=== PATIENT | female | born 1945 | race Hispanic/Latino ===

== ENCOUNTER → 2017-10-26 13:59 | Outpatient (CLI) | payer MEDICAID, SELFPAY ==
--- NOTE | 2017-10-26 14:05 | ECHOD_ITS ---
Reason For Study: Breast Cancer Procedure This was a 2D Doppler, Color Flow transthoracic echocardiogram. Exam performed in department. Left Ventricle Normal LV size. Mild concentric left ventricular hypertrophy. Left ventricular systolic function is normal. The estimated ejection fraction is 60 %. No regional wall motion abnormalities noted. Right Ventricle Normal right ventricle. Normal systolic function. Atria Normal left atrium. Normal right atrium. Mitral Valve Normal mitral valve. Mild (1+) eccentric mitral valve insufficiency. Tricuspid Valve Normal tricuspid valve. Mild tricuspid valve insufficiency. Aortic Valve Trisinus/trileaflet aortic valve. Mild focal aortic valve calcification. Pulmonic Valve Normal pulmonic valve. Great Vessels Normal aortic root. The pulmonary artery is normal size. Normal inferior vena cava. Pericardium/Pleural No pericardial effusion. MMode/2D Measurements & Calculations LVIDd: 3.4 cm IVSd: 1.6 cm LVOT diam: 2.0 cm LVIDs: 2.1 cm LVPWd: 1.2 cm LVOT area: 3.1 cm2 RVDd: 2.9 cm FS: 37.7 % Ao root diam: 2.6 cm LAV(MOD-bp): 42.3 ml LVAd ap4: 19.5 cm2 LA dimension: 3.6 cm LAV(MOD-bp) Indexed: 25.5 ml/m2 EDV(MOD-sp4): 50.2 ml LAV(MOD-sp2): 39.4 ml EDV(sp4-el): 52.3 ml LAV(MOD-sp4): 39.9 ml LVAs ap4: 10.8 cm2 ESV(MOD-sp4): 18.4 ml ESV(sp4-el): 19.1 ml EF(MOD-sp4): 63.3 % EF(sp4-el): 63.6 % SV(MOD-sp4): 31.8 ml SV(sp4-el): 33.3 ml LA A4 area: 14.7 cm2 RA A4 area: 10.0 cm2 Time Measurements MV dec time: 0.20 sec Doppler Measurements & Calculations MV E max lefty: 86.8 cm/sec Lat Peak E' Lefty: 5.4 cm/sec Med Peak E' Lefty: 3.9 cm/sec MV A max lefty: 101.4 cm/sec E/E' lat: 16.2 E/E' med: 22.4 MV E/A: 0.86 MV V2 max: 127.1 cm/sec MV P1/2t max lefty: 89.2 cm/sec Ao V2 max: 138.9 cm/sec MV max P.5 mmHg MV P1/2t: 65.2 msec Ao max P.7 mmHg MV V2 mean: 64.2 cm/sec MV dec slope: 401.1 cm/sec2 Ao V2 mean: 91.2 cm/sec MV mean P.0 mmHg MVA(P1/2t): 3.4 cm2 Ao mean P.0 mmHg MV V2 VTI: 30.6 cm Ao V2 VTI: 28.5 cm MVA(VTI): 2.5 cm2 MALCOLM(I,D): 2.7 cm2 MALCOLM(V,D): 2.4 cm2 LV V1 max: 107.8 cm/sec SV(LVOT): 77.8 ml PA V2 max: 77.0 cm/sec LV V1 max P.7 mmHg LV V1 mean P.0 mmHg LV V1 mean: 82.9 cm/sec LV V1 VTI: 25.3 cm TR max lefty: 219.3 cm/sec TR max P.2 mmHg Interpretation Summary Normal LV size. Mild concentric left ventricular hypertrophy. The estimated ejection fraction is 60 %. Left ventricular systolic function is normal. Mild (1+) eccentric mitral valve insufficiency. Mild tricuspid valve insufficiency. Ordering Physician: Hernan Jesus Referring Physician: HERNAN JESUS Performed By: Cl Franks RCS
== END ==
PROVIDERS: Family Provider Student in an Organized Health Care Education/Training Program; PCP Student in an Organized Health Care Education/Training Program
DX: C50.411 Malignant neoplasm of upper-outer quadrant of right female breast (principal); Z17.0 Estrogen receptor positive status [ER+]
CPT/HCPCS: 93306

== ENCOUNTER → 2017-11-12 12:49 | Outpatient (CLI) | payer MEDICAID, SELFPAY ==
[2017-11-12 13:04] VITALS: BP 125/63; PULSE 84; RESP 18; TEMP 36.7; O2SAT 95; BMI 25.3
== END ==
PROVIDERS: Family Provider Student in an Organized Health Care Education/Training Program; PCP Student in an Organized Health Care Education/Training Program; Visit Provider Student in an Organized Health Care Education/Training Program
DX: L97.429 Non-pressure chronic ulcer of left heel and midfoot with unspecified severity (principal)
CPT/HCPCS: 96365; J7050; A4216

== ENCOUNTER → 2017-11-13 12:54 | Outpatient (CLI) | payer MEDICAID, SELFPAY ==
[2017-11-13 13:02] VITALS: BP 144/63; PULSE 80; RESP 16; TEMP 36.6; O2SAT 99; BMI 25.3
== END ==
PROVIDERS: Family Provider Student in an Organized Health Care Education/Training Program; PCP Student in an Organized Health Care Education/Training Program; Visit Provider Student in an Organized Health Care Education/Training Program
DX: L97.429 Non-pressure chronic ulcer of left heel and midfoot with unspecified severity (principal)
CPT/HCPCS: 96365; J7050; A4216

== ENCOUNTER 2017-11-14 13:01 | Outpatient (CLI) | payer MEDICAID, SELFPAY ==
[2017-11-14 13:03] VITALS: BP 164/88; PULSE 81; RESP 18; TEMP 36.8; O2SAT 100
== END 2017-11-14 15:29 | disposition home or self-care (01) ==
LOC: MEDOUTP 13:01 → PCU 13:04
PROVIDERS: Family Provider Student in an Organized Health Care Education/Training Program; PCP Student in an Organized Health Care Education/Training Program; Visit Provider Student in an Organized Health Care Education/Training Program
DX: L97.429 Non-pressure chronic ulcer of left heel and midfoot with unspecified severity (principal)
CPT/HCPCS: 96365; J7050

== ENCOUNTER 2017-11-15 13:08 | Outpatient (CLI) | payer MEDICAID, SELFPAY ==
[2017-11-15 13:21] VITALS: BP 171/79; PULSE 73; RESP 18; TEMP 36.6; O2SAT 100
[2017-11-15] MEDS: 0.9% NaCl Peripheral Flush Adult/Peds IV (13:33)
[2017-11-15] MEDS: 0.9% NaCl IVPB Med Flush (250 mL) 15 ML IV (13:33)
== END 2017-11-15 15:17 | disposition home or self-care (01) ==
LOC: MEDOUTP 13:09 → MS3 13:11
PROVIDERS: Family Provider Student in an Organized Health Care Education/Training Program; PCP Student in an Organized Health Care Education/Training Program; Visit Provider Student in an Organized Health Care Education/Training Program
DX: L97.429 Non-pressure chronic ulcer of left heel and midfoot with unspecified severity (principal)
CPT/HCPCS: 96365; J7040; J7050; A4216

== ENCOUNTER → 2017-11-17 09:50 | Outpatient (CLI) | payer MEDICAID, SELFPAY ==
[2017-11-17 09:52] VITALS: BP 156/68; PULSE 83; RESP 16; TEMP 36.6; O2SAT 96; BMI 25.3
== END ==
PROVIDERS: Family Provider Student in an Organized Health Care Education/Training Program; PCP Student in an Organized Health Care Education/Training Program; Visit Provider Student in an Organized Health Care Education/Training Program
DX: L97.429 Non-pressure chronic ulcer of left heel and midfoot with unspecified severity (principal)
CPT/HCPCS: 96365; J7040; J7050; A4216

== ENCOUNTER → 2017-11-18 10:07 | Outpatient (CLI) | payer MEDICAID, SELFPAY ==
[2017-11-18 10:00] VITALS: BP 134/57; PULSE 93; RESP 16; TEMP 36.6; O2SAT 99; BMI 25.3
== END ==
PROVIDERS: Family Provider Student in an Organized Health Care Education/Training Program; PCP Student in an Organized Health Care Education/Training Program
DX: L97.429 Non-pressure chronic ulcer of left heel and midfoot with unspecified severity (principal)
CPT/HCPCS: 96365; J7050

== ENCOUNTER → 2017-11-19 09:30 | Outpatient (CLI) | payer MEDICAID, SELFPAY ==
[2017-11-19 10:10] VITALS: BP 147/74; PULSE 83; RESP 18; TEMP 36.3; O2SAT 97; BMI 25.3
== END ==
PROVIDERS: Family Provider Student in an Organized Health Care Education/Training Program; PCP Student in an Organized Health Care Education/Training Program; Visit Provider Student in an Organized Health Care Education/Training Program
DX: L97.429 Non-pressure chronic ulcer of left heel and midfoot with unspecified severity (principal)
CPT/HCPCS: 96365; J7050; A4216

== ENCOUNTER 2017-11-22 09:49 | Outpatient (CLI) | payer MEDICAID, SELFPAY ==
[2017-11-22 10:10] VITALS: BP 129/59; PULSE 74; RESP 18; TEMP 36.4; O2SAT 100
[2017-11-22] MEDS: 0.9% NaCl IVPB Med Flush (250 mL) 15 ML IV (10:26)
== END 2017-11-22 11:45 | disposition home or self-care (01) ==
LOC: MEDOUTP 09:50 → MS3 09:50
PROVIDERS: Family Provider Student in an Organized Health Care Education/Training Program; PCP Student in an Organized Health Care Education/Training Program; Visit Provider Student in an Organized Health Care Education/Training Program
DX: L97.429 Non-pressure chronic ulcer of left heel and midfoot with unspecified severity (principal)
CPT/HCPCS: 96365; J7050

== ENCOUNTER → 2017-11-23 10:08 | Outpatient (CLI) | payer MEDICAID, SELFPAY ==
[2017-11-23 10:09] VITALS: BP 136/65; PULSE 79; RESP 16; TEMP 36.8; O2SAT 96; BMI 25.3
[2017-11-23 10:57] LABS: Absolute Lymphocyte Count 1.37 X10^3/ul (0.83-4.51); Absolute Neutrophil Count 3.6 X10^3/uL (2.0-7.7); Basophil# 0.08 X10^3/uL; Basophil% 1.4 % (0-1); Eosinophil# 0.15 X10^3/uL; Eosinophils% 2.7 % (0-5); Hematocrit 31.7 % (37-47); Hemoglobin 10.5 g/dl (12.0-15.0); Lymphocyte # 1.37 X10^3/ul (4.0); Lymphocyte % 24.7 % (19-41); Mean Corp Hgb Conc 33.1 g/gl (32-36); Mean Corpuscular Volume 84.5 fL (81-99); Mean Platelet Vol. 12.2 fl (6.2-12.0); Monocyte# 0.38 X10^3/uL; Monocyte% 6.9 % (0-10); Neutrophil # 3.55 X10^3/uL (2.7-7.7); Neutrophil % 64.1 % (47-70); Platelet Count 211 K/mm3 (150-450); RBC Distribution Width CV 13.3 % (11.6-14.6); RBC Distribution Width SD 39.8 fl (35.1-43.9); Red Blood Count 3.75 M/mm3 (4.2-5.4); White Blood Count 5.5 K/mm3 (4.4-11.0)
[2017-11-23 11:07] LABS: POSITIVE COUNT NO; POSITIVE DIFFERENTIAL NO; POSITIVE MORPHOLOGY NO
[2017-11-23 11:29] LABS: Vancomycin, Trough Level 5.8 ug/mL (5.0-15.0)
[2017-11-23 11:35] LABS: ALB/GLOB Ratio 0.8 RATIO (0.9-2.4); AST(SGOT) 11 U/L (15-37); Alanine Aminotransfer ALT/SGPT 17 U/L (13-56); Albumin, Serum 3.4 g/dL (3.2-5.0); Alkaline Phosphatase 108 U/L (45-117); Anion Gap 9 (5-15); BUN 27 mg/dL (7-18); BUN/Creat Ratio 26.7 RATIO (10-20); CRP 5.02 mg/L (0.0-3.0); Calcium,Total 9.2 mg/dL (8.5-10.1); Chloride 106 mmol/L (98-107); Creatinine, Serum 1.01 mg/dL (0.55-1.02); EST Glomerular Filtration Rate 57 mL/min (>60); Est Glom Filt Rate - Afr Amer 70 mL/min (>60); Estimated Creatinine Clearance 42.26 ml/min; Globulin 4.2 g/dL (2.2-4.2); Glucose 280 mg/dL (74-106); Potassium 4.6 mmol/L (3.5-5.1); Protein, Total 7.6 g/dL (6.4-8.2); Sodium Level 138 mmol/L (136-145)
== END ==
PROVIDERS: Family Provider Student in an Organized Health Care Education/Training Program; PCP Student in an Organized Health Care Education/Training Program; Visit Provider Student in an Organized Health Care Education/Training Program
DX: L97.429 Non-pressure chronic ulcer of left heel and midfoot with unspecified severity (principal)
CPT/HCPCS: 96365; 80053; 80202; 85025; 86140; J7050; A4216

== ENCOUNTER → 2017-11-24 09:48 | Outpatient (CLI) | payer MEDICAID, SELFPAY ==
[2017-11-24 10:17] VITALS: BP 126/64; PULSE 82; RESP 16; TEMP 37.2; O2SAT 99
== END ==
PROVIDERS: Family Provider Student in an Organized Health Care Education/Training Program; PCP Student in an Organized Health Care Education/Training Program; Visit Provider Student in an Organized Health Care Education/Training Program
DX: L97.429 Non-pressure chronic ulcer of left heel and midfoot with unspecified severity (principal)
CPT/HCPCS: 96365; J7050; A4216

== ENCOUNTER → 2017-11-26 09:35 | Outpatient (CLI) | payer MEDICAID, SELFPAY ==
[2017-11-26 09:40] VITALS: BP 156/73; PULSE 81; RESP 16; TEMP 36.3; O2SAT 100; BMI 25.3
== END ==
PROVIDERS: Family Provider Student in an Organized Health Care Education/Training Program; PCP Student in an Organized Health Care Education/Training Program; Visit Provider Student in an Organized Health Care Education/Training Program
DX: L97.429 Non-pressure chronic ulcer of left heel and midfoot with unspecified severity (principal)
CPT/HCPCS: 96365; J7040; J7050; A4216

== ENCOUNTER → 2017-11-27 09:49 | Outpatient (CLI) | payer MEDICAID, SELFPAY ==
[2017-11-27 09:54] VITALS: BP 134/66; PULSE 77; RESP 16; TEMP 36.3; O2SAT 97
== END ==
PROVIDERS: Family Provider Student in an Organized Health Care Education/Training Program; PCP Student in an Organized Health Care Education/Training Program; Visit Provider Internal Medicine Rheumatology
DX: L97.429 Non-pressure chronic ulcer of left heel and midfoot with unspecified severity (principal)
CPT/HCPCS: 96365; J7050; A4216

== ENCOUNTER 2017-11-28 09:36 | Outpatient (CLI) | payer MEDICAID, SELFPAY ==
[2017-11-28 09:55] VITALS: BP 156/77; PULSE 75; RESP 16; TEMP 36.9; O2SAT 99
[2017-11-28] MEDS: 0.9% NaCl IVPB Med Flush (250 mL) 15 ML IV (09:57)
== END 2017-11-28 11:22 | disposition home or self-care (01) ==
LOC: MEDOUTP 09:37 → PCU 09:37
PROVIDERS: Family Provider Student in an Organized Health Care Education/Training Program; PCP Student in an Organized Health Care Education/Training Program; Visit Provider Internal Medicine Rheumatology
DX: L97.429 Non-pressure chronic ulcer of left heel and midfoot with unspecified severity (principal)
CPT/HCPCS: 96365; J7050

== ENCOUNTER 2017-11-29 10:41 | Outpatient (CLI) | payer MEDICAID, SELFPAY ==
[2017-11-29 11:24] VITALS: BP 143/78; PULSE 84; RESP 16; TEMP 36.9; O2SAT 95
== END 2017-11-29 12:25 | disposition home or self-care (01) ==
LOC: MEDOUTP 10:41 → MS3 10:42
PROVIDERS: Family Provider Student in an Organized Health Care Education/Training Program; PCP Student in an Organized Health Care Education/Training Program; Visit Provider Internal Medicine Rheumatology
DX: L97.429 Non-pressure chronic ulcer of left heel and midfoot with unspecified severity (principal)
CPT/HCPCS: 96365; J7050

== ENCOUNTER → 2017-12-01 09:38 | Outpatient (CLI) | payer MEDICAID, SELFPAY ==
[2017-12-01 09:52] VITALS: BP 147/73; PULSE 72; RESP 18; TEMP 35.8; O2SAT 97
[2017-12-01 11:03] LABS: Absolute Lymphocyte Count 1.58 X10^3/ul (0.83-4.51); Absolute Neutrophil Count 6.3 X10^3/uL (2.0-7.7); Basophil# 0.05 X10^3/uL; Basophil% 0.6 % (0-1); Eosinophil# 0.18 X10^3/uL; Eosinophils% 2.1 % (0-5); Hematocrit 32.1 % (37-47); Hemoglobin 10.6 g/dl (12.0-15.0); Lymphocyte # 1.58 X10^3/ul (4.0); Lymphocyte % 18.3 % (19-41); Mean Corpuscular Hgb 27.4 pg (27.0-32.0); Mean Corpuscular Volume 82.9 fL (81-99); Mean Platelet Vol. 11.7 fl (6.2-12.0); Monocyte% 5.8 % (0-10); Neutrophil # 6.29 X10^3/uL (2.7-7.7); Platelet Count 196 K/mm3 (150-450); RBC Distribution Width CV 13.5 % (11.6-14.6); RBC Distribution Width SD 40.7 fl (35.1-43.9); Red Blood Count 3.87 M/mm3 (4.2-5.4); White Blood Count 8.6 K/mm3 (4.4-11.0)
[2017-12-01 11:04] LABS: Differential Indicated SCAN CRITERIA MET; POSITIVE COUNT NO; POSITIVE DIFFERENTIAL NO; POSITIVE MORPHOLOGY YES
[2017-12-01 11:10] LABS: Vancomycin, Trough Level 2.8 ug/mL (5.0-15.0)
[2017-12-01 11:19] LABS: ALB/GLOB Ratio 0.8 RATIO (0.9-2.4); AST(SGOT) 13 U/L (15-37); Alanine Aminotransfer ALT/SGPT 18 U/L (13-56); Albumin, Serum 3.3 g/dL (3.2-5.0); Alkaline Phosphatase 108 U/L (45-117); Anion Gap 8 (5-15); BUN 19 mg/dL (7-18); BUN/Creat Ratio 21.9 RATIO (10-20); CRP < 2.90 mg/L (0.0-3.0); Calcium,Total 8.5 mg/dL (8.5-10.1); Chloride 105 mmol/L (98-107); Creatinine, Serum 0.87 mg/dL (0.55-1.02); EST Glomerular Filtration Rate 69 mL/min (>60); Est Glom Filt Rate - Afr Amer 83 mL/min (>60); Globulin 3.9 g/dL (2.2-4.2); Glucose 204 mg/dL (74-106); Potassium 4.2 mmol/L (3.5-5.1); Protein, Total 7.2 g/dL (6.4-8.2); Sodium Level 138 mmol/L (136-145)
== END ==
PROVIDERS: Family Provider Student in an Organized Health Care Education/Training Program; PCP Student in an Organized Health Care Education/Training Program; Visit Provider Internal Medicine Rheumatology
DX: L97.429 Non-pressure chronic ulcer of left heel and midfoot with unspecified severity (principal)
CPT/HCPCS: 96365; 36591; 80053; 80202; 85025; 86140; J7050; A4216

== ENCOUNTER → 2017-12-03 09:51 | Outpatient (CLI) | payer MEDICAID, SELFPAY ==
[2017-12-03 09:55] VITALS: BP 155/72; PULSE 74; RESP 16; TEMP 36.6; O2SAT 98
== END ==
PROVIDERS: Family Provider Student in an Organized Health Care Education/Training Program; PCP Student in an Organized Health Care Education/Training Program; Visit Provider Internal Medicine Rheumatology
DX: L97.429 Non-pressure chronic ulcer of left heel and midfoot with unspecified severity (principal)
CPT/HCPCS: 96365; J7050; A4216

== ENCOUNTER → 2017-12-04 09:45 | Outpatient (CLI) | payer MEDICAID, SELFPAY ==
[2017-12-04 10:13] VITALS: BP 171/73; PULSE 71; RESP 18; TEMP 36.6; O2SAT 96
== END ==
PROVIDERS: Family Provider Student in an Organized Health Care Education/Training Program; PCP Student in an Organized Health Care Education/Training Program; Visit Provider Internal Medicine Rheumatology
DX: L97.429 Non-pressure chronic ulcer of left heel and midfoot with unspecified severity (principal)
CPT/HCPCS: 96365; J7050; A4216

== ENCOUNTER 2017-12-05 09:47 | Outpatient (CLI) | payer MEDICAID, SELFPAY ==
[2017-12-05] MEDS: 0.9% NaCl Peripheral Flush Adult/Peds IV (10:03)
[2017-12-05] MEDS: 0.9% NaCl IVPB Med Flush (250 mL) 15 ML IV (10:03)
[2017-12-05 10:15] VITALS: BP 152/72; PULSE 73; RESP 20; TEMP 36.3; O2SAT 98
== END 2017-12-05 11:29 | disposition home or self-care (01) ==
LOC: MEDOUTP 09:47 → MS3 09:48
PROVIDERS: Family Provider Student in an Organized Health Care Education/Training Program; PCP Student in an Organized Health Care Education/Training Program; Visit Provider Internal Medicine Rheumatology
DX: L97.429 Non-pressure chronic ulcer of left heel and midfoot with unspecified severity (principal)
CPT/HCPCS: 96365; J7050; A4216

== ENCOUNTER → 2018-01-04 08:20 | Outpatient (CLI) | payer MEDICAID, SELFPAY ==
--- NOTE | 2018-01-04 09:00 | PET_ITS ---
EXAMINATION: FDG PET CT INDICATIONS: A 72-year-old female with reported history of carcinoma of the breast presenting for restaging examination. COMPARISON EXAMINATION: None available. TECHNIQUE: Following the intravenous administration of 15.1 mCi of F-18 deoxyglucose via the left forearm, multiplanar image acquisitions of the neck, chest, abdomen and pelvis to level of mid thigh, obtained at one hour post radiopharmaceutical administration contemporaneously interpreted with the current CT of the neck, chest, abdomen and pelvis to level of mid thigh, dated 01/04/18 via coregistration reveal: SERUM GLUCOSE LEVEL: 135 mg/dl. HEIGHT: 63 inches. WEIGHT: 143 lbs. FINDINGS: 1. There is no quantitative scintigraphic evidence of abnormal increased glucose metabolism on meticulous inspection of whole body acquisitions to include all three axis reconstructions. 2. Normal physiologic distribution of the radiopharmaceutical is apparent in the hepatic and splenic parenchyma, both renal units, bladder and visualized intestinal tract. There is uniform distribution of the radiopharmaceutical concentration compared on the cerebellar hemispheres and cerebral cortex. Diffuse intestinal tract activity is noted throughout all four quadrants of the abdominal-pelvic retroperitoneum, mesentery consistent with normal physiologic distribution of the radiopharmaceutical. Prominent glucose metabolism is identified in the right-left midline mandible in proximity to dental hardware placement. Pertinent CT findings are as follows. CHEST: Lyyo-F-Xdde-MediPort placement is noted. Atherosclerotic calcification is defined in the thoracic aorta without evidence of dilatation, aneurysm formation. Coronary arterial calcification is observed. Bilateral axillary soft tissue densities are non-glucose avid. There are no parenchymal densities-nodules demonstrated in the right-left hemithorax manifesting quantitatively significant increased glucose metabolism. ABDOMEN AND PELVIS: Cholelithiasis is defined. Atherosclerotic calcification is defined in the abdominal aorta without evidence of dilatation, aneurysm formation. Pelvic arterial calcification is observed. Right-left inguinal soft tissue densities with fatty hilus formation are ametabolic. Calcified granuloma formation is noted within the hepatic parenchyma. The uterus appears surgically absent. SKELETAL: Degenerative changes defined in the cervical, thoracic and lumbar spine demonstrate no evidence for glucose hypermetabolism. Diffuse demineralization is demonstrated in the axial skeletal structures. PET/PET/CT Tumor Base -Thigh Subs IMPRESSION: 1. NEGATIVE EXAMINATION. There is no definitive quantitative scintigraphic evidence of recurrent-metastatic viable neoplasm. Electronic Signature Kameron Black, D.O. Electronically Signed: Kameron David DO at 19:27 EDT Tel , Service support ,
== END ==
PROVIDERS: Family Provider Student in an Organized Health Care Education/Training Program; PCP Student in an Organized Health Care Education/Training Program
DX: C50.411 Malignant neoplasm of upper-outer quadrant of right female breast (principal); Z17.0 Estrogen receptor positive status [ER+]
CPT/HCPCS: 78815; A9552; A4216

== ENCOUNTER → 2018-01-18 09:18 | Outpatient (CLI) | payer MEDICAID, SELFPAY ==
--- NOTE | 2018-01-18 09:22 | ECHOD_ITS ---
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 Exam performed in department. Left Ventricle Normal LV size. Left ventricular systolic function is normal. The estimated ejection fraction is 60 %. Transmitral diastolic flow velocities suggest mild (stage 1) diastolic dysfunction (reversed pattern). No regional wall motion abnormalities noted. Right Ventricle Normal RV size. Normal systolic function. Atria Normal left atrium. Normal right atrium. Mitral Valve Normal mitral valve. Mild (1+) eccentric mitral valve insufficiency. Tricuspid Valve Normal tricuspid valve. Mild (1+) tricuspid valve insufficiency. Pulmonary artery systolic pressure is 27 mmHg. Aortic Valve Trisinus/trileaflet aortic valve. Mild focal aortic valve calcification. Pulmonic Valve Normal pulmonic valve. Great Vessels Normal aortic root. The pulmonary artery is normal size. Normal inferior vena cava. Pericardium/Pleural No pericardial effusion. MMode/2D Measurements & Calculations LVIDd: 4.1 cm IVSd: 0.90 cm Ao root diam: 2.8 cm LVIDs: 2.8 cm LVPWd: 0.92 cm RVDd: 2.6 cm FS: 32.1 % LAV(MOD-bp): 35.4 ml LA A4 area: 12.3 cm2 RA A4 area: 11.8 cm2 LAV(MOD-bp) Indexed: 21.4 ml/m2 LAV(MOD-sp2): 34.2 ml LAV(MOD-sp4): 30.0 ml Doppler Measurements & Calculations MV E max lefty: 97.0 cm/sec Lat Peak E' Lefty: 3.5 cm/sec Med Peak E' Lefty: 3.9 cm/sec MV A max lefty: 109.1 cm/sec E/E' lat: 27.3 E/E' med: 25.1 MV E/A: 0.89 Ao V2 max: 138.0 cm/sec LV V1 max: 96.6 cm/sec PA V2 max: 77.0 cm/sec Ao max P.6 mmHg LV V1 max P.7 mmHg Ao V2 mean: 100.1 cm/sec Ao mean P.4 mmHg Ao V2 VTI: 35.8 cm TR max lefty: 235.4 cm/sec TR max P.2 mmHg Interpretation Summary Normal LV size. Left ventricular systolic function is normal. The estimated ejection fraction is 60 %. Mild (1+) eccentric mitral valve insufficiency. Mild (1+) tricuspid valve insufficiency. Ordering Physician: Yancy Vargas Referring Physician: Noble Lemus Performed By: Pema Hodges RDCS, RVT
== END ==
PROVIDERS: Family Provider Student in an Organized Health Care Education/Training Program; PCP Student in an Organized Health Care Education/Training Program
DX: C50.411 Malignant neoplasm of upper-outer quadrant of right female breast (principal); Z17.0 Estrogen receptor positive status [ER+]
CPT/HCPCS: 93306

== ENCOUNTER → 2018-04-16 12:55 | Outpatient (CLI) | payer MEDICAID, SELFPAY ==
--- NOTE | 2018-04-16 12:58 | ECHOD_ITS ---
Reason For Study: Breast CA Procedure This was a 2D Doppler, Color Flow transthoracic echocardiogram. The exam was of adequate technical quality. Exam performed in department. Left Ventricle Normal LV size. Left ventricular systolic function is normal. The estimated ejection fraction is 65 %. There is evidence of diastolic dysfunction. No regional wall motion abnormalities noted. Right Ventricle Normal RV size. Normal systolic function. Atria Normal left atrium. Normal right atrium. No doppler evidence for ASD. Mitral Valve There is no mitral annular calcification. Normal mitral valve. Mild-Moderate (1-2+) mitral valve insufficiency. Tricuspid Valve Normal tricuspid valve. Mild tricuspid valve insufficiency. Right ventricular systolic pressure estimated to be 25 mmHg. Aortic Valve Trisinus/trileaflet aortic valve. Mild focal aortic valve calcification. Pulmonic Valve The pulmonic valve is not well visualized. Trivial pulmonic valve insufficiency. Great Vessels Normal sized aortic root. Calcified aortic root. Pericardium/Pleural Trivial pericardial effusion. There are no echocardiographic indications of cardiac tamponade. MMode/2D Measurements & Calculations LVIDd: 4.1 cm IVSd: 1.0 cm Ao root diam: 2.7 cm LVIDs: 2.5 cm LVPWd: 0.97 cm RVDd: 2.9 cm FS: 39.2 % LAV(MOD-bp): 31.5 ml EDV(MOD-sp4): 50.6 ml SV(MOD-sp4): 36.7 ml LAV(MOD-bp) Indexed: 18.7 ml/m2 ESV(MOD-sp4): 13.8 ml LAV(MOD-sp2): 36.8 ml EF(MOD-sp4): 72.6 % LAV(MOD-sp4): 24.9 ml LA A4 area: 12.1 cm2 RA A4 area: 12.9 cm2 Doppler Measurements & Calculations MV E max lefty: 90.2 cm/sec Lat Peak E' Lefty: 5.0 cm/sec Med Peak E' Lefty: 4.0 cm/sec MV A max lefty: 110.6 cm/sec E/E' lat: 17.9 E/E' med: 22.5 MV E/A: 0.81 Ao V2 max: 186.4 cm/sec LV V1 max: 132.5 cm/sec PA V2 max: 100.9 cm/sec Ao max P.9 mmHg LV V1 max P.0 mmHg Ao V2 mean: 135.3 cm/sec Ao mean P.9 mmHg Ao V2 VTI: 43.5 cm TR max lefty: 235.9 cm/sec TR max P.3 mmHg Interpretation Summary Left ventricular systolic function is normal. The estimated ejection fraction is 65 %. Mild-Moderate (1-2+) mitral valve insufficiency. Mild tricuspid valve insufficiency. Mild focal aortic valve calcification. Trivial pulmonic valve insufficiency. Calcified aortic root. Trivial pericardial effusion. There are no echocardiographic indications of cardiac tamponade. Right ventricular systolic pressure estimated to be 25 mmHg. There is evidence of diastolic dysfunction. Ordering Physician: Cammie Vargas Referring Physician: Noble Dyson Performed By: Pema Hodges RDCS, RVT
== END ==
PROVIDERS: Family Provider Student in an Organized Health Care Education/Training Program; PCP Student in an Organized Health Care Education/Training Program
DX: C50.411 Malignant neoplasm of upper-outer quadrant of right female breast (principal); Z17.0 Estrogen receptor positive status [ER+]; Z79.899 Other long term (current) drug therapy
CPT/HCPCS: 93306

== ENCOUNTER → 2019-02-03 14:00 | Outpatient (CLI) | payer MEDICAID, SELFPAY ==
--- NOTE | 2019-02-03 14:07 | BD_ITS ---
STUDY: DUAL ENERGY X-RAY ABSORPTIOMETRY / DXA REASON FOR EXAM: Female, 73 years old. The patient is postmenopausal. Loss of height. Breast cancer. TECHNIQUE: Bone Mineral Density (BMD) measurements of lumbar spine and bilateral hips were obtained. COMPARISON: None. FINDINGS: Lumbar Spine (L1-L4): g/cm2 (1.023) / T-score (-1.2) / Z-score (0.5) Findings are suggestive of osteopenia with a low fracture risk. Left Femur Total: g/cm2 (0.791) / T-score (-1.7) / Z-score (-0.1) Left Femoral Neck: g/cm2 (0.767) / T-score (-1.9) / Z-score (-0.2) Right Femur Total: g/cm2 (0.829) / T-score (-1.4) / Z-score (0.2) Right Femoral Neck: g/cm2 (0.817) / T-score (-1.6) / Z-score (0.2) BD/Dexa Bone Density Study IMPRESSION: The patient is considered osteopenic as outlined below according to World [employer] Organization (WHO) criteria with a moderate fracture risk. Reference Information: The T-score is the number of standard deviations above or below the standard which is normal for young adults at their peak bone mineral density. The World Health Organization (WHO) interprets the T-scores as follows: Above -1 Normal bone density Between -1 and -2.5 Osteopenia Equal to / or below -2.5 Osteoporosis As a practical clinical guideline, osteopenia may be graded as follows: Mild -1 through -1.5 Moderate -1.6 through -2.0 Severe -2.1 through -2.4 The Z-score is the number of standard deviations above or below age-matched controls. A Z-score of less than -1.5 would be considered abnormal. References: 1. NIH Osteoporosis and Related Bone Diseases http://www.osteo.org 2. International Society for Clinical Densitometry http://www.iscd.org 3. National Osteoporosis Foundation http://www.nof.org Electronically Signed: Manny Fowler, at 15:32 EDT , Service support ,
== END ==
PROVIDERS: Family Provider Student in an Organized Health Care Education/Training Program; PCP Student in an Organized Health Care Education/Training Program
DX: S22.000A Wedge compression fracture of unspecified thoracic vertebra, initial encounter for closed fracture (principal); Z78.0 Asymptomatic menopausal state; M85.80 Other specified disorders of bone density and structure, unspecified site; C50.411 Malignant neoplasm of upper-outer quadrant of right female breast; Z17.0 Estrogen receptor positive status [ER+]; I10 Essential (primary) hypertension
CPT/HCPCS: 77080

== ENCOUNTER → 2019-02-08 14:47 | Outpatient (CLI) | payer MEDICAID, SELFPAY ==
--- NOTE | 2019-02-08 14:51 | ECHODONC_ITS ---
Reason For Study: HTN Procedure This was a 2D Doppler, Color Flow transthoracic echocardiogram. Myocardial strain analysis was performed in this exam to aid in the assessment of cardiac function. The exam was of adequate technical quality. Exam performed in department. Left Ventricle Normal LV size. Sigmoid septum. Left ventricular systolic function is normal. The estimated ejection fraction is 65 %. The global longitudinal strain = -21 % (normal). Diastolic function is indeterminate. No regional wall motion abnormalities noted. Right Ventricle Normal RV size. Normal systolic function. Atria Normal left atrium. Normal right atrium. No doppler evidence for ASD. Mitral Valve There is no mitral annular calcification. Normal mitral valve. Mild (1+) mitral valve insufficiency. Tricuspid Valve Normal tricuspid valve. Trivial tricuspid valve insufficiency. Aortic Valve Trisinus/trileaflet aortic valve. Mild diffuse aortic valve thickening. Mild focal aortic valve calcification. Pulmonic Valve The pulmonic valve is not well visualized. Trivial pulmonic valve insufficiency. Great Vessels Normal sized aortic root. Pericardium/Pleural Trivial pericardial effusion. There are no echocardiographic indications of cardiac tamponade. MMode/2D Measurements & Calculations LVIDd: 4.2 cm IVSd: 0.90 cm Ao root diam: 2.7 cm LVIDs: 2.6 cm LVPWd: 1.0 cm RVDd: 2.7 cm FS: 37.5 % LAV(MOD-bp): 33.0 ml LA A4 area: 12.1 cm2 LA dimension(2D): 3.8 cm LAV(MOD-bp) Indexed: 19.6 ml/m2 LAV(MOD-sp2): 31.9 ml LAV(MOD-sp4): 28.4 ml RA A4 area: 9.9 cm2 Time Measurements MV dec time: 0.23 sec Doppler Measurements & Calculations MV E max lefty: 65.7 cm/sec Lat Peak E' Lefty: 2.4 cm/sec Med Peak E' Lefty: 3.1 cm/sec MV A max lefty: 107.5 cm/sec E/E' lat: 27.5 E/E' med: 21.2 MV E/A: 0.61 Ao V2 max: 158.5 cm/sec LV V1 max: 111.5 cm/sec PA V2 max: 95.2 cm/sec Ao max P.1 mmHg LV V1 max P.0 mmHg Interpretation Summary Left ventricular systolic function is normal. The estimated ejection fraction is 65 %. The global longitudinal strain = -21 % (normal). Sigmoid septum. Mild (1+) mitral valve insufficiency. Trivial tricuspid valve insufficiency. Mild diffuse aortic valve thickening. Mild focal aortic valve calcification. Trivial pulmonic valve insufficiency. Trivial pericardial effusion. There are no echocardiographic indications of cardiac tamponade. Diastolic function is indeterminate. Ordering Physician: FATUMA JESUS Referring Physician: ELTON SMALLWOOD Performed By: Bess Diaz RDCS, RVT
== END ==
PROVIDERS: Family Provider Student in an Organized Health Care Education/Training Program; PCP Student in an Organized Health Care Education/Training Program
DX: C50.411 Malignant neoplasm of upper-outer quadrant of right female breast (principal); Z17.0 Estrogen receptor positive status [ER+]; I10 Essential (primary) hypertension; M48.54XA Collapsed vertebra, not elsewhere classified, thoracic region, initial encounter for fracture
CPT/HCPCS: 0399T; 93306

== ENCOUNTER → 2019-11-29 16:44 | Outpatient (CLI) | payer MEDICAID, SELFPAY ==
[2019-09-27 11:04] VITALS: BMI 24.3
--- NOTE | 2019-11-29 16:55 | US_ITS ---
STUDY: THYROID ULTRASOUND REASON FOR EXAM: Female, 74 years old. History of liver metastases TECHNIQUE: Ultrasound evaluation of the thyroid was performed with real-time and static hill-scale imaging. COMPARISON: None. FINDINGS: RIGHT LOBE: The right lobe of the thyroid gland measures 5.0 x 1.7 x 2.6 cm. There is a homogeneous echotexture. There is a 7 mm cystic lesion in the midpole which demonstrates regular margination. LEFT LOBE: The left lobe of the thyroid gland measures 7.5 x 2.6 x 2.5 cm. There is a homogeneous echotexture. There is a 4.1 x 4.4 x 3.0 cm solid nodule within the inferior irregular margination. ISTHMUS: The isthmus measures 5 mm . The regional lymph nodes are normal. US/Thyroid IMPRESSION: 1. 4.1 cm solid nodule within the left lower thyroid pole. Percutaneous sampling is recommended for definitive characterization. 2. 7 mm follicular cyst within the mid right thyroid. Electronically Signed: Smooth Caldera MD at 4:24 EDT Tel , Service support ,
== END ==
PROVIDERS: PCP Student in an Organized Health Care Education/Training Program
DX: C50.411 Malignant neoplasm of upper-outer quadrant of right female breast (principal); C78.7 Secondary malignant neoplasm of liver and intrahepatic bile duct; Z17.0 Estrogen receptor positive status [ER+]
CPT/HCPCS: 76536

== ENCOUNTER → 2020-03-29 09:01 | Outpatient (CLI) | payer MEDICAID, SELFPAY ==
[2019-09-27 11:04] VITALS: BMI 24.3
--- NOTE | 2020-03-29 09:06 | NM_ITS ---
CLINICAL: 74-year-old female with reported history of carcinoma of the breast with current complaint of right lower extremity pain. WHOLE BODY 99m Tc MDP RADIONUCLIDE BONE SCINTIGRAPHY COMPARISON: None available FINDINGS: Following the intravenous administration of approximately 25.0 mCi of 99m Tc MDP, whole body bone images reveal: 1. Increased radiopharmaceutical concentration is diffusely defined in the 11th thoracic vertebra. 2. Facilitated tracer uptake is observed in the 10th thoracic vertebra posteriorly on the left and right, third lumbar vertebra posteriorly on the right, sternoclavicular compartment of the left shoulder, glenohumeral compartment of the right shoulder, acromioclavicular compartments of both shoulders, bilateral knees, the right ankle, the right mid and forefoot. 3. The remaining skeletal structures are scintigraphically unremarkable with normal-appearing renal images and urinary bladder activity identified. Enhanced radiotracer distribution is demonstrated in the bilateral maxilla most consistent with periodontal disease and/or periostitis. NM/Bone Scan Whole Body IMPRESSION: 1. The increase in radiopharmaceutical concentration identified in the 11th thoracic vertebra is most consistent with trauma-fracture or degenerative arthritis. Plain film x-ray correlation is recommended in the setting of known breast carcinoma. 2. Degenerative arthritis appears expressed in the thoracic and lumbar spine, bilateral shoulders, right and left knees, right ankle, the right mid and forefoot. 3. There is no definitive typical scintigraphic evidence of diffuse axial skeletal metastatic disease on the current examination. Electronically Signed: Kameron David DO at 20:15 EDT Tel , Service support ,
== END ==
PROVIDERS: PCP Student in an Organized Health Care Education/Training Program
DX: C50.411 Malignant neoplasm of upper-outer quadrant of right female breast (principal); Z17.0 Estrogen receptor positive status [ER+]
CPT/HCPCS: 78306

== ENCOUNTER 2021-04-24 16:49 | Observation (INO) | payer MEDICAID, SELFPAY ==
[2020-04-12 09:09] VITALS: BMI 24.3
[2021-04-24 16:49] VITALS: BP 163/63; PULSE 79; RESP 14; TEMP 36.6; O2SAT 98; BMI 27.5
--- NOTE | 2021-04-24 18:29 | ED.VIS.LOWEX ---
HPI History of Present Illness Chief Complaint: Wound Narrative Narrative: 75-year-old female presenting with right great toe pain. Her son is interpreting. He states that she has history of problems with her feet and saw a [facility] elsewhere about 2 years ago. He believes this was in [place]. She has no current [facility] [employer]. She has been having symptoms of pain in the right great toe for the last 3 days. She denies any injury. She complains of decreased sensation as well as discoloration of the right great toe. She does have a new wound on the medial aspect of the right great toe. Her has been doing wound care on it. She has not seen a formal podiatric foot and ankle specialist or [facility] [employer] in years. [facility] Medical History (Updated 04/24/21 @ 21:[address] Corrine De Jesus MD) Abnormal EKG Amblyopia, right eye Coronary artery calcification seen on CAT scan Coronary atherosclerosis due to calcified coronary lesion of [place] artery Diabetes mellitus type II, controlled Essential hypertension Malignant neoplasm of upper-outer quadrant of right female breast Osteoarthritis of both feet Home Medications insulin glargine 20 unit SUBCUT QHS 09/07/17 [History Last Taken Unknown] anastrozole 1 mg PO DAILY 09/08/17 [History Last Taken Unknown] aspirin 81 mg PO DAILY@0800 09/08/17 [History Last Taken Unknown] calcium carbonate-vitamin D3 1 ea PO DAILY 09/08/17 [History Last Taken Unknown] glimepiride 4 mg PO DAILY 09/08/17 [History Last Taken Unknown] losartan 100 mg PO DAILY 09/08/17 [History Last Taken Unknown] meloxicam 15 mg PO DAILY 09/08/17 [History Last Taken Unknown] sodium chloride 1 drp OP Q6H 09/08/17 [History Last Taken Unknown] atenolol 100 mg tablet 150 mg PO DAILY 09/19/19 [History Last Taken Unknown] hydrochlorothiazide 25 mg tablet 25 mg PO DAILY 09/19/19 [History Last Taken Unknown] loperamide 2 mg capsule 2 mg PO Q1-4H PRN 09/19/19 [History Last Taken Unknown] magnesium oxide 400 mg PO BID 09/19/19 [History Last Taken Unknown] mecobalamin (vitamin B12) 1,000 mcg disintegrating tablet,sublingual 1,000 mcg SUBLINGUAL DAILY 09/19/19 [History Last Taken Unknown] polysaccharide iron complex 150 mg iron capsule 150 mg PO BID cap 09/19/19 [History Last Taken Unknown] metformin 500 mg tablet 500 mg PO .COMPLEX 09/27/19 [History Last Taken Unknown] Allergy/AdvReac Type Severity Reaction Status Date / Time No Known Allergies Allergy Verified 04/24/21 16:52 Family History Father Diabetes Lung cancer Throat cancer Brother Diabetes Hypertension CAD (coronary artery disease) Surgical History History of History of colonoscopy History of hysterectomy Status post cataract extraction of both eyes with insertion of intraocular lens Social History Smoking Status: Never smoker ROS ROS ED Constitutional Constitutional ED: Denies chills or fever(s) Eyes Eyes: Denies blurry vision or diplopia ENT ENT ED: Denies rhinorrhea or sore throat Cardiovascular Cardiovascular: Denies chest pain or palpitations Respiratory/Chest Respiratory/Chest: Denies cough, dyspnea or sputum Gastrointestinal Gastrointestinal: Denies abdominal pain, nausea or vomiting Genitourinary Genitourinary ED: Denies dysuria, hematuria or urinary frequency Musculoskeletal Musculoskeletal: Reports other Details: Right great toe pain ; Denies arthralgias or myalgias Integumentary Reports other Details: Decreased sensation and discoloration with purple hue of right great toe. Neurologic Neurologic: Denies headache(s) Endocrine Endocrinology: Denies polydipsia or polyuria EXAM Physical Exam Const Vital Signs: 04/24/21 16:49 04/24/21 19:07 Temperature 97.8 F Temperature Source Temporal Pulse Rate 79 Respiratory Rate 14 Blood Pressure 163/63 H 148/66 H Blood Pressure Mean 96 93 Pulse Ox 98 Oxygen Delivery Method Room Air HEENT Reports moist mucous membranes normocephalic and atraumatic Resp normal respiratory effort and clear to auscultation bilaterally Cardio regular rate and regular rhythm Extremity Extremity Narrative: Grayish-purple hue to right great toe. There is a 2 cm wound over the medial aspect of the right great toe. There is no drainage. Decreased sensation over the right great toe. Pedal pulses 2+. Neuro oriented x3, CN's II-XII intact bilaterally and moves all extremities Sensorium / Orientation: alert Psych mental status grossly normal Skin Skin Narrative: As described above MDM MDM MDM Narrative Medical decision making narrative: Patient presenting with right great toe pain and what looks like necrosis. Patient has leukocytosis of 13.6 with slight left shift. Hemoglobin hematocrit are stable. Glucose is 328 without anion gap. Renal function is normal. CRP is elevated at 143. ESR is 37. X-ray of the right foot shows mild subcutaneous gas and swelling of the proximal distal great toe on my interpretation and the radiologist does agree. This is likely due to the open wound on the medial aspect of the right great toe. There does not appear to be any bony abnormalities on my interpretation. Discussed with Dr. Mullins for admission due to concern for osteomyelitis. Patient was given vancomycin and Zosyn. Patient was discussed with hospitalist however they felt it was more appropriate to have podiatry admit and they will take a consult for the diabetes. Patient given 2 doses of morphine in the ED with decent control of her pain however she would likely need more pain control. Patient admitted to the floor in stable condition. Impression: 1. Right great toe infection 2. Leukocytosis 3. Elevated CRP Lab Data Attestation: I reviewed the patient's lab results. Labs: Laboratory Results - last 24 hr 04/24/21 04/24/21 04/24/21 18:40 18:40 18:40 WBC 13.6 H RBC 4.24 Hgb 12.0 Hct 36.6 L MCV 86.3 MCH 28.3 MCHC 32.8 RDW Std Deviation 36.7 RDW Coeff of Hermilo 11.6 Plt Count 203 MPV 12.2 H Immature Gran % (Auto) 0.400 Neut % (Auto) 76.6 H Lymph % (Auto) 12.6 L [place] % (Auto) 9.3 Eos % (Auto) 0.4 Baso % (Auto) 0.7 Absolute Neuts (auto) 10.4 H Absolute Lymphs (auto) 1.71 Nucleated RBC % 0 ESR 37 H Sodium 132 L Potassium 4.5 Chloride 98 Carbon Dioxide 27.0 Anion Gap 7 BUN 21 H Creatinine 0.92 Estim Creat Clear Calc 38.53 Est GFR (MDRD) Af Amer 77 Est GFR (MDRD) Non-Af 63 BUN/Creatinine Ratio 22.9 H Glucose 328 H Hemoglobin A1c 9.9 H Calcium 9.6 C-React Prot Ext Range 143.00 H Radiography Diagnostic Testing: Radiology Impression Foot X-Ray 04/24/21 19:00 IMPRESSION: 1. Mild to moderate subcutaneous gas and swelling is present around the proximal distal phalanges of the great toe. No visualized cortical erosion or bony destruction or periosteal reaction. Suspect an open wound, however if no open wound is present gas gangrene is present which is of significant concern. Clinical correlation recommended. Electronically Signed: Leo Alatorre MD at 20:06 EDT , Service support , Discharge Plan Disposition Disposition: Acute Care Hospital [facility] Discharge Date/Time: 04/24/21 21:59
[2021-04-24 18:53] LABS: Absolute Lymphocyte Count 1.71 X10^3/uL (0.83-4.51); Absolute Neutrophil Count 10.4 X10^3/uL (2.0-7.7); Basophil% 0.7 % (0-1); Eosinophil# 0.05 X10^3/uL; Eosinophils% 0.4 % (0-5); Hematocrit 36.6 % (37-47); Lymphocyte # 1.71 X10^3/ul (0.83-4.51); Lymphocyte % 12.6 % (19-41); Mean Corp Hgb Conc 32.8 g/dL (32-36); Mean Corpuscular Hgb 28.3 pg (27.0-32.0); Mean Corpuscular Volume 86.3 fL (81-99); Mean Platelet Vol. 12.2 fl (6.2-12.0); Monocyte# 1.26 X10^3/uL; Monocyte% 9.3 % (0-10); NRBC Flagged by Analyzer 0 % (0-5); Neutrophil # 10.38 X10^3/uL (2.7-7.7); Neutrophil % 76.6 % (47-70); Platelet Count 203 K/mm3 (150-450); RBC Distribution Width CV 11.6 % (11.6-14.6); RBC Distribution Width SD 36.7 fl (35.1-43.9); Red Blood Count 4.24 M/mm3 (4.2-5.4); White Blood Count 13.6 K/mm3 (4.4-11.0)
--- NOTE | 2021-04-24 19:00 | RAD_ITS ---
STUDY: X-RAY - RIGHT FOOT CLINICAL: Female, 75 years old. pt with pain to 1st toe on right foot. toe is black. pt states multiple same episodes with same toe. hx of diabetes. pt c/o extreme pain TECHNIQUE: 3 view(s) of the foot. COMPARISON: None. FINDINGS: Mild to moderate subcutaneous gas and swelling is present around the proximal distal phalanges of the great toe. No visualized cortical erosion or bony destruction or periosteal reaction. No fractures seen. No radiopaque foreign body is seen. Some mild degenerative changes are present throughout the foot. Normal talus, calcaneus, and tarsal bones. Normal visualized subtalar, talonavicular, calcaneocuboid, tarsal and tarsometatarsal articulations. Normal metatarsi. Normal metatarsophalangeal joint of the great toe. Normal tibial and fibular sesamoid bones. Normal interphalangeal joint of the great toe. Normal phalanges of the great toe. Normal second through fifth metatarsophalangeal joints. Normal interphalangeal joints and phalanges of the lesser toes. RAD/Foot min 3 Views IMPRESSION: 1. Mild to moderate subcutaneous gas and swelling is present around the proximal distal phalanges of the great toe. No visualized cortical erosion or bony destruction or periosteal reaction. Suspect an open wound, however if no open wound is present gas gangrene is present which is of significant concern. Clinical correlation recommended. Electronically Signed: Leo Alatorre MD at 20:06 EDT , Service support ,
[2021-04-24] MEDS: Ondansetron 4 MG/2 ML Vial IV (19:03)
[2021-04-24] MEDS: Morphine 4 MG/ML Syringe IV ×2 (19:03→21:12)
[2021-04-24 19:05] LABS: Anion Gap 7 (5-15); BUN 21 mg/dL (7-18); BUN/Creat Ratio 22.9 RATIO (10-20); Calcium,Total 9.6 mg/dL (8.5-10.1); Chloride 98 mmol/L (98-107); Creatinine, Serum 0.92 mg/dL (0.55-1.02); EST Glomerular Filtration Rate 63 mL/min (>60); Est Glom Filt Rate - Afr Amer 77 mL/min (>60); Estimated Creatinine Clearance 38.53 ml/min; Glucose 328 mg/dL (74-106); Potassium 4.5 mmol/L (3.5-5.1); Sodium Level 132 mmol/L (136-145)
[2021-04-24 19:07] VITALS: BP 148/66
[2021-04-24 19:07] LABS: Erythrocyte Sedimentation Rate 37 mm/hr (0-30)
--- NOTE | 2021-04-24 21:08 | PN.HOSP_ITS ---
Subjective Subjective Consult for medical management: 75-year-old female with past medical history of type II DM, hypertension, coronary calcification, history of right metastatic breast CA, mets to the liver, (in remission per patient). Patient gives a history of having chronic right toe ulcer for 3 to 5 years. She stated that the ulcer healed eventually. She noticed her right toe was swollen, dark in color, painful over the last 3 days. She denies any trauma to it. She stated that she has intact sensation to her lower extremities. She denied any fever or chills or cramps in her legs. Her blood sugars have been uncontrolled. Her fasting blood sugars are usually in the 110s. Her random sugars are usually in the 180s. Vitals in the ED were stable. Her WBC count was 13.6, neutrophilic predominance. Sodium was 132, potassium 4.5, chloride 98, bicarbonate 27, BUN 21, creatinine 0.92. Her blood sugar was 328. CRP was 143. X-ray of the right foot showed mild to moderate subcutaneous gas and swelling around the proximal and distal phalanges of the great toe. No cortical erosion or bony destruction or periosteal reaction also seen. No fractures. Objective Data Objective Data Vital Signs: Vital Signs Temp Pulse Resp BP Pulse Ox 97.8 F 79 14 148/66 H 98 04/24/21 16:49 04/24/21 16:49 04/24/21 16:49 04/24/21 19:07 04/24/21 16:49 Oxygen Delivery Method Room Air Weight: 64 kg Body Mass Index (BMI) 27.5 Lab / Micro Data Result Diagrams: 04/24/21 18:40 04/24/21 18:40 Labs: Laboratory Results - last 24 hr 04/24/21 18:40: WBC 13.6 H, RBC 4.24, Hgb 12.0, Hct 36.6 L, MCV 86.3, MCH 28.3, MCHC 32.8, RDW Std Deviation 36.7, RDW Coeff of Hermilo 11.6, Plt Count 203, MPV 12.2 H, Immature Gran % (Auto) 0.400, Neut % (Auto) 76.6 H, Lymph % (Auto) 12.6 L, [place] % (Auto) 9.3, Eos % (Auto) 0.4, Baso % (Auto) 0.7, Absolute Neuts (auto) 10.4 H, Absolute Lymphs (auto) 1.71, Nucleated RBC % 0, ESR 37 H 04/24/21 18:40: Sodium 132 L, Potassium 4.5, Chloride 98, Carbon Dioxide 27.0, Anion Gap 7, BUN 21 H, Creatinine 0.92, Estim Creat Clear Calc 38.53, Est GFR (MDRD) Af Amer 77, Est GFR (MDRD) Non-Af 63, BUN/Creatinine Ratio 22.9 H, Gluco se 328 H, Calcium 9.6, C-React Prot Ext Range 143.00 H Radiography Diagnostic Testing: Radiology Impression Foot X-Ray 04/24/21 19:00 IMPRESSION: 1. Mild to moderate subcutaneous gas and swelling is present around the proximal distal phalanges of the great toe. No visualized cortical erosion or bony destruction or periosteal reaction. Suspect an open wound, however if no open wound is present gas gangrene is present which is of significant concern. Clinical correlation recommended. Electronically Signed: Leo Alatorre MD at 20:06 EDT , Service support , Physical Exam Narrative General: Alert, Oriented x3, Cooperative, No apparent distress, Well developed HEENT: Atraumatic Oral: Moist Mucosa Neck: Supple Lungs: Clear to auscultation Cardiovascular: HS I+II, regular, no murmurs Abdomen: Bowel Sounds Present, Soft, Non Tender Extremities: Right great toe is dark in color, grayish, cool to touch, an ulcer on the medial aspect of the proximal phalange Cannot palpate right dorsalis pedis pulses Assessment & Plan Assessment/Plan (1) Diabetic infection of right foot: (2) Gas gangrene of foot: (3) Ischemic toe ulcer: QUALIFIERS: Laterality: right Non-pressure ulcer stage: unspecified non-pressure ulcer stage Qualified Code(s): L97.519 - Non-pressure chronic ulcer of other part of right foot with unspecified severity PLAN: 1. Acute right first toe ischemia/infected diabetic ulcer/possible osteomyelitis of the right great toe in a known type II DM patient Concerning for possible gas gangrene of the right first toe. X-ray of the foot shows mild to moderate subcutaneous gas and swelling ESR is 37, CRP is 143 No signs of sepsis. Vitals are stable Started on IV vancomycin and Zosyn in the ED; will continue same, add clindamycin MRI of the foot, arterial studies Podiatry plans of surgery in the morning; n.p.o. after midnight 2. Type II DM, uncontrolled, patient is on Lantus insulin, Amaryl, Metformin HbA1c 9.9% Will hold Amaryl and Metformin Continue on Lantus and insulin sliding scale We will modify Lantus dose when home dose is clarified as patient will be kept n.p.o. 3. Hypertension, controlled We will continue on atenolol, will hold lisinopril in anticipation of surgery Continue to monitor, hydralazine as needed 4. 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 CAD/coronary calcifications, noted on imaging Patient had 2D echo and stress test done in 2019 Continue on aspirin, atenolol Discussed with Dr. Mullins who saw patient on the floor and believes patient has acute critical ischemia of right 1st toe and needs to be transferred out to a tertiary center emergently. Patient already on aspirin 81mg daily Will add Plavix 75mg PO x 1 Charges/Coding Visit Charges Inpatient E&M: 71583 Init Hosp L3
[2021-04-24 21:11] VITALS: BP 144/68; PULSE 84; RESP 16; TEMP 36.2; O2SAT 98
[2021-04-24 21:12] VITALS: BP 144/68
--- NOTE | 2021-04-24 22:00 | NURSING ---
DR SANDOVAL AT BEDSIDE SPEAKING WITH PATIENT ABOUT NEEDING TRANSFERRED DUE TO CIRCULATION IN FOOT. MD SPOKE TO SON ABOUT TRANSFER.
[2021-04-24 22:05] VITALS: BMI 24.6
[2021-04-24 22:08] VITALS: BP 118/44; PULSE 85; RESP 18; TEMP 36.5; O2SAT 97
[2021-04-24 22:13] LABS: Hemoglobin A1c 9.9 % (3.8-5.6)
--- NOTE | 2021-04-24 22:36 | PCM.HP.STD ---
HPI - General General Date of Admission: 04/24/21 HPI Narrative JOHANNA PONCE, is a 75 F who presents with changes to the right 1st toe. Patient relates to previous hx of wound to the right 1st toe many years ago which did heal, however she relates ~10 days ago she noticed the right 1st toe has been changing. The right 1st toe is dusky with areas of necrosis - it is dry. She has hx of diabetes, blood sugars in the 300s on presentation to the ER today. I was called by the ER physician who was concerned about diabetic infection to the right 1st toe- xrays were obtained and there was noted to be subcutaneous air to the right 1st toe, along with clinical dusky and necrotic changes, with elevated WBC, elevated ESR and CRP. I was also informed patient had palpable pedal pulses to the foot. Thus patient was sent from the ER to the floor with plans for me to admit patient. Patient afebrile. [facility] Medical History (Updated 04/24/21 @ 22:[address] Cuauhtemoc Mullins, DP) Abnormal EKG Amblyopia, right eye Coronary artery calcification seen on CAT scan Coronary atherosclerosis due to calcified coronary lesion of [place] artery Diabetes mellitus type II, controlled Essential hypertension Malignant neoplasm of upper-outer quadrant of right female breast Osteoarthritis of both feet Home Medications insulin glargine 20 unit SUBCUT QHS 09/07/17 [History Last Taken Unknown] anastrozole 1 mg PO DAILY 09/08/17 [History Last Taken Unknown] aspirin 81 mg PO DAILY@0800 09/08/17 [History Last Taken Unknown] calcium carbonate-vitamin D3 1 ea PO DAILY 09/08/17 [History Last Taken Unknown] glimepiride 4 mg PO DAILY 09/08/17 [History Last Taken Unknown] losartan 100 mg PO DAILY 09/08/17 [History Last Taken Unknown] meloxicam 15 mg PO DAILY 09/08/17 [History Last Taken Unknown] sodium chloride 1 drp OP Q6H 09/08/17 [History Last Taken Unknown] atenolol 100 mg tablet 150 mg PO DAILY 09/19/19 [History Last Taken Unknown] hydrochlorothiazide 25 mg tablet 25 mg PO DAILY 09/19/19 [History Last Taken Unknown] loperamide 2 mg capsule 2 mg PO Q1-4H PRN 09/19/19 [History Last Taken Unknown] magnesium oxide 400 mg PO BID 09/19/19 [History Last Taken Unknown] mecobalamin (vitamin B12) 1,000 mcg disintegrating tablet,sublingual 1,000 mcg SUBLINGUAL DAILY 09/19/19 [History Last Taken Unknown] polysaccharide iron complex 150 mg iron capsule 150 mg PO BID cap 09/19/19 [History Last Taken Unknown] metformin 500 mg tablet 500 mg PO .COMPLEX 09/27/19 [History Last Taken Unknown] Allergy/AdvReac Type Severity Reaction Status Date / Time No Known Allergies Allergy Verified 04/24/21 16:52 Family History Father Diabetes Lung cancer Throat cancer Brother Diabetes Hypertension CAD (coronary artery disease) Surgical History History of History of colonoscopy History of hysterectomy Status post cataract extraction of both eyes with insertion of intraocular lens Social History Smoking Status: Never smoker Vital Signs Vital Signs Vital Signs: 04/24/21 16:49 04/24/21 19:07 04/24/21 21:11 Temperature 97.8 F 97.1 F L Temperature Source Temporal Temporal Pulse Rate 79 84 Respiratory Rate 14 16 Blood Pressure 163/63 H 148/66 H 144/68 H Blood Pressure Mean 96 93 93 Blood Pressure Source Blood Pressure Position Blood Pressure Location Pulse Ox 98 98 Oxygen Delivery Method Room Air Room Air 04/24/21 21:12 04/24/21 22:08 Temperature 97.7 F L Temperature Source Temporal Pulse Rate 85 Respiratory Rate 18 Blood Pressure 144/68 H 118/44 L Blood Pressure Mean 93 68 Blood Pressure Source Monitor Blood Pressure Position Semi-Fowlers Blood Pressure Location Right Arm Pulse Ox 97 Oxygen Delivery Method Room Air Weight Weight: 63.1 kg Body Mass Index (BMI) 24.6 Physical Exam Const alert and no apparent distress Extremity no calf tenderness Extremity Narrative: The right 1st toe is very dusky with dry necrotic eschar to the medial aspect of the base of the toe, there is no drainage, no maloder - it is dry, there is some slight edema to the foot, no significant cellulitis is present, no streaking, no fluctuance, no crepitus, no pain. Patient has significantly decreased sensation to the foot bilateral. The right forefoot is cool, CFT is delayed to the rest of the toes on the right foot, there is no CFT to the right 1st toe due to ischemia. The calf is soft and supple with no calf pain bilateral. There is very slight dry eschar (dry) to the dorsal left 1st toe with no evidence of infection. Pedal pulses are nonpalpable bilateral and I was not able to find them on doppler bilateral foot. Left foot with CFT < 3 seconds to all toes and normal temperature present. No m/s POP or pain on ROM to the foot or ankle bilateral. There is no visible abscess or crepitus to the foot or ankle bilateral. Results Lab / Micro Data Result Diagrams: 04/24/21 18:40 04/24/21 18:40 Labs: Laboratory Results - last 24 hr 04/24/21 18:40: WBC 13.6 H, RBC 4.24, Hgb 12.0, Hct 36.6 L, MCV 86.3, MCH 28.3, MCHC 32.8, RDW Std Deviation 36.7, RDW Coeff of Hermilo 11.6, Plt Count 203, MPV 12.2 H, Immature Gran % (Auto) 0.400, Neut % (Auto) 76.6 H, Lymph % (Auto) 12.6 L, [place] % (Auto) 9.3, Eos % (Auto) 0.4, Baso % (Auto) 0.7, Absolute Neuts (auto) 10.4 H, Absolute Lymphs (auto) 1.71, Nucleated RBC % 0, ESR 37 H 04/24/21 18:40: Sodium 132 L, Potassium 4.5, Chloride 98, Carbon Dioxide 27.0, Anion Gap 7, BUN 21 H, Creatinine 0.92, Estim Creat Clear Calc 38.53, Est GFR (MDRD) Af Amer 77, Est GFR (MDRD) Non-Af 63, BUN/Creatinine Ratio 22.9 H, Glucose 328 H, Calcium 9.6, C-React Prot Ext Range 143.00 H 04/24/21 18:40: Hemoglobin A1c 9.9 H Radiology Impression Foot X-Ray 04/24/21 19:00 IMPRESSION: 1. Mild to moderate subcutaneous gas and swelling is present around the proximal distal phalanges of the great toe. No visualized cortical erosion or bony destruction or periosteal reaction. Suspect an open wound, however if no open wound is present gas gangrene is present which is of significant concern. Clinical correlation recommended. Electronically Signed: Leo Alatorre MD at 20:06 EDT , Service support , Assessment & Plan Assessment/Plan (1) Ischemic toe ulcer: QUALIFIERS: Laterality: right Non-pressure ulcer stage: unspecified non-pressure ulcer stage Qualified Code(s): L97.519 - Non-pressure chronic ulcer of other part of right foot with unspecified severity PLAN: I discussed with ER physician Dr. Saleem, I also discussed with hospitalist Dr. De Jesus. I reviewed patient's chart and diagnostic data. Patient was already on the floor by the time I was able to examine patient. The patient has a very dusky right 1st toe with dry necrosis, it is turning gangrenous, it is dry at this time. There is no drainage or visible abscess at this time. There is delayed CFT to the rest of the toes on the right foot and they are cool to touch. I am not able to palpate pulses on patient's and I had great difficulty finding them with our handheld ultrasound doppler as well. I am very concerned about her circulation / arterial flow to her foot, and believe the findings are due to critical limb ischemia. She likely also has PAD to the left lower extremity as well, however clinically the right is significantly worse as noted above. I attempted to call our vascular specialist, I tried to page Dr. Rivera who was not available, also Dr. Olsen our other vascular specialist/surgeon is not here until possibly Thursday this week, and may not be here until next week at the earliest. I recommend patient see vascular specialist/surgeon as soon as possible due to the critical limb ischemia findings, this would be the best care for her. I discussed with this Dr. De Jesus, as well as with patient and her son Luis who agreed. Therefore patient will be transferred to outside hospital who has urgent vascular surgery service available for further evaluation and management. (2) Other specified peripheral vascular diseases: (3) Critical ischemia of lower extremity: (4) Diabetes mellitus with diabetic polyneuropathy:
[2021-04-24] MEDS: Clopidogrel Bisulfate 75 MG Tablet PO (22:55)
[2021-04-24] MEDS: Vancomycin IV 1,000 MG/200 ML BAG 200 MG IV (22:55)
[2021-04-24] MEDS: 0.9% Normal Saline 1,000 ML 100 ML IV (22:56)
[2021-04-24] MEDS: Insulin Lispro 100 UNIT/ML INSULN.PEN SC (23:44)
[2021-04-24] MEDS: Atorvastatin Calcium 40 MG Tablet PO (23:44)
--- NOTE | 2021-04-24 23:48 | PCM.RX.CS ---
Consult Type of Consult: New start Suspected Infection: Skin/Soft tissue, Osteomyelitis Prior Doses of Antibiotics Received/Current Regimen: Medications Vancomycin HCl 750 mg/ Sodium (Chloride) 265 mls @ 250 mls/hr IV Q24H STIVEN Discontinued Medications Vancomycin HCl (Vancomycin) 1,000 mg in 200 mls @ 200 mls/hr 15 mg/kg (1000 mg) IV X1 ONE Stop: 04/24/21 22:05 Last Admin: 04/24/21 22:55 Dose: 200 mls/hr Labs: Sodium 132 mmol/L (136-145) L 04/24/21 18:40 Potassium 4.5 mmol/L (3.5-5.1) 04/24/21 18:40 Chloride 98 mmol/L (98-107) 04/24/21 18:40 Carbon Dioxide 27.0 mmol/L (21.0-32.0) 04/24/21 18:40 Anion Gap 7 (5-15) 04/24/21 18:40 BUN 21 mg/dL (7-18) H 04/24/21 18:40 Creatinine 0.92 mg/dL (0.55-1.02) 04/24/21 18:40 Est GFR (MDRD) Af Amer 77 mL/min (>60) 04/24/21 18:40 Est GFR (MDRD) Non-Af 63 mL/min (>60) 04/24/21 18:40 BUN/Creatinine Ratio 22.9 RATIO (10-20) H 04/24/21 18:40 Glucose 328 mg/dL (74-106) H 04/24/21 18:40 Microbiology: Microbiology 04/24/21 22:50 Mucosa - Nose SARS-CoV-2 Antigen (Rapid) - Final Weight used for dosin.1 kg Estimated Creatinine Clearance: 38.5 Goal Trough: 15-20 mcg/mL Pharmacy Plan for Drug Dosing: Pharmacy Service will continue to monitor and adjust dosing as required. Follow-Up Labs: Trough Vancomycin Labs to be done on [date and time ordered]: 04/26/21 @[id number]
[2021-04-24 23:56] LABS: Bedside Glucose 302 mg/dL (70-110)
[2021-04-25] MEDS: oxyCODONE 5 MG Tablet PO (00:13)
[2021-04-25] MEDS: Acetaminophen 325 MG Tablet 650 MG PO (00:13)
--- NOTE | 2021-04-25 00:44 | NURSING ---
Called son Luis updated about patient going to [facility]
[2021-04-25 01:01] VITALS: BP 133/67; PULSE 82; RESP 16; TEMP 36.1; O2SAT 97
--- NOTE | 2021-04-25 01:48 | NURSING ---
Transport here to take patient to [facility]
== END 2021-04-25 01:55 | disposition short-term general hospital (02) ==
LOC: ED 18:24 → PCU 21:55
PROVIDERS: Admitting Provider Internal Medicine; Emergency Provider Student in an Organized Health Care Education/Training Program; PCP Student in an Organized Health Care Education/Training Program; Visit Provider Internal Medicine
DX: E11.621 Type 2 diabetes mellitus with foot ulcer (principal); L97.519 Non-pressure chronic ulcer of other part of right foot with unspecified severity; I10 Essential (primary) hypertension; A48.0 Gas gangrene; E11.51 Type 2 diabetes mellitus with diabetic peripheral angiopathy without gangrene; E11.42 Type 2 diabetes mellitus with diabetic polyneuropathy; I70.261 Atherosclerosis of native arteries of extremities with gangrene, right leg; E11.52 Type 2 diabetes mellitus with diabetic peripheral angiopathy with gangrene; I25.10 Atherosclerotic heart disease of native coronary artery without angina pectoris; M19.072 Primary osteoarthritis, left ankle and foot; M19.071 Primary osteoarthritis, right ankle and foot; Z79.4 Long term (current) use of insulin; Z85.3 Personal history of malignant neoplasm of breast; Z79.82 Long term (current) use of aspirin; Z79.899 Other long term (current) drug therapy
CPT/HCPCS: 73630; 80048; 82962; 83036; 85025; 85652; 86140; 87426; 96361; 96365; 96367; 96375; 96376; 99218; 99284; J7030; J7040; G0378; J2405

== ENCOUNTER 2022-10-05 03:42 | Emergency (ER) | payer MEDICAID, SELFPAY ==
[2022-10-05 03:44] VITALS: BP 168/69; PULSE 75; RESP 16; TEMP 35.8; O2SAT 98; BMI 25.1
--- NOTE | 2022-10-05 03:58 | CT_ITS ---
STUDY: CT ABDOMEN AND PELVIS WITH CONTRAST REASON FOR EXAM: Female, 77 years old. Abdominal pain. RADIATION DOSAGE (If Supplied By Facility): CTDIvol = ( 15.49 ) mGy, DLP = ( 687.11 ) mGycm TECHNIQUE: Transaxial images were obtained from the dome of the diaphragm to the symphysis pubis without oral contrast. 100 mL Isovue 370 intravenous contrast was administered. Sagittal and coronal images were reconstructed. Individualized dose optimization techniques were used for this CT. COMPARISON: PET/CT scan January 04, 2018. Nuclear medicine bone scan March 29, 2020. FINDINGS: The visualized lung bases are unremarkable. Mild cardiomegaly. Coronary artery calcifications. Normal liver. There are multiple gallstones unchanged. Normal spleen. Normal pancreas. Normal bilateral adrenal glands. Normal right kidney. Incidental subcentimeter cortical cyst left kidney which requires no further evaluation. Normal visualized stomach. Normal small intestine. No dilated loops of colon. Appendix visualized and appears normal. There are atherosclerotic changes of the abdominal aorta. Normal inferior vena cava. Normal retroperitoneum. No intra-abdominal free air. Normal urinary bladder. There is absence of the uterus consistent with a prior hysterectomy. No adnexal mass is seen. Normal abdominal wall. Severe compression fracture T11 which is old and was suggested on the prior bone scan. Mild compression fracture L1 which is probably old. Disc space narrowing with vacuum disc L5-S1. CT/Abdomen/Pelvis W IV Cont ONLY IMPRESSION: No acute findings in the abdomen or pelvis. Cholelithiasis. Mild cardiomegaly. Coronary artery calcifications. Old compression fractures in the lower thoracic and lumbar spine. Electronically Signed: Kam Frazier MD at 5:18 EST Reading Location ID and State: [id number] / , Service support ,
[2022-10-05 04:06] LABS: Absolute Lymphocyte Count 1.46 X10^3/uL (0.83-4.51); Absolute Neutrophil Count 7.3 X10^3/uL (2.0-7.7); Basophil# 0.06 X10^3/uL; Basophil% 0.6 % (0-1); Eosinophil# 0.11 X10^3/uL; Eosinophils% 1.2 % (0-5); Hematocrit 33.8 % (37-47); Hemoglobin 10.8 g/dL (12.0-15.0); Lymphocyte # 1.46 X10^3/ul (0.83-4.51); Lymphocyte % 15.3 % (19-41); Mean Corpuscular Hgb 26.9 pg (27.0-32.0); Mean Corpuscular Volume 84.1 fL (81-99); Mean Platelet Vol. 12.7 fl (6.2-12.0); Monocyte# 0.56 X10^3/uL; Monocyte% 5.9 % (0-10); NRBC Flagged by Analyzer 0 % (0-5); Neutrophil # 7.31 X10^3/uL (2.7-7.7); Neutrophil % 76.8 % (47-70); Platelet Count 161 K/mm3 (150-450); RBC Distribution Width CV 13.5 % (11.6-14.6); RBC Distribution Width SD 41.7 fl (35.1-43.9); Red Blood Count 4.02 M/mm3 (4.2-5.4); White Blood Count 9.5 K/mm3 (4.4-11.0)
[2022-10-05] MEDS: Ondansetron 4 MG/2 ML Vial IV (04:09)
[2022-10-05] MEDS: Morphine 2 MG/ML Syringe IV ×2 (04:09→06:19)
[2022-10-05 04:26] LABS: AST(SGOT) 14 U/L (15-37); Alanine Aminotransfer ALT/SGPT 23 U/L (13-56); Albumin, Serum 3.8 g/dL (3.2-5.0); Alkaline Phosphatase 68 U/L (45-117); Anion Gap 9 (5-15); BUN 33 mg/dL (7-18); BUN/Creat Ratio 36.5 RATIO (10-20); Bilirubin, Direct 0.11 mg/dL (0.00-0.30); Calcium,Total 9.2 mg/dL (8.5-10.1); Chloride 105 mmol/L (98-107); EST Glomerular Filtration Rate 64 mL/min (>60); Est Glom Filt Rate - Afr Amer 78 mL/min (>60); Estimated Creatinine Clearance 43.99 ml/min; Globulin 3.6 g/dL (2.2-4.2); Glucose 129 mg/dL (74-106); Lipase 130 U/L (73-393); Potassium 3.5 mmol/L (3.5-5.1); Protein, Total 7.4 g/dL (6.4-8.2); Sodium Level 140 mmol/L (136-145)
--- NOTE | 2022-10-05 06:04 | EX.ED.DYSGE1 ---
HPI History of Present Illness Chief Complaint: Abd Pain Narrative Narrative: Patient is a 77-year-old female with past medical history of hypertension type 2 diabetes and osteomyelitis of her right foot. Her son is present with her who translates as he does not speak Sinhala. Reportedly patient and her ate the same meal this evening and then 1 to 2 hours later patient began with generalized upper abdominal pain bouts of nausea and vomiting and some loose stool. does not have any similar symptoms. Patient denies any history of intestinal disorder such as ulcer colitis or Crohn's disease and states that she is never had pancreatitis or gallbladder dysfunction. Patient states that she has tried [id number] medications but the pain is persisted and secondary to this comes in for evaluation [facility] Medical History (Updated 10/05/22 @ 06:[address] 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 Diabetes mellitus type II, controlled Essential hypertension Malignant neoplasm of upper-outer quadrant of right female breast Osteoarthritis of both feet Home Medications insulin glargine 100 unit/mL subcutaneous solution 20 unit subcut QHS 09/07/17 [History Last Taken Unknown] anastrozole 1 mg tablet 1 mg PO DAILY Check with primary doctor 09/08/17 [History Last Taken Unknown] aspirin 81 mg tablet,delayed release 81 mg PO DAILY@0800 heart 09/08/17 [History Last Taken Unknown] calcium carbonate 500 mg-vitamin D3 15 mcg (600 unit) tablet 1 ea PO DAILY 09/08/17 [History Last Taken Unknown] glimepiride 4 mg tablet 4 mg PO DAILY Check with primary doctor 09/08/17 [History Last Taken Unknown] losartan 100 mg tablet 100 mg PO DAILY Check with primary doctor 09/08/17 [History Last Taken Unknown] meloxicam 7.5 mg tablet 15 mg PO DAILY Check with primary doctor 09/08/17 [History Last Taken Unknown] sodium chloride 5 % eye drops 1 drp OP Q6H 09/08/17 [History Last Taken Unknown] atenolol 100 mg tablet 150 mg PO DAILY beta emiliana 09/19/19 [History Last Taken Unknown] hydrochlorothiazide 25 mg tablet 25 mg PO DAILY 09/19/19 [History Last Taken Unknown] loperamide 2 mg capsule 2 mg PO Q1-4H PRN 09/19/19 [History Last Taken Unknown] magnesium oxide 400 mg PO BID 09/19/19 [History Last Taken Unknown] mecobalamin (vitamin B12) 1,000 mcg disintegrating tablet,sublingual 1,000 mcg sublingual DAILY 09/19/19 [History Last Taken Unknown] polysaccharide iron complex 150 mg iron capsule (Ferrex) 150 mg PO BID 09/19/19 [History Last Taken Unknown] metformin 500 mg tablet 500 mg PO .COMPLEX diabetic 09/27/19 [History Last Taken Unknown] hydrocodone-acetaminophen 5-325mg 5mg-325mg 1 tab PO Q6H PRN pain 3 days #12 tabs 10/05/22 [Rx Last Taken Unknown] ondansetron 4 mg disintegrating tablet 4 mg PO TID PRN nausea and vomiting #21 tabs 10/05/22 [Rx Last Taken Unknown] Allergy/AdvReac Type Severity Reaction Status Date / Time No Known Allergies Allergy Verified 10/05/22 03:43 Family History (System 07/12/21 @ 15:38 by Cherelle Arreguin) Father Diabetes Lung cancer Throat cancer Brother Diabetes Hypertension CAD (coronary artery disease) Surgical History (System 07/12/21 @ 15:38 by Cherelle Arreguin) History of History of colonoscopy History of hysterectomy Status post cataract extraction of both eyes with insertion of intraocular lens Social History (System 07/12/21 @ 15:38 by Cherelle Arreguin) Smoking Status: Never smoker ROS ROS ED Constitutional Constitutional ED: Denies chills or fever(s) ENT ENT ED: Denies sore throat Cardiovascular Cardiovascular: Denies chest pain Respiratory/Chest Respiratory/Chest: Denies cough or dyspnea Gastrointestinal Gastrointestinal: Reports abdominal pain, diarrhea, nausea and vomiting Genitourinary Genitourinary ED: Denies dysuria Musculoskeletal Musculoskeletal: Denies back pain or myalgias Integumentary Denies rash Neurologic Neurologic: Denies headache(s) Hematologic/Lymphatic Hematologic/Lymphatic: Denies easy bleeding or easy bruising EXAM Physical Exam Const Vital Signs: 10/05/22 03:44 10/05/22 06:16 Temperature 96.4 F L Temperature Source Temporal Pulse Rate 75 95 Respiratory Rate 16 18 Blood Pressure 168/69 H 150/89 H Blood Pressure Mean 102 109 Pulse Ox 98 100 Oxygen Delivery Method Room Air Room Air Positive well nourished and well developed General Appearance ED: well developed HEENT Reports dry mucous membranes HEENT Narrative: Mucous membranes are slightly dry and tacky without any secondary changes to suggest infection Mouth ED: Yes dry mucous membranes Mouth: dry mucous membranes Eyes PERRL and EOMs intact bilaterally General Eye ED: Negative for scleral icterus Neck supple Resp normal respiratory effort and clear to auscultation bilaterally Cardio regular rate and regular rhythm Rate: other Other Details: Radial pulses are plus 2 out of 4 bilaterally are equal and symmetric GI non-distended GI Narrative: Abdomen is soft and nondistended with hyperactive bowel sound. There is mild diffuse pain on palpation but greatest in the midepigastric and right upper quadrant region. No voluntary guarding or rigidity. No pulsatile mass or fluid wave. Negative Saxena sign Auscultation: hyperactive bowel sounds Palpation: soft Back/Spine no CVA tenderness Extremity normal to inspection Neuro oriented x3 and CN's II-XII intact bilaterally Sensorium / Orientation: alert Psych mental status grossly normal Skin no rashes or lesions noted General Skin Exam: Negative for jaundice MDM MDM MDM Narrative Medical decision making narrative: Patient presented to the ER hypertensive but does have a history of this and is in pain so this is to be expected. Otherwise vitals are stable. Her abdomen this time is soft and nonsurgical but with her age and medical comorbidities I did elect to perform basic labs and a CT scan. Labs revealed no clinically significant finding. Her blood sugar is controlled and she has no signs of DKA. Lipase is normal going against acute pancreatitis and liver enzymes are also within normal range. CT scan showed gallstones which are chronic in nature without changes to suggest acute cholecystitis and patient does not have any elevation to her liver enzymes to correlate with this. There is also no signs of intestinal infection/inflammation or blockage. The patient was given 2 mg of morphine and had resolution of the pain to where she was able to sleep. On reevaluation abdomen remains soft and nonsurgical. Therefore at this time with negative labs and imaging studies and improvement of symptoms I do not feel there is need for further work-up and patient is otherwise safe for discharge Lab Data Attestation: I reviewed the patient's lab results. Labs: Laboratory Results - last 24 hr 10/05/22 10/05/22 03:51 03:51 WBC 9.5 RBC 4.02 L Hgb 10.8 L Hct 33.8 L MCV 84.1 MCH 26.9 L MCHC 32.0 RDW Std Deviation 41.7 RDW Coeff of Hermilo 13.5 Plt Count 161 MPV 12.7 H Immature Gran % (Auto) 0.200 Neut % (Auto) 76.8 H Lymph % (Auto) 15.3 L [place] % (Auto) 5.9 Eos % (Auto) 1.2 Baso % (Auto) 0.6 Absolute Neuts (auto) 7.3 Absolute Lymphs (auto) 1.46 Nucleated RBC % 0 Sodium 140 Potassium 3.5 Chloride 105 Carbon Dioxide 26.0 Anion Gap 9 BUN 33 H Creatinine 0.90 Estim Creat Clear Calc 43.99 Est GFR (MDRD) Af Amer 78 Est GFR (MDRD) Non-Af 64 BUN/Creatinine Ratio 36.5 H Glucose 129 H Calcium 9.2 Total Bilirubin 0.30 Direct Bilirubin 0.11 AST 14 L ALT 23 Alkaline Phosphatase 68 Total Protein 7.4 Albumin 3.8 Globulin 3.6 Lipase 130 Radiography Diagnostic Testing: Clinical Impression(s) from Imaging Studies Abdomen/Pelvis CT 10/05/22 03:58 IMPRESSION: No acute findings in the abdomen or pelvis. Cholelithiasis. Mild cardiomegaly. Coronary artery calcifications. Old compression fractures in the lower thoracic and lumbar spine. Electronically Signed: Kam Frazier MD at 5:18 EST Reading Location ID and State: [id number] / , Service support , ADDENDUM: 10/05/22 0529 IMPRESSION: undefined Discharge Plan Triage Chief Complaint: Abd Pain ED Provider: Rayo Waldron Dx/Rx/DC Orders Clinical Impression: Nonspecific abdominal pain, Diabetes mellitus type II, controlled, Nausea & vomiting, Essential hypertension Instructions: Abdominal Pain, ED Gastroenteritis, Viral (Adult) Prescriptions: New ondansetron 4 mg tablet,disintegrating 4 mg PO TID PRN (Reason: nausea and vomiting) Qty: 21 0RF hydrocodone-acetaminophen 5-325 mg tablet 1 tab PO Q6H PRN (Reason: pain) 3 Days Qty: 12 0RF No Action atenolol 100 mg tablet 150 mg PO DAILY mecobalamin (vitamin B12) 1,000 mcg tablet,disintegrating 1,000 mcg SUBLINGUAL DAILY Rx Instructions: place tablet under tongue and allow to dissolve for at least30 secs before swallowing polysaccharide iron complex [Ferrex 150] 150 mg iron capsule 150 mg PO BID Rx Instructions: avoid dairy/calcium-containing products and/or antacids for at least 2 hrs before and after dose hydrochlorothiazide 25 mg tablet 25 mg PO DAILY loperamide 2 mg capsule 2 mg PO Q1-4H PRN Rx Instructions: after each loose stool until symptoms controlled;do not exceed 16 mg total dose in 24 hrs magnesium oxide 400 mg magnesium tablet 400 mg PO BID metformin 500 mg tablet 500 mg PO .COMPLEX Rx Instructions: 500 mg PO 3 tablets (1500 mg) in am and 2 tablets (1000 g) at bedtime; insulin glargine 100 UNIT/ML solution 20 unit subcut QHS sodium chloride 1 DROP drops 1 drp OP Q6H Label Comments: RIGHT EYE FOUR TIMES DAILY anastrozole 1 MG tablet 1 mg PO DAILY aspirin 81 MG tablet 81 mg PO DAILY@0800 meloxicam 7.5 MG tablet 15 mg PO DAILY glimepiride 4 MG tablet 4 mg PO DAILY losartan 100 MG tablet 100 mg PO DAILY calcium carbonate-vitamin D3 1 EACH tablet 1 ea PO DAILY Primary Care Provider: Noble Lemus Referrals: Noble Lemus, [Primary Care Provider] - Activity Restrictions/Additional Instructions: Your labs reveal no acute changes today and indicate your diabetes is being controlled. The CT scan shows no signs of intestinal/abdominal infection or bowel blockage. Your history and symptoms indicate you have a viral stomach infection which should last anywhere from 1 to 7 days with the average being 3 days. Please take your medication as directed to help control your symptoms and return to the ER should you have any further concerns Disposition Disposition: Home, Self Care
[2022-10-05 06:16] VITALS: BP 150/89; PULSE 95; RESP 18; O2SAT 100
== END 2022-10-05 06:26 | disposition home or self-care (01) ==
PROVIDERS: Emergency Provider Emergency Medicine; PCP Student in an Organized Health Care Education/Training Program; Visit Provider Emergency Medicine
DX: R10.9 Unspecified abdominal pain (principal); E11.9 Type 2 diabetes mellitus without complications; I25.10 Atherosclerotic heart disease of native coronary artery without angina pectoris; I10 Essential (primary) hypertension; R19.7 Diarrhea, unspecified; R11.2 Nausea with vomiting, unspecified
CPT/HCPCS: 74177; 80048; 80076; 83690; 85025; 87428; 96361; 96374; 96375; 96376; 99283; J7040; Q9967; A4216; J2405

== ENCOUNTER 2024-04-22 03:16 | Inpatient (IN) | payer MEDICAID, SELFPAY ==
[2024-04-22] VITALS (38 sets, daily range): BP systolic 101–148; BP diastolic 51–85; PULSE 65–114; RESP 12–36; TEMP 36.1–37.1; O2SAT 68–98; BMI 26.8; BMI 27.0
--- NOTE | 2024-04-22 03:27 | RAD_ITS ---
INDICATION: dyspnea EXAMINATION/TECHNIQUE: X-RAY - XR Chest 1 View COMPARISON: Prior study dated: 12/28/2015 FINDINGS: LINES/DEVICES: CT compatible left chest wall port terminates over the lower SVC. LUNGS: The lungs are well expanded. Bibasilar airspace opacities, left greater than right. No pleural effusion or pneumothorax. MEDIASTINUM AND CARDIOVASCULAR STRUCTURES: Cardiac silhouette not enlarged. Central airways and mediastinal contour are unremarkable. BONES AND SOFT TISSUES: No acute abnormality. RAD/Chest 1 View (Portable) IMPRESSION: Bilateral lung basilar airspace opacities, greatest on the left. This could be atelectatic or pneumonia. Electronically Signed: Ed Barber MD at 4:55 EDT ,
--- NOTE | 2024-04-22 03:28 | EKG12_ITS ---
Test Reason : DYSRHYTHMIA Blood Pressure : / mmHG Vent. Rate : 102 BPM Atrial Rate : 102 BPM P-R Int : 160 ms QRS Dur : 134 ms QT Int : 404 ms P-R-T Axes : 029 111 -22 degrees QTc Int : 526 ms Sinus tachycardia Right bundle branch block Left posterior fascicular block Bifascicular block T wave abnormality, consider inferior ischemia Abnormal ECG Confirmed by EFREM ADAMS, [place] ([id number]), map editor NANDO BROWN ([id number]) on 04/22/2024 9:34:42 AM Referred By: Confirmed By:CHEYENNE TOPETE MD
[2024-04-22 03:46] LABS: Absolute Lymphocyte Count 7.02 X10^3/uL (0.83-4.51); Absolute Neutrophil Count 6.5 X10^3/uL (2.0-7.7); Basophil% 1.3 % (0-1); Eosinophil# 0.42 X10^3/uL; Eosinophils% 2.8 % (0-5); Hematocrit 38.8 % (37-47); Hemoglobin 11.8 g/dL (12.0-15.0); Lymphocyte # 7.02 X10^3/ul (0.83-4.51); Lymphocyte % 46.1 % (19-41); Mean Corp Hgb Conc 30.4 g/dL (32-36); Mean Corpuscular Hgb 27.7 pg (27.0-32.0); Mean Corpuscular Volume 91.1 fL (81-99); Mean Platelet Vol. 12.8 fl (6.2-12.0); Monocyte# 1.05 X10^3/uL; Monocyte% 6.9 % (0-10); NRBC Flagged by Analyzer 0 % (0-5); Neutrophil # 6.48 X10^3/uL (2.7-7.7); Neutrophil % 42.4 % (47-70); POSITIVE DIFFERENTIAL YES; Platelet Count 216 K/mm3 (150-450); RBC Distribution Width CV 13.5 % (11.6-14.6); RBC Distribution Width SD 45.1 fl (35.1-43.9); Red Blood Count 4.26 M/mm3 (4.2-5.4); White Blood Count 15.2 K/mm3 (4.4-11.0)
[2024-04-22 03:49] LABS: Bedside Glucose 456 mg/dL (74-106)
[2024-04-22 03:52] LABS: Allen Test Positive; Base Excess -8 mmol/L (-2 to +2); Bicarbonate 19.2 mmol/L (22-26); Blood Gas Specimen Type ART; Mode Not entered; O2 Delivery Device BiPAP; PEEP 8; PIP 14; PO2 77 mmHG (75-100); SITE L Radial; SO2 93 % (95-99); Total Carbon Dioxide 21 mmol/L; pCO2 43.1 mmHg (35-45); pH 7.26 (7.35-7.45)
--- NOTE | 2024-04-22 03:52 | EX.ED.DYSGE1 ---
HPI History of Present Illness Chief Complaint: Nausea/Vomiting/Diarrhea Informant: patient and family Narrative Narrative: Presents by EMS from home acute nausea and vomiting with worsening dyspnea afterwards. Patient reports she was coughing after vomiting. She vomited x 2. No hematemesis. Brought in 68% on room air. Placed on a nonrebreather. Patient is reported she may be on 8 L oxygen at home however family came states she does not wear oxygen. She was feeling fine after dinner she went up to bed at 10 PM. Reported vomiting afterwards. No COPD history. She does have history of diabetes. Discussed CODE STATUS with patient and son at bedside. She is full code. She has no allergies. Patient denies any abdominal pain. Son reported blood glucose was 360 at home. [facility] Medical History (Updated 04/22/24 @ 05:[address] Patricio Chapin, ) Abnormal EKG Coronary atherosclerosis due to calcified coronary lesion of [place] artery Coronary artery calcification seen on CAT scan Essential hypertension Osteoarthritis of both feet Amblyopia, right eye Diabetes mellitus type II, controlled Malignant neoplasm of upper-outer quadrant of right female breast Home Medications ?Medication ?Instructions ?Recorded ?Last Taken ?Type anastrozole 1 mg tablet 1 mg PO DAILY Check with primary 09/08/17 Unknown History doctor aspirin 81 mg tablet,delayed 81 mg PO DAILY@0800 heart 09/08/17 Unknown History release calcium carbonate 500 mg-vitamin 1 ea PO DAILY 09/08/17 Unknown History D3 15 mcg (600 unit) tablet losartan 100 mg tablet 100 mg PO DAILY Check with primary 09/08/17 Unknown History doctor atenolol 100 mg tablet 150 mg PO DAILY beta emiliana 09/19/19 Unknown History loperamide 2 mg capsule 2 mg PO Q1-4H PRN loose stool 09/19/19 Unknown History magnesium oxide 400 mg PO BID 09/19/19 Unknown History mecobalamin (vitamin B12) 1,000 1,000 mcg sublingual DAILY 09/19/19 Unknown History mcg disintegrating tablet,sublingual polysaccharide iron complex 150 mg 150 mg PO BID 09/19/19 Unknown History iron capsule (Ferrex) ondansetron 4 mg disintegrating 4 mg PO TID PRN nausea and 10/05/22 Unknown Rx tablet vomiting #21 tabs amlodipine 10 mg tablet 10 mg PO DAILY 04/22/24 Unknown History calcium carbonate 500 mg-vitamin 1 tab PO DAILY 04/22/24 Unknown History D3 5 mcg (200 unit) tablet (Oyster Shell Calcium-Vitamin D3) cholecalciferol (vitamin D3) 50 50 mcg PO DAILY 04/22/24 Unknown History mcg (2,000 unit) capsule clopidogrel 75 mg tablet 75 mg PO DAILY 04/22/24 Unknown History collagenase clostridium histo. 250 1 applic topical DAILY 04/22/24 Unknown History unit/gram topical ointment (Santyl) cyanocobalamin (vitamin B-12) 1,000 mcg PO DAILY 04/22/24 Unknown History 1,000 mcg tablet gabapentin 100 mg capsule 200 mg PO Q12.TCU 04/22/24 Unknown History glipizide 5 mg tablet, extended 5 mg PO BID 04/22/24 Unknown History release 24 hr insulin glargine 100 unit/mL (3 13 unit subcut QHS 04/22/24 Unknown History mL) subcutaneous pen (Lantus Solostar U-100 Insulin) insulin lispro 100 unit/mL 1 sliding scale dose subcut TID 04/22/24 Unknown History subcutaneous pen meloxicam 15 mg tablet 15 mg PO DAILY 04/22/24 Unknown History metformin 500 mg tablet,extended 1,000 mg PO BID 04/22/24 Unknown History release 24 hr mupirocin 2 % topical ointment 1 applic topical DAILY 04/22/24 Unknown History rosuvastatin 10 mg tablet 10 mg PO QHS 04/22/24 Unknown History sodium chloride 5 % eye ointment 1 applic ophthalmic (eye) QHS 04/22/24 Unknown History (Baltazar 128) Allergy/AdvReac Type Severity Reaction Status Date / Time No Known Allergies Allergy Verified 04/22/24 03:23 Family History Father Diabetes Lung cancer Throat cancer Brother Diabetes Hypertension CAD (coronary artery disease) Surgical History Status post cataract extraction of both eyes with insertion of intraocular lens History of hysterectomy History of colonoscopy History of Social History Smoking Status: Never smoker ROS ROS ED Constitutional Constitutional ED: Denies chills, fever(s) or sweats Eyes Eyes: Denies change in vision ENT ENT ED: Denies dysphagia or sore throat Cardiovascular Cardiovascular: Denies chest pain, leg edema, palpitations or racing heartbeat Respiratory/Chest Respiratory/Chest: Reports cough and dyspnea; Denies dyspnea on exertion Gastrointestinal Gastrointestinal: Reports nausea and vomiting; Denies abdominal pain or diarrhea Genitourinary Genitourinary ED: Denies dysuria, hematuria or urinary frequency Musculoskeletal Musculoskeletal: Denies back pain, extremity pain or neck pain Integumentary Denies rash or wounds Neurologic Neurologic: Denies headache(s), paresthesias or weakness EXAM Physical Exam Const Vital Signs: 04/22/24 03:17 04/22/24 03:17 04/22/24 03:24 Temperature 97.8 F Temperature Source Temporal Pulse Rate 114 H 114 H 111 H Respiratory Rate 33 H 30 H 36 H Respiratory Effort Respiratory Pattern Blood Pressure 120/72 Blood Pressure Mean 88 Pulse Ox 76 68 89 Oxygen Delivery Method Non-Rebreather Room Air Non-Rebreather Oxygen Flow Rate (L/min) 15 15 Fraction of Inspired Oxygen (FIO2) 04/22/24 03:30 04/22/24 03:34 04/22/24 03:36 Temperature 97.8 F Temperature Source Temporal Pulse Rate 110 H 99 Respiratory Rate 32 H 28 H Respiratory Effort Respiratory Pattern Tachypnea Blood Pressure 134/75 H Blood Pressure Mean 94 Pulse Ox 88 94 95 Oxygen Delivery Method Bi-pap Bi-pap Oxygen Flow Rate (L/min) Fraction of Inspired Oxygen (FIO2) 80 80 80 04/22/24 03:39 04/22/24 03:41 04/22/24 03:43 Temperature Temperature Source Pulse Rate 97 Respiratory Rate 31 H Respiratory Effort Short of Breath Labored Short of Breath Labored Respiratory Pattern Gasping Gasping Blood Pressure Blood Pressure Mean Pulse Ox 98 Oxygen Delivery Method Bi-pap Bi-pap Oxygen Flow Rate (L/min) Fraction of Inspired Oxygen (FIO2) 70 60 Positive well nourished and well developed Constitutional Narrative: Patient was on nonrebreather increasing tachypnea speaking in short sentences. General Appearance ED: well developed HEENT Reports moist mucous membranes normocephalic and atraumatic Eyes EOMs intact bilaterally and conjunctivae normal General Eye ED: Yes normal appearance of both eyes Neck no lymphadenopathy and supple General: Negative for tenderness Chest Wall Chest: Negative for tenderness Resp Resp Narrative: Increase accessory muscle use. Rales at the bases. Effort and Inspection: Negative for respiratory distress Cardio regular rhythm and no murmurs Rate: tachycardic Peripheral Pulses: pulses 2+ throughout GI normal to inspection, nondistended, normoactive bowel sounds and non-tender Palpation: Negative for guarding or rebound tenderness present Back/Spine no CVA tenderness and no thoracic nor lumbar tenderness Extremity normal to inspection General Extremety ED: Negative for edema or tenderness General Extremity: Negative for edema Neuro oriented x3 and no sensory deficits noted Sensorium / Orientation: awake and alert Skin no rashes or lesions noted and no wounds Sepsis Attestation Sepsis Alert: Yes Sepsis Attestation: Agree w/Sepsis Date exam was performed: 04/22/24 Time exam was performed: 03:30 Possible Source of Sepsis: Pulmonary Sepsis Organ Dysfunction Criteria Present: Acute Respiratory Failure (New need for BiPAP/CPAP or MV) and Lactic Acid > 2 mmol/L Fluid Resuscitation Fluid resuscitation indicated?: Yes Fluid Resuscitation ordered: 30 ml/kg fluid bolus ordered Sepsis Note Date exam was performed: 04/22/24 Time exam was performed: 04:43 Sepsis Attestation: Sepsis re-evaluation was performed MDM MDM MDM Narrative Medical decision making narrative: Interventions / MDM: Differential diagnosis: Aspiration pneumonia, hypoxia, nausea and vomiting Diagnosis considered but do not suspect: Diabetic ketoacidosis number normal anion gap My EKG interpretation: Sinus 102, ST depression lateral leads no elevation noted. T wave version inferior leads. 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 Evaluation compared to EKG 2019, no blocks were noted. There is chronic T wave inversions at that time in the inferior leads. Imaging independently reviewed and interpreted by myself: 1 view chest x-ray: Bilateral infiltrates noted. External documents reviewed: N/A Test considered but not ordered:N/A ED course: Patient presents nausea vomiting with coughing episodes afterwards. Increasing tachypnea. Concerns for aspiration with rales. She is placed on a BiPAP, sepsis labs ordered 1 blood culture due [place] culture [place]. 0400: ABG with pH of 7.25. pCO2 43, pO2 77 bicarb of 19.2. Blood glucose 456. Acetone added. On BiPAP, clinically improving. Heart rate improving. Results are pending. 0410: 1 view chest x-ray bilateral infiltrates. Glucose 490 in the lab normal anion gap. Lactic acid 9.0. Troponin 31. Slight elevation of AST and ALT. She is ordered for Unasyn for coverage for aspiration. 10 units of insulin with her hyperglycemia. Re-evaluation: stable Disposition discussed with patient/family/significant other: Patient and family Case discussed with consulting clinician: Hospitalist This note was generated with [email or web address] dictation software. It may contain incorrect words, spelling, and punctuation that were not noted in checking the note before signing. Lab Data Attestation: I reviewed the patient's lab results. Labs: Laboratory Results - last 24 hr 04/22/24 04/22/24 03:30 04:05 WBC 15.2 H RBC 4.26 Hgb 11.8 L Hct 38.8 MCV 91.1 MCH 27.7 MCHC 30.4 L RDW Std Deviation 45.1 H RDW Coeff of Hermilo 13.5 Plt Count 216 MPV 12.8 H Immature Gran % (Auto) 0.500 Neut % (Auto) 42.4 L Lymph % (Auto) 46.1 H [place] % (Auto) 6.9 Eos % (Auto) 2.8 Baso % (Auto) 1.3 H Absolute Neuts (auto) 6.5 Absolute Lymphs (auto) 7.02 H Nucleated RBC % 0 PT 13.2 INR 1.0 APTT 25.2 Sodium 139 Potassium 3.8 Chloride 104 Carbon Dioxide 21.0 Anion Gap 14 BUN 34 H Creatinine 1.30 H Estim Creat Clear Calc 33.71 Est GFR (MDRD) Af Amer 51 L Est GFR (MDRD) Non-Af 42 L BUN/Creatinine Ratio 26.2 H Glucose 490 H* Lactic Acid 9.0 H* Calcium 8.8 Total Bilirubin 0.30 AST 69 H ALT 60 H Alkaline Phosphatase 109 Troponin I High Sens 31 Total Protein 7.1 Albumin 3.3 Globulin 3.8 Albumin/Globulin Ratio 0.9 Acetone Level NEGATIVE POC Glucose 456 H* ABG Data ABG results: ABG 04/22/24 03:49 Specimen Type ART Sample Site L Radial pH 7.26 L Bicarbonate Actual 19.2 L Total CO2 21 Base Excess -8 L O2 Saturation 93 L O2 % 60.0 ABG pCO2 43.1 ABG pO2 77 Yordy Test Positive O2 Delivery Device BiPAP Vent Mode Not entered POC PEEP 8 Peak Inspir Pressure 14 Radiography Diagnostic Testing: Clinical Impression(s) from Imaging Studies Chest X-Ray 04/22/24 03:27 IMPRESSION: Bilateral lung basilar airspace opacities, greatest on the left. This could be atelectatic or pneumonia. Electronically Signed: Ed Barber MD at 4:55 EDT , Critical Care Time Critical Care Time: Yes Critical care time (excluding procedures): 30-74 minutes, Discussing w/Patient &/or Family/Abalone Sheller, Discussing w/Consultants, Arranging Admission or Transfer, Performing Direct Patient Care at Bedside and - (31 minutes) Discharge Plan Dx/Rx/DC Orders Clinical Impression: Aspiration pneumonia, Hypoxia, Septic shock, Hyperglycemia due to diabetes mellitus Disposition Disposition: Acute Care [facility]
[2024-04-22 03:55] LABS: Differential Indicated SCAN CRITERIA MET
[2024-04-22 03:56] LABS: Prothrombin Time (Protime)PT. 13.2 SECONDS (11.7-14.9)
[2024-04-22 03:57] LABS: Partial Thromboplast Time 25.2 Seconds (24.1-36.2)
[2024-04-22 04:06] LABS: ALB/GLOB Ratio 0.9 RATIO (0.9-2.4); AST(SGOT) 69 U/L (15-37); Alanine Aminotransfer ALT/SGPT 60 U/L (13-56); Albumin, Serum 3.3 g/dL (3.2-5.0); Alkaline Phosphatase 109 U/L (45-117); Anion Gap 14 (5-15); BUN 34 mg/dL (7-18); BUN/Creat Ratio 26.2 RATIO (10-20); Calcium,Total 8.8 mg/dL (8.5-10.1); Chloride 104 mmol/L (98-107); EST Glomerular Filtration Rate 42 mL/min (>60); Est Glom Filt Rate - Afr Amer 51 mL/min (>60); Estimated Creatinine Clearance 33.71 ml/min; Globulin 3.8 g/dL (2.2-4.2); Glucose 490 mg/dL (74-106); Potassium 3.8 mmol/L (3.5-5.1); Protein, Total 7.1 g/dL (6.4-8.2); Sodium Level 139 mmol/L (136-145); Troponin-I HS 31 pg/mL (3.0-54.0)
[2024-04-22] MEDS: Ondansetron 4 MG/2 ML Vial IV ×2 (04:14→11:35)
[2024-04-22] MEDS: Insulin Lispro 100 UNIT/ML INSULN.PEN 10 UNIT SC (04:15)
[2024-04-22] MEDS: Ampicillin/Sulbactam 3 GM in 0.9% Normal Saline (100mL MB+) 100 ML IV ×3 (04:20→17:47)
[2024-04-22] MEDS: 0.9% Normal Saline (1000mL) 1,000 ML 999 ML IV (04:54)
--- NOTE | 2024-04-22 05:17 | HP.PCM.HOS_ITS ---
HPI - General General Date of Admission: 04/22/24 Date of Service: 04/22/24 Chief Complaint: shortness of breath HPI Narrative JOHANNA PONCE, is a 78 F who presents with hypoxia. This is a 78 year old female with DM2, foot wounds who was at home when she began having nausea, vomiting and diarrhea. After one of the emesis episodes, she choked and coughed. EMS was called and her pulse ox was 68% on RA. She was brought to the ED, placed on BiPAP. Chest x-ray showed bilateral infiltrates and with this aspiration she received ampicillin/sulbactam. Her lactic acid was 9 and she received 30 cc/kg of IV fluid. Patient despite her severe illness is awake and alert and states that she feels fine. States that the vomiting just can up on her quickly. Has not had episodes similar to this before. [facility] Medical History (Updated 04/22/24 @ 05:[address] Patricio Chapin, DO) Abnormal EKG Coronary atherosclerosis due to calcified coronary lesion of [place] artery Coronary artery calcification seen on CAT scan Essential hypertension Osteoarthritis of both feet Amblyopia, right eye Diabetes mellitus type II, controlled Malignant neoplasm of upper-outer quadrant of right female breast Home Medications ?Medication ?Instructions ?Recorded ?Last Taken ?Type anastrozole 1 mg tablet 1 mg PO DAILY Check with primary 09/08/17 Unknown History doctor aspirin 81 mg tablet,delayed 81 mg PO DAILY@0800 heart 09/08/17 Unknown History release calcium carbonate 500 mg-vitamin 1 ea PO DAILY 09/08/17 Unknown History D3 15 mcg (600 unit) tablet losartan 100 mg tablet 100 mg PO DAILY Check with primary 09/08/17 Unknown History doctor atenolol 100 mg tablet 150 mg PO DAILY beta emiliana 09/19/19 Unknown History loperamide 2 mg capsule 2 mg PO Q1-4H PRN loose stool 09/19/19 Unknown History magnesium oxide 400 mg PO BID 09/19/19 Unknown History mecobalamin (vitamin B12) 1,000 1,000 mcg sublingual DAILY 09/19/19 Unknown History mcg disintegrating tablet,sublingual polysaccharide iron complex 150 mg 150 mg PO BID 09/19/19 Unknown History iron capsule (Ferrex) ondansetron 4 mg disintegrating 4 mg PO TID PRN nausea and 10/05/22 Unknown Rx tablet vomiting #21 tabs amlodipine 10 mg tablet 10 mg PO DAILY 04/22/24 Unknown History calcium carbonate 500 mg-vitamin 1 tab PO DAILY 04/22/24 Unknown History D3 5 mcg (200 unit) tablet (Oyster Shell Calcium-Vitamin D3) cholecalciferol (vitamin D3) 50 50 mcg PO DAILY 04/22/24 Unknown History mcg (2,000 unit) capsule clopidogrel 75 mg tablet 75 mg PO DAILY 04/22/24 Unknown History collagenase clostridium histo. 250 1 applic topical DAILY 04/22/24 Unknown History unit/gram topical ointment (Santyl) cyanocobalamin (vitamin B-12) 1,000 mcg PO DAILY 04/22/24 Unknown History 1,000 mcg tablet gabapentin 100 mg capsule 200 mg PO Q12.TCU 04/22/24 Unknown History glipizide 5 mg tablet, extended 5 mg PO BID 04/22/24 Unknown History release 24 hr insulin glargine 100 unit/mL (3 13 unit subcut QHS 04/22/24 Unknown History mL) subcutaneous pen (Lantus Solostar U-100 Insulin) insulin lispro 100 unit/mL 1 sliding scale dose subcut TID 04/22/24 Unknown History subcutaneous pen meloxicam 15 mg tablet 15 mg PO DAILY 04/22/24 Unknown History metformin 500 mg tablet,extended 1,000 mg PO BID 04/22/24 Unknown History release 24 hr mupirocin 2 % topical ointment 1 applic topical DAILY 04/22/24 Unknown History rosuvastatin 10 mg tablet 10 mg PO QHS 04/22/24 Unknown History sodium chloride 5 % eye ointment 1 applic ophthalmic (eye) QHS 04/22/24 Unknown History (Baltazar 128) Allergy/AdvReac Type Severity Reaction Status Date / Time No Known Allergies Allergy Verified 04/22/24 03:23 Family History Father Diabetes Lung cancer Throat cancer Brother Diabetes Hypertension CAD (coronary artery disease) Surgical History Status post cataract extraction of both eyes with insertion of intraocular lens History of hysterectomy History of colonoscopy History of Social History Smoking Status: Never smoker ROS ROS Narrative All review of systems were negative except as mentioned above in the history of present illness and the other review of systems. Vital Signs Vital Signs Vital Signs: 04/22/24 03:17 04/22/24 03:17 04/22/24 03:24 Temperature 36.6 C Temperature Source Temporal Pulse Rate 114 H 114 H 111 H Respiratory Rate 33 H 30 H 36 H Respiratory Effort Respiratory Pattern Blood Pressure 120/72 Blood Pressure Mean 88 Pulse Ox 76 68 89 Oxygen Delivery Method Non-Rebreather Room Air Non-Rebreather Oxygen Flow Rate (L/min) 15 15 Fraction of Inspired Oxygen (FIO2) 04/22/24 03:30 04/22/24 03:34 04/22/24 03:36 Temperature 36.6 C Temperature Source Temporal Pulse Rate 110 H 99 Respiratory Rate 32 H 28 H Respiratory Effort Respiratory Pattern Tachypnea Blood Pressure 134/75 H Blood Pressure Mean 94 Pulse Ox 88 94 95 Oxygen Delivery Method Bi-pap Bi-pap Oxygen Flow Rate (L/min) Fraction of Inspired Oxygen (FIO2) 80 80 80 04/22/24 03:39 04/22/24 03:41 04/22/24 03:43 Temperature Temperature Source Pulse Rate 97 Respiratory Rate 31 H Respiratory Effort Short of Breath Labored Short of Breath Labored Respiratory Pattern Gasping Gasping Blood Pressure Blood Pressure Mean Pulse Ox 98 Oxygen Delivery Method Bi-pap Bi-pap Oxygen Flow Rate (L/min) Fraction of Inspired Oxygen (FIO2) 70 60 04/22/24 05:12 04/22/24 05:13 Temperature 36.5 C L 36.5 C L Temperature Source Core Pulse Rate 99 97 Respiratory Rate 24 H 26 H Respiratory Effort Respiratory Pattern Blood Pressure 115/64 116/60 Blood Pressure Mean 81 78 Pulse Ox 93 93 Oxygen Delivery Method Bi-pap Oxygen Flow Rate (L/min) Fraction of Inspired Oxygen (FIO2) 30 Weight Weight: 68.7 kg Body Mass Index (BMI) 26.8 Physical Exam Const alert Constitutional Narrative: On BiPAP. No respiratory distress. General Appearance: cooperative HEENT normocephalic and head/scalp atraumatic Neck no lymphadenopathy Neck Narrative: No thyromegaly Resp Resp Narrative: Bilateral crackles throughout. Cardio regular rate, regular rhythm, S1 normal heart sound and S2 normal heart sound GI normal to inspection, nondistended, normoactive bowel sounds, soft to palpation, non-tender and non-distended Extremity Extremity Narrative: Patient has amputated toes. She does have some ulcerations on her feet and toes. Neuro Sensorium / Orientation: awake and alert Speech: speech normal Psych affect normal Results Lab / Micro Data Attestation: I reviewed the patient's lab results. 04/22/24 03:30 04/22/24 03:30 Labs: Laboratory Results - last 24 hr 04/22/24 03:30: WBC 15.2 H, RBC 4.26, Hgb 11.8 L, Hct 38.8, MCV 91.1, MCH 27.7, MCHC 30.4 L, RDW Std Deviation 45.1 H, RDW Coeff of Hermilo 13.5, Plt Count 216, MPV 12.8 H, Immature Gran % (Auto) 0.500, Neut % (Auto) 42.4 L, Lymph % (Auto) 46.1 H, [place] % (Auto) 6.9, Eos % (Auto) 2.8, Baso % (Auto) 1.3 H, Absolute Neuts (auto) 6.5, Absolute Lymphs (auto) 7.02 H, Nucleated RBC % 0, PT 13.2, INR 1.0, APTT 25.2, Sodium 139, Potassium 3.8, Chloride 104, Carbon Dioxide 21.0, Anion Gap 14, BUN 34 H, Creatinine 1.30 H, Estim Creat Clear Calc 33.71, Est GFR (MDRD) Af Amer 51 L, Est GFR (MDRD) Non-Af 42 L, BUN/Creatinine Ratio 26.2 H, G lucose 490 H*, Lactic Acid 9.0 H*, Calcium 8.8, Total Bilirubin 0.30, AST 69 H, ALT 60 H, Alkaline Phosphatase 109, Troponin I High Sens 31, Total Protein 7.1, Albumin 3.3, Globulin 3.8, Albumin/Globulin Ratio 0.9, POC Glucose 456 H* 04/22/24 04:05: Acetone Level NEGATIVE ABG Data ABG results: ABG 04/22/24 03:49 Specimen Type ART Sample Site L Radial pH 7.26 L Bicarbonate Actual 19.2 L Total CO2 21 Base Excess -8 L O2 Saturation 93 L O2 % 60.0 ABG pCO2 43.1 ABG pO2 77 Yordy Test Positive O2 Delivery Device BiPAP Vent Mode Not entered POC PEEP 8 Peak Inspir Pressure 14 Imaging Radiology Impression Chest X-Ray 04/22/24 03:27 IMPRESSION: Bilateral lung basilar airspace opacities, greatest on the left. This could be atelectatic or pneumonia. Electronically Signed: Ed Barber MD at 4:55 EDT Reading Location ID and State: [facility] / [place] Tel , Service support , Assessment & Plan Assessment/Plan (1) Acute hypoxic respiratory failure: PLAN: Secondary to severe aspiration pneumonia Placed on BiPAP in the ED. Wean oxygen as tolerated Consult pulmonary for further recommendations (2) Aspiration pneumonia: PLAN: Patient was vomiting for unclear reasons and she aspirated apparently diffuse amount of emesis. Pulmonary toilet. Bronchodilators. Antibiotics with ampicillin/sulbactam and levofloxacin. Checking urinary antigens for strep and Legionella, sputum culture. (3) Sepsis: PLAN: Present on admission. Patient was never hypotensive. I do not feel the patient had septic shock but patient did receive 30 cc/kg of IV fluids. No need for pressors at this time. Secondary to pneumonia. Follow-up cultures (4) Lactic acidosis: PLAN: I suspect more related with her severe hypoxia Monitor (5) Respiratory acidosis: PLAN: To some improvement with the BiPAP. No additional ABGs at this time unless her condition changes for the worse. PLAN: Plan Chronic conditions * Diabetes mellitus type 2: Insulin-dependent. Will continue with her glargine for now. Hold off on her scheduled insulin but also add sliding scale insulin. Hold off on metformin given lactic acidosis * Hypertension: Continue with losartan with hold parameters. * Iron deficiency anemia: Continue with her iron supplementation * Bilateral feet ulcers:. Be superficial. Patient established with wound care. Will have the wound nurse addressed while she is here. * History of right breast cancer: Currently in remission. Follow-up with oncology as outpatient * CAD: No active issues at this time. Continue with clopidogrel and statin. VTE prophylaxis with enoxaparin CODE STATUS: Addressed with the patient. Patient wishes to be full code. Charges/Coding Visit Charges Inpatient E&M: 49014 Init Hosp L3
[2024-04-22 07:48] LABS: Reflex Lactate? Y
--- NOTE | 2024-04-22 07:50 | CON.PCM.CC_ITS ---
Assessment & Plan Assessment/Plan (1) Acute hypoxic respiratory failure: (2) Hyperglycemia due to diabetes mellitus: (3) Lactic acidosis: PLAN: Plan RECOMMENDATIONS: 1. Okay to transition from BiPAP to heated high flow, for patient comfort. Wean FiO2 to maintain saturations at or above 90%. 2. Continue empiric antimicrobials. 3. Check MRSA screen. 4. Continue insulin as ordered. 5. Dietary advancement following speech therapy evaluation. 6. Continue appropriate DVT prophylaxis with Lovenox. IMPRESSIONS: 1. Acute hypoxemic respiratory failure The patient presented with respiratory failure following an episode of choking with associated nausea and emesis, with concern for aspiration pneumonia. The patient has responded to noninvasive positive pressure ventilatory support. Will plan to attempt to wean the patient to heated high flow oxygen for comfort this morning. In the interim, she will be continued on antimicrobials to address underlying aspiration. FiO2 will be weaned to maintain saturations at or above 90%. 2. Sepsis The patient presented to the hospital with sepsis due to probable aspiration pneumonia with acute sepsis related organ dysfunction as evidenced by lactic acidemia and acute respiratory failure requiring noninvasive positive pressure ventilatory support. 3. Hyperglycemia in the setting of diabetes mellitus No evidence of DKA presentation. Continue basal and sliding scale insulin coverage, pending dietary advancement. 4. History of hypertension/history of breast CA/coronary artery disease Complicates care, management, recovery and prognosis. Continue supportive measures noted above. This note was generated with [employer] dictation software. It may contain incorrect words, spelling, and punctuation that were not noted in checking the note before signing. HPI Consult Data Date of Consult: 04/22/24 HPI Narrative Reason for Consultation: Respiratory failure with hypoxemia HPI Narrative: The patient is a 78-year-old female, with a history as outlined below, who presented to the emergency department via EMS on April 22 after she developed a cough with associated hypoxemia in the setting of nausea and an episode of choking with associated emesis. The patient has a history of breast CA, osteoarthritis, diabetes mellitus and coronary artery disease. According to EMS documentation, the patient was hypoxemic upon their initial evaluation. On presentation to the emergency department, the patient was documented to be afebrile but was tachycardic, tachypneic and hypoxemic, initially documented to be saturating 76% on a nonrebreather mask. Laboratory evaluation revealed a white blood cell count of 15,000. Coagulation profile was unremarkable. Chemistry profile was notable for a creatinine of 1.3 with a glucose of 490 and lactate of 9.0. Serum acetone level was negative. The patient was ultimately placed on BiPAP in the emergency department. Subsequent arterial blood gas was obtained and demonstrated a pH of 7.26 with a pCO2 of 43 and pO2 of 77. Chest imaging demonstrated bilateral lower lobe airspace opacities, left greater than right. The patient was placed on antimicrobials and admitted to the medical intensive care unit for further management. As of this morning, the patient appears comfortable on BiPAP with an FiO2 requirement of 50%. She does report improvement in her shortness of breath, but does report the presence of low back pain, which is a chronic issue for her. [facility], LAT[facility] Medical History (Updated 04/22/24 @ 05:[address] Patricio Chapin, DO) Abnormal EKG Coronary atherosclerosis due to calcified coronary lesion of [place] artery Coronary artery calcification seen on CAT scan Essential hypertension Osteoarthritis of both feet Amblyopia, right eye Diabetes mellitus type II, controlled Malignant neoplasm of upper-outer quadrant of right female breast Home Medications ?Medication ?Instructions ?Recorded ?Last Taken ?Type anastrozole 1 mg tablet 1 mg PO DAILY Check with primary 09/08/17 Unknown History doctor aspirin 81 mg tablet,delayed 81 mg PO DAILY@0800 heart 09/08/17 Unknown History release calcium carbonate 500 mg-vitamin 1 ea PO DAILY 09/08/17 Unknown History D3 15 mcg (600 unit) tablet losartan 100 mg tablet 100 mg PO DAILY Check with primary 09/08/17 Unknown History doctor atenolol 100 mg tablet 150 mg PO DAILY beta emiliana 09/19/19 Unknown History loperamide 2 mg capsule 2 mg PO Q1-4H PRN loose stool 09/19/19 Unknown History magnesium oxide 400 mg PO BID 09/19/19 Unknown History mecobalamin (vitamin B12) 1,000 1,000 mcg sublingual DAILY 09/19/19 Unknown History mcg disintegrating tablet,sublingual polysaccharide iron complex 150 mg 150 mg PO BID 09/19/19 Unknown History iron capsule (Ferrex) ondansetron 4 mg disintegrating 4 mg PO TID PRN nausea and 10/05/22 Unknown Rx tablet vomiting #21 tabs amlodipine 10 mg tablet 10 mg PO DAILY 04/22/24 Unknown History calcium carbonate 500 mg-vitamin 1 tab PO DAILY 04/22/24 Unknown History D3 5 mcg (200 unit) tablet (Oyster Shell Calcium-Vitamin D3) cholecalciferol (vitamin D3) 50 50 mcg PO DAILY 04/22/24 Unknown History mcg (2,000 unit) capsule clopidogrel 75 mg tablet 75 mg PO DAILY 04/22/24 Unknown History collagenase clostridium histo. 250 1 applic topical DAILY 04/22/24 Unknown History unit/gram topical ointment (Santyl) cyanocobalamin (vitamin B-12) 1,000 mcg PO DAILY 04/22/24 Unknown History 1,000 mcg tablet gabapentin 100 mg capsule 200 mg PO Q12.TCU 04/22/24 Unknown History glipizide 5 mg tablet, extended 5 mg PO BID 04/22/24 Unknown History release 24 hr insulin glargine 100 unit/mL (3 13 unit subcut QHS 04/22/24 Unknown History mL) subcutaneous pen (Lantus Solostar U-100 Insulin) insulin lispro 100 unit/mL 1 sliding scale dose subcut TID 04/22/24 Unknown History subcutaneous pen meloxicam 15 mg tablet 15 mg PO DAILY 04/22/24 Unknown History metformin 500 mg tablet,extended 1,000 mg PO BID 04/22/24 Unknown History release 24 hr mupirocin 2 % topical ointment 1 applic topical DAILY 04/22/24 Unknown History rosuvastatin 10 mg tablet 10 mg PO QHS 04/22/24 Unknown History sodium chloride 5 % eye ointment 1 applic ophthalmic (eye) QHS 04/22/24 Unknown History (Baltazar 128) Allergy/AdvReac Type Severity Reaction Status Date / Time No Known Allergies Allergy Verified 04/22/24 03:23 Family History Father Diabetes Lung cancer Throat cancer Brother Diabetes Hypertension CAD (coronary artery disease) Surgical History Status post cataract extraction of both eyes with insertion of intraocular lens History of hysterectomy History of colonoscopy History of Social History Smoking Status: Never smoker ROS ROS Narrative 10 systems were reviewed with pertinent positives as noted in the HPI above. Physical Exam Const alert and no apparent distress Constitutional Narrative: Resting comfortably with BiPAP in place. General Appearance: cooperative HEENT normocephalic and head/scalp atraumatic Eyes PERRL, EOMs intact bilaterally and conjunctivae normal Neck supple General: trachea midline Chest inspection of chest normal Resp normal respiratory effort Auscultation: rales and diminished lung sounds Cardio regular rate and regular rhythm GI normal to inspection, nondistended, normoactive bowel sounds Extremity no clubbing, cyanosis or edema Skin no rashes or lesions noted Neuro CN's II-XII intact bilaterally and no focal motor deficits Psych cooperative and affect normal Lab / Micro Data 04/22/24 03:30 04/22/24 03:30 Labs: Laboratory Results - last 24 hr 04/22/24 03:30: WBC 15.2 H, RBC 4.26, Hgb 11.8 L, Hct 38.8, MCV 91.1, MCH 27.7, MCHC 30.4 L, RDW Std Deviation 45.1 H, RDW Coeff of Hermilo 13.5, Plt Count 216, MPV 12.8 H, Immature Gran % (Auto) 0.500, Neut % (Auto) 42.4 L, Lymph % (Auto) 46.1 H, Weber % (Auto) 6.9, Eos % (Auto) 2.8, Baso % (Auto) 1.3 H, Absolute Neuts (auto) 6.5, Absolute Lymphs (auto) 7.02 H, Nucleated RBC % 0, PT 13.2, INR 1.0, APTT 25.2, Sodium 139, Potassium 3.8, Chloride 104, Carbon Dioxide 21.0, Anion Gap 14, BUN 34 H, Creatinine 1.30 H, Estim Creat Clear Calc 33.71, Est GFR (MDRD) Af Amer 51 L, Est GFR (MDRD) Non-Af 42 L, BUN/Creatinine Ratio 26.2 H, G lucose 490 H*, Lactic Acid 9.0 H*, Calcium 8.8, Total Bilirubin 0.30, AST 69 H, ALT 60 H, Alkaline Phosphatase 109, Troponin I High Sens 31, Total Protein 7.1, Albumin 3.3, Globulin 3.8, Albumin/Globulin Ratio 0.9, POC Glucose 456 H* 04/22/24 04:05: Acetone Level NEGATIVE ABG Data ABG results: ABG 04/22/24 03:49 Specimen Type ART Sample Site L Radial pH 7.26 L Bicarbonate Actual 19.2 L Total CO2 21 Base Excess -8 L O2 Saturation 93 L O2 % 60.0 ABG pCO2 43.1 ABG pO2 77 Yordy Test Positive O2 Delivery Device BiPAP Vent Mode Not entered POC PEEP 8 Peak Inspir Pressure 14 Imaging Radiology Impression Chest X-Ray 04/22/24 03:27 IMPRESSION: Bilateral lung basilar airspace opacities, greatest on the left. This could be atelectatic or pneumonia. Electronically Signed: Ed Barber MD at 4:55 EDT , Charges/Coding Visit Charges Inpatient E&M: 41663 Init Hosp L3
[2024-04-22] MEDS: Acetaminophen 325 MG Tablet 650 MG PO ×2 (08:26→15:32)
[2024-04-22] MEDS: Collagenase 30gm Tube 1 APPLIC TOPICAL (08:27)
[2024-04-22] MEDS: Cyanocobalamin 500 MCG Tablet 1000 MCG PO (08:28)
[2024-04-22] MEDS: amLODIPine 10 MG Tablet PO (08:28)
[2024-04-22] MEDS: guaiFENesin 1,200 MG Tablet 1200 MG PO ×2 (08:29→21:40)
[2024-04-22] MEDS: Atenolol 50 MG Tablet 150 MG PO (08:29)
[2024-04-22] MEDS: Aspirin E.C. 81 MG Tablet PO (08:29)
[2024-04-22] MEDS: Clopidogrel Bisulfate 75 MG Tablet PO (08:29)
[2024-04-22] MEDS: Iron Polysaccharide Complex 150 MG CAPSULE PO ×2 (08:29→21:40)
[2024-04-22] MEDS: Cholecalciferol (VIT D3) 25 MCG TABLET (1,000 UNITS) 50 MCG PO (08:29)
[2024-04-22] MEDS: Losartan Potassium 100 MG Tablet PO (08:30)
[2024-04-22] MEDS: Magnesium Chloride 64 MG Delay Rel.Tablet 128 MG PO ×2 (08:30→21:40)
[2024-04-22] MEDS: Anastrozole 1 MG TABLET PO (08:30)
[2024-04-22] MEDS: Calcium Carb/Vitamin D 1 TABLET Tablet PO (08:30)
[2024-04-22] MEDS: Enoxaparin 40 MG/0.4 ML Syringe SC (08:30)
[2024-04-22] MEDS: Mupirocin Ointment 22gm Tube 1 APPLIC TOPICAL (08:31)
--- NOTE | 2024-04-22 08:37 | WOUNDNOTE ---
wound photo: left foot
[2024-04-22] MEDS: Insulin Lispro 100 UNIT/ML INSULN.PEN SC ×3 (08:38→17:20)
[2024-04-22] MEDS: levoFLOXacin IV 750 MG/150 ML BAG 100 MG IV (08:38)
[2024-04-22 08:58] LABS: Lactic Acid 2.4 mmol/L (0.4-1.9)
[2024-04-22 09:07] LABS: Bedside Glucose 204 mg/dL (74-106)
[2024-04-22] MEDS: Gabapentin 100 MG Capsule 200 MG PO ×2 (09:14→21:40)
--- NOTE | 2024-04-22 10:02 | CASEMGMT ---
RN CM to pt room at this time for initial assessment. Pt states that she has abdominal pain and does not want to answer this RN CM questions at this time. This RN CM collaborated with the pt RN who states that they are unable to give the pt any pain medication for another couple of hours. This RN CM back to pt room and explained this to pt. Pt continues to refuse to answer this RN CM questions at this time. NEIL.
--- NOTE | 2024-04-22 10:08 | SEPSISATNOTE ---
Sepsis Attestation Sepsis Alert: Yes Sepsis Attestation: Agree w/Sepsis Date exam was performed: 04/22/24 Time exam was performed: 10:09 Possible Source of Sepsis: Pulmonary Sepsis Organ Dysfunction Criteria Present: Acute Respiratory Failure (New need for BiPAP/CPAP or MV) and Lactic Acid > 2 mmol/L Sepsis Note Date exam was performed: 04/22/24 Time exam was performed: 10:09 Sepsis Attestation: Sepsis re-evaluation was performed Response to fluids: Fluid responsive hypotension
[2024-04-22 10:41] LABS: M R Staph aureus DNA By PCR Negative (Negative); Probe Check PASS; Specimen Processing Control PASS
[2024-04-22] MEDS: Ipratropium/Albuterol Sulfate 3 ML AMPUL.NEB INHALATION ×4 (11:17→22:55)
[2024-04-22 11:37] LABS: Bedside Glucose 239 mg/dL (74-106)
[2024-04-22 12:15] LABS: Reflex Lactate? Y
--- NOTE | 2024-04-22 12:56 | RAD_ITS ---
STUDY: X-RAY - ABDOMEN/PELVIS REASON FOR EXAM: Female, 78 years old. Abdominal pain TECHNIQUE: Single AP view of the abdomen / pelvis. COMPARISON: None. FINDINGS: Patchy bibasilar infiltrates worse at the left lung base. There is an unremarkable bowel gas pattern. The visualized liver, spleen and kidneys are grossly normal in size and morphology. Normal soft tissue structures. There are mild degenerative changes of the visualized lumbar spine. RAD/Abdomen Single View (Portable) IMPRESSION: A catheter is seen within the pelvis. Electronically Signed: Manny Fowler MD at 13:59 EDT ,
--- NOTE | 2024-04-22 14:02 | CASEMGMT ---
LESLIE MCCARTHY Assessment Face to Face with patient for initial transition planning/care coordination assessment. RN FABIO introduced self and role at [facility], pt voices understanding. Pt is A&Ox4 and is resting comfortably in bed and is calm. Pt is currently on BiPAP. Pt son (Luis) at bedside. Pt states to ask the pt son questions for assessment. Pt son states that he is willing to answer this LESLIE MCCARTHY questions for assessment. Care providers, pharmacy, and demographics verified. 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 Pt son states that he provides transportation and denies concerns at this time DME: Working [employer] and supplies. BP Monitor. Denies further DME uses. Pt is currently requiring additional oxygen. A verbal list of local in-network DME companies provided to the pt at this time. Prefers [facility]. HHC/SNF: Denies history Pt?s goal: Return to PLOF Plan: TBD. Anticipate SNF vs Home with HHC. Per PT/OT, additional therapy is recommended. 6-Click is 14. Pt ambulated 3 ft with PT during the initial Eval. Pt and pt son are unsure of DC plans at this time as it is too early in the pt stay. Pt is projected to be here through the weekend. CM and SW to follow pt progression in the hospital to decipher the safest DC plan moving forward. Angela Greco RN, CM
--- NOTE | 2024-04-22 14:31 | PCM.PROGNOTE ---
Subjective Subjective Patient seen and examined. She remained on BiPAP. She was admitted with a complaint of shortness of breath. She admits to coughing which is productive of scanty yellowish sputum. She denies any fever or chills. Review of systems otherwise negative. She was on BiPAP 15 L/min at 50% FiO2. Objective Data Objective Data Vital Signs: Vital Signs Temp Pulse Resp BP Pulse Ox O2 Del Method O2 Flow Rate 98.2 F 71 19 H 105/62 92 Airvo 50 04/22/24 11:00 04/22/24 13:32 04/22/24 13:32 04/22/24 12:00 04/22/24 13:32 04/22/24 14:00 04/22/24 14:00 FiO2 70 04/22/24 14:00 Oxygen Flow Rate (L/min) 50 Oxygen Delivery Method Airvo Weight: 152 lb 8.958 oz Body Mass Index (BMI) 27.0 Intake & Output: Intake and Output for Last 24 Hours 04/20/24 04/21/24 04/22/24 23:59 23:59 23:59 Intake Total 2664 / 2664 Output Total 500 / 500 Balance 2164 / 2164 Lab / Micro Data 04/22/24 03:30 04/22/24 03:30 Labs: Laboratory Results - last 24 hr 04/22/24 03:30: WBC 15.2 H, RBC 4.26, Hgb 11.8 L, Hct 38.8, MCV 91.1, MCH 27.7, MCHC 30.4 L, RDW Std Deviation 45.1 H, RDW Coeff of Hermilo 13.5, Plt Count 216, MPV 12.8 H, Immature Gran % (Auto) 0.500, Neut % (Auto) 42.4 L, Lymph % (Auto) 46.1 H, [place] % (Auto) 6.9, Eos % (Auto) 2.8, Baso % (Auto) 1.3 H, Absolute Neuts (auto) 6.5, Absolute Lymphs (auto) 7.02 H, Nucleated RBC % 0, PT 13.2, INR 1.0, APTT 25.2, Sodium 139, Potassium 3.8, Chloride 104, Carbon Dioxide 21.0, Anion Gap 14, BUN 34 H, Creatinine 1.30 H, Estim Creat Clear Calc 33.71, Est GFR (MDRD) Af Amer 51 L, Est GFR (MDRD) Non-Af 42 L, BUN/Creatinine Ratio 26.2 H, Glucose 490 H*, Lactic Acid 9.0 H*, Calcium 8.8, Total Bilirubin 0.30, AST 69 H, ALT 60 H, Alkaline Phosphatase 109, Troponin I High Sens 31, Total Protein 7.1, Albumin 3.3, Globulin 3.8, Albumin/Globulin Ratio 0.9, POC Glucose 456 H* 04/22/24 04:05: Acetone Level NEGATIVE 04/22/24 08:05: Lactic Acid 2.4 H* 04/22/24 08:37: POC Glucose 204 H 04/22/24 08:45: MRSA (PCR) Negative 04/22/24 11:18: POC Glucose 239 H ABG Data ABG results: ABG 04/22/24 03:49 Specimen Type ART Sample Site L Radial pH 7.26 L Bicarbonate Actual 19.2 L Total CO2 21 Base Excess -8 L O2 Saturation 93 L O2 % 60.0 ABG pCO2 43.1 ABG pO2 77 Yordy Test Positive O2 Delivery Device BiPAP Vent Mode Not entered POC PEEP 8 Peak Inspir Pressure 14 Radiography Diagnostic Testing: Radiology Impression Chest X-Ray 04/22/24 03:27 IMPRESSION: Bilateral lung basilar airspace opacities, greatest on the left. This could be atelectatic or pneumonia. Electronically Signed: Ed Barber MD at 4:55 EDT , KUB X-Ray 04/22/24 12:56 IMPRESSION: A catheter is seen within the pelvis. Electronically Signed: Manny Fowler MD at 13:59 EDT , Physical Exam Const alert Constitutional Narrative: looks very frail and weak Orientation / Consciousness: lethargic HEENT normocephalic, moist oral mucous membranes and oropharynx normal Mouth: dry mucous membranes Eyes PERRL and EOMs intact bilaterally Neck no lymphadenopathy and supple Lymph Lymphatic: no lymphadenopathy noted and no lymphedema noted Resp Resp Narrative: moderately diminished breath sounds bilaterally, few crackles, no wheezing. On Airvo Cardio regular rate, regular rhythm, S1 normal heart sound, S2 normal heart sound and no murmurs GI normal to inspection, nondistended, normoactive bowel sounds, soft to palpation, non-tender and non-distended Extremity no calf tenderness General Extremity: no tenderness to palpation of joints or extremities Skin General Skin Exam: no breakdown Neuro CN's II-XII intact bilaterally, no focal motor deficits and no sensory deficits noted Motor Exam: strength 5/5 throughout and general weakness Psych thought process normal and cooperative Appearance: appropriate Assessment & Plan Assessment/Plan (1) Acute hypoxic respiratory failure: (2) Sepsis: (3) Respiratory acidosis: (4) Aspiration pneumonia: PLAN: Plan #Acute hypoxic respiratory failure due to probable aspiration pneumonia She had nausea and vomiting and diarrhea at home and after vomiting she coughed and choked and EMS was called. She was saturating at 68% on room air. Chest x-ray showed by lateral infiltrates. Lactic acid was also elevated at 9. She remains on Airvo at 50 L/min with 50% FiO2. Continue broad-spectrum antibiotics. Sputum culture and blood culture pending. Titrate oxygen to maintain saturation above 90% as needed. Critical care on board. Breathing treatments with bronchodilators. #Sepsis due to aspiration pneumonia: As above. Patient was not in shock. Was resuscitated with 30 cc/KG of IV fluids. Managemen as above #Lactic acidosis: lactic acid was 9 on admission. This is however likely due to her hypoxia. Should improve with hydration. #Type 2 diabetes mellitus with hyperglycemia: On Lantus. Insulin sliding scale. Accu-Cheks ACH. Metformin held due to lactic acidosis #Hypertension: On losartan. IV hydralazine as needed. #History of bilateral feet ulcers: Wound care on board. This is chronic. #History of breast cancer: Follow-up with oncology on outpatient basis #History of CAD: On Plavix and statin. DVT prophylaxis: Lovenox Charges/Coding Visit Charges Inpatient E&M: 00097 [facility] Hosp L3
[2024-04-22] MEDS: proCHLORPERazine 10 MG/2 ML Vial 5 MG IV (15:33)
[2024-04-22 17:15] LABS: Bedside Glucose 307 mg/dL (74-106)
[2024-04-22] MEDS: Petrolatum,White 3.75GM OPTH.TUBE 1 APPLIC OPHTHALMIC (21:40)
[2024-04-22] MEDS: Atorvastatin Calcium 20 MG Tablet PO (21:40)
[2024-04-22] MEDS: Insulin Glargine-YFGN 100 UNIT/ML Pen 13 UNIT SC (21:41)
[2024-04-23] VITALS (38 sets, daily range): BP systolic 97–171; BP diastolic 53–90; PULSE 62–106; RESP 12–34; TEMP 36.4–37.7; O2SAT 85–100; BMI 27.0
[2024-04-23] MEDS: Ampicillin/Sulbactam 3 GM in 0.9% Normal Saline (100mL MB+) 100 ML IV ×5 (01:19→22:35)
[2024-04-23] MEDS: Ipratropium/Albuterol Sulfate 3 ML AMPUL.NEB INHALATION ×6 (02:46→22:42)
[2024-04-23 06:56] LABS: Absolute Lymphocyte Count 1.37 X10^3/uL (0.83-4.51); Basophil# 0.08 X10^3/uL; Basophil% 0.8 % (0-1); Eosinophil# 0.05 X10^3/uL; Eosinophils% 0.5 % (0-5); Hematocrit 34.5 % (37-47); Hemoglobin 10.9 g/dL (12.0-15.0); Lymphocyte # 1.37 X10^3/ul (0.83-4.51); Lymphocyte % 12.9 % (19-41); Mean Corp Hgb Conc 31.6 g/dL (32-36); Mean Corpuscular Hgb 28.2 pg (27.0-32.0); Mean Corpuscular Volume 89.1 fL (81-99); Mean Platelet Vol. 13.7 fl (6.2-12.0); Monocyte# 0.99 X10^3/uL; Monocyte% 9.4 % (0-10); NRBC Flagged by Analyzer 0 % (0-5); Neutrophil # 8.04 X10^3/uL (2.7-7.7); Neutrophil % 75.9 % (47-70); Platelet Count 140 K/mm3 (150-450); RBC Distribution Width CV 13.8 % (11.6-14.6); RBC Distribution Width SD 45.1 fl (35.1-43.9); Red Blood Count 3.87 M/mm3 (4.2-5.4); White Blood Count 10.6 K/mm3 (4.4-11.0)
[2024-04-23 07:09] LABS: ALB/GLOB Ratio 0.8 RATIO (0.9-2.4); AST(SGOT) 120 U/L (15-37); Alanine Aminotransfer ALT/SGPT 89 U/L (13-56); Albumin, Serum 2.7 g/dL (3.2-5.0); Alkaline Phosphatase 58 U/L (45-117); Anion Gap 4 (5-15); BUN 25 mg/dL (7-18); BUN/Creat Ratio 29.2 RATIO (10-20); Calcium,Total 8.2 mg/dL (8.5-10.1); Chloride 115 mmol/L (98-107); Creatinine, Serum 0.86 mg/dL (0.55-1.02); EST Glomerular Filtration Rate 68 mL/min (>60); Est Glom Filt Rate - Afr Amer 83 mL/min (>60); Estimated Creatinine Clearance 51.13 ml/min; Globulin 3.3 g/dL (2.2-4.2); Glucose 168 mg/dL (74-106); Potassium 4.4 mmol/L (3.5-5.1); Sodium Level 143 mmol/L (136-145)
[2024-04-23] MEDS: Juven (unflavored) Packet 1 PACKET PO ×2 (07:47→17:00)
[2024-04-23] MEDS: Acetaminophen 325 MG Tablet 650 MG PO ×2 (07:47→22:40)
[2024-04-23] MEDS: Aspirin E.C. 81 MG Tablet PO (07:47)
[2024-04-23] MEDS: 0.9% Saline Lock 10 ML Syringe IV ×2 (07:52→16:15)
[2024-04-23 08:14] LABS: Bedside Glucose 135 mg/dL (74-106)
[2024-04-23] MEDS: Calcium Carb/Vitamin D 1 TABLET Tablet PO (09:59)
[2024-04-23] MEDS: Anastrozole 1 MG TABLET PO (10:01)
[2024-04-23] MEDS: Mupirocin Ointment 22gm Tube 1 APPLIC TOPICAL (10:01)
[2024-04-23] MEDS: Losartan Potassium 100 MG Tablet PO (10:02)
[2024-04-23] MEDS: Magnesium Chloride 64 MG Delay Rel.Tablet 128 MG PO ×2 (10:03→22:30)
[2024-04-23] MEDS: Iron Polysaccharide Complex 150 MG CAPSULE PO ×2 (10:03→22:30)
[2024-04-23] MEDS: Enoxaparin 40 MG/0.4 ML Syringe SC (10:03)
[2024-04-23] MEDS: amLODIPine 10 MG Tablet PO (10:04)
[2024-04-23] MEDS: guaiFENesin 1,200 MG Tablet 1200 MG PO ×2 (10:04→22:30)
[2024-04-23] MEDS: Clopidogrel Bisulfate 75 MG Tablet PO (10:04)
[2024-04-23] MEDS: Atenolol 50 MG Tablet 150 MG PO (10:05)
[2024-04-23] MEDS: Collagenase 30gm Tube 1 APPLIC TOPICAL (10:05)
[2024-04-23] MEDS: Cyanocobalamin 500 MCG Tablet 1000 MCG PO (10:06)
[2024-04-23] MEDS: Cholecalciferol (VIT D3) 25 MCG TABLET (1,000 UNITS) 50 MCG PO (10:07)
[2024-04-23] MEDS: Gabapentin 100 MG Capsule 200 MG PO ×2 (10:11→22:30)
[2024-04-23 12:09] LABS: Hemoglobin A1c 8.2 % (3.8-5.6)
[2024-04-23] MEDS: oxyCODONE 5 MG Tablet PO (12:18)
[2024-04-23] MEDS: Insulin Lispro 100 UNIT/ML INSULN.PEN SC ×2 (12:41→17:00)
--- NOTE | 2024-04-23 12:54 | PN.CC_ITS ---
Objective Data Objective Data Vital Signs: Vital Signs Last response 3 Temperature 36.9 C 04/23/24 06:00 Temperature Source Axillary 04/23/24 06:00 Pulse Rate 87 04/23/24 11:09 Respiratory Rate 30 H 04/23/24 11:09 Respiratory Effort Labored 04/23/24 08:00 Respiratory Depth Normal 04/23/24 04:00 Respiratory Pattern Tachypnea 04/23/24 11:09 Blood Pressure 125/59 H 04/23/24 07:00 Blood Pressure Mean 81 04/23/24 07:00 Blood Pressure Source Monitor 04/23/24 07:00 Blood Pressure Position Semi-Fowlers 04/23/24 07:00 Blood Pressure Location Left Arm 04/23/24 07:00 Pulse Ox 92 04/23/24 11:09 Oxygen Delivery Method Airvo 04/23/24 08:00 Oxygen Flow Rate (L/min) 60 04/23/24 08:35 Fraction of Inspired Oxygen (FIO2) 70 04/23/24 11:09 I&O: I&O Last 24 Hours 3 04/22/24 04/23/24 04/23/24 23:59 11:59 23:59 Intake Total 224 / 2776 574 / 574 Output Total 325 / 825 250 / 250 Balance -101 / 1951 324 / 324 I&O: Total Stay 3 04/22/24 03:16 thru 04/23/24 10:00 Intake Total 3350 Output Total 1075 Balance 2275 Current Meds Ordered / Administered: Current meds ordered / Administered 3 Generic Name Dose Route Start Last Admin Trade Name Freq PRN Reason Stop Dose Admin Acetaminophen 650 mg 04/22/24 06:07 04/23/24 07:47 Acetaminophen 325 Mg Tablet PO 650 mg Q6H PRN PRN Administration Pain 1-10 Or Fever >100.7 Albuterol Sulfate 2.5 mg 04/22/24 06:07 Albuterol 2.5 Mg/3 Ml Vial.Neb. INHALATION Q2H PRN PRN SHORTNESS OF BREATH Albuterol/Ipratropium 3 ml 04/22/24 08:00 04/23/24 11:08 Ipratropium/Albuterol Sulfate 3 Ml Ampul.Neb INHALATION 3 ml Q4H.RT STIVEN Administration Amlodipine Besylate 10 mg 04/22/24 10:00 04/23/24 10:04 Amlodipine 10 Mg Tablet PO 10 mg DAILY STIVEN Administration Protocol Anastrozole 1 mg 04/22/24 10:00 04/23/24 10:01 Anastrozole 1 Mg Tablet PO 1 mg DAILY STIVEN Administration Aspirin 81 mg 04/22/24 08:00 04/23/24 07:47 Aspirin E.C. 81 Mg Tablet PO 81 mg DAILY@0800 STIVEN Administration Atenolol 150 mg 04/22/24 10:00 04/23/24 10:05 Atenolol 50 Mg Tablet PO 150 mg DAILY STIVEN Administration Protocol Atorvastatin Calcium 20 mg 04/22/24 22:00 04/22/24 21:40 Atorvastatin Calcium 20 Mg Tablet PO 20 mg QHS STIVEN Administration Calcium/Vitamin D 1 tablet 04/22/24 08:00 04/23/24 09:59 Calcium Carb/Vitamin D 1 Tablet Tablet PO 1 tablet DAILYCM STIVEN Administration Cholecalciferol 50 mcg 04/22/24 10:00 04/23/24 10:07 Cholecalciferol (Vit D3) 25 Mcg Tablet (1,000 Units) PO 50 mcg DAILY STIVEN Administration Clopidogrel Bisulfate 75 mg 04/22/24 10:00 04/23/24 10:04 Clopidogrel Bisulfate 75 Mg Tablet PO 75 mg DAILY STIVEN Administration Collagenase 1 applic 04/22/24 10:00 04/23/24 10:05 Collagenase 30gm Tube TOPICAL 1 applic DAILY STIVEN Administration Protocol Cyanocobalamin 1,000 mcg 04/22/24 10:00 04/23/24 10:06 Cyanocobalamin 500 Mcg Tablet PO 1,000 mcg DAILY STIVEN Administration Enoxaparin Sodium 40 mg 04/22/24 10:00 04/23/24 10:03 Enoxaparin 40 Mg/0.4 Ml Syringe SC 40 mg DAILY STIVEN Administration Gabapentin 200 mg 04/22/24 10:00 04/23/24 10:11 Gabapentin 100 Mg Capsule PO 200 mg BID STIVEN Administration Glucagon 1 mg 04/22/24 06:07 Glucagon 1 Mg/Ml Syringe IM X1 PRN HYPOGLYCEMIA Protocol Guaifenesin 1,200 mg 04/22/24 10:00 04/23/24 10:04 Guaifenesin 1,200 Mg Tablet PO 1,200 mg BID STIVEN Administration Dextrose 250 mls @ 0 mls/hr 04/22/24 06:07 Dextrose 10%-Water IV .Q0M PRN HYPOGLYCEMIA Protocol As Directed Ampicillin Sodium/Sulbactam 112 mls @ 150 mls/hr 04/22/24 12:00 04/23/24 12:41 Sodium 3 gm/ Sodium Chloride IV 04/29/24 12:01 150 mls/hr Q6 STIVEN Administration Insulin Glargine 13 unit 04/22/24 22:00 04/22/24 21:41 Insulin Glargine-Yfgn 100 Unit/Ml Pen SC 13 unit QHS STIVEN Administration Insulin Human Lispro 0 unit 04/22/24 07:00 04/23/24 12:41 Insulin Lispro 100 Unit/Ml Insuln.Pen SC 2 u TIDAC STIVEN Administration Protocol L-Arginine/L-Glutamine/Calcium HMB 1 packet 04/22/24 17:00 04/23/24 07:47 Leonides (Unflavored) Packet PO 1 packet BIDCM STIVEN Administration Loperamide HCl 2 mg 04/22/24 06:07 Loperamide 2 Mg Capsule PO Q1H PRN PRN loose stool Losartan Potassium 100 mg 04/22/24 10:00 04/23/24 10:02 Losartan Potassium 100 Mg Tablet PO 100 mg DAILY STIVEN Administration Protocol Magnesium Chloride 128 mg 04/22/24 10:00 04/23/24 10:03 Magnesium Chloride 64 Mg Delay Rel.Tablet PO 128 mg BID STIVEN Administration Multi-Ingredient Cream 1 applic 04/22/24 22:00 04/22/24 21:40 Petrolatum,White 3.75gm Opth.Tube OPHTHALMIC 1 applic QHS STIVEN Administration Mupirocin 1 applic 04/22/24 10:00 04/23/24 10:01 Mupirocin Ointment 22gm Tube TOPICAL 1 applic DAILY STIVEN Administration Protocol Ondansetron HCl 4 mg 04/22/24 06:07 04/22/24 11:35 Ondansetron 4 Mg/2 Ml Vial IV 4 mg Q8H PRN PRN Administration NAUSEA/VOMITING Oxycodone HCl 5 mg 04/23/24 11:27 04/23/24 12:18 Oxycodone 5 Mg Tablet PO 5 mg Q6H PRN PRN Administration Pain Score 6-10 Polysaccharide Iron Complex 150 mg 04/22/24 10:00 04/23/24 10:03 Iron Polysaccharide Complex 150 Mg Capsule PO 150 mg BID STIVEN Administration Prochlorperazine Edisylate 5 mg 04/22/24 06:07 04/22/24 15:33 Prochlorperazine 10 Mg/2 Ml Vial IV 5 mg Q4H PRN PRN Administration Breakthrough Nausea/Vomiting Sodium Chloride 10 - 40 ml 04/22/24 06:24 04/23/24 07:52 0.9% Saline Lock 10 Ml Syringe IV 10 ml UD PRN Administration SALINE FLUSH Lab / Micro Data 04/23/24 05:45 04/23/24 06:23 Labs: Laboratory Results - last 24 hr 04/22/24 16:58: POC Glucose 307 H 04/23/24 05:45: WBC 10.6, RBC 3.87 L, Hgb 10.9 L, Hct 34.5 L, MCV 89.1, MCH 28.2, MCHC 31.6 L, RDW Std Deviation 45.1 H, RDW Coeff of Hermilo 13.8, Plt Count 140 L, MPV 13.7 H, Immature Gran % (Auto) 0.500, Neut % (Auto) 75.9 H, Lymph % (Auto) 12.9 L, [place] % (Auto) 9.4, Eos % (Auto) 0.5, Baso % (Auto) 0.8, Absolute Neuts (auto) 8.0 H, Absolute Lymphs (auto) 1.37, Nucleated RBC % 0, Sodium Cancelled, Potassium Cancelled, Chloride Cancelled, Carbon Dioxide Cancelled, Anion Gap Cancelled, BUN Cancelled, Creatinine Cancelled, Estim Creat Clear Calc Cancelled, Est GFR (MDRD) Af Amer Cancelled, Est GFR (MDRD) Non-Af Cancelled, BUN/Creatinine Ratio Cancelled, Glucose Cancelled, Hemoglobin A1c 8.2 H, Calcium Cancelled, Total Bilirubin Cancelled, AST Cancelled, ALT Cancelled, Alkaline Phosphatase Cancelled, Total Protein Cancelled, Albumin Cancelled, Globulin Cancelled, Albumin/Globulin Ratio Cancelled 04/23/24 06:23: Sodium 143, Potassium 4.4, Chloride 115 H, Carbon Dioxide 24.0, Anion Gap 4 L, BUN 25 H, Creatinine 0.86, Estim Creat Clear Calc 51.13, Est GFR (MDRD) Af Amer 83, Est GFR (MDRD) Non-Af 68, BUN/Creatinine Ratio 29.2 H, G lucose 168 H, Calcium 8.2 L, Total Bilirubin 0.30, AST 120 H, ALT 89 H, Alkaline Phosphatase 58, Total Protein 6.0 L, Albumin 2.7 L, Globulin 3.3, A lbumin/Globulin Ratio 0.8 L 04/23/24 07:45: POC Glucose 135 H Micro: Microbiology 04/22/24 18:30 Urine Catheter - Bower Legionella Antigen - Final 04/22/24 18:30 Urine Catheter - Bower Streptococcus pneumoniae Antigen (M - Final Imaging Radiology Impression KUB X-Ray 04/22/24 12:56 IMPRESSION: A catheter is seen within the pelvis. Electronically Signed: Manny Fowler MD at 13:59 EDT , Assessment and Plan . Assessment and plan: Patient seen and examined Chart and data reviewed Elderly woman admitted w/ acute hypoxemic respiratory failure, lactic acidosis, pulmonary infiltrates. 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 She is currently requiring NIV support w/ high FiO2. She appears reasonably comfortable w/o distress. HD stable. LA now WNL. Radiograph reviewed. EXAM GEN NAD VS as above HEENT NIV NECK supple COR RRR CHEST bronchial BS dependently ABD soft, NT EXT no edema SKIN w/d DAWIT NF A/P 1. Acute hypoxemic respiratory failure requiring high-flow O2 and NIV support 2. Bilateral pulmonary opacities 3. Suspected aspiration into airway 4. Lactic acidosis, resolved 5. DM / ASCVD -supplemental O2 -NIV support as needed -empiric ABX -BNP in am -CT if/when more stable Critical Care Time: 50 min The entirety of this encounter was done via Telemedicine Critical Care Time: 50 min The entirety of this encounter was done via Telemedicine
[2024-04-23 13:00] LABS: Bedside Glucose 217 mg/dL (74-106)
--- NOTE | 2024-04-23 13:19 | PN_ITS ---
Subjective Subjective Patient seen and examined. She remains on AirVo. She still complains of shortness of breath but she feels it is improved a bit. She denies any fever or chills, chest pain, palpitations or dizziness. Review of systems otherwise negative. She remains on Airvo and is at 60 L/min at 70% FiO2. Critical care is on board. Objective Data Objective Data Vital Signs: Vital Signs Temp Pulse Resp BP Pulse Ox O2 Del Method O2 Flow Rate 98.4 F 87 30 H 125/59 H 92 Airvo 60 04/23/24 06:00 04/23/24 11:09 04/23/24 11:09 04/23/24 07:00 04/23/24 11:09 04/23/24 08:00 04/23/24 08:35 FiO2 70 04/23/24 11:09 Oxygen Flow Rate (L/min) 60 Oxygen Delivery Method Airvo Weight: 152 lb 8.958 oz Body Mass Index (BMI) 27.0 Intake & Output: Intake and Output for Last 24 Hours 04/21/24 04/22/24 04/23/24 23:59 23:59 23:59 Intake Total 2776 / 2776 574 / 574 Output Total 825 / 825 250 / 250 Balance 1950 / 1950 324 / 324 Lab / Micro Data 04/23/24 05:45 04/23/24 06:23 Labs: Laboratory Results - last 24 hr 04/22/24 16:58: POC Glucose 307 H 04/23/24 05:45: WBC 10.6, RBC 3.87 L, Hgb 10.9 L, Hct 34.5 L, MCV 89.1, MCH 28.2, MCHC 31.6 L, RDW Std Deviation 45.1 H, RDW Coeff of Hermilo 13.8, Plt Count 140 L, MPV 13.7 H, Immature Gran % (Auto) 0.500, Neut % (Auto) 75.9 H, Lymph % (Auto) 12.9 L, [place] % (Auto) 9.4, Eos % (Auto) 0.5, Baso % (Auto) 0.8, Absolute Neuts (auto) 8.0 H, Absolute Lymphs (auto) 1.37, Nucleated RBC % 0, Sodium Cancelled, Potassium Cancelled, Chloride Cancelled, Carbon Dioxide Cancelled, Anion Gap Cancelled, BUN Cancelled, Creatinine Cancelled, Estim Creat Clear Calc Cancelled, Est GFR (MDRD) Af Amer Cancelled, Est GFR (MDRD) Non-Af Cancelled, BUN/Creatinine Ratio Cancelled, Glucose Cancelled, Hemoglobin A1c 8.2 H, Calcium Cancelled, Total Bilirubin Cancelled, AST Cancelled, ALT Cancelled, Alkaline Phosphatase Cancelled, Total Protein Cancelled, Albumin Cancelled, Globulin Cancelled, Albumin/Globulin Ratio Cancelled 04/23/24 06:23: Sodium 143, Potassium 4.4, Chloride 115 H, Carbon Dioxide 24.0, Anion Gap 4 L, BUN 25 H, Creatinine 0.86, Estim Creat Clear Calc 51.13, Est GFR (MDRD) Af Amer 83, Est GFR (MDRD) Non-Af 68, BUN/Creatinine Ratio 29.2 H, G lucose 168 H, Calcium 8.2 L, Total Bilirubin 0.30, AST 120 H, ALT 89 H, Alkaline Phosphatase 58, Total Protein 6.0 L, Albumin 2.7 L, Globulin 3.3, A lbumin/Globulin Ratio 0.8 L 04/23/24 07:45: POC Glucose 135 H 04/23/24 12:39: POC Glucose 217 H Micro: Microbiology 04/22/24 18:30 Urine Catheter - Bower Legionella Antigen - Final 04/22/24 18:30 Urine Catheter - Bower Streptococcus pneumoniae Antigen (M - Final Radiography Diagnostic Testing: Radiology Impression KUB X-Ray 04/22/24 12:56 IMPRESSION: A catheter is seen within the pelvis. Electronically Signed: Manny Fowler MD at 13:59 EDT , Physical Exam Const alert Constitutional Narrative: looks very frail and weak General Appearance: cooperative Orientation / Consciousness: lethargic HEENT normocephalic, head/scalp atraumatic, moist oral mucous membranes and oropharynx normal Eyes PERRL and EOMs intact bilaterally Neck no lymphadenopathy and supple Lymph Lymphatic: no lymphadenopathy noted and no lymphedema noted Resp Resp Narrative: moderately diminished breath sounds bilaterally, few crackles, no wheezing. Remains on Airvo Cardio regular rate, regular rhythm, S1 normal heart sound, S2 normal heart sound and no murmurs GI normal to inspection, nondistended, normoactive bowel sounds, soft to palpation, non-tender and non-distended Extremity no calf tenderness Extremity Narrative: Patient has amputated toes. She does have some ulcerations on her feet and toes. General Extremity: no tenderness to palpation of joints or extremities Skin General Skin Exam: no breakdown Neuro CN's II-XII intact bilaterally, no focal motor deficits and no sensory deficits noted Sensorium / Orientation: awake and alert Speech: speech normal Motor Exam: strength 5/5 throughout and general weakness Psych thought process normal, cooperative and affect normal Appearance: appropriate Assessment & Plan Assessment/Plan (1) Acute hypoxic respiratory failure: (2) Sepsis: (3) Respiratory acidosis: (4) Aspiration pneumonia: PLAN: Plan #Acute hypoxic respiratory failure * due to probable aspiration pneumonia * She had nausea and vomiting and diarrhea at home and after vomiting she coughed and choked and EMS was called. She was saturating at 68% on room air. * Chest x-ray showed by lateral infiltrates. Lactic acid was also elevated at 9. * She remains on Airvo, now up to 60L/min and 70% FiO2. Continue broad-spectrum antibiotics. * Sputum culture and blood culture pending. Titrate oxygen to maintain saturation above 90% as needed. * Critical care on board. Breathing treatments with bronchodilators. * Urine for strep and Legionella negative. * #Sepsis due to aspiration pneumonia: As above. Patient was not in shock. Now is hemodynamically stable. #Lactic acidosis: lactic acid was 9 on admission. This is however likely due to her hypoxia. Trended down to 2.4 with hydration and with oxygen. #Type 2 diabetes mellitus with hyperglycemia: On Lantus. Insulin sliding scale. Accu-Cheks ACH. Metformin held due to lactic acidosis #Hypertension: On losartan. IV hydralazine as needed. #History of bilateral feet ulcers: Wound care on board. This is chronic. #History of breast cancer: Follow-up with oncology on outpatient basis #History of CAD: On Plavix and statin. DVT prophylaxis: Lovenox Code status: I clarified patient's wishes today she says she want CPR and intubation if needed. His son is her next of kin and the will be the 1 who makes decisions for her if she is unable to make any decisions. I counseled patient that her respiratory status was getting worse and she was heading towards being BiPAP dependent and possibly being intubated. She is agreeable to this. Total [id number] time 16 minutes. Charges/Coding Visit Charges Inpatient E&M: 00024 Subs Hosp L3 Procedures Hospitalists Procedures: 48937 Advncd Care Plan 30 Min
[2024-04-23 18:22] LABS: Bedside Glucose 174 mg/dL (74-106)
--- NOTE | 2024-04-23 21:27 | CPS ---
PAP pressures increased to 16/10 and 80% due to increased oxygen requirements. RR in 30's.
[2024-04-23] MEDS: Atorvastatin Calcium 20 MG Tablet PO (22:31)
[2024-04-23] MEDS: Petrolatum,White 3.75GM OPTH.TUBE 1 APPLIC OPHTHALMIC (22:31)
[2024-04-23] MEDS: Insulin Glargine-YFGN 100 UNIT/ML Pen 13 UNIT SC (22:31)
[2024-04-23 22:55] LABS: Bedside Glucose 234 mg/dL (74-106)
[2024-04-24] VITALS (34 sets, daily range): BP systolic 103–170; BP diastolic 50–77; PULSE 64–95; RESP 12–36; TEMP 36.7–36.8; O2SAT 87–100; BMI 27.4
[2024-04-24 01:05] LABS: Bedside Glucose 179 mg/dL (74-106)
[2024-04-24] MEDS: Ipratropium/Albuterol Sulfate 3 ML AMPUL.NEB INHALATION ×6 (03:25→23:05)
[2024-04-24] MEDS: Ampicillin/Sulbactam 3 GM in 0.9% Normal Saline (100mL MB+) 100 ML IV ×4 (05:04→22:40)
[2024-04-24] MEDS: 0.9% Saline Lock 10 ML Syringe IV (05:06)
[2024-04-24 05:19] LABS: Absolute Lymphocyte Count 1.52 X10^3/uL (0.83-4.51); Absolute Neutrophil Count 5.5 X10^3/uL (2.0-7.7); Basophil# 0.06 X10^3/uL; Basophil% 0.8 % (0-1); Eosinophil# 0.04 X10^3/uL; Eosinophils% 0.5 % (0-5); Hematocrit 29.2 % (37-47); Hemoglobin 9.2 g/dL (12.0-15.0); Lymphocyte # 1.52 X10^3/ul (0.83-4.51); Lymphocyte % 19.1 % (19-41); Mean Corp Hgb Conc 31.5 g/dL (32-36); Mean Corpuscular Hgb 27.9 pg (27.0-32.0); Mean Corpuscular Volume 88.5 fL (81-99); Monocyte# 0.79 X10^3/uL; Monocyte% 9.9 % (0-10); NRBC Flagged by Analyzer 0 % (0-5); Neutrophil # 5.53 X10^3/uL (2.7-7.7); Neutrophil % 69.3 % (47-70); Platelet Count 130 K/mm3 (150-450); RBC Distribution Width CV 13.3 % (11.6-14.6); RBC Distribution Width SD 43.4 fl (35.1-43.9)
--- NOTE | 2024-04-24 05:25 | RAD_ITS ---
STUDY: XR Chest 1 View 04/24/2024 5:22 AM REASON FOR EXAM: Female, 78 years old. ARF COMPARISON: Two days ago. TECHNIQUE: XR Chest 1 View FINDINGS: There are bilateral pleural effusions. There are bilateral infiltrates. Left ported catheter. Enlarged heart size. Normal mediastinum. Normal itzel. Prominent appearing increased interstitial lung markings. Normal visualized pulmonary arteries. There is atherosclerotic calcification of the aortic arch with tortuosity. There are diffuse degenerative changes of the visualized thoracic spine. There is degenerative osteoarthritis of the bilateral shoulders. There are no acute findings of the upper abdomen. RAD/Chest 1 View (Portable) IMPRESSION: Pulmonary findings appear worse. Electronically Signed: Brad Reinoso MD at 19:06 EDT ,
[2024-04-24 05:35] LABS: Anion Gap 4 (5-15); BUN 29 mg/dL (7-18); Calcium,Total 8.6 mg/dL (8.5-10.1); Chloride 110 mmol/L (98-107); Creatinine, Serum 0.69 mg/dL (0.55-1.02); EST Glomerular Filtration Rate 88 mL/min (>60); Est Glom Filt Rate - Afr Amer 106 mL/min (>60); Estimated Creatinine Clearance 55.37 ml/min; Glucose 184 mg/dL (74-106); Sodium Level 140 mmol/L (136-145)
[2024-04-24 05:38] LABS: BNP,B-Type NATRIURETIC PEPTIDE 666.2 pg/mL (0-100)
[2024-04-24] MEDS: Insulin Lispro 100 UNIT/ML INSULN.PEN SC ×3 (08:02→18:21)
[2024-04-24 08:24] LABS: Bedside Glucose 152 mg/dL (74-106)
[2024-04-24] MEDS: Acetaminophen 325 MG Tablet 650 MG PO (09:23)
[2024-04-24] MEDS: Calcium Carb/Vitamin D 1 TABLET Tablet PO ×2 (10:20→10:21)
[2024-04-24] MEDS: amLODIPine 10 MG Tablet PO (10:20)
[2024-04-24] MEDS: Aspirin E.C. 81 MG Tablet PO (10:20)
[2024-04-24] MEDS: Clopidogrel Bisulfate 75 MG Tablet PO (10:20)
[2024-04-24] MEDS: Cyanocobalamin 500 MCG Tablet 1000 MCG PO (10:21)
[2024-04-24] MEDS: Losartan Potassium 100 MG Tablet PO (10:21)
[2024-04-24] MEDS: Anastrozole 1 MG TABLET PO (10:21)
[2024-04-24] MEDS: guaiFENesin 1,200 MG Tablet 1200 MG PO ×2 (10:21→22:32)
[2024-04-24] MEDS: Atenolol 50 MG Tablet 150 MG PO (10:22)
[2024-04-24] MEDS: Magnesium Chloride 64 MG Delay Rel.Tablet 128 MG PO ×2 (10:22→22:33)
[2024-04-24] MEDS: Gabapentin 100 MG Capsule 200 MG PO ×2 (10:22→22:30)
[2024-04-24] MEDS: Iron Polysaccharide Complex 150 MG CAPSULE PO (10:22)
[2024-04-24] MEDS: Cholecalciferol (VIT D3) 25 MCG TABLET (1,000 UNITS) 50 MCG PO (10:23)
[2024-04-24] MEDS: Collagenase 30gm Tube 1 APPLIC TOPICAL (10:23)
[2024-04-24] MEDS: Enoxaparin 40 MG/0.4 ML Syringe SC (10:23)
[2024-04-24] MEDS: Mupirocin Ointment 22gm Tube 1 APPLIC TOPICAL (10:24)
[2024-04-24] MEDS: Senna/Docusate Sodium 1 Tablet 2 TABLET PO ×2 (13:02→22:34)
[2024-04-24] MEDS: Polyethylene Glycol 3350 17 GM PACKET PO (13:02)
--- NOTE | 2024-04-24 13:02 | PCM.PN.TICU ---
Objective Data Objective Data Vital Signs: Vital Signs Last response Temperature 36.7 C 04/24/24 08:00 Temperature Source Oral 04/24/24 08:00 Pulse Rate 69 04/24/24 11:25 Respiratory Rate 24 H 04/24/24 11:25 Respiratory Effort Labored 04/24/24 12:00 Respiratory Depth Shallow 04/24/24 12:00 Respiratory Pattern Tachypnea 04/24/24 12:00 Blood Pressure 147/69 H 04/24/24 11:00 Blood Pressure Mean 95 04/24/24 11:00 Blood Pressure Source Monitor 04/24/24 11:00 Blood Pressure Position Semi-Fowlers 04/24/24 07:00 Blood Pressure Location Left Arm 04/24/24 07:00 Pulse Ox 94 04/24/24 11:25 Oxygen Delivery Method Airvo 04/24/24 12:00 Oxygen Flow Rate (L/min) 60 04/24/24 12:00 Fraction of Inspired Oxygen (FIO2) 80 04/24/24 12:00 I&O: I&O Last 24 Hours 04/23/24 04/24/24 04/24/24 23:59 11:59 23:59 Intake Total 814 / 1388 224 / 224 Output Total 1600 / 1850 350 / 725 375 / 725 Balance -786 / -462 -126 / -501 -375 / -501 I&O: Total Stay 04/22/24 03:16 thru 04/24/24 12:00 Intake Total 4388 Output Total 3400 Balance 988 Current Meds Ordered / Administered: Current meds ordered / Administered Generic Name Dose Route Start Last Admin Trade Name [place] PRN Reason Stop Dose Admin Acetaminophen 650 mg 04/22/24 06:07 04/24/24 09:23 Acetaminophen 325 Mg Tablet PO 650 mg Q6H PRN PRN Administration Pain 1-10 Or Fever >100.7 Albuterol Sulfate 2.5 mg 04/22/24 06:07 Albuterol 2.5 Mg/3 Ml Vial.Neb. INHALATION Q2H PRN PRN SHORTNESS OF BREATH Albuterol/Ipratropium 3 ml 04/22/24 08:00 04/24/24 11:24 Ipratropium/Albuterol Sulfate 3 Ml Ampul.Neb INHALATION 3 ml Q4H.RT STIVEN Administration Amlodipine Besylate 10 mg 04/22/24 10:00 04/24/24 10:20 Amlodipine 10 Mg Tablet PO 10 mg DAILY STIVEN Administration Protocol Anastrozole 1 mg 04/22/24 10:00 04/24/24 10:21 Anastrozole 1 Mg Tablet PO 1 mg DAILY STIVEN Administration Aspirin 81 mg 04/22/24 08:00 04/24/24 10:20 Aspirin E.C. 81 Mg Tablet PO 81 mg DAILY@0800 STIVEN Administration Atenolol 150 mg 04/22/24 10:00 04/24/24 10:22 Atenolol 50 Mg Tablet PO 150 mg DAILY STIVEN Administration Protocol Atorvastatin Calcium 20 mg 04/22/24 22:00 04/23/24 22:31 Atorvastatin Calcium 20 Mg Tablet PO 20 mg QHS STIVEN Administration Bisacodyl 10 mg 04/24/24 18:30 Bisacodyl 10 Mg Suppository RC 04/24/24 18:31 X1 ONE Calcium/Vitamin D 1 tablet 04/22/24 08:00 04/24/24 10:21 Calcium Carb/Vitamin D 1 Tablet Tablet PO 1 tablet DAILYCM STIVEN Administration Cholecalciferol 50 mcg 04/22/24 10:00 04/24/24 10:23 Cholecalciferol (Vit D3) 25 Mcg Tablet (1,000 Units) PO 50 mcg DAILY STIVEN Administration Clopidogrel Bisulfate 75 mg 04/22/24 10:00 04/24/24 10:20 Clopidogrel Bisulfate 75 Mg Tablet PO 75 mg DAILY STIVEN Administration Collagenase 1 applic 04/22/24 10:00 04/24/24 10:23 Collagenase 30gm Tube TOPICAL 1 applic DAILY STIVEN Administration Protocol Cyanocobalamin 1,000 mcg 04/22/24 10:00 04/24/24 10:21 Cyanocobalamin 500 Mcg Tablet PO 1,000 mcg DAILY STIVEN Administration Enoxaparin Sodium 40 mg 04/22/24 10:00 04/24/24 10:23 Enoxaparin 40 Mg/0.4 Ml Syringe SC 40 mg DAILY STIVEN Administration Gabapentin 200 mg 04/22/24 10:00 04/24/24 10:22 Gabapentin 100 Mg Capsule PO 200 mg BID STIVEN Administration Glucagon 1 mg 04/22/24 06:07 Glucagon 1 Mg/Ml Syringe IM X1 PRN HYPOGLYCEMIA Protocol Guaifenesin 1,200 mg 04/22/24 10:00 04/24/24 10:21 Guaifenesin 1,200 Mg Tablet PO 1,200 mg BID STIVEN Administration Dextrose 250 mls @ 0 mls/hr 04/22/24 06:07 Dextrose 10%-Water IV .Q0M PRN HYPOGLYCEMIA Protocol As Directed Ampicillin Sodium/Sulbactam 112 mls @ 150 mls/hr 04/22/24 12:00 04/24/24 12:27 Sodium 3 gm/ Sodium Chloride IV 04/29/24 12:01 150 mls/hr Q6 STIVEN Administration Insulin Glargine 13 unit 04/22/24 22:00 04/23/24 22:31 Insulin Glargine-Yfgn 100 Unit/Ml Pen SC 13 unit QHS [facility] Administration Insulin Human Lispro 0 unit 04/22/24 07:00 04/24/24 12:24 Insulin Lispro 100 Unit/Ml Insuln.Pen SC 2 u TIDAC [facility] Administration Protocol L-Arginine/L-Glutamine/Calcium HMB 1 packet 04/22/24 17:00 04/24/24 11:10 Leoindes (Unflavored) Packet PO Not Given BIDCM [facility] Loperamide HCl 2 mg 04/22/24 06:07 Loperamide 2 Mg Capsule PO Q1H PRN PRN loose stool Losartan Potassium 100 mg 04/22/24 10:00 04/24/24 10:21 Losartan Potassium 100 Mg Tablet PO 100 mg DAILY [facility] Administration Protocol Magnesium Chloride 128 mg 04/22/24 10:00 04/24/24 10:22 Magnesium Chloride 64 Mg Delay Rel.Tablet PO 128 mg BID STIVEN Administration Multi-Ingredient Cream 1 applic 04/22/24 22:00 04/23/24 22:31 Petrolatum,White 3.75gm Opth.Tube OPHTHALMIC 1 applic QHS [facility] Administration Mupirocin 1 applic 04/22/24 10:00 04/24/24 10:24 Mupirocin Ointment 22gm Tube TOPICAL 1 applic DAILY [facility] Administration Protocol Ondansetron HCl 4 mg 04/22/24 06:07 04/22/24 11:35 Ondansetron 4 Mg/2 Ml Vial IV 4 mg Q8H PRN PRN Administration NAUSEA/VOMITING Oxycodone HCl 5 mg 04/23/24 11:27 04/23/24 12:18 Oxycodone 5 Mg Tablet PO 5 mg Q6H PRN PRN Administration Pain Score 6-10 Polyethylene Glycol 17 gm 04/24/24 13:00 Polyethylene Glycol 3350 17 Gm Packet PO DAILY STIVEN Polysaccharide Iron Complex 150 mg 04/22/24 10:00 04/24/24 10:22 Iron Polysaccharide Complex 150 Mg Capsule PO 150 mg BID STIVEN Administration Prochlorperazine Edisylate 5 mg 04/22/24 06:07 04/22/24 15:33 Prochlorperazine 10 Mg/2 Ml Vial IV 5 mg Q4H PRN PRN Administration Breakthrough Nausea/Vomiting Senna/Docusate Sodium 2 tablet 04/24/24 13:00 Senna/Docusate Sodium 1 Tablet PO BID STIVEN Sodium Chloride 10 - 40 ml 04/22/24 06:24 04/24/24 05:06 0.9% Saline Lock 10 Ml Syringe IV 30 ml UD PRN Administration SALINE FLUSH Lab / Micro Data 04/24/24 05:10 04/24/24 05:10 Labs: Laboratory Results - last 24 hr 04/22/24 21:39: POC Glucose 179 H 04/23/24 16:57: POC Glucose 174 H 04/23/24 22:30: POC Glucose 234 H 04/24/24 05:10: WBC 8.0, RBC 3.30 L, Hgb 9.2 L, Hct 29.2 L, MCV 88.5, MCH 27.9, MCHC 31.5 L, RDW Std Deviation 43.4, RDW Coeff of Hermilo 13.3, Plt Count 130 L, MPV 13.0 H, Immature Gran % (Auto) 0.400, Neut % (Auto) 69.3, Lymph % (Auto) 19.1, [place] % (Auto) 9.9, Eos % (Auto) 0.5, Baso % (Auto) 0.8, Absolute Neuts (auto) 5.5, Absolute Lymphs (auto) 1.52, Nucleated RBC % 0, Sodium 140, Potassium 4.0, Chloride 110 H, Carbon Dioxide 26.0, Anion Gap 4 L, BUN 29 H, Creatinine 0.69, Estim Creat Clear Calc 55.37, Est GFR (MDRD) Af Amer 106, Est GFR (MDRD) Non-Af 88, BUN/Creatinine Ratio 42.0 H, Glucose 184 H, Calcium 8.6, B-Natriuretic Peptide 666.2 H 04/24/24 07:58: POC Glucose 152 H Assessment and Plan . Assessment and plan: Patient seen and examined Chart and data reviewed Elderly woman admitted w/ acute hypoxemic respiratory failure, lactic acidosis, pulmonary infiltrates. 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 She is currently requiring NIV support w/ high FiO2. She appears reasonably comfortable w/o distress. HD stable. LA now WNL. Radiograph reviewed. 04/24/24 She continues to require high-flow O2 and intermittent NIV support c/o epigastric pain BNP significantly elevated pCXR looks more like volume overload to me today At this point, more concern for decompensated CHF EXAM GEN looks ill, but NAD VS as above HEENT HHFNC NECK supple COR RRR CHEST bronchial BS dependently ABD soft, NT EXT minimal edema SKIN w/d DAWIT NF A/P 1. Acute hypoxemic respiratory failure requiring high-flow O2 and NIV support 2. Bilateral pulmonary opacities 3. Suspected aspiration into airway 4. Lactic acidosis, resolved 5. DM / ASCVD 6. Elevated BNP 7. Epigastric pain -supplemental O2 via HHFNC -NIV support as needed -empiric ABX for now -start loop diuretics -ordered TTE -repeat troponin in am to r/o recent ACS -check lipase in am -CT would likely be helpful if/when more stable to travel Critical Care Time: 50 min The entirety of this encounter was done via Telemedicine
--- NOTE | 2024-04-24 13:45 | PCM.PN.HOSP ---
Reason for Visit Reason for Visit: Diagnoses Sepsis, unspecified organism (04/22/24) Type 2 diabetes mellitus with hyperglycemia (04/22/24) Acidosis, unspecified (04/22/24) Other acidosis (04/22/24) Pneumonitis due to inhalation of food and vomit (04/22/24) Acute respiratory failure with hypoxia (04/22/24) Objective Data Objective Data Vital Signs: Vital Signs Temp Pulse Resp BP Pulse Ox O2 Del Method O2 Flow Rate 98.1 F 69 24 H 147/69 H 94 Airvo 60 04/24/24 08:00 04/24/24 11:25 04/24/24 11:25 04/24/24 11:00 04/24/24 11:25 04/24/24 12:00 04/24/24 12:00 FiO2 80 04/24/24 12:00 Oxygen Flow Rate (L/min) 60 Oxygen Delivery Method Airvo Weight: 154 lb 15.759 oz Body Mass Index (BMI) 27.4 Intake & Output: Intake and Output for Last 24 Hours 04/22/24 04/23/24 04/24/24 23:59 23:59 23:59 Intake Total 2776 / 2776 1388 / 1388 224 / 224 Output Total 825 / 825 1850 / 1850 725 / 725 Balance 1951 / 195 -462 / -462 -501 / -501 Lab / Micro Data 04/24/24 05:10 04/24/24 05:10 Labs: Laboratory Results - last 24 hr 04/22/24 21:39: POC Glucose 179 H 04/23/24 16:57: POC Glucose 174 H 04/23/24 22:30: POC Glucose 234 H 04/24/24 05:10: WBC 8.0, RBC 3.30 L, Hgb 9.2 L, Hct 29.2 L, MCV 88.5, MCH 27.9, MCHC 31.5 L, RDW Std Deviation 43.4, RDW Coeff of Hermilo 13.3, Plt Count 130 L, MPV 13.0 H, Immature Gran % (Auto) 0.400, Neut % (Auto) 69.3, Lymph % (Auto) 19.1, Rains % (Auto) 9.9, Eos % (Auto) 0.5, Baso % (Auto) 0.8, Absolute Neuts (auto) 5.5, Absolute Lymphs (auto) 1.52, Nucleated RBC % 0, Sodium 140, Potassium 4.0, Chloride 110 H, Carbon Dioxide 26.0, Anion Gap 4 L, BUN 29 H, Creatinine 0.69, Estim Creat Clear Calc 55.37, Est GFR (MDRD) Af Amer 106, Est GFR (MDRD) Non-Af 88, BUN/Creatinine Ratio 42.0 H, Glucose 184 H, Calcium 8.6, B-Natriuretic Peptide 666.2 H 04/24/24 07:58: POC Glucose 152 H Micro: Microbiology 04/22/24 18:30 Urine Catheter - Bower Legionella Antigen - Final 04/22/24 18:30 Urine Catheter - Bower Streptococcus pneumoniae Antigen (M - Final Physical Exam Narrative Seen and examined. Patient on Airvo. Short of breath. No chest pain. Family said she did not had a bowel movement since admission. Discussed with the family members near the bedside. Physical exam General: Alert, Oriented x3, Cooperative HEENT: Atraumatic, PERRLA, EOMI, Normocephalic Oral: No Gingival or Mucosal Lesions/ Ulcerations Neck: Supple, No JVD, Negative Carotid Bruits Chest wall/Lungs: Air entry diminished in bilateral lung bases. No crepitation/rhonchi Cardiovascular: Regular rate, Regular Rhythm, Normal S1, Normal S2, No M/G/R Abdomen: Bowel Sounds Present, Soft, Non Tender, Non-Distended : No dysuria. No renal angle tenderness. No suprapubic tenderness. Extremities: No edema, Capillary Refill Less than 3 Seconds Skin: No rashes, No breakdown Musculoskeletal: No Tenderness to Palpation of Joints or Extremities Neurological: Cranial nerves II-XII grossly intact, DTR 2+/4. No acute focal neurological deficit. Psych/Mental Status: Normal Affect, Appropriate. Assessment & Plan Assessment/Plan (1) Acute hypoxic respiratory failure: (2) Sepsis: (3) Respiratory acidosis: (4) Aspiration pneumonia: PLAN: Plan #Acute hypoxic respiratory failure due to probable aspiration pneumonia She had nausea and vomiting and diarrhea at home and after vomiting she coughed and choked and EMS was called. She was saturating at 68% on room air. Chest x-ray showed by lateral infiltrates. Lactic acid was also elevated at 9. 8/4 Repeat chest x-ray shows bilateral lower lungs infiltrates and opacity. Remain on Airvo. Keep pulse ox more than 90%. Continue broad-spectrum IV antibiotics. Moisture Conditioner Operator on board. Breathing treatments with bronchodilators. Urine for strep and Legionella negative. #Sepsis due to aspiration pneumonia: As above. Patient was not in shock. Now is hemodynamically stable. #Lactic acidosis: lactic acid was 9 on admission. This is however likely due to her hypoxia. Trended down to 2.4 with hydration and with oxygen. #Type 2 diabetes mellitus with hyperglycemia: On Lantus. Insulin sliding scale. Accu-Cheks ACH. Metformin held due to lactic acidosis #Hypertension: On losartan. IV hydralazine as needed. #History of bilateral feet ulcers: Wound care on board. This is chronic. #History of breast cancer: Follow-up with oncology on outpatient basis #History of CAD: On Plavix and statin. DVT prophylaxis: Lovenox Code status: She want CPR and intubation if needed. Full code. Charges/Coding Visit Charges Inpatient E&M: 90403 Subs Hosp L3
[2024-04-24 14:24] LABS: Bedside Glucose 228 mg/dL (74-106)
[2024-04-24] MEDS: Furosemide 100 MG/10 ML Vial 60 MG IV ×3 (15:01→22:45)
[2024-04-24] MEDS: Sodium Ferric Gluconat/Sucrose 250 MG in 0.9% Normal Saline (250mL Bag) 250 ML 135 MG IV (15:44)
[2024-04-24] MEDS: Juven (unflavored) Packet 1 PACKET PO (18:05)
[2024-04-24] MEDS: Bisacodyl 10 MG Suppository RC (18:23)
[2024-04-24 19:32] LABS: Bedside Glucose 199 mg/dL (74-106)
--- NOTE | 2024-04-24 20:26 | ECHOD_ITS ---
Reason For Study: DYSPNEA Procedure This was a 2D Doppler, Color Flow transthoracic echocardiogram. Myocardial strain analysis was performed in this exam to aid in the assessment of cardiac function. Exam performed portable in ICU/CCU. Left Ventricle Normal LV size. Left ventricular systolic function is normal. The left ventricular ejection fraction is 60 %. Stage 1 diastolic dysfunction. No regional wall motion abnormalities noted. Right Ventricle Normal RV size. The right ventricle is normal in size, function, and thickness. Atria Normal left atrium. Normal right atrium. Mitral Valve Mild diffuse mitral valve thickening. Tricuspid Valve Normal tricuspid valve. Aortic Valve Trisinus/trileaflet aortic valve. Moderate focal aortic valve thickening. Mild aortic stenosis. Pulmonic Valve Normal pulmonic valve. Great Vessels Normal aortic root. The pulmonary artery is normal size. Normal inferior vena cava. Pericardium/Pleural No pericardial effusion. MMode/2D Measurements & Calculations LVIDd: 4.0 cm IVSd: 1.4 cm LVOT diam: 2.0 cm LVIDs: 3.0 cm LVPWd: 1.0 cm LVOT area: 3.2 cm2 FS: 24.3 % Ao root diam: 3.2 cm LAV(MOD-bp): 45.4 ml LVAd ap4: 21.7 cm2 LAV(MOD-bp) Indexed: 26.2 ml/m2 LVLd ap4: 7.6 cm LAV(MOD-sp2): 57.1 ml EDV(MOD-sp4): 52.2 ml LAV(MOD-sp4): 35.5 ml EDV(sp4-el): 52.8 ml LVAs ap4: 13.0 cm2 LVLs ap4: 6.9 cm ESV(MOD-sp4): 21.3 ml ESV(sp4-el): 20.9 ml EF(MOD-sp4): 59.2 % EF(sp4-el): 60.5 % SV(MOD-sp4): 30.9 ml SV(sp4-el): 32.0 ml LA A4 area: 15.4 cm2 LA dimension(2D): 3.7 cm RA A4 area: 10.2 cm2 TAPSE: 2.0 cm Time Measurements MV dec time: 0.21 sec Doppler Measurements & Calculations MV E max lefty: 89.6 cm/sec Lat Peak E' Lefty: 8.5 cm/sec Med Peak E' Lefty: 3.1 cm/sec MV A max lefty: 109.4 cm/sec E/E' lat: 10.6 E/E' med: 29.4 MV E/A: 0.82 MV V2 max: 111.5 cm/sec Ao V2 max: 170.1 cm/sec MV max P.0 mmHg MV dec slope: 436.8 cm/sec2 Ao max P.6 mmHg MV V2 mean: 71.9 cm/sec Ao V2 mean: 117.3 cm/sec MV mean P.3 mmHg Ao mean P.4 mmHg MV V2 VTI: 32.7 cm Ao V2 VTI: 38.4 cm AV (velocity ratio): 0.77 MVA(VTI): 2.9 cm2 MALCOLM(I,D): 2.4 cm2 MALCOLM(V,D): 2.4 cm2 LV V1 max: 131.6 cm/sec SV(LVOT): 94.1 ml PA V2 max: 100.6 cm/sec LV V1 max P.9 mmHg PA V2 mean: 72.2 cm/sec LV V1 mean P.0 mmHg LV V1 mean: 91.9 cm/sec LV V1 VTI: 29.7 cm ECHO/Echo Complete Interpretation Summary Normal LV size. Left ventricular systolic function is normal. The left ventricular ejection fraction is 60 %. Stage 1 diastolic dysfunction. The global longitudinal strain is mildly abnormal. The global longitudinal stra in = -15.2% (abnormal). The global longitudinal strain has worsened. The prior global longi tudinal strain was - 21 % . Ordering Physician: Enrico Hanson Referring Physician: ELTON JORDAN Performed By: Pearl Williamson RCS
[2024-04-24] MEDS: Atorvastatin Calcium 20 MG Tablet PO (22:34)
[2024-04-24] MEDS: Petrolatum,White 3.75GM OPTH.TUBE 1 APPLIC OPHTHALMIC (22:34)
[2024-04-24] MEDS: Insulin Glargine-YFGN 100 UNIT/ML Pen 16 UNIT SC (22:40)
[2024-04-24 23:01] LABS: Bedside Glucose 311 mg/dL (74-106)
[2024-04-25] VITALS (33 sets, daily range): BP systolic 100–151; BP diastolic 41–93; PULSE 66–82; RESP 12–96; TEMP 36.6–37.3; O2SAT 93–99; BMI 25.2
[2024-04-25] MEDS: Ipratropium/Albuterol Sulfate 3 ML AMPUL.NEB INHALATION ×6 (02:23→22:50)
[2024-04-25] MEDS: Ampicillin/Sulbactam 3 GM in 0.9% Normal Saline (100mL MB+) 100 ML IV ×4 (05:09→23:59)
[2024-04-25 05:24] LABS: Absolute Neutrophil Count 4.8 X10^3/uL (2.0-7.7); Basophil# 0.05 X10^3/uL; Basophil% 0.7 % (0-1); Eosinophil# 0.06 X10^3/uL; Eosinophils% 0.9 % (0-5); Hematocrit 33.3 % (37-47); Hemoglobin 10.6 g/dL (12.0-15.0); Lymphocyte % 18.5 % (19-41); Mean Corp Hgb Conc 31.8 g/dL (32-36); Mean Corpuscular Hgb 27.5 pg (27.0-32.0); Mean Corpuscular Volume 86.3 fL (81-99); Mean Platelet Vol. 12.7 fl (6.2-12.0); Monocyte# 0.77 X10^3/uL; Monocyte% 10.9 % (0-10); NRBC Flagged by Analyzer 0.3 % (0-5); Neutrophil # 4.83 X10^3/uL (2.7-7.7); Neutrophil % 68.6 % (47-70); POSITIVE COUNT YES; RBC Distribution Width CV 13.2 % (11.6-14.6); RBC Distribution Width SD 40.9 fl (35.1-43.9); Red Blood Count 3.86 M/mm3 (4.2-5.4)
[2024-04-25 06:05] LABS: Anion Gap 8 (5-15); BUN 24 mg/dL (7-18); BUN/Creat Ratio 28.2 RATIO (10-20); Calcium,Total 8.5 mg/dL (8.5-10.1); Chloride 102 mmol/L (98-107); Creatinine, Serum 0.85 mg/dL (0.55-1.02); EST Glomerular Filtration Rate 69 mL/min (>60); Est Glom Filt Rate - Afr Amer 83 mL/min (>60); Estimated Creatinine Clearance 50.08 ml/min; Glucose 259 mg/dL (74-106); Lipase 15 U/L (13-75); Potassium 2.9 mmol/L (3.5-5.1); Sodium Level 139 mmol/L (136-145); Troponin-I HS 6076 pg/mL (3.0-54.0)
[2024-04-25 06:07] LABS: Differential Indicated SCAN CRITERIA MET
[2024-04-25 07:50] LABS: Differential Comment SCANNED; Platelet Count 133 K/mm3 (150-450)
[2024-04-25 07:51] LABS: Platelet Estimate SLT DEC (ADEQ)
[2024-04-25] MEDS: Insulin Lispro 100 UNIT/ML INSULN.PEN SC ×3 (08:00→15:43)
[2024-04-25] MEDS: Anastrozole 1 MG TABLET PO (08:01)
[2024-04-25] MEDS: Aspirin E.C. 81 MG Tablet PO (08:01)
[2024-04-25] MEDS: Juven (unflavored) Packet 1 PACKET PO ×2 (08:01→15:43)
[2024-04-25] MEDS: amLODIPine 10 MG Tablet PO (08:01)
[2024-04-25] MEDS: Senna/Docusate Sodium 1 Tablet 2 TABLET PO ×2 (08:02→20:48)
[2024-04-25] MEDS: Losartan Potassium 100 MG Tablet PO (08:02)
[2024-04-25] MEDS: guaiFENesin 1,200 MG Tablet 1200 MG PO ×2 (08:02→20:48)
[2024-04-25] MEDS: Atenolol 50 MG Tablet 150 MG PO (08:03)
[2024-04-25] MEDS: Magnesium Chloride 64 MG Delay Rel.Tablet 128 MG PO ×2 (08:03→20:48)
[2024-04-25] MEDS: Clopidogrel Bisulfate 75 MG Tablet PO (08:03)
[2024-04-25] MEDS: Cyanocobalamin 500 MCG Tablet 1000 MCG PO (08:04)
[2024-04-25] MEDS: Cholecalciferol (VIT D3) 25 MCG TABLET (1,000 UNITS) 50 MCG PO (08:04)
[2024-04-25] MEDS: Enoxaparin 40 MG/0.4 ML Syringe SC (08:04)
[2024-04-25] MEDS: Collagenase 30gm Tube 1 APPLIC TOPICAL (08:05)
[2024-04-25] MEDS: Polyethylene Glycol 3350 17 GM PACKET PO (08:05)
[2024-04-25] MEDS: Mupirocin Ointment 22gm Tube 1 APPLIC TOPICAL (08:06)
[2024-04-25] MEDS: Potassium Chloride 10mEq/100mL 10 MEQ/100 ML IV.SOLN. 100 MEQ IV BOLUS ×4 (08:16→13:12)
[2024-04-25] MEDS: Gabapentin 100 MG Capsule 200 MG PO ×2 (08:19→20:51)
[2024-04-25 08:26] LABS: Phosphorus 3.3 mg/dL (2.5-4.9)
[2024-04-25 08:40] LABS: Bedside Glucose 248 mg/dL (74-106)
--- NOTE | 2024-04-25 10:04 | CON.PCM.CA_ITS ---
Assessment & Plan Assessment/Plan (1) Acute hypoxic respiratory failure: PLAN: Patient has been requiring supplemental oxygen since admission with BiPAP and Airvo. The patient's cardiac troponin enzymes are elevated in the 6000 range. She denies any chest discomfort but she is diabetic. The patient's EKG on admission showed ST segment depressions in the inferior lateral leads. Repeat EKG today shows similar pattern but with less prominent ST depressions. The patient has been diuresed 7.2 L since admission. Potassium is being replaced it was down to 2.9. The patient is also being treated for aspiration pneumonia. (2) Coronary atherosclerosis due to calcified coronary lesion of sycuan artery: PLAN: CT revealed coronary calcifications which is highly likely the patient has coronary artery disease given her diabetes with extensive vascular complications. The EKG is not consistent with a STEMI but it is consistent with inferior lateral ischemic changes probably exacerbated by her respiratory failure and sepsis. Patient's secondary risk factors are being addressed with her diabetes hypertension and hyperlipidemia all being treated. 2D echocardiogram has been performed today results of which are pending. (3) Essential hypertension: PLAN: Blood pressure is well-controlled on her current medical therapy. Patient is tolerating the atenolol she is also on amlodipine. (4) Abnormal EKG: PLAN: Initial EKG showed significant ST segment depression in the inferior and lateral leads. These have now improved but are still present on EKG done today. Cardiac isoenzymes were positive but this is in the face of profound hypoxia and sepsis. PLAN: Plan 1. Follow-up on the 2D echo to develop a long-term management plan. 2. Continue with her current medical regiment replacing the potassium and maintaining her beta-emiliana and calcium channel emiliana for blood pressure control. 3. Further evaluation and treatment for her respiratory status aspiration pneumonia and sepsis per the primary service and hand cigar maker. 4. Will provide further recommendations once results of the echocardiogram are known. HPI Consult Data Date of Consult: 04/25/24 HPI Narrative Reason for Consultation: CHF and elevated troponin. HPI Narrative: JOHANNA PONCE, is a 78 F who presents with a sudden onset of nausea and vomiting and what appears to be aspiration pneumonia with bilateral infiltrates on chest x-ray. She has required BiPAP for respiratory distress and is being treated for sepsis. The patient was hypokalemic after she was diuresed 7200 cc over the last 24 hours with 3 doses of Lasix. Her BNP was 666. Troponins were 31 initially and then 6076 on the second set. The patient denies any chest discomfort it is somewhat difficult to communicate with her due to her language issues. As best I can ascertain the patient does not have a history of heart failure or cardiac issues in the past. She is cheerful sitting in the bed on BiPAP. The patient had an echocardiogram done this morning the results of which are pending at this time. The hand cigar maker are also following the patient for her respiratory insufficiency. Patient has a history of hypertension diabetes mellitus with a left foot wound and status post amputation of the right great toe. She also has a history of metastatic breast cancer with mets to the liver followed in [place] [facility]. [facility] Medical History (Updated 04/22/24 @ 05:[address] Patricio Chapin, DO) Abnormal EKG Coronary atherosclerosis due to calcified coronary lesion of sycuan artery Coronary artery calcification seen on CAT scan Essential hypertension Osteoarthritis of both feet Amblyopia, right eye Diabetes mellitus type II, controlled Malignant neoplasm of upper-outer quadrant of right female breast Home Medications ?Medication ?Instructions ?Recorded ?Last Taken ?Type anastrozole 1 mg tablet 1 mg PO DAILY Check with primary 09/08/17 Unknown History doctor aspirin 81 mg tablet,delayed 81 mg PO DAILY@0800 heart 09/08/17 Unknown History release calcium carbonate 500 mg-vitamin 1 ea PO DAILY 09/08/17 Unknown History D3 15 mcg (600 unit) tablet losartan 100 mg tablet 100 mg PO DAILY Check with primary 09/08/17 Unknown History doctor atenolol 100 mg tablet 150 mg PO DAILY beta emiliana 09/19/19 Unknown History loperamide 2 mg capsule 2 mg PO Q1-4H PRN loose stool 09/19/19 Unknown History magnesium oxide 400 mg PO BID 09/19/19 Unknown History mecobalamin (vitamin B12) 1,000 1,000 mcg sublingual DAILY 09/19/19 Unknown History mcg disintegrating tablet,sublingual polysaccharide iron complex 150 mg 150 mg PO BID 09/19/19 Unknown History iron capsule (Ferrex) ondansetron 4 mg disintegrating 4 mg PO TID PRN nausea and 10/05/22 Unknown Rx tablet vomiting #21 tabs amlodipine 10 mg tablet 10 mg PO DAILY 04/22/24 Unknown History calcium carbonate 500 mg-vitamin 1 tab PO DAILY 04/22/24 Unknown History D3 5 mcg (200 unit) tablet (Oyster Shell Calcium-Vitamin D3) cholecalciferol (vitamin D3) 50 50 mcg PO DAILY 04/22/24 Unknown History mcg (2,000 unit) capsule clopidogrel 75 mg tablet 75 mg PO DAILY 04/22/24 Unknown History collagenase clostridium histo. 250 1 applic topical DAILY 04/22/24 Unknown History unit/gram topical ointment (Santyl) cyanocobalamin (vitamin B-12) 1,000 mcg PO DAILY 04/22/24 Unknown History 1,000 mcg tablet gabapentin 100 mg capsule 200 mg PO Q12.TCU 04/22/24 Unknown History glipizide 5 mg tablet, extended 5 mg PO BID 04/22/24 Unknown History release 24 hr insulin glargine 100 unit/mL (3 13 unit subcut QHS 04/22/24 Unknown History mL) subcutaneous pen (Lantus Solostar U-100 Insulin) insulin lispro 100 unit/mL 1 sliding scale dose subcut TID 04/22/24 Unknown History subcutaneous pen meloxicam 15 mg tablet 15 mg PO DAILY 04/22/24 Unknown History metformin 500 mg tablet,extended 1,000 mg PO BID 04/22/24 Unknown History release 24 hr mupirocin 2 % topical ointment 1 applic topical DAILY 04/22/24 Unknown History rosuvastatin 10 mg tablet 10 mg PO QHS 04/22/24 Unknown History sodium chloride 5 % eye ointment 1 applic ophthalmic (eye) QHS 04/22/24 Unknown History (Baltazar 128) Allergy/AdvReac Type Severity Reaction Status Date / Time No Known Allergies Allergy Verified 04/22/24 03:23 Family History Father Diabetes Lung cancer Throat cancer Brother Diabetes Hypertension CAD (coronary artery disease) Surgical History Status post cataract extraction of both eyes with insertion of intraocular lens History of hysterectomy History of colonoscopy History of Social History Smoking Status: Never smoker ROS Review of Systems ROS Unobtainable: other Details: Language issues. Constitutional Constitutional: Reports as per HPI Cardiovascular Cardiovascular: Reports as per HPI Respiratory/Chest Respiratory/Chest: Reports as per HPI Gastrointestinal Gastrointestinal: Reports as per HPI Musculoskeletal Musculoskeletal: Reports as per HPI Integumentary Integumentary: Reports as per HPI Physical Exam Const alert HEENT normocephalic Eyes EOMs intact bilaterally Neck no JVD and no carotid bruits Chest inspection of chest normal Resp Resp Narrative: The patient is tachypneic on BiPAP. Auscultation: crackles bilateral 1/2 way up Cardio regular rate and regular rhythm Heart Sounds: S1 normal, S2 normal and other Other Details: Distant heart tones ; Negative for click, gallop, murmur or rub GI soft to palpation Extremity no pedal edema Extremity Narrative: Left foot is wrapped with a bandage. Neuro Neuro Narrative: Alert Psych mental status grossly normal Risk Stratification Risk Stratification Applicable: Yes Age >/= 65: Yes >/= 3 CAD Risk Factors (HTN, HLD, DM, family hx of CAD, or current smoker): Yes Aspirin Use in the Past 7 Days: Yes Severe Angina (>/= episodes in 24 hours): No EKG ST Changes >/= 0.5mm: No Positive Cardiac Marker: Yes FELICITAS Risk Stratification Score: 4 FELICITAS % Risk: 20% Risk Charges/Coding Visit Charges Inpatient E&M: 19885 Init Hosp L3 Objective Data Vital Signs: Vital Signs Temp Pulse Resp BP Pulse Ox O2 Del Method O2 Flow Rate 97.8 F 74 17 126/52 H 96 Airvo 50 04/25/24 08:00 04/25/24 09:00 04/25/24 09:00 04/25/24 09:00 04/25/24 09:00 04/25/24 09:00 04/25/24 09:00 FiO2 70 04/25/24 09:00 Oxygen Flow Rate (L/min) 50 Oxygen Delivery Method Airvo Weight: 142 lb 3.17 oz Body Mass Index (BMI) 25.2 Intake & Output: Intake and Output for Last 24 Hours 04/23/24 04/24/24 04/25/24 23:59 23:59 23:59 Intake Total 1388 / 1388 718 / 718 684 / 684 Output Total 1850 / 1850 6925 / 6925 1000 / 1000 Balance -462 / -462 -6207 / -6207 -316 / -316 Lab / Micro Data Attestation: I reviewed the patient's lab results. 04/25/24 05:13 04/25/24 05:13 Labs: Laboratory Results - last 24 hr 04/24/24 12:23: POC Glucose 228 H 04/24/24 18:20: POC Glucose 199 H 04/24/24 22:38: POC Glucose 311 H 04/25/24 05:13: WBC 7.0, RBC 3.86 L, Hgb 10.6 L, Hct 33.3 L, MCV 86.3, MCH 27.5, MCHC 31.8 L, RDW Std Deviation 40.9, RDW Coeff of Hermilo 13.2, Plt Count 133 L, MPV 12.7 H, Immature Gran % (Auto) 0.400, Neut % (Auto) 68.6, Lymph % (Auto) 18.5 L, Wharton % (Auto) 10.9 H, Eos % (Auto) 0.9, Baso % (Auto) 0.7, Absolute Neuts (auto) 4.8, Absolute Lymphs (auto) 1.30, Nucleated RBC % 0.3, Differential Comment SCANNED, Platelet Estimate SLT DEC, Sodium 139, Potassium 2.9 L, Chloride 102, Carbon Dioxide 29.0, Anion Gap 8, BUN 24 H, Creatinine 0.85, Estim Creat Clear Calc 50.08, Est GFR (MDRD) Af Amer 83, Est GFR (MDRD) Non-Af 69, BUN/Creatinine Ratio 28.2 H, Glucose 259 H, Calcium 8.5, Phosphorus 3.3, Troponin I High Sens 6076 H*, Lipase 15 04/25/24 07:58: POC Glucose 248 H Rhythm Strip Rhythm Strip: Sinus Rhythm Rate: 70 Cardiology Labs/Tests 04/25/24 05:13: WBC 7.0, RBC 3.86 L, Hgb 10.6 L, Hct 33.3 L, MCV 86.3, MCH 27.5, MCHC 31.8 L, Plt Count 133 L, MPV 12.7 H, Immature Gran % (Auto) 0.400, Neut % (Auto) 68.6, Lymph % (Auto) 18.5 L, Wharton % (Auto) 10.9 H, Eos % (Auto) 0.9, Baso % (Auto) 0.7, Absolute Neuts (auto) 4.8, Nucleated RBC % 0.3, Sodium 139, P otassium 2.9 L, Chloride 102, Carbon Dioxide 29.0, Anion Gap 8, BUN 24 H, Creatinine 0.85, Est GFR (MDRD) Af Amer 83, Est GFR (MDRD) Non-Af 69, B UN/Creatinine Ratio 28.2 H, Glucose 259 H, Calcium 8.5, Phosphorus 3.3 Rhythm: EKG: ECHO: Stress Test: Cardiac Cath: PCI: CT Surgery: Holter monitor: EPS: PPM: CXR: Chest CT Scan: Radiography Diagnostic Testing: Radiology Impression Chest X-Ray 04/24/24 05:25 IMPRESSION: Pulmonary findings appear worse. Electronically Signed: Brad Reinoso MD at 19:06 EDT Reading Location ID and State: [facility] / [place] , Service support ,
[2024-04-25 10:10] LABS: Magnesium 1.3 mg/dL (1.6-2.6); Troponin-I HS 4868 pg/mL (3.0-54.0)
[2024-04-25 11:31] LABS: Bedside Glucose 386 mg/dL (74-106)
--- NOTE | 2024-04-25 13:04 | CT_ITS ---
STUDY: CT CHEST WITH CONTRAST REASON FOR EXAM: Female, 78 years old. Pneumonia RADIATION DOSAGE (If Supplied By Facility): CTDIvol = ( 9.87 ) mGy, DLP = ( 305.31 ) mGycm TECHNIQUE: Transaxial imaging was performed following intravenous administration of IV 100mL Isovue-370. Multiplanar coronal and sagittal images were reformatted. Individualized dose optimization techniques were used for this CT. COMPARISON: Comparison is made with prior chest radiograph dated April 24, 2024. FINDINGS: CHEST A left-sided portacatheter is seen. Heterogeneous enlargement of both lobes of the thyroid gland more prominent on the left side with a left substernal extension. Focal calcification in the inferior pole of the left lobe of the thyroid. Moderate-sized bilateral pleural effusions with bibasilar compressive atelectasis and/or infiltrates. Follow-up recommended. Mild degree of vascular congestion in the upper lobes. There are calcifications of the coronary arteries. Normal mediastinum. Normal hilar regions. Normal unenhanced pulmonary arteries. Normal aorta arch and descending thoracic aorta. There are multi-level degenerative changes of the thoracic spine. There is no demonstrated abnormality of the visualized upper abdomen. CT/Chest WITH Contrast IMPRESSION: Moderate degree of bilateral pleural effusions with bibasilar compressive atelectasis in the lower lobes. Follow-up recommended. Coronary artery calcification. Mild degree of vascular congestion in the upper lobes. Heterogeneous enlargement of the thyroid gland more prominent on the left side with a substernal extension. Electronically Signed: Manny Fowler MD at 14:26 EDT ,
--- NOTE | 2024-04-25 13:06 | PCM.PN.TICU ---
Objective Data Objective Data Vital Signs: Vital Signs Last response Temperature 36.6 C 04/25/24 08:00 Temperature Source Temporal 04/25/24 08:00 Pulse Rate 70 04/25/24 11:36 Pulse Strength Normal (2+) 04/25/24 09:11 Respiratory Rate 96 H 04/25/24 11:36 Respiratory Effort Normal, Non-Labored 04/25/24 08:00 Respiratory Depth Normal 04/25/24 08:00 Respiratory Pattern Normal 04/25/24 11:36 Blood Pressure 125/62 H 04/25/24 11:00 Blood Pressure Mean 83 04/25/24 11:00 Blood Pressure Source Monitor 04/25/24 11:00 Blood Pressure Position Semi-Fowlers 04/25/24 11:00 Blood Pressure Location Right Arm 04/25/24 11:00 Pulse Ox 93 04/25/24 11:00 Oxygen Delivery Method Airvo 04/25/24 11:00 Oxygen Flow Rate (L/min) 55 04/25/24 11:00 Fraction of Inspired Oxygen (FIO2) 70 04/25/24 11:00 I&O: I&O Last 24 Hours 04/24/24 04/25/24 04/25/24 23:59 11:59 23:59 Intake Total 494 / 718 1004 / 1004 Output Total 6575 / 6925 1250 / 1250 Balance -6081 / -6207 -246 / -246 I&O: Total Stay 04/22/24 03:16 thru 04/25/24 11:50 Intake Total 5886 Output Total 60409 Balance -4906 Current Meds Ordered / Administered: Current meds ordered / Administered Generic Name Dose Route Start Last Admin Trade Name Freq PRN Reason Stop Dose Admin Acetaminophen 650 mg 04/22/24 06:07 04/24/24 09:23 Acetaminophen 325 Mg Tablet PO 650 mg Q6H PRN PRN Administration Pain 1-10 Or Fever >100.7 Albuterol Sulfate 2.5 mg 04/22/24 06:07 Albuterol 2.5 Mg/3 Ml Vial.Neb. INHALATION Q2H PRN PRN SHORTNESS OF BREATH Albuterol/Ipratropium 3 ml 04/22/24 08:00 04/25/24 11:34 Ipratropium/Albuterol Sulfate 3 Ml Ampul.Neb INHALATION 3 ml Q4H.RT STIVEN Administration Amlodipine Besylate 10 mg 04/22/24 10:00 04/25/24 08:01 Amlodipine 10 Mg Tablet PO 10 mg DAILY STIVEN Administration Protocol Anastrozole 1 mg 04/22/24 10:00 04/25/24 08:01 Anastrozole 1 Mg Tablet PO 1 mg DAILY STIVEN Administration Aspirin 81 mg 04/22/24 08:00 04/25/24 08:01 Aspirin E.C. 81 Mg Tablet PO 81 mg DAILY@0800 STIVEN Administration Atenolol 150 mg 04/22/24 10:00 04/25/24 08:03 Atenolol 50 Mg Tablet PO 150 mg DAILY STIVEN Administration Protocol Atorvastatin Calcium 20 mg 04/22/24 22:00 04/24/24 22:34 Atorvastatin Calcium 20 Mg Tablet PO 20 mg QHS STIVEN Administration Calcium/Vitamin D 1 tablet 04/22/24 08:00 04/24/24 10:21 Calcium Carb/Vitamin D 1 Tablet Tablet PO 1 tablet DAILYCM STIVEN Administration Cholecalciferol 50 mcg 04/22/24 10:00 04/25/24 08:04 Cholecalciferol (Vit D3) 25 Mcg Tablet (1,000 Units) PO 50 mcg DAILY STIVEN Administration Clopidogrel Bisulfate 75 mg 04/22/24 10:00 04/25/24 08:03 Clopidogrel Bisulfate 75 Mg Tablet PO 75 mg DAILY STIVEN Administration Collagenase 1 applic 04/22/24 10:00 04/25/24 08:05 Collagenase 30gm Tube TOPICAL 1 applic DAILY STIVEN Administration Protocol Cyanocobalamin 1,000 mcg 04/22/24 10:00 04/25/24 08:04 Cyanocobalamin 500 Mcg Tablet PO 1,000 mcg DAILY STIVEN Administration Enoxaparin Sodium 40 mg 04/22/24 10:00 04/25/24 08:04 Enoxaparin 40 Mg/0.4 Ml Syringe SC 40 mg DAILY STIVEN Administration Gabapentin 200 mg 04/22/24 10:00 04/25/24 08:19 Gabapentin 100 Mg Capsule PO 200 mg BID STIVEN Administration Glucagon 1 mg 04/22/24 06:07 Glucagon 1 Mg/Ml Syringe IM X1 PRN HYPOGLYCEMIA Protocol Guaifenesin 1,200 mg 04/22/24 10:00 04/25/24 08:02 Guaifenesin 1,200 Mg Tablet PO 1,200 mg BID STIVEN Administration Dextrose 250 mls @ 0 mls/hr 04/22/24 06:07 Dextrose 10%-Water IV .Q0M PRN HYPOGLYCEMIA Protocol As Directed Ampicillin Sodium/Sulbactam 112 mls @ 150 mls/hr 04/22/24 12:00 04/25/24 06:10 Sodium 3 gm/ Sodium Chloride IV 04/29/24 12:01 Infused Q6 STIVEN Infusion Insulin Glargine 16 unit 04/24/24 22:00 04/24/24 22:40 Insulin Glargine-Yfgn 100 Unit/Ml Pen SC 16 unit QHS STIVEN Administration Insulin Human Lispro 0 unit 04/22/24 07:00 04/25/24 11:11 Insulin Lispro 100 Unit/Ml Insuln.Pen SC 6 u TIDAC [facility] Administration Protocol Iopamidol 0 ml 04/25/24 13:15 Contrast Allergy Safety Check IV X1 STIVEN L-Arginine/L-Glutamine/Calcium HMB 1 packet 04/22/24 17:00 04/25/24 08:01 Leonides (Unflavored) Packet PO 1 packet BIDCM STIVEN Administration Loperamide HCl 2 mg 04/22/24 06:07 Loperamide 2 Mg Capsule PO Q1H PRN PRN loose stool Losartan Potassium 100 mg 04/22/24 10:00 04/25/24 08:02 Losartan Potassium 100 Mg Tablet PO 100 mg DAILY [facility] Administration Protocol Magnesium Chloride 128 mg 04/22/24 10:00 04/25/24 08:03 Magnesium Chloride 64 Mg Delay Rel.Tablet PO 128 mg BID STIVEN Administration Multi-Ingredient Cream 1 applic 04/22/24 22:00 04/24/24 22:34 Petrolatum,White 3.75gm Opth.Tube OPHTHALMIC 1 applic QHS [facility] Administration Mupirocin 1 applic 04/22/24 10:00 04/25/24 08:06 Mupirocin Ointment 22gm Tube TOPICAL 1 applic DAILY [facility] Administration Protocol Ondansetron HCl 4 mg 04/22/24 06:07 04/22/24 11:35 Ondansetron 4 Mg/2 Ml Vial IV 4 mg Q8H PRN PRN Administration NAUSEA/VOMITING Oxycodone HCl 5 mg 04/23/24 11:27 04/23/24 12:18 Oxycodone 5 Mg Tablet PO 5 mg Q6H PRN PRN Administration Pain Score 6-10 Polyethylene Glycol 17 gm 04/24/24 13:00 04/25/24 08:05 Polyethylene Glycol 3350 17 Gm Packet PO 17 gm DAILY STIVEN Administration Polysaccharide Iron Complex 150 mg 04/26/24 06:00 Iron Polysaccharide Complex 150 Mg Capsule PO QODAY@0600 STIVEN Prochlorperazine Edisylate 5 mg 04/22/24 06:07 04/22/24 15:33 Prochlorperazine 10 Mg/2 Ml Vial IV 5 mg Q4H PRN PRN Administration Breakthrough Nausea/Vomiting Senna/Docusate Sodium 2 tablet 04/24/24 13:00 04/25/24 08:02 Senna/Docusate Sodium 1 Tablet PO 2 tablet BID STIVEN Administration Sodium Chloride 10 - 40 ml 04/22/24 06:24 04/24/24 05:06 0.9% Saline Lock 10 Ml Syringe IV 30 ml UD PRN Administration SALINE FLUSH Lab / Micro Data 04/25/24 05:13 04/25/24 05:13 Labs: Laboratory Results - last 24 hr 04/24/24 12:23: POC Glucose 228 H 04/24/24 18:20: POC Glucose 199 H 04/24/24 22:38: POC Glucose 311 H 04/25/24 05:13: WBC 7.0, RBC 3.86 L, Hgb 10.6 L, Hct 33.3 L, MCV 86.3, MCH 27.5, MCHC 31.8 L, RDW Std Deviation 40.9, RDW Coeff of Hermilo 13.2, Plt Count 133 L, MPV 12.7 H, Immature Gran % (Auto) 0.400, Neut % (Auto) 68.6, Lymph % (Auto) 18.5 L, [place] % (Auto) 10.9 H, Eos % (Auto) 0.9, Baso % (Auto) 0.7, Absolute Neuts (auto) 4.8, Absolute Lymphs (auto) 1.30, Nucleated RBC % 0.3, Differential Comment SCANNED, Platelet Estimate SLT DEC, Sodium 139, Potassium 2.9 L, Chloride 102, Carbon Dioxide 29.0, Anion Gap 8, BUN 24 H, Creatinine 0.85, Estim Creat Clear Calc 50.08, Est GFR (MDRD) Af Amer 83, Est GFR (MDRD) Non-Af 69, BUN/Creatinine Ratio 28.2 H, Glucose 259 H, Calcium 8.5, Phosphorus 3.3, Troponin I High Sens 6076 H*, Lipase 15 04/25/24 07:58: POC Glucose 248 H 04/25/24 09:36: Magnesium 1.3 L, Troponin I High Sens 4868 H* 04/25/24 11:10: POC Glucose 386 H Rhythm Strip Rhythm Strip: Sinus Rhythm Rate: 70 Imaging Radiology Impression Chest X-Ray 04/24/24 05:25 IMPRESSION: Pulmonary findings appear worse. Electronically Signed: Brad Reinoso MD at 19:06 EDT , Assessment and Plan . Assessment and plan: 1. Resp Failure: acute/hypoxemic. Marked O2 req. Working theory is 2/2 pneumonia. Inferior/post infiltrates. Continue HHFNC + Mobilization(sitting in chair) + NIPPV with sleep. Wean FIO2 as tolerated. Despite marked diuresis: no change in O2 req or CXR. 2. Pneumonia: suspect aspiration given location of infitrates. Imaging worse since admit. O2 req stable. On unasyn: day [address] chest to eval infiltrates. 3. NSTEMI: Trop repeated given mild increase from admit. No sxs. Elevated not now downtrending. Cards following. Echo read pending. On DAPT. 4. ? CHF exac: Started diuresis yesterday. Marked uop from one dose of lasix. No change in resp status. Diuresis prn. 5. Lactic Acidosis: resolved. 6. DM: SS 7. FEN: oral idet 8. PX:Lovenox Chaim Hendrickson MD Critical Care Time: 50 minutes The entirety of this encounter was done via Telemedicine Physical Exam Narrative awake, sitting in chair, NAD pupils := o/p:clear CV: RRR Chest: crackles in bases/diminished Abd: soft, nt Ext: no c/e/c Skin: no rashes Subjective Subjective no events. Diuresed well but no change in O2 req or CXR.
--- NOTE | 2024-04-25 14:06 | PCM.PN.HOSP ---
Reason for Visit Reason for Visit: Diagnoses Sepsis, unspecified organism (04/22/24) Type 2 diabetes mellitus with hyperglycemia (04/22/24) Acidosis, unspecified (04/22/24) Other acidosis (04/22/24) Essential (primary) hypertension (04/22/24) Atherosclerotic heart disease of [place] coronary artery without angina pectoris (04/22/24) Coronary atherosclerosis due to calcified coronary lesion (04/22/24) Pneumonitis due to inhalation of food and vomit (04/22/24) Acute respiratory failure with hypoxia (04/22/24) Abnormal electrocardiogram [ECG] [EKG] (04/22/24) Objective Data Objective Data Vital Signs: Vital Signs Temp Pulse Resp BP Pulse Ox O2 Del Method O2 Flow Rate 98.5 F 80 24 H 137/58 H 94 Airvo 55 04/25/24 12:00 04/25/24 14:00 04/25/24 14:00 04/25/24 14:00 04/25/24 14:00 04/25/24 14:00 04/25/24 14:00 FiO2 70 04/25/24 14:00 Oxygen Flow Rate (L/min) 55 Oxygen Delivery Method Airvo Weight: 142 lb 3.17 oz Body Mass Index (BMI) 25.2 Intake & Output: Intake and Output for Last 24 Hours 04/23/24 04/24/24 04/25/24 23:59 23:59 23:59 Intake Total 1388 / 1388 718 / 718 1116 / 1116 Output Total 1850 / 1850 6925 / 6925 1250 / 1250 Balance -462 / -462 -6207 / -6207 -134 / -134 Lab / Micro Data 04/25/24 05:13 04/25/24 05:13 Labs: Laboratory Results - last 24 hr 04/24/24 12:23: POC Glucose 228 H 04/24/24 18:20: POC Glucose 199 H 04/24/24 22:38: POC Glucose 311 H 04/25/24 05:13: WBC 7.0, RBC 3.86 L, Hgb 10.6 L, Hct 33.3 L, MCV 86.3, MCH 27.5, MCHC 31.8 L, RDW Std Deviation 40.9, RDW Coeff of Hermilo 13.2, Plt Count 133 L, MPV 12.7 H, Immature Gran % (Auto) 0.400, Neut % (Auto) 68.6, Lymph % (Auto) 18.5 L, [place] % (Auto) 10.9 H, Eos % (Auto) 0.9, Baso % (Auto) 0.7, Absolute Neuts (auto) 4.8, Absolute Lymphs (auto) 1.30, Nucleated RBC % 0.3, Differential Comment SCANNED, Platelet Estimate SLT DEC, Sodium 139, Potassium 2.9 L, Chloride 102, Carbon Dioxide 29.0, Anion Gap 8, BUN 24 H, Creatinine 0.85, Estim Creat Clear Calc 50.08, Est GFR (MDRD) Af Amer 83, Est GFR (MDRD) Non-Af 69, BUN/Creatinine Ratio 28.2 H, Glucose 259 H, Calcium 8.5, Phosphorus 3.3, Troponin I High Sens 6076 H*, Lipase 15 04/25/24 07:58: POC Glucose 248 H 04/25/24 09:36: Magnesium 1.3 L, Troponin I High Sens 4868 H* 04/25/24 11:10: POC Glucose 386 H Micro: Microbiology 04/22/24 18:30 Urine Catheter - Bower Legionella Antigen - Final 04/22/24 18:30 Urine Catheter - Bower Streptococcus pneumoniae Antigen (M - Final Radiography Diagnostic Testing: Radiology Impression Chest X-Ray 04/24/24 05:25 IMPRESSION: Pulmonary findings appear worse. Electronically Signed: Brad Reinoso MD at 19:06 EDT Reading Location ID and State: [facility] / [place] , Service support , Echocardiogram 04/24/24 20:26 Interpretation Summary Normal LV size. Left ventricular systolic function is normal. The left ventricular ejection fraction is 60 %. Stage 1 diastolic dysfunction. The global longitudinal strain is mildly abnormal. The global longitudinal strain = -15.2% (abnormal). The global longitudinal strain has worsened. The prior global longitudinal strain was - 21 % . Ordering Physician: Enrico Hanson Referring Physician: ELTON JORDAN Performed By: Pearl Williamson RCS Rhythm Strip Rhythm Strip: Sinus Rhythm Rate: 70 Physical Exam Narrative Seen and examined. Patient on Airvo 70%.. Short of breath is better compared to yesterday. Sitting on the recliner. No chest pain or pressure. Discussed with the family members including her son and grandson near the bedside. Physical exam General: Alert, Oriented x3, Cooperative HEENT: Atraumatic, PERRLA, EOMI, Normocephalic Oral: Oral mucosa moist. No Gingival or Mucosal Lesions/ Ulcerations Neck: Supple, No JVD, Negative Carotid Bruits Chest wall/Lungs: Air entry diminished in bilateral lung bases. On Airvo. Occasional crepitations/wheezing Cardiovascular: Regular rate, Regular Rhythm, Normal S1, Normal S2, No M/G/R Abdomen: Bowel Sounds Present, Soft, Non Tender, Non-Distended : No dysuria. No renal angle tenderness. No suprapubic tenderness. Extremities: No edema, Capillary Refill Less than 3 Seconds Skin: No rashes, No breakdown Musculoskeletal: No Tenderness to Palpation of Joints or Extremities Neurological: Cranial nerves II-XII grossly intact, DTR 2+/4. No acute focal neurological deficit. Psych/Mental Status: Normal Affect, Appropriate. Assessment & Plan Assessment/Plan (1) Acute hypoxic respiratory failure: (2) Sepsis: (3) Respiratory acidosis: (4) Aspiration pneumonia: PLAN: Plan #Acute hypoxic respiratory failure due to probable aspiration pneumonia She had nausea and vomiting and diarrhea at home and after vomiting she coughed and choked and EMS was called. She was saturating at 68% on room air. Chest x-ray showed by lateral infiltrates. Lactic acid was also elevated at 9. 04/24 Repeat chest x-ray shows bilateral lower lungs infiltrates and opacity. Remain on Airvo. Keep pulse ox more than 90%. Continue broad-spectrum IV antibiotics. Skiver Box Toe on board. Breathing treatments with bronchodilators. Urine for strep and Legionella negative. 04/25: Chest CT scan shows bilateral pleural effusion with bibasilar compressive atelectasis in lower lobes consolidation. Patient on IV Unasyn. With concern for CHF exacerbation, troponins were done which shows elevated. Helper/Driver consulted. 2D echo is already ordered. Continue atenolol and amlodipine for BP, HEART RATE CONTROL and electrolyte correction. Heart rate and blood pressure are controlled. # Sepsis due to aspiration pneumonia: As above. Patient was not in shock. #Lactic acidosis: lactic acid was 9 on admission. This is however likely due to her hypoxia. Trended down to 2.4 with hydration and with oxygen. #Type 2 diabetes mellitus with hyperglycemia: On Lantus. Insulin sliding scale. Accu-Cheks ACH. Metformin held due to lactic acidosis #Hypertension: On losartan. IV hydralazine as needed. #History of bilateral feet ulcers: Wound care on board. This is chronic. #History of breast cancer: Follow-up with oncology on outpatient basis #History of CAD: On Plavix and statin. DVT prophylaxis: Lovenox Code status: She want CPR and intubation if needed. Full code. Charges/Coding Visit Charges Inpatient E&M: 75053 Subs Hosp L3
[2024-04-25 14:45] LABS: Troponin-I HS 4089 pg/mL (3.0-54.0)
[2024-04-25] MEDS: 0.9% Saline Lock 10 ML Syringe IV (15:49)
[2024-04-25] MEDS: Acetaminophen 325 MG Tablet 650 MG PO (19:59)
[2024-04-25] MEDS: Atorvastatin Calcium 20 MG Tablet PO (20:48)
[2024-04-25] MEDS: Petrolatum,White 3.75GM OPTH.TUBE 1 APPLIC OPHTHALMIC (20:49)
[2024-04-25] MEDS: Insulin Glargine-YFGN 100 UNIT/ML Pen 16 UNIT SC (20:49)
[2024-04-25 21:12] LABS: Bedside Glucose 411 mg/dL (74-106)
[2024-04-25] MEDS: Insulin Lispro 100 UNIT/ML INSULN.PEN 10 UNIT SC (21:45)
[2024-04-26] VITALS (29 sets, daily range): BP systolic 105–175; BP diastolic 45–98; PULSE 62–87; RESP 12–22; TEMP 36.4–36.8; O2SAT 92–99; BMI 25.8
[2024-04-26] MEDS: Ipratropium/Albuterol Sulfate 3 ML AMPUL.NEB INHALATION ×6 (02:53→22:47)
[2024-04-26] MEDS: Ampicillin/Sulbactam 3 GM in 0.9% Normal Saline (100mL MB+) 100 ML IV ×4 (05:56→23:11)
[2024-04-26] MEDS: Iron Polysaccharide Complex 150 MG CAPSULE PO (05:56)
[2024-04-26 06:18] LABS: Absolute Lymphocyte Count 1.73 X10^3/uL (0.83-4.51); Absolute Neutrophil Count 3.1 X10^3/uL (2.0-7.7); Basophil% 1.7 % (0-1); Eosinophil# 0.33 X10^3/uL; Eosinophils% 5.4 % (0-5); Hematocrit 31.6 % (37-47); Hemoglobin 10.1 g/dL (12.0-15.0); Lymphocyte # 1.73 X10^3/ul (0.83-4.51); Lymphocyte % 28.5 % (19-41); Mean Corpuscular Volume 87.5 fL (81-99); Mean Platelet Vol. 12.4 fl (6.2-12.0); Monocyte# 0.76 X10^3/uL; Monocyte% 12.5 % (0-10); NRBC Flagged by Analyzer 0 % (0-5); Neutrophil # 3.12 X10^3/uL (2.7-7.7); Neutrophil % 51.6 % (47-70); Platelet Count 165 K/mm3 (150-450); RBC Distribution Width CV 13.2 % (11.6-14.6); RBC Distribution Width SD 41.7 fl (35.1-43.9); Red Blood Count 3.61 M/mm3 (4.2-5.4); White Blood Count 6.1 K/mm3 (4.4-11.0)
[2024-04-26 06:19] LABS: Bedside Glucose 170 mg/dL (74-106)
[2024-04-26 07:23] LABS: Anion Gap 4 (5-15); BUN 31 mg/dL (7-18); BUN/Creat Ratio 33.1 RATIO (10-20); Calcium,Total 8.7 mg/dL (8.5-10.1); Chloride 106 mmol/L (98-107); Creatinine, Serum 0.94 mg/dL (0.55-1.02); EST Glomerular Filtration Rate 62 mL/min (>60); Est Glom Filt Rate - Afr Amer 75 mL/min (>60); Estimated Creatinine Clearance 45.29 ml/min; Glucose 196 mg/dL (74-106); Potassium 3.1 mmol/L (3.5-5.1); Sodium Level 143 mmol/L (136-145)
[2024-04-26] MEDS: Losartan Potassium 100 MG Tablet PO (08:10)
[2024-04-26] MEDS: Calcium Carb/Vitamin D 1 TABLET Tablet PO (08:10)
[2024-04-26] MEDS: Insulin Lispro 100 UNIT/ML INSULN.PEN SC ×3 (08:10→16:43)
[2024-04-26] MEDS: Cholecalciferol (VIT D3) 25 MCG TABLET (1,000 UNITS) 50 MCG PO (08:10)
[2024-04-26] MEDS: Aspirin E.C. 81 MG Tablet PO (08:11)
[2024-04-26] MEDS: Polyethylene Glycol 3350 17 GM PACKET PO (08:11)
[2024-04-26] MEDS: Atenolol 50 MG Tablet 150 MG PO (08:11)
[2024-04-26] MEDS: Juven (unflavored) Packet 1 PACKET PO ×2 (08:11→16:43)
[2024-04-26] MEDS: Clopidogrel Bisulfate 75 MG Tablet PO (08:11)
[2024-04-26] MEDS: Magnesium Chloride 64 MG Delay Rel.Tablet 128 MG PO ×2 (08:11→20:39)
[2024-04-26] MEDS: Anastrozole 1 MG TABLET PO (08:12)
[2024-04-26] MEDS: Enoxaparin 40 MG/0.4 ML Syringe SC (08:12)
[2024-04-26] MEDS: Mupirocin Ointment 22gm Tube 1 APPLIC TOPICAL (08:12)
[2024-04-26] MEDS: Collagenase 30gm Tube 1 APPLIC TOPICAL (08:12)
[2024-04-26] MEDS: guaiFENesin 1,200 MG Tablet 1200 MG PO ×2 (08:13→20:39)
[2024-04-26] MEDS: Senna/Docusate Sodium 1 Tablet 2 TABLET PO ×2 (08:13→20:40)
[2024-04-26] MEDS: Cyanocobalamin 500 MCG Tablet 1000 MCG PO (08:13)
[2024-04-26] MEDS: amLODIPine 10 MG Tablet PO (08:13)
[2024-04-26] MEDS: Gabapentin 100 MG Capsule 200 MG PO ×2 (08:15→20:40)
--- NOTE | 2024-04-26 08:15 | PN.CARD_ITS ---
Subjective Subjective Patient was sleeping comfortably in the bed this morning on Airvo. I discussed the situation with Dr. Lim. The patient's echocardiogram shows normal LV function with no regional wall motion abnormality. There is no significant valvular heart disease. The patient's vital signs are stable. Objective Data Vital Signs: Vital Signs Temp Pulse Resp BP Pulse Ox O2 Del Method O2 Flow Rate 97.7 F L 72 20 H 130/52 H 94 Airvo 55 04/26/24 05:00 04/26/24 07:03 04/26/24 07:03 04/26/24 07:00 04/26/24 07:03 04/26/24 07:03 04/26/24 07:03 FiO2 40 04/26/24 07:03 Oxygen Flow Rate (L/min) 55 Oxygen Delivery Method Airvo Weight: 145 lb 11.609 oz Body Mass Index (BMI) 25.8 Intake & Output: Intake and Output for Last 24 Hours 04/24/24 04/25/24 04/26/24 23:59 23:59 23:59 Intake Total 718 / 718 1808 / 1808 224 / 224 Output Total 6925 / 6925 2450 / 2450 350 / 350 Balance -6207 / -6207 -642 / -642 -126 / -126 Lab / Micro Data Attestation: I reviewed the patient's lab results. 04/26/24 05:55 04/26/24 05:55 Labs: Laboratory Results - last 24 hr 04/25/24 05:13: Phosphorus 3.3 04/25/24 07:58: POC Glucose 248 H 04/25/24 09:36: Magnesium 1.3 L, Troponin I High Sens 4868 H* 04/25/24 11:10: POC Glucose 386 H 04/25/24 13:15: Troponin I High Sens 4089 H* 04/25/24 20:45: POC Glucose 411 H 04/26/24 05:55: WBC 6.1, RBC 3.61 L, Hgb 10.1 L, Hct 31.6 L, MCV 87.5, MCH 28.0, MCHC 32.0, RDW Std Deviation 41.7, RDW Coeff of Hermilo 13.2, Plt Count 165, MPV 12.4 H, Immature Gran % (Auto) 0.300, Neut % (Auto) 51.6, Lymph % (Auto) 28.5, M carlos % (Auto) 12.5 H, Eos % (Auto) 5.4 H, Baso % (Auto) 1.7 H, Absolute Neuts (auto) 3.1, Absolute Lymphs (auto) 1.73, Nucleated RBC % 0, Sodium 143, P otassium 3.1 L, Chloride 106, Carbon Dioxide 33.0 H, Anion Gap 4 L, BUN 31 H, Creatinine 0.94, Estim Creat Clear Calc 45.29, Est GFR (MDRD) Af Amer 75, Est GFR (MDRD) Non-Af 62, BUN/Creatinine Ratio 33.1 H, Glucose 196 H, Calcium 8.7 04/26/24 06:01: POC Glucose 170 H Micro: Microbiology 04/22/24 03:50 Blood Culture (Wb) - Anticubital Right Blood Culture - Preliminary No growth in 48 hours. Rhythm Strip Rhythm Strip: Sinus Rhythm Rate: 70 Cardiology Labs/Tests 04/25/24 05:13: Phosphorus 3.3 04/25/24 09:36: Magnesium 1.3 L 04/26/24 05:55: WBC 6.1, RBC 3.61 L, Hgb 10.1 L, Hct 31.6 L, MCV 87.5, MCH 28.0, MCHC 32.0, Plt Count 165, MPV 12.4 H, Immature Gran % (Auto) 0.300, Neut % (Auto) 51.6, Lymph % (Auto) 28.5, [place] % (Auto) 12.5 H, Eos % (Auto) 5.4 H, Baso % (Auto) 1.7 H, Absolute Neuts (auto) 3.1, Nucleated RBC % 0, Sodium 143, P otassium 3.1 L, Chloride 106, Carbon Dioxide 33.0 H, Anion Gap 4 L, BUN 31 H, Creatinine 0.94, Est GFR (MDRD) Af Amer 75, Est GFR (MDRD) Non-Af 62, B UN/Creatinine Ratio 33.1 H, Glucose 196 H, Calcium 8.7 Rhythm: EKG: ECHO: Stress Test: Cardiac Cath: PCI: CT Surgery: Holter monitor: EPS: PPM: CXR: Chest CT Scan: Radiography Diagnostic Testing: Radiology Impression Echocardiogram 04/24/24 20:26 Interpretation Summary Normal LV size. Left ventricular systolic function is normal. The left ventricular ejection fraction is 60 %. Stage 1 diastolic dysfunction. The global longitudinal strain is mildly abnormal. The global longitudinal strain = -15.2% (abnormal). The global longitudinal strain has worsened. The prior global longitudinal strain was - 21 % . Ordering Physician: Enrico Hanson Referring Physician: ELTON JORDAN Performed By: Pearl Williamson RCS Chest CT 04/25/24 13:04 IMPRESSION: Moderate degree of bilateral pleural effusions with bibasilar compressive atelectasis in the lower lobes. Follow-up recommended. Coronary artery calcification. Mild degree of vascular congestion in the upper lobes. Heterogeneous enlargement of the thyroid gland more prominent on the left side with a substernal extension. Electronically Signed: Manny Fowler MD at 14:26 EDT , Physical Exam Narrative Patient resting comfortably sound asleep. She was not awaken for physical exam. HEENT normocephalic Neck no JVD Resp normal respiratory effort Resp Narrative: On Airvo Cardio Cardio Narrative: Telemetry rhythm shows normal sinus rhythm at 70 to 75 bpm. Assessment & Plan Assessment/Plan (1) Coronary atherosclerosis due to calcified coronary lesion of [place] artery: PLAN: The patient did have elevated troponins but there was no evidence of wall motion abnormality on the echocardiogram and her ejection fraction was normal at 60%. The patient should be treated for secondary risk factor modifications given her calcified coronary arteries she should be treated to an LDL less than 70 as tolerated. (2) Elevated troponin I level: PLAN: Patient is elevated troponins appear to be secondary to demand ischemia related to her profound hypoxia on presentation. They have trended down. There is no wall motion abnormality on her LV. There is a change in her longitudinal strain pattern possibly related to this demand ischemia. Secondary risk factors should be treated as appropriate. Otherwise no further cardiac intervention is indicated at this time. We will follow-up as directed. PLAN: Plan 1. Continue current therapy for the underlying respiratory issues. 2. No further cardiovascular evaluations indicated at this time. 3. Please call if further assistance is needed from a cardiovascular standpoint. Charges/Coding Visit Charges Inpatient E&M: 62814 [facility] Hosp L1
[2024-04-26 08:52] LABS: Bedside Glucose 173 mg/dL (74-106)
[2024-04-26] MEDS: Potassium Chloride Oral Tablet 20 MEQ 40 MEQ PO ×2 (11:02→13:01)
[2024-04-26] MEDS: Magnesium Sulfate 4gm/100mL 4 GM/100 ML IV.SOLN. IV (11:04)
[2024-04-26 11:35] LABS: Bedside Glucose 316 mg/dL (74-106)
--- NOTE | 2024-04-26 13:32 | PN.HOSP_ITS ---
Reason for Visit Reason for Visit: Diagnoses Sepsis, unspecified organism (04/22/24) Type 2 diabetes mellitus with hyperglycemia (04/22/24) Acidosis, unspecified (04/22/24) Other acidosis (04/22/24) Essential (primary) hypertension (04/22/24) Atherosclerotic heart disease of [place] coronary artery without angina pectoris (04/22/24) Coronary atherosclerosis due to calcified coronary lesion (04/22/24) Pneumonitis due to inhalation of food and vomit (04/22/24) Acute respiratory failure with hypoxia (04/22/24) Other specified abnormal findings of blood chemistry (04/22/24) Abnormal electrocardiogram [ECG] [EKG] (04/22/24) Objective Data Objective Data Vital Signs: Vital Signs Temp Pulse Resp BP Pulse Ox O2 Del Method O2 Flow Rate 98.2 F 77 21 H 149/64 H 97 High Flow 9 04/26/24 12:00 04/26/24 13:00 04/26/24 13:00 04/26/24 13:00 04/26/24 13:00 04/26/24 13:00 04/26/24 13:00 FiO2 35 04/26/24 12:00 Oxygen Flow Rate (L/min) 9 Oxygen Delivery Method High Flow Weight: 145 lb 11.609 oz Body Mass Index (BMI) 25.8 Intake & Output: Intake and Output for Last 24 Hours 04/24/24 04/25/24 04/26/24 23:59 23:59 23:59 Intake Total 718 / 718 1808 / 1808 1056 / 1056 Output Total 6925 / 6925 2450 / 2450 1050 / 1050 Balance -6207 / -6207 -642 / -642 Lab / Micro Data 04/26/24 05:55 04/26/24 05:55 Labs: Laboratory Results - last 24 hr 04/25/24 13:15: Troponin I High Sens 4089 H* 04/25/24 20:45: POC Glucose 411 H 04/26/24 05:55: WBC 6.1, RBC 3.61 L, Hgb 10.1 L, Hct 31.6 L, MCV 87.5, MCH 28.0, MCHC 32.0, RDW Std Deviation 41.7, RDW Coeff of Hermilo 13.2, Plt Count 165, MPV 12.4 H, Immature Gran % (Auto) 0.300, Neut % (Auto) 51.6, Lymph % (Auto) 28.5, M carlos % (Auto) 12.5 H, Eos % (Auto) 5.4 H, Baso % (Auto) 1.7 H, Absolute Neuts (auto) 3.1, Absolute Lymphs (auto) 1.73, Nucleated RBC % 0, Sodium 143, P otassium 3.1 L, Chloride 106, Carbon Dioxide 33.0 H, Anion Gap 4 L, BUN 31 H, Creatinine 0.94, Estim Creat Clear Calc 45.29, Est GFR (MDRD) Af Amer 75, Est GFR (MDRD) Non-Af 62, BUN/Creatinine Ratio 33.1 H, Glucose 196 H, Calcium 8.7 04/26/24 06:01: POC Glucose 170 H 04/26/24 08:09: POC Glucose 173 H 04/26/24 11:15: POC Glucose 316 H Micro: Microbiology 04/22/24 03:50 Blood Culture (Wb) - Anticubital Right Blood Culture - Preliminary No growth in 48 hours. 04/22/24 18:30 Urine Catheter - Bower Legionella Antigen - Final 04/22/24 18:30 Urine Catheter - Bower Streptococcus pneumoniae Antigen (M - Final Radiography Diagnostic Testing: Radiology Impression Chest CT 04/25/24 13:04 IMPRESSION: Moderate degree of bilateral pleural effusions with bibasilar compressive atelectasis in the lower lobes. Follow-up recommended. Coronary artery calcification. Mild degree of vascular congestion in the upper lobes. Heterogeneous enlargement of the thyroid gland more prominent on the left side with a substernal extension. Electronically Signed: Manny Fowler MD at 14:26 EDT , Rhythm Strip Rhythm Strip: Sinus Rhythm Rate: 70 Physical Exam Narrative Seen and examined. Patient requirement of Airvo decreased. Tapered down, currently on high flow oxygen 9 L. 2D echo reviewed with the patient's family including her and son near the bedside. Short of breath is better is improving Sitting on the recliner. No chest pain or pressure. Discussed with the family members including her son and grandson near the bedside. Physical exam General: Alert, Oriented x3, Cooperative HEENT: Atraumatic, PERRLA, EOMI, Normocephalic Oral: Oral mucosa moist. No Gingival or Mucosal Lesions/ Ulcerations Neck: Supple, No JVD, Negative Carotid Bruits Chest wall/Lungs: Air entry diminished in bilateral lung bases. Occasional crepitations/wheezing Cardiovascular: Regular rate, Regular Rhythm, Normal S1, Normal S2, No M/G/R Abdomen: Bowel Sounds Present, Soft, Non Tender, Non-Distended : No dysuria. No renal angle tenderness. No suprapubic tenderness. Extremities: No edema, Capillary Refill Less than 3 Seconds Skin: No rashes, No breakdown Musculoskeletal: No Tenderness to Palpation of Joints or Extremities Neurological: Cranial nerves II-XII grossly intact, DTR 2+/4. No acute focal neurological deficit. Psych/Mental Status: Normal Affect, Appropriate. Assessment & Plan Assessment/Plan (1) Acute hypoxic respiratory failure: (2) Sepsis: (3) Respiratory acidosis: (4) Aspiration pneumonia: PLAN: Plan #Acute hypoxic respiratory failure * due to probable aspiration pneumonia * She had nausea and vomiting and diarrhea at home and after vomiting she coughed and choked and EMS was called. She was saturating at 68% on room air. * Chest x-ray showed by lateral infiltrates. Lactic acid was also elevated at 9. 04/24 Repeat chest x-ray shows bilateral lower lungs infiltrates and opacity. Remain on Airvo. Keep pulse ox more than 90%. Continue broad-spectrum IV antibiotics. Power Driven Brush Maker on board. Breathing treatments with bronchodilators. * Urine for strep and Legionella negative. 04/25: Chest CT scan shows bilateral pleural effusion with bibasilar compressive atelectasis in lower lobes consolidation. Patient on IV Unasyn. With concern for CHF exacerbation, troponins were done which shows elevated. Head Wood Grinder consulted. 2D echo is already ordered. Continue atenolol and amlodipine for BP, HEART RATE CONTROL and electrolyte correction. Heart rate and blood pressure are controlled. 04/26: 2D echo reviewed with the family. No regional wall motion abnormality. EF 60% stage I diastolic dysfunction. Mild . Oxygen requirement is decreasing in the process of tapering off Airvo. Continue IV Unasyn. Hypokalemia and hypomagnesemia: Electrolytes getting replaced # Sepsis due to aspiration pneumonia: As above. Patient was not in shock. #Lactic acidosis: lactic acid was 9 on admission. This is however likely due to her hypoxia. Trended down to 2.4 with hydration and with oxygen. #Type 2 diabetes mellitus with hyperglycemia: On Lantus. Insulin sliding scale. Accu-Cheks ACH. Metformin held due to lactic acidosis #Hypertension: On losartan. IV hydralazine as needed. #History of bilateral feet ulcers: Wound care on board. This is chronic. #History of breast cancer: Follow-up with oncology on outpatient basis #History of CAD: On Plavix and statin. DVT prophylaxis: Lovenox Code status: She want CPR and intubation if needed. Full code. Total time of the visit including total time spent in counseling or coordination of care, (more than 50% of the total time, spent in obtaining medical information from nurses and other ancillary care providers,explaining to the patient about labs, imaging, diagnosis and management of active complex medical conditions), clinical update given to patient's family including son and her , review of labs and imaging is 40 minutes. Clinical Impression(s) from Imaging Studies Chest X-Ray 04/22/24 03:27 IMPRESSION: Bilateral lung basilar airspace opacities, greatest on the left. This could be atelectatic or pneumonia. Electronically Signed: Ed Barber MD at 4:55 EDT , KUB X-Ray 04/22/24 12:56 IMPRESSION: A catheter is seen within the pelvis. Electronically Signed: Manny Fowler MD at 13:59 EDT , Chest X-Ray 04/24/24 05:25 IMPRESSION: Pulmonary findings appear worse. Electronically Signed: Brad Reinoso MD at 19:06 EDT , Echocardiogram 04/24/24 20:26 Interpretation Summary Normal LV size. Left ventricular systolic function is normal. The left ventricular ejection fraction is 60 %. Stage 1 diastolic dysfunction. The global longitudinal strain is mildly abnormal. The global longitudinal strain = -15.2% (abnormal). The global longitudinal strain has worsened. The prior global longitudinal strain was - 21 % . Ordering Physician: Enrico Hanson Referring Physician: ELTON JORDAN Performed By: Pearl Williamson RCS Chest CT 04/25/24 13:04 IMPRESSION: Moderate degree of bilateral pleural effusions with bibasilar compressive atelectasis in the lower lobes. Follow-up recommended. Coronary artery calcification. Mild degree of vascular congestion in the upper lobes. Heterogeneous enlargement of the thyroid gland more prominent on the left side with a substernal extension. Electronically Signed: Manny Fowler MD at 14:26 EDT , Charges/Coding Visit Charges Inpatient E&M: 75544 Subs Hosp L3
--- NOTE | 2024-04-26 15:34 | PCM.PN.TICU ---
Objective Data Objective Data Vital Signs: Vital Signs Last response Temperature 36.8 C 04/26/24 12:00 Temperature Source Temporal 04/26/24 12:00 Pulse Rate 74 04/26/24 15:27 Pulse Strength Normal (2+) 04/26/24 10:00 Respiratory Rate 20 H 04/26/24 15:27 Respiratory Effort Accessory Muscle Use 04/26/24 12:00 Respiratory Depth Normal 04/26/24 12:00 Respiratory Pattern Normal 04/26/24 15:27 Blood Pressure 129/98 H 04/26/24 15:00 Blood Pressure Mean 108 04/26/24 15:00 Blood Pressure Source Monitor 04/26/24 15:00 Blood Pressure Position Semi-Fowlers 04/26/24 15:00 Blood Pressure Location Right Arm 04/26/24 15:00 Pulse Ox 93 04/26/24 15:00 Oxygen Delivery Method Nasal Cannula 04/26/24 15:00 Oxygen Flow Rate (L/min) 2 04/26/24 15:00 Fraction of Inspired Oxygen (FIO2) 35 04/26/24 12:00 I&O: I&O Last 24 Hours 04/25/24 04/26/24 04/26/24 23:59 11:59 23:59 Intake Total 804 / 1808 944 / 1156 212 / 1156 Output Total 1200 / 2450 1050 / 1050 Balance -396 / -642 -106 / 106 212 / 106 I&O: Total Stay 04/22/24 03:16 thru 04/26/24 15:05 Intake Total 7846 Output Total 87529 Balance -5254 Current Meds Ordered / Administered: Current meds ordered / Administered Generic Name Dose Route Start Last Admin Trade Name Freq PRN Reason Stop Dose Admin Acetaminophen 650 mg 04/22/24 06:07 04/25/24 19:59 Acetaminophen 325 Mg Tablet PO 650 mg Q6H PRN PRN Administration Pain 1-10 Or Fever >100.7 Albuterol Sulfate 2.5 mg 04/22/24 06:07 Albuterol 2.5 Mg/3 Ml Vial.Neb. INHALATION Q2H PRN PRN SHORTNESS OF BREATH Albuterol/Ipratropium 3 ml 04/22/24 08:00 04/26/24 15:26 Ipratropium/Albuterol Sulfate 3 Ml Ampul.Neb INHALATION 3 ml Q4H.RT STIVEN Administration Amlodipine Besylate 10 mg 04/22/24 10:00 04/26/24 08:13 Amlodipine 10 Mg Tablet PO 10 mg DAILY STIVEN Administration Protocol Anastrozole 1 mg 04/22/24 10:00 04/26/24 08:12 Anastrozole 1 Mg Tablet PO 1 mg DAILY STIVEN Administration Aspirin 81 mg 04/22/24 08:00 04/26/24 08:11 Aspirin E.C. 81 Mg Tablet PO 81 mg DAILY@0800 STIVEN Administration Atenolol 150 mg 04/22/24 10:00 04/26/24 08:11 Atenolol 50 Mg Tablet PO 150 mg DAILY STIVEN Administration Protocol Atorvastatin Calcium 20 mg 04/22/24 22:00 04/25/24 20:48 Atorvastatin Calcium 20 Mg Tablet PO 20 mg QHS STIVEN Administration Calcium/Vitamin D 1 tablet 04/22/24 08:00 04/26/24 08:10 Calcium Carb/Vitamin D 1 Tablet Tablet PO 1 tablet DAILYCM STIVEN Administration Cholecalciferol 50 mcg 04/22/24 10:00 04/26/24 08:10 Cholecalciferol (Vit D3) 25 Mcg Tablet (1,000 Units) PO 50 mcg DAILY STIVEN Administration Clopidogrel Bisulfate 75 mg 04/22/24 10:00 04/26/24 08:11 Clopidogrel Bisulfate 75 Mg Tablet PO 75 mg DAILY STIVEN Administration Collagenase 1 applic 04/22/24 10:00 04/26/24 08:12 Collagenase 30gm Tube TOPICAL 1 applic DAILY STIVEN Administration Protocol Cyanocobalamin 1,000 mcg 04/22/24 10:00 04/26/24 08:13 Cyanocobalamin 500 Mcg Tablet PO 1,000 mcg DAILY STIVEN Administration Enoxaparin Sodium 40 mg 04/22/24 10:00 04/26/24 08:12 Enoxaparin 40 Mg/0.4 Ml Syringe SC 40 mg DAILY STIVEN Administration Gabapentin 200 mg 04/22/24 10:00 04/26/24 08:15 Gabapentin 100 Mg Capsule PO 200 mg BID STIVEN Administration Glucagon 1 mg 04/22/24 06:07 Glucagon 1 Mg/Ml Syringe IM X1 PRN HYPOGLYCEMIA Protocol Guaifenesin 1,200 mg 04/22/24 10:00 04/26/24 08:13 Guaifenesin 1,200 Mg Tablet PO 1,200 mg BID STIVEN Administration Dextrose 250 mls @ 0 mls/hr 04/22/24 06:07 Dextrose 10%-Water IV .Q0M PRN HYPOGLYCEMIA Protocol As Directed Ampicillin Sodium/Sulbactam 112 mls @ 150 mls/hr 04/22/24 12:00 04/26/24 12:03 Sodium 3 gm/ Sodium Chloride IV 04/29/24 12:01 Infused Q6 STIVEN Infusion Insulin Glargine 16 unit 04/24/24 22:00 04/25/24 20:49 Insulin Glargine-Yfgn 100 Unit/Ml Pen SC 16 unit QHS STIVEN Administration Insulin Human Lispro 0 unit 04/22/24 07:00 04/26/24 11:09 Insulin Lispro 100 Unit/Ml Insuln.Pen SC 5 u TIDAC [facility] Administration Protocol L-Arginine/L-Glutamine/Calcium HMB 1 packet 04/22/24 17:00 04/26/24 08:11 Leonides (Unflavored) Packet PO 1 packet BIDCM STIVEN Administration Loperamide HCl 2 mg 04/22/24 06:07 Loperamide 2 Mg Capsule PO Q1H PRN PRN loose stool Losartan Potassium 100 mg 04/22/24 10:00 04/26/24 08:10 Losartan Potassium 100 Mg Tablet PO 100 mg DAILY STIVEN Administration Protocol Magnesium Chloride 128 mg 04/22/24 10:00 04/26/24 08:11 Magnesium Chloride 64 Mg Delay Rel.Tablet PO 128 mg BID STIVEN Administration Multi-Ingredient Cream 1 applic 04/22/24 22:00 04/25/24 20:49 Petrolatum,White 3.75gm Opth.Tube OPHTHALMIC 1 applic QHS [facility] Administration Mupirocin 1 applic 04/22/24 10:00 04/26/24 08:12 Mupirocin Ointment 22gm Tube TOPICAL 1 applic DAILY [facility] Administration Protocol Ondansetron HCl 4 mg 04/22/24 06:07 04/22/24 11:35 Ondansetron 4 Mg/2 Ml Vial IV 4 mg Q8H PRN PRN Administration NAUSEA/VOMITING Oxycodone HCl 5 mg 04/23/24 11:27 04/23/24 12:18 Oxycodone 5 Mg Tablet PO 5 mg Q6H PRN PRN Administration Pain Score 6-10 Polyethylene Glycol 17 gm 04/24/24 13:00 04/26/24 08:11 Polyethylene Glycol 3350 17 Gm Packet PO 17 gm DAILY STIVEN Administration Polysaccharide Iron Complex 150 mg 04/26/24 06:00 04/26/24 05:56 Iron Polysaccharide Complex 150 Mg Capsule PO 150 mg QODAY@0600 STIVEN Administration Prochlorperazine Edisylate 5 mg 04/22/24 06:07 04/22/24 15:33 Prochlorperazine 10 Mg/2 Ml Vial IV 5 mg Q4H PRN PRN Administration Breakthrough Nausea/Vomiting Senna/Docusate Sodium 2 tablet 04/24/24 13:00 04/26/24 08:13 Senna/Docusate Sodium 1 Tablet PO 2 tablet BID STIVEN Administration Sodium Chloride 10 - 40 ml 04/22/24 06:24 04/25/24 15:49 0.9% Saline Lock 10 Ml Syringe IV 40 ml UD PRN Administration SALINE FLUSH Lab / Micro Data 04/26/24 05:55 04/26/24 05:55 Labs: Laboratory Results - last 24 hr 04/25/24 20:45: POC Glucose 411 H 04/26/24 05:55: WBC 6.1, RBC 3.61 L, Hgb 10.1 L, Hct 31.6 L, MCV 87.5, MCH 28.0, MCHC 32.0, RDW Std Deviation 41.7, RDW Coeff of Hermilo 13.2, Plt Count 165, MPV 12.4 H, Immature Gran % (Auto) 0.300, Neut % (Auto) 51.6, Lymph % (Auto) 28.5, [place] % (Auto) 12.5 H, Eos % (Auto) 5.4 H, Baso % (Auto) 1.7 H, Absolute Neuts (auto) 3.1, Absolute Lymphs (auto) 1.73, Nucleated RBC % 0, Sodium 143, Potassium 3.1 L, Chloride 106, Carbon Dioxide 33.0 H, Anion Gap 4 L, BUN 31 H, Creatinine 0.94, Estim Creat Clear Calc 45.29, Est GFR (MDRD) Af Amer 75, Est GFR (MDRD) Non-Af 62, BUN/Creatinine Ratio 33.1 H, Glucose 196 H, Calcium 8.7 04/26/24 06:01: POC Glucose 170 H 04/26/24 08:09: POC Glucose 173 H 04/26/24 11:15: POC Glucose 316 H Micro: Microbiology 04/22/24 03:50 Blood Culture (Wb) - Anticubital Right Blood Culture - Preliminary No growth in 48 hours. Rhythm Strip Rhythm Strip: Sinus Rhythm Rate: 70 Assessment and Plan . Assessment and plan: Assessment and plan: 1. Resp Failure: acute/hypoxemic. Marked O2 req. Working theory is 2/2 pneumonia(Inferior/post infiltrates) but CT showed only large pleural effusions. Now down to 9L. Wean FIO2 as tolerated. 2. Pneumonia: On unasyn: day 6 of 7. 3. Pleural Effusion: thoracentesis ordered for the am. 3. NSTEMI: Trop repeated given mild increase from admit. No sxs. Elevated not now downtrending. Cards following. Echo with normal function/No WMA per cards. 4. ? CHF exac: Started diuresis /. Marked uop from one dose of lasix. Continues to diurese. 5. Lactic Acidosis: resolved. 6. DM: SS 7. FEN: oral diet 8. PX:Lovenox Chaimjerry Hendrickson MD The entirety of this encounter was done via Telemedicine Physical Exam Narrative awake, NAD pupils= o/p:clear CV: RRR Chest: Decreased in bases Abd: soft, NT Ext: no c/e/c Subjective Subjective feeling better. Down to 9L
[2024-04-26 19:13] LABS: Bedside Glucose 334 mg/dL (74-106)
[2024-04-26] MEDS: Petrolatum,White 3.75GM OPTH.TUBE 1 APPLIC OPHTHALMIC (20:39)
[2024-04-26] MEDS: Atorvastatin Calcium 20 MG Tablet PO (20:39)
[2024-04-26] MEDS: Insulin Glargine-YFGN 100 UNIT/ML Pen 16 UNIT SC (20:41)
[2024-04-26 21:05] LABS: Bedside Glucose 362 mg/dL (74-106)
[2024-04-26] MEDS: MELATONIN 3 MG TABLET PO (23:11)
[2024-04-27] VITALS (11 sets, daily range): BP systolic 103–185; BP diastolic 62–96; PULSE 70–83; RESP 18–24; TEMP 36.4–36.7; O2SAT 93–100; BMI 25.5
--- NOTE | 2024-04-27 | FLU_PTH ---
PATIENT: JOHANNA PONCE LOC: ICU U#:[id number] AGE/SX: 78/F ROOM: ICU03 RE04/22/[address]: Dr. Shahzad Lim MD : 1945 BED: 1 DIS: 04/29/2024 SPEC #: [id number] RECD: 04/27/24 12:30 STATUS: SOUT REQ #: [id number] MICHELLE: 04/27/24 00:[address]: Shahzad Lim DEPT: CYTOLOGY RECD BY: Smooth Cash ENTERED: 04/27/24 13:35 SP TYPE: Fluid OTHR DR: MD Dr. Mo Jackson MD Dr. Derek Brown, DO Dr. David P Myers, MD Dr. Eric Jopperi, DO Dr. Edward Matheis, MD Dr. Gautam Baskaran, MD Dr. Yordanos Habtegebriel, MD Dr. Hemant Dand, MD Dr. Jordan Garrison, DO Dr. Jose Ochoa, MD Dr. Kimber Foust, MD Dr. Lamia Aljundi, MD Dr. Michael Hughes, MD Dr. Nana Yaa Koram, MD Dr. Pritam Ghosh, MD Dr. Pavan Irukulla, MD Dr. Saad Farooqi, MD Dr. Tanmay Panchabhai, MD Dr. Vikram Anand, MD Dr. William Haden, MD Christina Muller, CONTENT CHECKER-C Tissues: THORACIC FLUID Procedures: Special Stain Group II Surgery Specimen Level IV Cytospin Fluid HEADER OPERATION: Ultrasound guided thoracentesis PRE-OP DIAGNOSIS: Pleural effusion TISSUE SUBMITTED: Thoracentesis fluid for cytology DIAGNOSIS CYTOLOGY Thoracentesis fluid for cytology (cytospin and cellblock): Negative for malignant cells. See comment. YANI/ 04/28/2024 COMMENT Clinical correlation and appropriate follow up are necessary. CYTOLOGY STUDY Slides are reviewed. CYTOLOGY GROSS Received is 75 ml of hazy-yellow fluid labeled with the patient's name and and designated per the requisition as Thoracentesis fluid. Submitted for cytology preparation including cell block. Mr 04/27/2024 TC:5 CPT: 84542,00644
[2024-04-27] MEDS: Ampicillin/Sulbactam 3 GM in 0.9% Normal Saline (100mL MB+) 100 ML IV ×4 (05:43→23:19)
[2024-04-27] MEDS: Ipratropium/Albuterol Sulfate 3 ML AMPUL.NEB INHALATION ×5 (06:53→22:53)
[2024-04-27] MEDS: Atenolol 50 MG Tablet 150 MG PO (08:29)
[2024-04-27] MEDS: Cholecalciferol (VIT D3) 25 MCG TABLET (1,000 UNITS) 50 MCG PO (08:29)
[2024-04-27] MEDS: Losartan Potassium 100 MG Tablet PO (08:30)
[2024-04-27] MEDS: Senna/Docusate Sodium 1 Tablet 2 TABLET PO ×2 (08:30→20:35)
[2024-04-27] MEDS: Magnesium Chloride 64 MG Delay Rel.Tablet 128 MG PO ×2 (08:30→20:36)
[2024-04-27] MEDS: Calcium Carb/Vitamin D 1 TABLET Tablet PO (08:30)
[2024-04-27] MEDS: Aspirin E.C. 81 MG Tablet PO (08:30)
[2024-04-27] MEDS: guaiFENesin 1,200 MG Tablet 1200 MG PO ×2 (08:32→20:36)
[2024-04-27] MEDS: Clopidogrel Bisulfate 75 MG Tablet PO (08:32)
[2024-04-27] MEDS: amLODIPine 10 MG Tablet PO (08:32)
[2024-04-27] MEDS: Collagenase 30gm Tube 1 APPLIC TOPICAL (08:33)
[2024-04-27] MEDS: Cyanocobalamin 500 MCG Tablet 1000 MCG PO (08:33)
[2024-04-27] MEDS: Juven (unflavored) Packet 1 PACKET PO ×2 (08:33→16:43)
[2024-04-27] MEDS: Anastrozole 1 MG TABLET PO (08:34)
[2024-04-27] MEDS: Polyethylene Glycol 3350 17 GM PACKET PO (08:34)
[2024-04-27] MEDS: Insulin Lispro 100 UNIT/ML INSULN.PEN SC ×3 (08:34→16:42)
[2024-04-27] MEDS: Mupirocin Ointment 22gm Tube 1 APPLIC TOPICAL (08:35)
[2024-04-27] MEDS: Gabapentin 100 MG Capsule 200 MG PO ×2 (08:46→20:40)
[2024-04-27 09:08] LABS: Bedside Glucose 217 mg/dL (74-106)
[2024-04-27 11:17] LABS: Absolute Lymphocyte Count 1.24 X10^3/uL (0.83-4.51); Absolute Neutrophil Count 6.6 X10^3/uL (2.0-7.7); Basophil% 1.1 % (0-1); Eosinophils% 5.4 % (0-5); Hematocrit 34.2 % (37-47); Hemoglobin 10.7 g/dL (12.0-15.0); Lymphocyte # 1.24 X10^3/ul (0.83-4.51); Lymphocyte % 13.3 % (19-41); Mean Corp Hgb Conc 31.3 g/dL (32-36); Mean Corpuscular Hgb 27.4 pg (27.0-32.0); Mean Corpuscular Volume 87.5 fL (81-99); Mean Platelet Vol. 11.8 fl (6.2-12.0); Monocyte% 8.6 % (0-10); NRBC Flagged by Analyzer 0 % (0-5); Neutrophil % 71.1 % (47-70); Platelet Count 178 K/mm3 (150-450); RBC Distribution Width CV 13.4 % (11.6-14.6); RBC Distribution Width SD 41.9 fl (35.1-43.9); Red Blood Count 3.91 M/mm3 (4.2-5.4); White Blood Count 9.3 K/mm3 (4.4-11.0)
[2024-04-27 11:32] LABS: ALB/GLOB Ratio 0.7 RATIO (0.9-2.4); Globulin 3.9 g/dL (2.2-4.2); LDH 240 U/L (84-246); Protein, Total 6.7 g/dL (6.4-8.2)
[2024-04-27 11:34] LABS: Anion Gap 4 (5-15); BUN 23 mg/dL (7-18); BUN/Creat Ratio 26.3 RATIO (10-20); Chloride 104 mmol/L (98-107); Creatinine, Serum 0.88 mg/dL (0.55-1.02); EST Glomerular Filtration Rate 67 mL/min (>60); Est Glom Filt Rate - Afr Amer 81 mL/min (>60); Estimated Creatinine Clearance 48.68 ml/min; Glucose 268 mg/dL (74-106); Potassium 4.2 mmol/L (3.5-5.1); Sodium Level 137 mmol/L (136-145)
--- NOTE | 2024-04-27 11:37 | PN.HOSP_ITS ---
Reason for Visit Reason for Visit: Diagnoses Sepsis, unspecified organism (04/22/24) Type 2 diabetes mellitus with hyperglycemia (04/22/24) Acidosis, unspecified (04/22/24) Other acidosis (04/22/24) Essential (primary) hypertension (04/22/24) Atherosclerotic heart disease of [place] coronary artery without angina pectoris (04/22/24) Coronary atherosclerosis due to calcified coronary lesion (04/22/24) Pneumonitis due to inhalation of food and vomit (04/22/24) Acute respiratory failure with hypoxia (04/22/24) Other specified abnormal findings of blood chemistry (04/22/24) Abnormal electrocardiogram [ECG] [EKG] (04/22/24) Objective Data Objective Data Vital Signs: Vital Signs Temp Pulse Resp BP Pulse Ox O2 Del Method O2 Flow Rate 97.5 F L 78 18 139/62 H 96 Nasal Cannula 6 04/27/24 08:22 04/27/24 10:13 04/27/24 10:13 04/27/24 08:22 04/27/24 08:22 04/27/24 08:22 04/27/24 08:22 FiO2 35 04/26/24 12:00 Oxygen Flow Rate (L/min) 6 Oxygen Delivery Method Nasal Cannula Weight: 144 lb 2.917 oz Body Mass Index (BMI) 25.5 Intake & Output: Intake and Output for Last 24 Hours 04/25/24 04/26/24 04/27/24 23:59 23:59 23:59 Intake Total 1808 / 1808 1620 / 1620 112 / 112 Output Total 2450 / 2450 1400 / 1400 Balance -642 / -642 220 / 220 112 / 112 Lab / Micro Data 04/27/24 11:00 04/27/24 11:00 Labs: Laboratory Results - last 24 hr 04/26/24 16:41: POC Glucose 334 H 04/26/24 20:44: POC Glucose 362 H 04/27/24 08:26: POC Glucose 217 H 04/27/24 11:00: WBC 9.3, RBC 3.91 L, Hgb 10.7 L, Hct 34.2 L, MCV 87.5, MCH 27.4, MCHC 31.3 L, RDW Std Deviation 41.9, RDW Coeff of Hermilo 13.4, Plt Count 178, MPV 11.8, Immature Gran % (Auto) 0.500, Neut % (Auto) 71.1 H, Lymph % (Auto) 13.3 L, [place] % (Auto) 8.6, Eos % (Auto) 5.4 H, Baso % (Auto) 1.1 H, Absolute Neuts (auto) 6.6, Absolute Lymphs (auto) 1.24, Nucleated RBC % 0, Sodium 137, Potassium 4.2, Chloride 104, Carbon Dioxide 29.0, Anion Gap 4 L, BUN 23 H, Creatinine 0.88, Estim Creat Clear Calc 48.68, Est GFR (MDRD) Af Amer 81, Est GFR (MDRD) Non-Af 67, BUN/Creatinine Ratio 26.3 H, Glucose 268 H, Calcium 9.0, Magnesium 2.0, Lactate Dehydrogenase 240, Total Protein 6.7, Globulin 3.9, A lbumin/Globulin Ratio 0.7 L Micro: Microbiology 04/22/24 03:50 Blood Culture (Wb) - Anticubital Right Blood Culture - Final No growth in 5 days. 04/22/24 18:30 Urine Catheter - Bower Legionella Antigen - Final 04/22/24 18:30 Urine Catheter - Bower Streptococcus pneumoniae Antigen (M - Final Rhythm Strip Rhythm Strip: Sinus Rhythm Rate: 70 Physical Exam Narrative Seen and examined. Patient weaned off Airvo. Currently on 6 L of high flow oxygen. Oxygenation improving. Plan for thoracocentesis. Short of breath is better is improving Sitting on the bed. No chest pain or pressure. Discussed with the family members including her son and near the bedside. Physical exam General: Alert, Oriented x3, Cooperative, looks much better HEENT: Atraumatic, PERRLA, EOMI, Normocephalic Oral: Oral mucosa moist. No Gingival or Mucosal Lesions/ Ulcerations Neck: Supple, No JVD, Negative Carotid Bruits Chest wall/Lungs: Air entry diminished in bilateral lung bases. Bilateral moderate pleural effusion. Occasional crepitations/wheezing Cardiovascular: Regular rate, Regular Rhythm, Normal S1, Normal S2, No M/G/R Abdomen: Bowel Sounds Present, Soft, Non Tender, Non-Distended : No dysuria. No renal angle tenderness. No suprapubic tenderness. Extremities: No edema, Capillary Refill Less than 3 Seconds Skin: No rashes, No breakdown Musculoskeletal: No Tenderness to Palpation of Joints or Extremities Neurological: Cranial nerves II-XII grossly intact, DTR 2+/4. No acute focal neurological deficit. Psych/Mental Status: Normal Affect, Appropriate. Assessment & Plan Assessment/Plan (1) Acute hypoxic respiratory failure: (2) Sepsis: (3) Respiratory acidosis: (4) Aspiration pneumonia: PLAN: Plan #Acute hypoxic respiratory failure * due to probable aspiration pneumonia * She had nausea and vomiting and diarrhea at home and after vomiting she coughed and choked and EMS was called. She was saturating at 68% on room air. * Chest x-ray showed by lateral infiltrates. Lactic acid was also elevated at 9. 04/24 Repeat chest x-ray shows bilateral lower lungs infiltrates and opacity. Remain on Airvo. Keep pulse ox more than 90%. Continue broad-spectrum IV antibiotics. Call Worker on board. Breathing treatments with bronchodilators. * Urine for strep and Legionella negative. 04/25: Chest CT scan shows bilateral pleural effusion with bibasilar compressive atelectasis in lower lobes consolidation. Patient on IV Unasyn. With concern for CHF exacerbation, troponins were done which shows elevated. Chucking Lathe Operator consulted. 2D echo is already ordered. Continue atenolol and amlodipine for BP, HEART RATE CONTROL and electrolyte correction. Heart rate and blood pressure are controlled. 04/26: 2D echo reviewed with the family. No regional wall motion abnormality. EF 60% stage I diastolic dysfunction. Mild . Oxygen requirement is decreasing in the process of tapering off Airvo. Continue IV Unasyn. Hypokalemia and hypomagnesemia: Electrolytes getting replaced 04/27: Her oxygenation is improving. On 6 L of high flow oxygen. Weaned off Airvo. Plan for ultrasound-guided thoracocentesis today. Pleural fluid analysis labs ordered. # Sepsis due to aspiration pneumonia: As above. Patient was not in shock. 04/27: Sepsis has resolved. #Lactic acidosis: lactic acid was 9 on admission. This is however likely due to her hypoxia. Trended down to 2.4 with hydration and with oxygen. #Type 2 diabetes mellitus with hyperglycemia: On Lantus. Insulin sliding scale. Accu-Cheks ACH. Metformin held due to lactic acidosis 04/27: Glucose is 217-362. Insulin dose titrated up. #Hypertension: On losartan. IV hydralazine as needed. #History of bilateral feet ulcers: Wound care on board. This is chronic. #History of breast cancer: Follow-up with oncology on outpatient basis #History of CAD: On Plavix and statin. DVT prophylaxis: Lovenox Code status: She want CPR and intubation if needed. Full code. Total time of the visit including total time spent in counseling or coordination of care, (more than 50% of the total time, spent in obtaining medical information from nurses and other ancillary care providers,explaining to the patient about labs, imaging, diagnosis and management of active complex medical conditions), clinical update given to patient's family including son and her , review of labs and imaging is 40 minutes. Clinical Impression(s) from Imaging Studies Chest X-Ray 04/22/24 03:27 IMPRESSION: Bilateral lung basilar airspace opacities, greatest on the left. This could be atelectatic or pneumonia. Electronically Signed: Ed Barber MD at 4:55 EDT , KUB X-Ray 04/22/24 12:56 IMPRESSION: A catheter is seen within the pelvis. Electronically Signed: Manny Fowler MD at 13:59 EDT , Chest X-Ray 04/24/24 05:25 IMPRESSION: Pulmonary findings appear worse. Electronically Signed: Brad Reinoso MD at 19:06 EDT , Echocardiogram 04/24/24 20:26 Interpretation Summary Normal LV size. Left ventricular systolic function is normal. The left ventricular ejection fraction is 60 %. Stage 1 diastolic dysfunction. The global longitudinal strain is mildly abnormal. The global longitudinal strain = -15.2% (abnormal). The global longitudinal strain has worsened. The prior global longitudinal strain was - 21 % . Ordering Physician: Enrico Hanson Referring Physician: ELTON JORDAN Performed By: Pearl Williamson RCS Chest CT 04/25/24 13:04 IMPRESSION: Moderate degree of bilateral pleural effusions with bibasilar compressive atelectasis in the lower lobes. Follow-up recommended. Coronary artery calcification. Mild degree of vascular congestion in the upper lobes. Heterogeneous enlargement of the thyroid gland more prominent on the left side with a substernal extension. Electronically Signed: Manny Fowler MD at 14:26 EDT , Charges/Coding Visit Charges Inpatient E&M: 10265 Subs Hosp L3
--- NOTE | 2024-04-27 12:00 | NURSING ---
Patient left unit to radiology for thoracentesis
[2024-04-27] MEDS: Lidocaine 2% (20 ml mdv) 20 ML Vial INFILT (12:20)
--- NOTE | 2024-04-27 12:25 | RAD_ITS ---
STUDY: X-RAY CHEST REASON FOR EXAM: Female, 78 years old. Post thoracentesis TECHNIQUE: AP inspiration and expiration views. COMPARISON: Comparison is made with prior study April 24, 2024. FINDINGS: EKG electrodes are seen. A left-sided portacatheter seen with the tip at the junction of the superior vena cava and right atrium. The patient is status post right thoracentesis. No evidence of pneumothorax. Pleural-parenchymal changes at the left lung base. RAD/Chest Insp/Exp 2 View IMPRESSION: No evidence of pneumothorax following the right thoracentesis. Electronically Signed: Manny Fowler MD at 12:47 EDT ,
--- NOTE | 2024-04-27 12:27 | PRO.PCM_ITS ---
Procedure Report Date of Procedure: 04/27/24 Assessment & Plan Assessment/Plan (1) Pleural effusion, right: PLAN: PROCEDURE: Ultrasound Guided Thoracentesis ORDERING PROVIDER: Dr. Hendrickson INDICATION: Female, 78 years old. Right pleural effusion. PROVIDER: GEN Babin PROCEDURE: The risks, benefits, and alternatives to the procedure were explained to the patient. The specific risks of bleeding, infection, and pneumothorax requiring chest tube insertion were discussed and accepted. Written informed consent was obtained. The patient was placed in the sitting, upright position. Ultrasonographic evaluation of the bilateral lower pleural spaces was carried out. An adequate pocket was identified in the right lower pleural space.The overlying skin was prepped and draped in sterile fashion. 2% lidocaine was administered subcutaneously for local anesthesia. Under ultrasound guidance, a 5-[place] thoracentesis needle/catheter system was advanced into the right posterior lower pleural fluid collection. 350 ml of clear yellow colored fluid was drained. The catheter was removed, and a sterile dressing was applied. The patient tolerated the procedure well. A chest x-ray was ordered. IMPRESSION: Successful ultrasound-guided thoracentesis of right pleural effusion. Procedures Radiology Radiology US Procedures: [id number] Thoracentesis
--- NOTE | 2024-04-27 12:30 | NURSING ---
Patient returned to unit from thoracentesis
[2024-04-27 12:34] LABS: Cytology, Body Fluid / CSF SEE PATHOLOGY REPORT
[2024-04-27 13:07] LABS: Body Fluid Mononuclear WBC # 0.185 10^3/uL; Body Fluid Mononuclear WBC % 88.5 %; Body Fluid Polynuclear WBC # 0.024 10^3/uL; Body Fluid Polynuclear WBC % 11.5 %; Body Fluid Total Cells Counted 0.327 10^3/ul; White Blood Count/Body Fluid 0.209 10^3/uL
--- NOTE | 2024-04-27 13:12 | PN.CC_ITS ---
Objective Data Objective Data Vital Signs: Vital Signs Last response 3 Temperature 36.4 C L 04/27/24 08:22 Temperature Source Temporal 04/27/24 08:22 Pulse Rate 83 04/27/24 12:25 Pulse Strength Normal (2+) 04/27/24 09:44 Respiratory Rate 20 H 04/27/24 12:25 Respiratory Effort Short of Breath 04/27/24 12:14 Respiratory Depth Normal 04/27/24 08:00 Respiratory Pattern Tachypnea 04/27/24 12:14 Blood Pressure 185/82 H 04/27/24 12:25 Blood Pressure Mean 87 04/27/24 08:22 Blood Pressure Source Monitor 04/27/24 08:22 Blood Pressure Position Semi-Fowlers 04/27/24 08:22 Blood Pressure Location Left Arm 04/27/24 08:22 Pulse Ox 96 04/27/24 08:22 Oxygen Delivery Method High Flow 04/27/24 12:25 Oxygen Flow Rate (L/min) 6 04/27/24 12:25 Fraction of Inspired Oxygen (FIO2) 35 04/26/24 12:00 I&O: I&O Last 24 Hours 3 04/26/24 04/27/24 04/27/24 23:59 11:59 23:59 Intake Total 676 / 1620 112 / 112 Output Total 350 / 1400 350 / 350 Balance 326 / 220 112 / -238 -350 / -238 I&O: Total Stay 3 04/22/24 03:16 thru 04/27/24 12:25 Intake Total 8422 Output Total 73939 Balance -5378 Current Meds Ordered / Administered: Current meds ordered / Administered 3 Generic Name Dose Route Start Last Admin Trade Name Dalton PRN Reason Stop Dose Admin Acetaminophen 650 mg 04/22/24 06:07 04/25/24 19:59 Acetaminophen 325 Mg Tablet PO 650 mg Q6H PRN PRN Administration Pain 1-10 Or Fever >100.7 Albuterol Sulfate 2.5 mg 04/22/24 06:07 Albuterol 2.5 Mg/3 Ml Vial.Neb. INHALATION Q2H PRN PRN SHORTNESS OF BREATH Albuterol/Ipratropium 3 ml 04/22/24 08:00 04/27/24 10:13 Ipratropium/Albuterol Sulfate 3 Ml Ampul.Neb INHALATION 3 ml Q4H.RT STIVEN Administration Amlodipine Besylate 10 mg 04/22/24 10:00 04/27/24 08:32 Amlodipine 10 Mg Tablet PO 10 mg DAILY STIVEN Administration Protocol Anastrozole 1 mg 04/22/24 10:00 04/27/24 08:34 Anastrozole 1 Mg Tablet PO 1 mg DAILY STIVEN Administration Aspirin 81 mg 04/22/24 08:00 04/27/24 08:30 Aspirin E.C. 81 Mg Tablet PO 81 mg DAILY@0800 STIVEN Administration Atenolol 150 mg 04/22/24 10:00 04/27/24 08:29 Atenolol 50 Mg Tablet PO 150 mg DAILY STIVEN Administration Protocol Atorvastatin Calcium 20 mg 04/22/24 22:00 04/26/24 20:39 Atorvastatin Calcium 20 Mg Tablet PO 20 mg QHS STIVEN Administration Calcium/Vitamin D 1 tablet 04/22/24 08:00 04/27/24 08:30 Calcium Carb/Vitamin D 1 Tablet Tablet PO 1 tablet DAILYCM STIVEN Administration Cholecalciferol 50 mcg 04/22/24 10:00 04/27/24 08:29 Cholecalciferol (Vit D3) 25 Mcg Tablet (1,000 Units) PO 50 mcg DAILY STIVEN Administration Clopidogrel Bisulfate 75 mg 04/22/24 10:00 04/27/24 08:32 Clopidogrel Bisulfate 75 Mg Tablet PO 75 mg DAILY STIVEN Administration Collagenase 1 applic 04/22/24 10:00 04/27/24 08:33 Collagenase 30gm Tube TOPICAL 1 applic DAILY STIVEN Administration Protocol Cyanocobalamin 1,000 mcg 04/22/24 10:00 04/27/24 08:33 Cyanocobalamin 500 Mcg Tablet PO 1,000 mcg DAILY STIVEN Administration Enoxaparin Sodium 40 mg 04/22/24 10:00 04/27/24 08:31 Enoxaparin 40 Mg/0.4 Ml Syringe SC Not Given DAILY [facility] Gabapentin 200 mg 04/22/24 10:00 04/27/24 08:46 Gabapentin 100 Mg Capsule PO 200 mg BID STIVEN Administration Glucagon 1 mg 04/22/24 06:07 Glucagon 1 Mg/Ml Syringe IM X1 PRN HYPOGLYCEMIA Protocol Guaifenesin 1,200 mg 04/22/24 10:00 04/27/24 08:32 Guaifenesin 1,200 Mg Tablet PO 1,200 mg BID STIVEN Administration Dextrose 250 mls @ 0 mls/hr 04/22/24 06:07 Dextrose 10%-Water IV .Q0M PRN HYPOGLYCEMIA Protocol As Directed Ampicillin Sodium/Sulbactam 112 mls @ 150 mls/hr 04/22/24 12:00 04/27/24 06:39 Sodium 3 gm/ Sodium Chloride IV 04/29/24 12:01 Infused Q6 STIVEN Infusion Insulin Glargine 20 unit 04/27/24 22:00 Insulin Glargine-Yfgn 100 Unit/Ml Pen SC QHS STIVEN Insulin Human Lispro 0 unit 04/22/24 07:00 04/27/24 08:34 Insulin Lispro 100 Unit/Ml Insuln.Pen SC 2 u TIDAC [facility] Administration Protocol Insulin Human Lispro 6 unit 04/27/24 16:00 Insulin Lispro 100 Unit/Ml Insuln.Pen SC TIDAC [facility] L-Arginine/L-Glutamine/Calcium HMB 1 packet 04/22/24 17:00 04/27/24 08:33 Leonides (Unflavored) Packet PO 1 packet BIDCM [facility] Administration Loperamide HCl 2 mg 04/22/24 06:07 Loperamide 2 Mg Capsule PO Q1H PRN PRN loose stool Losartan Potassium 100 mg 04/22/24 10:00 04/27/24 08:30 Losartan Potassium 100 Mg Tablet PO 100 mg DAILY STIVEN Administration Protocol Magnesium Chloride 128 mg 04/22/24 10:00 04/27/24 08:30 Magnesium Chloride 64 Mg Delay Rel.Tablet PO 128 mg BID STIVEN Administration Melatonin 3 mg 04/26/24 23:00 04/26/24 23:11 Melatonin 3 Mg Tablet PO 3 mg QHS [facility] Administration Multi-Ingredient Cream 1 applic 04/22/24 22:00 04/26/24 20:39 Petrolatum,White 3.75gm Opth.Tube OPHTHALMIC 1 applic QHS [facility] Administration Mupirocin 1 applic 04/22/24 10:00 04/27/24 08:35 Mupirocin Ointment 22gm Tube TOPICAL 1 applic DAILY [facility] Administration Protocol Ondansetron HCl 4 mg 04/22/24 06:07 04/22/24 11:35 Ondansetron 4 Mg/2 Ml Vial IV 4 mg Q8H PRN PRN Administration NAUSEA/VOMITING Oxycodone HCl 5 mg 04/23/24 11:27 04/23/24 12:18 Oxycodone 5 Mg Tablet PO 5 mg Q6H PRN PRN Administration Pain Score 6-10 Polyethylene Glycol 17 gm 04/24/24 13:00 04/27/24 08:34 Polyethylene Glycol 3350 17 Gm Packet PO 17 gm DAILY STIVEN Administration Polysaccharide Iron Complex 150 mg 04/26/24 06:00 04/26/24 05:56 Iron Polysaccharide Complex 150 Mg Capsule PO 150 mg QODAY@0600 STIVEN Administration Prochlorperazine Edisylate 5 mg 04/22/24 06:07 04/22/24 15:33 Prochlorperazine 10 Mg/2 Ml Vial IV 5 mg Q4H PRN PRN Administration Breakthrough Nausea/Vomiting Senna/Docusate Sodium 2 tablet 04/24/24 13:00 04/27/24 08:30 Senna/Docusate Sodium 1 Tablet PO 2 tablet BID STIVEN Administration Sodium Chloride 10 - 40 ml 04/22/24 06:24 04/25/24 15:49 0.9% Saline Lock 10 Ml Syringe IV 40 ml UD PRN Administration SALINE FLUSH Lab / Micro Data 04/27/24 11:00 04/27/24 11:00 Labs: Laboratory Results - last 24 hr 04/26/24 16:41: POC Glucose 334 H 04/26/24 20:44: POC Glucose 362 H 04/27/24 08:26: POC Glucose 217 H 04/27/24 11:00: WBC 9.3, RBC 3.91 L, Hgb 10.7 L, Hct 34.2 L, MCV 87.5, MCH 27.4, MCHC 31.3 L, RDW Std Deviation 41.9, RDW Coeff of Hermilo 13.4, Plt Count 178, MPV 11.8, Immature Gran % (Auto) 0.500, Neut % (Auto) 71.1 H, Lymph % (Auto) 13.3 L, [place] % (Auto) 8.6, Eos % (Auto) 5.4 H, Baso % (Auto) 1.1 H, Absolute Neuts (auto) 6.6, Absolute Lymphs (auto) 1.24, Nucleated RBC % 0, Sodium 137, Potassium 4.2, Chloride 104, Carbon Dioxide 29.0, Anion Gap 4 L, BUN 23 H, Creatinine 0.88, Estim Creat Clear Calc 48.68, Est GFR (MDRD) Af Amer 81, Est GFR (MDRD) Non-Af 67, BUN/Creatinine Ratio 26.3 H, Glucose 268 H, Calcium 9.0, Magnesium 2.0, Lactate Dehydrogenase 240, Total Protein 6.7, Globulin 3.9, A lbumin/Globulin Ratio 0.7 L Micro: Microbiology 04/22/24 03:50 Blood Culture (Wb) - Anticubital Right Blood Culture - Final No growth in 5 days. Rhythm Strip Rhythm Strip: Sinus Rhythm Rate: 70 Imaging Radiology Impression Chest X-Ray 04/27/24 12:25 IMPRESSION: No evidence of pneumothorax following the right thoracentesis. Electronically Signed: Manny Fowler MD at 12:47 EDT , Assessment and Plan . Assessment and plan: 1. Resp Failure: acute/hypoxemic. Marked O2 req 48 hours ago. Working theory is 2/2 pneumonia(Inferior/post infiltrates) + pleural effusions. Now down to 6L. Wean FIO2 as tolerated. 2. Pneumonia: On unasyn: day 6 of 7. Stopping on 04/29 3. Pleural Effusion: s/p thoracentesis. Results pending. Surprising only 350 cc remove. Could consider left sided thoracentesis. 3. NSTEMI: Trop repeated given mild increase from admit. No sxs. Elevated not now downtrending. Cards following. Echo with normal function/No WMA per cards. 4. ? CHF exac: Started diuresis 04/24. Marked uop from one dose of lasix. Add additional dose today. 5. Lactic Acidosis: resolved. 6. DM: SS 7. FEN: oral diet 8. PX:Lovebridgettx Chaim Hendrickson MD The entirety of this encounter was done via Telemedicine Physical Exam Narrative awake, NAD pupils:= o/p:clear CV: RRR Chest: decreased bs in left base Abd: soft, nt, +bs Ext: noc/e/c Skin: no rashes Neuro: = strength Subjective Subjective s/p thoracentesis. Doing well.
[2024-04-27 13:20] LABS: Glucose, Body Fluid 277 mg/dL (40-70); LDH,Body Fluid 106 Units/L (Not Establ.); Protein, Body Fluid 2.5 g/dL (Not Establ.)
[2024-04-27 13:49] LABS: Auto B Fluid Analyzer BKGD Ct COUNTS W/IN LIMITS (W/IN LIMITS); Source- Body Fluid THORACENTESIS
[2024-04-27 13:50] LABS: Bedside Glucose 282 mg/dL (74-106)
[2024-04-27 13:50] LABS: Appearance/Body Fluid CLEAR; Color/Body Fluid YELLOW; Red Cell Count/Body Fluid 202 /mm3
[2024-04-27] MEDS: Furosemide 20 MG Tablet PO (14:28)
[2024-04-27 14:34] LABS: Lymphocytes 29 %; Macrophages 62 %; Mesothelial Cells 3 %; Neutrophil (Segs) 6 %
[2024-04-27 14:35] LABS: Body Fluid QC Type(s) BF1Q
[2024-04-27] MEDS: oxyCODONE 5 MG Tablet PO (14:35)
[2024-04-27 15:50] LABS: Bedside Glucose 477 mg/dL (74-106)
[2024-04-27 15:51] LABS: Bedside Glucose 415 mg/dL (74-106)
[2024-04-27] MEDS: Insulin Lispro 100 UNIT/ML INSULN.PEN 6 UNIT SC (16:42)
[2024-04-27 17:04] LABS: Bedside Glucose 298 mg/dL (74-106)
[2024-04-27] MEDS: Petrolatum,White 3.75GM OPTH.TUBE 1 APPLIC OPHTHALMIC (20:35)
[2024-04-27] MEDS: Atorvastatin Calcium 20 MG Tablet PO (20:35)
[2024-04-27] MEDS: Insulin Glargine-YFGN 100 UNIT/ML Pen 20 UNIT SC (20:36)
[2024-04-27] MEDS: MELATONIN 3 MG TABLET PO (20:36)
[2024-04-27 20:51] LABS: Bedside Glucose 240 mg/dL (74-106)
[2024-04-28] VITALS (14 sets, daily range): BP systolic 108–132; BP diastolic 52–57; PULSE 64–86; RESP 12–28; TEMP 36.1–36.6; O2SAT 94–99; BMI 24.7
[2024-04-28] MEDS: Ipratropium/Albuterol Sulfate 3 ML AMPUL.NEB INHALATION ×6 (02:16→22:53)
--- NOTE | 2024-04-28 02:43 | CPS ---
PAP pressures decreased to 14/8 for patient comfort.
[2024-04-28 04:33] LABS: Absolute Lymphocyte Count 1.64 X10^3/uL (0.83-4.51); Absolute Neutrophil Count 5.3 X10^3/uL (2.0-7.7); Basophil# 0.11 X10^3/uL; Basophil% 1.3 % (0-1); Eosinophil# 0.42 X10^3/uL; Eosinophils% 5.1 % (0-5); Hemoglobin 10.6 g/dL (12.0-15.0); Lymphocyte # 1.64 X10^3/ul (0.83-4.51); Lymphocyte % 19.9 % (19-41); Mean Corp Hgb Conc 31.2 g/dL (32-36); Mean Corpuscular Hgb 27.3 pg (27.0-32.0); Mean Corpuscular Volume 87.6 fL (81-99); Mean Platelet Vol. 11.4 fl (6.2-12.0); Monocyte# 0.71 X10^3/uL; Monocyte% 8.6 % (0-10); NRBC Flagged by Analyzer 0.4 % (0-5); Neutrophil # 5.34 X10^3/uL (2.7-7.7); Neutrophil % 64.6 % (47-70); Platelet Count 195 K/mm3 (150-450); RBC Distribution Width CV 13.4 % (11.6-14.6); RBC Distribution Width SD 42.4 fl (35.1-43.9); Red Blood Count 3.88 M/mm3 (4.2-5.4); White Blood Count 8.3 K/mm3 (4.4-11.0)
[2024-04-28 04:59] LABS: ALB/GLOB Ratio 0.7 RATIO (0.9-2.4); AST(SGOT) 28 U/L (15-37); Alanine Aminotransfer ALT/SGPT 32 U/L (13-56); Albumin, Serum 2.7 g/dL (3.2-5.0); Alkaline Phosphatase 70 U/L (45-117); Anion Gap 6 (5-15); BUN 26 mg/dL (7-18); BUN/Creat Ratio 28.9 RATIO (10-20); Chloride 103 mmol/L (98-107); EST Glomerular Filtration Rate 65 mL/min (>60); Est Glom Filt Rate - Afr Amer 78 mL/min (>60); Globulin 3.7 g/dL (2.2-4.2); Glucose 262 mg/dL (74-106); Protein, Total 6.4 g/dL (6.4-8.2); Sodium Level 137 mmol/L (136-145)
[2024-04-28] MEDS: 0.9% Saline Lock 10 ML Syringe IV (05:40)
[2024-04-28] MEDS: Iron Polysaccharide Complex 150 MG CAPSULE PO (05:40)
[2024-04-28] MEDS: Ampicillin/Sulbactam 3 GM in 0.9% Normal Saline (100mL MB+) 100 ML IV ×3 (05:40→16:48)
[2024-04-28] MEDS: Insulin Lispro 100 UNIT/ML INSULN.PEN SC ×3 (08:08→16:43)
[2024-04-28] MEDS: Insulin Lispro 100 UNIT/ML INSULN.PEN 6 UNIT SC ×3 (08:09→16:43)
[2024-04-28] MEDS: Juven (unflavored) Packet 1 PACKET PO ×2 (08:10→16:44)
[2024-04-28] MEDS: Polyethylene Glycol 3350 17 GM PACKET PO (08:13)
[2024-04-28] MEDS: Anastrozole 1 MG TABLET PO (08:14)
[2024-04-28] MEDS: Mupirocin Ointment 22gm Tube 1 APPLIC TOPICAL (08:14)
[2024-04-28] MEDS: Atenolol 50 MG Tablet 150 MG PO (08:16)
[2024-04-28] MEDS: Calcium Carb/Vitamin D 1 TABLET Tablet PO (08:16)
[2024-04-28] MEDS: Aspirin E.C. 81 MG Tablet PO (08:16)
[2024-04-28] MEDS: Furosemide 20 MG Tablet PO (08:16)
[2024-04-28] MEDS: Cholecalciferol (VIT D3) 25 MCG TABLET (1,000 UNITS) 50 MCG PO (08:16)
[2024-04-28] MEDS: Collagenase 30gm Tube 1 APPLIC TOPICAL (08:17)
[2024-04-28] MEDS: Senna/Docusate Sodium 1 Tablet 2 TABLET PO (08:17)
[2024-04-28 08:18] LABS: Bedside Glucose 236 mg/dL (74-106)
[2024-04-28] MEDS: guaiFENesin 1,200 MG Tablet 1200 MG PO ×2 (08:18→21:13)
[2024-04-28] MEDS: amLODIPine 10 MG Tablet PO (08:18)
[2024-04-28] MEDS: Enoxaparin 40 MG/0.4 ML Syringe SC (08:18)
[2024-04-28] MEDS: Magnesium Chloride 64 MG Delay Rel.Tablet 128 MG PO ×2 (08:18→21:12)
[2024-04-28] MEDS: Losartan Potassium 100 MG Tablet PO (08:19)
[2024-04-28] MEDS: Clopidogrel Bisulfate 75 MG Tablet PO (08:19)
[2024-04-28] MEDS: Gabapentin 100 MG Capsule 200 MG PO ×2 (08:24→21:13)
--- NOTE | 2024-04-28 11:08 | CPS ---
decreased to 1L NC at this time
[2024-04-28] MEDS: Cyanocobalamin 500 MCG Tablet 1000 MCG PO (11:16)
[2024-04-28 11:37] LABS: Bedside Glucose 160 mg/dL (74-106)
--- NOTE | 2024-04-28 11:42 | PN.HOSP_ITS ---
Reason for Visit Reason for Visit: Diagnoses Sepsis, unspecified organism (04/22/24) Type 2 diabetes mellitus with hyperglycemia (04/22/24) Acidosis, unspecified (04/22/24) Other acidosis (04/22/24) Essential (primary) hypertension (04/22/24) Atherosclerotic heart disease of [place] coronary artery without angina pectoris (04/22/24) Coronary atherosclerosis due to calcified coronary lesion (04/22/24) Pneumonitis due to inhalation of food and vomit (04/22/24) Pleural effusion, not elsewhere classified (04/22/24) Acute respiratory failure with hypoxia (04/22/24) Other specified abnormal findings of blood chemistry (04/22/24) Abnormal electrocardiogram [ECG] [EKG] (04/22/24) Objective Data Objective Data Vital Signs: Vital Signs Temp Pulse Resp BP Pulse Ox O2 Del Method O2 Flow Rate 97.7 F L 68 16 132/57 H 99 Nasal Cannula 2 04/28/24 08:30 04/28/24 10:55 04/28/24 10:55 04/28/24 08:30 04/28/24 10:55 04/28/24 10:55 04/28/24 10:55 FiO2 30 04/28/24 05:03 Oxygen Flow Rate (L/min) 2 Oxygen Delivery Method Nasal Cannula Weight: 139 lb 15.896 oz Body Mass Index (BMI) 24.7 Intake & Output: Intake and Output for Last 24 Hours 04/26/24 04/27/24 04/28/24 23:59 23:59 23:59 Intake Total 1620 / 1620 336 / 336 224 / 224 Output Total 1400 / 1400 650 / 650 Balance 220 / 220 -314 / -314 224 / 224 Lab / Micro Data 04/28/24 04:25 04/28/24 04:25 Labs: Laboratory Results - last 24 hr 04/25/24 15:40: POC Glucose 477 H* 04/25/24 15:42: POC Glucose 415 H 04/27/24 12:31: Fluid Source THORACENTESIS, Fluid Color YELLOW, Fluid Appearance CLEAR, Fluid WBC 0.209, Fluid RBC 202, Fluid Tot Cell Count 0.327 H, Fld Polynuclear WBCs # 0.024, Fld Polynuclear WBCs % 11.5, Fluid Mononuclear WBCs 0.185, Fld Mononuclear WBCs % 88.5, Fluid Neutrophils 6, Fluid Lymphocytes 29, Fluid Macrophages 62, Fld Mesothelial Cells 3, Fl Pathologist Comment May follow, Fluid Glucose 277 H, Fluid Total Protein 2.5, Fluid LDH 106, Fluid Comment 2 SEE COMMENT 04/27/24 13:12: POC Glucose 282 H 04/27/24 16:40: POC Glucose 298 H 04/27/24 20:33: POC Glucose 240 H 04/28/24 04:25: WBC 8.3, RBC 3.88 L, Hgb 10.6 L, Hct 34.0 L, MCV 87.6, MCH 27.3, MCHC 31.2 L, RDW Std Deviation 42.4, RDW Coeff of [place] 13.4, Plt Count 195, MPV 11.4, Immature Gran % (Auto) 0.500, Neut % (Auto) 64.6, Lymph % (Auto) 19.9, [place] % (Auto) 8.6, Eos % (Auto) 5.1 H, Baso % (Auto) 1.3 H, Absolute Neuts (auto) 5.3, Absolute Lymphs (auto) 1.64, Nucleated RBC % 0.4, Sodium 137, Potassium 4.0, Chloride 103, Carbon Dioxide 28.0, Anion Gap 6, BUN 26 H, Creatinine 0.90, Estim Creat Clear Calc 47.60, Est GFR (MDRD) Af Amer 78, Est GFR (MDRD) Non-Af 65, BUN/Creatinine Ratio 28.9 H, Glucose 262 H, Calcium 9.0, Total Bilirubin 0.40, AST 28, ALT 32, Alkaline Phosphatase 70, Total Protein 6.4, Albumin 2.7 L, Globulin 3.7, Albumin/Globulin Ratio 0.7 L 04/28/24 07:59: POC Glucose 236 H 04/28/24 11:15: POC Glucose 160 H Micro: Microbiology 04/27/24 12:31 Fluid - Thoracentesis Fluid Gram Stain - Final 04/22/24 03:50 Blood Culture (Wb) - Anticubital Right Blood Culture - Final No growth in 5 days. 04/22/24 18:30 Urine Catheter - Bower Legionella Antigen - Final 04/22/24 18:30 Urine Catheter - Bower Streptococcus pneumoniae Antigen (M - Final Radiography Diagnostic Testing: Radiology Impression Chest X-Ray 04/27/24 12:25 IMPRESSION: No evidence of pneumothorax following the right thoracentesis. Electronically Signed: Manny Fowler MD at 12:47 EDT , Rhythm Strip Rhythm Strip: Sinus Rhythm Rate: 70 Physical Exam Narrative Seen and examined. Patient is doing well. Currently on 2 L of oxygen. Patient also walking within the room. Had thoracocentesis yesterday. About 350 mL fluid drained from right pleural space Discussed with the near the bedside. Physical exam General: Alert, Oriented x3, Cooperative, looks much better HEENT: Atraumatic, PERRLA, EOMI, Normocephalic Oral: Oral mucosa moist. No Gingival or Mucosal Lesions/ Ulcerations Neck: Supple, No JVD, Negative Carotid Bruits Chest wall/Lungs: Air entry improved on the right lung base. Status post thoracocentesis. Lungs clear. Cardiovascular: Regular rate, Regular Rhythm, Normal S1, Normal S2, No M/G/R Abdomen: Bowel Sounds Present, Soft, Non Tender, Non-Distended : No dysuria. No renal angle tenderness. No suprapubic tenderness. Extremities: No edema, Capillary Refill Less than 3 Seconds Skin: Left great toe partial amputation. Musculoskeletal: No Tenderness to Palpation of Joints or Extremities Neurological: Cranial nerves II-XII grossly intact, DTR 2+/4. No acute focal neurological deficit. Psych/Mental Status: Normal Affect, Appropriate. Assessment & Plan Assessment/Plan (1) Acute hypoxic respiratory failure: (2) Sepsis: (3) Respiratory acidosis: (4) Aspiration pneumonia: PLAN: Plan #Acute hypoxic respiratory failure * due to probable aspiration pneumonia * She had nausea and vomiting and diarrhea at home and after vomiting she coughed and choked and EMS was called. She was saturating at 68% on room air. * Chest x-ray showed by lateral infiltrates. Lactic acid was also elevated at 9. 8/4 Repeat chest x-ray shows bilateral lower lungs infiltrates and opacity. Remain on Airvo. Keep pulse ox more than 90%. Continue broad-spectrum IV antibiotics. Powerhouse Operator on board. Breathing treatments with bronchodilators. * Urine for strep and Legionella negative. 04/25: Chest CT scan shows bilateral pleural effusion with bibasilar compressive atelectasis in lower lobes consolidation. Patient on IV Unasyn. With concern for CHF exacerbation, troponins were done which shows elevated. Electrical Manufacturing Engineer consulted. 2D echo is already ordered. Continue atenolol and amlodipine for BP, HEART RATE CONTROL and electrolyte correction. Heart rate and blood pressure are controlled. 04/26: 2D echo reviewed with the family. No regional wall motion abnormality. EF 60% stage I diastolic dysfunction. Mild . Oxygen requirement is decreasing in the process of tapering off Airvo. Continue IV Unasyn. Hypokalemia and hypomagnesemia: Electrolytes getting replaced 04/27: Her oxygenation is improving. On 6 L of high flow oxygen. Weaned off Airvo. Plan for ultrasound-guided thoracocentesis today. Pleural fluid analysis labs ordered. 04/28: Patient oxygenation improved after thoracocentesis. Heart rate and blood pressure in normal range. Had 350 mL right-sided thoracocentesis done. Postprocedure chest x-ray does not show pneumothorax. As per light atrial fluid is transudate. Potassium normal. # Sepsis due to aspiration pneumonia: As above. Patient was not in shock. 04/27: Sepsis has resolved. 04/28: Pleural fluid Gram stain does not show organism 1+ WBC, 1+ RBC. #Lactic acidosis: lactic acid was 9 on admission. This is however likely due to her hypoxia. Trended down to 2.4 with hydration and with oxygen. #Type 2 diabetes mellitus with hyperglycemia: On Lantus. Insulin sliding scale. Accu-Cheks ACH. Metformin held due to lactic acidosis 04/27: Glucose is 217-362. Insulin dose titrated up. 04/28: Glucose 160 in the morning today. Much better. #Hypertension: On losartan. IV hydralazine as needed. #History of bilateral feet ulcers: Wound care on board. This is chronic. #History of breast cancer: Follow-up with oncology on outpatient basis #History of CAD: On Plavix and statin. DVT prophylaxis: Lovenox Code status: She want CPR and intubation if needed. Full code. Total time of the visit including total time spent in counseling or coordination of care, (more than 50% of the total time, spent in obtaining medical information from nurses and other ancillary care providers,explaining to the patient about labs, imaging, diagnosis and management of active complex medical conditions), clinical update given to patient's family including son and her , review of labs and imaging is 40 minutes. Clinical Impression(s) from Imaging Studies Chest X-Ray 04/22/24 03:27 IMPRESSION: Bilateral lung basilar airspace opacities, greatest on the left. This could be atelectatic or pneumonia. Electronically Signed: Ed Barber MD at 4:55 EDT , KUB X-Ray 04/22/24 12:56 IMPRESSION: A catheter is seen within the pelvis. Electronically Signed: Manny Fowler MD at 13:59 EDT , Chest X-Ray 04/24/24 05:25 IMPRESSION: Pulmonary findings appear worse. Electronically Signed: Brad Reinoso MD at 19:06 EDT , Echocardiogram 04/24/24 20:26 Interpretation Summary Normal LV size. Left ventricular systolic function is normal. The left ventricular ejection fraction is 60 %. Stage 1 diastolic dysfunction. The global longitudinal strain is mildly abnormal. The global longitudinal strain = -15.2% (abnormal). The global longitudinal strain has worsened. The prior global longitudinal strain was - 21 % . Ordering Physician: Enrico Hanson Referring Physician: ELTON JORDAN Performed By: Pearl Williamson RCS Chest CT 04/25/24 13:04 IMPRESSION: Moderate degree of bilateral pleural effusions with bibasilar compressive atelectasis in the lower lobes. Follow-up recommended. Coronary artery calcification. Mild degree of vascular congestion in the upper lobes. Heterogeneous enlargement of the thyroid gland more prominent on the left side with a substernal extension. Electronically Signed: Manny Fowler MD at 14:26 EDT , Charges/Coding Visit Charges Inpatient E&M: 36130 Subs Hosp L2
--- NOTE | 2024-04-28 15:24 | PN.CC_ITS ---
Objective Data Objective Data Vital Signs: Vital Signs Last response 3 Temperature 36.5 C L 04/28/24 08:30 Temperature Source Temporal 04/28/24 08:30 Pulse Rate 68 04/28/24 10:55 Pulse Strength Normal (2+) 04/28/24 09:21 Respiratory Rate 16 04/28/24 10:55 Respiratory Effort Normal, Non-Labored 04/28/24 02:00 Respiratory Depth Normal 04/28/24 02:00 Respiratory Pattern Normal 04/28/24 05:03 Blood Pressure 132/57 H 04/28/24 08:30 Blood Pressure Mean 82 04/28/24 08:30 Blood Pressure Source Monitor 04/28/24 08:30 Blood Pressure Position Sitting 04/28/24 08:30 Blood Pressure Location Left Arm 04/28/24 08:30 Pulse Ox 99 04/28/24 10:55 Oxygen Delivery Method Nasal Cannula 04/28/24 10:55 Oxygen Flow Rate (L/min) 1 04/28/24 11:55 Fraction of Inspired Oxygen (FIO2) 30 04/28/24 05:03 I&O: I&O Last 24 Hours 3 04/27/24 04/28/24 04/28/24 23:59 11:59 23:59 Intake Total 224 / 336 224 / 336 112 / 336 Output Total 650 / 650 Balance -426 / -314 224 / 336 112 / 336 I&O: Total Stay 3 04/22/24 03:16 thru 04/28/24 13:59 Intake Total 8982 Output Total 30748 Balance -5118 Current Meds Ordered / Administered: Current meds ordered / Administered 3 Generic Name Dose Route Start Last Admin Trade Name Dalton PRN Reason Stop Dose Admin Acetaminophen 650 mg 04/22/24 06:07 04/25/24 19:59 Acetaminophen 325 Mg Tablet PO 650 mg Q6H PRN PRN Administration Pain 1-10 Or Fever >100.7 Albuterol Sulfate 2.5 mg 04/22/24 06:07 Albuterol 2.5 Mg/3 Ml Vial.Neb. INHALATION Q2H PRN PRN SHORTNESS OF BREATH Albuterol/Ipratropium 3 ml 04/22/24 08:00 04/28/24 10:53 Ipratropium/Albuterol Sulfate 3 Ml Ampul.Neb INHALATION 3 ml Q4H.RT STIVEN Administration Amlodipine Besylate 10 mg 04/22/24 10:00 04/28/24 08:18 Amlodipine 10 Mg Tablet PO 10 mg DAILY STIVEN Administration Protocol Anastrozole 1 mg 04/22/24 10:00 04/28/24 08:14 Anastrozole 1 Mg Tablet PO 1 mg DAILY STIVEN Administration Aspirin 81 mg 04/22/24 08:00 04/28/24 08:16 Aspirin E.C. 81 Mg Tablet PO 81 mg DAILY@0800 STIVEN Administration Atenolol 150 mg 04/22/24 10:00 04/28/24 08:16 Atenolol 50 Mg Tablet PO 150 mg DAILY STIVEN Administration Protocol Atorvastatin Calcium 20 mg 04/22/24 22:00 04/27/24 20:35 Atorvastatin Calcium 20 Mg Tablet PO 20 mg QHS STIVEN Administration Calcium/Vitamin D 1 tablet 04/22/24 08:00 04/28/24 08:16 Calcium Carb/Vitamin D 1 Tablet Tablet PO 1 tablet DAILYCM STIVEN Administration Cholecalciferol 50 mcg 04/22/24 10:00 04/28/24 08:16 Cholecalciferol (Vit D3) 25 Mcg Tablet (1,000 Units) PO 50 mcg DAILY STIV[facility] Administration Clopidogrel Bisulfate 75 mg 04/22/24 10:00 04/28/24 08:19 Clopidogrel Bisulfate 75 Mg Tablet PO 75 mg DAILY STIVEN Administration Collagenase 1 applic 04/22/24 10:00 04/28/24 08:17 Collagenase 30gm Tube TOPICAL 1 applic DAILY [facility]IVEN Administration Protocol Cyanocobalamin 1,000 mcg 04/22/24 10:00 04/28/24 11:16 Cyanocobalamin 500 Mcg Tablet PO 1,000 mcg DAILY STIV[facility] Administration Enoxaparin Sodium 40 mg 04/22/24 10:00 04/28/24 08:18 Enoxaparin 40 Mg/0.4 Ml Syringe SC 40 mg DAILY STIVEN Administration Furosemide 20 mg 04/27/24 13:30 04/28/24 08:16 Furosemide 20 Mg Tablet PO 20 mg DAILY STIVEN Administration Protocol Gabapentin 200 mg 04/22/24 10:00 04/28/24 08:24 Gabapentin 100 Mg Capsule PO 200 mg BID STIVEN Administration Glucagon 1 mg 04/22/24 06:07 Glucagon 1 Mg/Ml Syringe IM X1 PRN HYPOGLYCEMIA Protocol Guaifenesin 1,200 mg 04/22/24 10:00 04/28/24 08:18 Guaifenesin 1,200 Mg Tablet PO 1,200 mg BID STIVEN Administration Dextrose 250 mls @ 0 mls/hr 04/22/24 06:07 Dextrose 10%-Water IV .Q0M PRN HYPOGLYCEMIA Protocol As Directed Ampicillin Sodium/Sulbactam 112 mls @ 150 mls/hr 04/22/24 12:00 04/28/24 12:10 Sodium 3 gm/ Sodium Chloride IV 04/29/24 12:01 Infused Q6 STIVEN Infusion Insulin Glargine 20 unit 04/27/24 22:00 04/27/24 20:36 Insulin Glargine-Yfgn 100 Unit/Ml Pen SC 20 unit QHS STIVEN Administration Insulin Human Lispro 0 unit 04/22/24 07:00 04/28/24 11:16 Insulin Lispro 100 Unit/Ml Insuln.Pen SC 1 u TIDAC STIVEN Administration Protocol Insulin Human Lispro 6 unit 04/27/24 16:00 04/28/24 11:17 Insulin Lispro 100 Unit/Ml Insuln.Pen SC 6 u TIDAC STIVEN Administration L-Arginine/L-Glutamine/Calcium HMB 1 packet 04/22/24 17:00 04/28/24 08:10 Leonides (Unflavored) Packet PO 1 packet BIDCM STIV[facility] Administration Loperamide HCl 2 mg 04/22/24 06:07 Loperamide 2 Mg Capsule PO Q1H PRN PRN loose stool Losartan Potassium 100 mg 04/22/24 10:00 04/28/24 08:19 Losartan Potassium 100 Mg Tablet PO 100 mg DAILY STIVEN Administration Protocol Magnesium Chloride 128 mg 04/22/24 10:00 04/28/24 08:18 Magnesium Chloride 64 Mg Delay Rel.Tablet PO 128 mg BID STIVEN Administration Melatonin 3 mg 04/26/24 23:00 04/27/24 20:36 Melatonin 3 Mg Tablet PO 3 mg QHS STIVEN Administration Multi-Ingredient Cream 1 applic 04/22/24 22:00 04/27/24 20:35 Petrolatum,White 3.75gm Opth.Tube OPHTHALMIC 1 applic QHS [facility] Administration Mupirocin 1 applic 04/22/24 10:00 04/28/24 08:14 Mupirocin Ointment 22gm Tube TOPICAL 1 applic DAILY STIVEN Administration Protocol Ondansetron HCl 4 mg 04/22/24 06:07 04/22/24 11:35 Ondansetron 4 Mg/2 Ml Vial IV 4 mg Q8H PRN PRN Administration NAUSEA/VOMITING Oxycodone HCl 5 mg 04/23/24 11:27 04/27/24 14:35 Oxycodone 5 Mg Tablet PO 5 mg Q6H PRN PRN Administration Pain Score 6-10 Polyethylene Glycol 17 gm 04/24/24 13:00 04/28/24 08:13 Polyethylene Glycol 3350 17 Gm Packet PO 17 gm DAILY STIVEN Administration Polysaccharide Iron Complex 150 mg 04/26/24 06:00 04/28/24 05:40 Iron Polysaccharide Complex 150 Mg Capsule PO 150 mg QODAY@0600 STIVEN Administration Prochlorperazine Edisylate 5 mg 04/22/24 06:07 04/22/24 15:33 Prochlorperazine 10 Mg/2 Ml Vial IV 5 mg Q4H PRN PRN Administration Breakthrough Nausea/Vomiting Senna/Docusate Sodium 2 tablet 04/24/24 13:00 04/28/24 08:17 Senna/Docusate Sodium 1 Tablet PO 2 tablet BID STIVEN Administration Sodium Chloride 10 - 40 ml 04/22/24 06:24 04/28/24 05:40 0.9% Saline Lock 10 Ml Syringe IV 10 ml UD PRN Administration SALINE FLUSH Lab / Micro Data 04/28/24 04:25 04/28/24 04:25 Labs: Laboratory Results - last 24 hr 04/25/24 15:40: POC Glucose 477 H* 04/25/24 15:42: POC Glucose 415 H 04/27/24 16:40: POC Glucose 298 H 04/27/24 20:33: POC Glucose 240 H 04/28/24 04:25: WBC 8.3, RBC 3.88 L, Hgb 10.6 L, Hct 34.0 L, MCV 87.6, MCH 27.3, MCHC 31.2 L, RDW Std Deviation 42.4, RDW Coeff of Hermilo 13.4, Plt Count 195, MPV 11.4, Immature Gran % (Auto) 0.500, Neut % (Auto) 64.6, Lymph % (Auto) 19.9, [place] % (Auto) 8.6, Eos % (Auto) 5.1 H, Baso % (Auto) 1.3 H, Absolute Neuts (auto) 5.3, Absolute Lymphs (auto) 1.64, Nucleated RBC % 0.4, Sodium 137, Potassium 4.0, Chloride 103, Carbon Dioxide 28.0, Anion Gap 6, BUN 26 H, Creatinine 0.90, Estim Creat Clear Calc 47.60, Est GFR (MDRD) Af Amer 78, Est GFR (MDRD) Non-Af 65, BUN/Creatinine Ratio 28.9 H, Glucose 262 H, Calcium 9.0, Total Bilirubin 0.40, AST 28, ALT 32, Alkaline Phosphatase 70, Total Protein 6.4, Albumin 2.7 L, Globulin 3.7, Albumin/Globulin Ratio 0.7 L 04/28/24 07:59: POC Glucose 236 H 04/28/24 11:15: POC Glucose 160 H Micro: Microbiology 04/27/24 12:31 Fluid - Thoracentesis Fluid Gram Stain - Final Rhythm Strip Rhythm Strip: Sinus Rhythm Rate: 70 Assessment and Plan . Assessment and plan: [facility] Medical Records Department [address] [place] [id number] Progress Note - Kick Boxer 04/27/24 1312 MR#: [id number] Acct: [id number] Name: JOHANNA PONCE Rep #: [id number] : 1945 78 From: Chaim Hendrickson MD PCP: Dr. Noble Lemus, DO Status: ADM IN Location: ICU ICU03-1 Objective Data Objective Data Vital Signs: Vital Signs Last response Temperature 36.4 C L 04/27/24 08:22 Temperature Source Temporal 04/27/24 08:22 Pulse Rate 83 04/27/24 12:25 Pulse Strength Normal (2+) 04/27/24 09:44 Respiratory Rate 20 H 04/27/24 12:25 Respiratory Effort Short of Breath 04/27/24 12:14 Respiratory Depth Normal 04/27/24 08:00 Respiratory Pattern Tachypnea 04/27/24 12:14 Blood Pressure 185/82 H 04/27/24 12:25 Blood Pressure Mean 87 04/27/24 08:22 Blood Pressure Source Monitor 04/27/24 08:22 Blood Pressure Position Semi-Fowlers 04/27/24 08:22 Blood Pressure Location Left Arm 04/27/24 08:22 Pulse Ox 96 04/27/24 08:22 Oxygen Delivery Method High Flow 04/27/24 12:25 Oxygen Flow Rate (L/min) 6 04/27/24 12:25 Fraction of Inspired Oxygen (FIO2) 35 04/26/24 12:00 I&O: I&O Last 24 Hours 04/26/24 04/27/24 04/27/24 23:59 11:59 23:59 Intake Total 676 / 1620 112 / 112 Output Total 350 / 1400 350 / 350 Balance 326 / 220 112 / -238 -350 / -238 I&O: Total Stay 04/22/24 03:16 thru 04/27/24 12:25 Intake Total 8422 Output Total 26856 Balance -5378 Current Meds Ordered / Administered: Current meds ordered / Administered Generic Name Dose Route Start Last Admin Trade Name Freq PRN Reason Stop Dose Admin Acetaminophen 650 mg 04/22/24 06:07 04/25/24 19:59 Acetaminophen 325 Mg Tablet PO 650 mg Q6H PRN PRN Administration Pain 1-10 Or Fever >100.7 Albuterol Sulfate 2.5 mg 04/22/24 06:07 Albuterol 2.5 Mg/3 Ml Vial.Neb. INHALATION Q2H PRN PRN SHORTNESS OF BREATH Albuterol/Ipratropium 3 ml 04/22/24 08:00 04/27/24 10:13 Ipratropium/Albuterol Sulfate 3 Ml Ampul.Neb INHALATION 3 ml Q4H.RT STIVEN Administration Amlodipine Besylate 10 mg 04/22/24 10:00 04/27/24 08:32 Amlodipine 10 Mg Tablet PO 10 mg DAILY STIVEN Administration Protocol Anastrozole 1 mg 04/22/24 10:00 04/27/24 08:34 Anastrozole 1 Mg Tablet PO 1 mg DAILY STIVEN Administration Aspirin 81 mg 04/22/24 08:00 04/27/24 08:30 Aspirin E.C. 81 Mg Tablet PO 81 mg DAILY@0800 STIVEN Administration Atenolol 150 mg 04/22/24 10:00 04/27/24 08:29 Atenolol 50 Mg Tablet PO 150 mg DAILY STIVEN Administration Protocol Atorvastatin Calcium 20 mg 04/22/24 22:00 04/26/24 20:39 Atorvastatin Calcium 20 Mg Tablet PO 20 mg QHS STIVEN Administration Calcium/Vitamin D 1 tablet 04/22/24 08:00 04/27/24 08:30 Calcium Carb/Vitamin D 1 Tablet Tablet PO 1 tablet DAILYCM STIVEN Administration Cholecalciferol 50 mcg 04/22/24 10:00 04/27/24 08:29 Cholecalciferol (Vit D3) 25 Mcg Tablet (1,000 Units) PO 50 mcg DAILY STIVEN Administration Clopidogrel Bisulfate 75 mg 04/22/24 10:00 04/27/24 08:32 Clopidogrel Bisulfate 75 Mg Tablet PO 75 mg DAILY STIVEN Administration Collagenase 1 applic 04/22/24 10:00 04/27/24 08:33 Collagenase 30gm Tube TOPICAL 1 applic DAILY [facility] Administration Protocol Cyanocobalamin 1,000 mcg 04/22/24 10:00 04/27/24 08:33 Cyanocobalamin 500 Mcg Tablet PO 1,000 mcg DAILY STIVEN Administration Enoxaparin Sodium 40 mg 04/22/24 10:00 04/27/24 08:31 Enoxaparin 40 Mg/0.4 Ml Syringe SC Not Given DAILY [facility] Gabapentin 200 mg 04/22/24 10:00 04/27/24 08:46 Gabapentin 100 Mg Capsule PO 200 mg BID STIVEN Administration Glucagon 1 mg 04/22/24 06:07 Glucagon 1 Mg/Ml Syringe IM X1 PRN HYPOGLYCEMIA Protocol Guaifenesin 1,200 mg 04/22/24 10:00 04/27/24 08:32 Guaifenesin 1,200 Mg Tablet PO 1,200 mg BID STIVEN Administration Dextrose 250 mls @ 0 mls/hr 04/22/24 06:07 Dextrose 10%-Water IV .Q0M PRN HYPOGLYCEMIA Protocol As Directed Ampicillin Sodium/Sulbactam 112 mls @ 150 mls/hr 04/22/24 12:00 04/27/24 06:39 Sodium 3 gm/ Sodium Chloride IV 04/29/24 12:01 Infused Q6 STIVEN Infusion Insulin Glargine 20 unit 04/27/24 22:00 Insulin Glargine-Yfgn 100 Unit/Ml Pen SC QHS [facility] Insulin Human Lispro 0 unit 04/22/24 07:00 04/27/24 08:34 Insulin Lispro 100 Unit/Ml Insuln.Pen SC 2 u TIDAC [facility] Administration Protocol Insulin Human Lispro 6 unit 04/27/24 16:00 Insulin Lispro 100 Unit/Ml Insuln.Pen SC TIDAC [facility] L-Arginine/L-Glutamine/Calcium HMB 1 packet 04/22/24 17:00 04/27/24 08:33 Leonides (Unflavored) Packet PO 1 packet BIDCM STIVEN Administration Loperamide HCl 2 mg 04/22/24 06:07 Loperamide 2 Mg Capsule PO Q1H PRN PRN loose stool Losartan Potassium 100 mg 04/22/24 10:00 04/27/24 08:30 Losartan Potassium 100 Mg Tablet PO 100 mg DAILY STIVEN Administration Protocol Magnesium Chloride 128 mg 04/22/24 10:00 04/27/24 08:30 Magnesium Chloride 64 Mg Delay Rel.Tablet PO 128 mg BID STIVEN Administration Melatonin 3 mg 04/26/24 23:00 04/26/24 23:11 Melatonin 3 Mg Tablet PO 3 mg QHS STIVEN Administration Multi-Ingredient Cream 1 applic 04/22/24 22:00 04/26/24 20:39 Petrolatum,White 3.75gm Opth.Tube OPHTHALMIC 1 applic QHS STIVEN Administration Mupirocin 1 applic 04/22/24 10:00 04/27/24 08:35 Mupirocin Ointment 22gm Tube TOPICAL 1 applic DAILY STIVEN Administration Protocol Ondansetron HCl 4 mg 04/22/24 06:07 04/22/24 11:35 Ondansetron 4 Mg/2 Ml Vial IV 4 mg Q8H PRN PRN Administration NAUSEA/VOMITING Oxycodone HCl 5 mg 04/23/24 11:27 04/23/24 12:18 Oxycodone 5 Mg Tablet PO 5 mg Q6H PRN PRN Administration Pain Score 6-10 Polyethylene Glycol 17 gm 04/24/24 13:00 04/27/24 08:34 Polyethylene Glycol 3350 17 Gm Packet PO 17 gm DAILY STIVEN Administration Polysaccharide Iron Complex 150 mg 04/26/24 06:00 04/26/24 05:56 Iron Polysaccharide Complex 150 Mg Capsule PO 150 mg QODAY@0600 [facility] Administration Prochlorperazine Edisylate 5 mg 04/22/24 06:07 04/22/24 15:33 Prochlorperazine 10 Mg/2 Ml Vial IV 5 mg Q4H PRN PRN Administration Breakthrough Nausea/Vomiting Senna/Docusate Sodium 2 tablet 04/24/24 13:00 04/27/24 08:30 Senna/Docusate Sodium 1 Tablet PO 2 tablet BID STIVEN Administration Sodium Chloride 10 - 40 ml 04/22/24 06:24 04/25/24 15:49 0.9% Saline Lock 10 Ml Syringe IV 40 ml UD PRN Administration SALINE FLUSH Lab / Micro Data 04/27/24 11:00 04/27/24 11:00 Labs: Laboratory Results - last 24 hr 04/26/24 16:41: POC Glucose 334 H 04/26/24 20:44: POC Glucose 362 H 04/27/24 08:26: POC Glucose 217 H 04/27/24 11:00: WBC 9.3, RBC 3.91 L, Hgb 10.7 L, Hct 34.2 L, MCV 87.5, MCH 27.4, MCHC 31.3 L, RDW Std Deviation 41.9, RDW Coeff of Hermilo 13.4, Plt Count 178, MPV 11.8, Immature Gran % (Auto) 0.500, Neut % (Auto) 71.1 H, Lymph % (Auto) 13.3 L, [place] % (Auto) 8.6, Eos % (Auto) 5.4 H, Baso % (Auto) 1.1 H, Absolute Neuts (auto) 6.6, Absolute Lymphs (auto) 1.24, Nucleated RBC % 0, Sodium 137, Potassium 4.2, Chloride 104, Carbon Dioxide 29.0, Anion Gap 4 L, BUN 23 H, Creatinine 0.88, Estim Creat Clear Calc 48.68, Est GFR (MDRD) Af Amer 81, Est GFR (MDRD) Non-Af 67, BUN/Creatinine Ratio 26.3 H, Glucose 268 H, Calcium 9.0, Magnesium 2.0, Lactate Dehydrogenase 240, Total Protein 6.7, Globulin 3.9, A lbumin/Globulin Ratio 0.7 L Micro: Microbiology 04/22/24 03:50 Blood Culture (Wb) - Anticubital Right Blood Culture - Final No growth in 5 days. Rhythm Strip Rhythm Strip: Sinus Rhythm Rate: 70 Imaging Radiology Impression Chest X-Ray 04/27/24 12:25 IMPRESSION: No evidence of pneumothorax following the right thoracentesis. Electronically Signed: Manny Fowler MD at 12:47 EDT , [facility] Medical Records Department [address] [place] [address] Progress Note - Kick Boxer 04/27/24 1312 MR#: [id number] Acct: [id number] Name: JOHANNA PONCE Rep #: [id number] : 1945 78 From: Chaim Hendrickson MD PCP: Dr. Noble Lemus, DO Status: ADM IN Location: ICU ICU03-1 Objective Data Objective Data Vital Signs: Vital Signs Last response Temperature 36.4 C L 04/27/24 08:22 Temperature Source Temporal 04/27/24 08:22 Pulse Rate 83 04/27/24 12:25 Pulse Strength Normal (2+) 04/27/24 09:44 Respiratory Rate 20 H 04/27/24 12:25 Respiratory Effort Short of Breath 04/27/24 12:14 Respiratory Depth Normal 04/27/24 08:00 Respiratory Pattern Tachypnea 04/27/24 12:14 Blood Pressure 185/82 H 04/27/24 12:25 Blood Pressure Mean 87 04/27/24 08:22 Blood Pressure Source Monitor 04/27/24 08:22 Blood Pressure Position Semi-Fowlers 04/27/24 08:22 Blood Pressure Location Left Arm 04/27/24 08:22 Pulse Ox 96 04/27/24 08:22 Oxygen Delivery Method High Flow 04/27/24 12:25 Oxygen Flow Rate (L/min) 6 04/27/24 12:25 Fraction of Inspired Oxygen (FIO2) 35 04/26/24 12:00 I&O: I&O Last 24 Hours 04/26/24 04/27/24 04/27/24 23:59 11:59 23:59 Intake Total 676 / 1620 112 / 112 Output Total 350 / 1400 350 / 350 Balance 326 / 220 112 / -238 -350 / -238 I&O: Total Stay 04/22/24 03:16 thru 04/27/24 12:25 Intake Total 8422 Output Total 53632 Balance -5378 Current Meds Ordered / Administered: Current meds ordered / Administered Generic Name Dose Route Start Last Admin Trade Name Freq PRN Reason Stop Dose Admin Acetaminophen 650 mg 04/22/24 06:07 04/25/24 19:59 Acetaminophen 325 Mg Tablet PO 650 mg Q6H PRN PRN Administration Pain 1-10 Or Fever >100.7 Albuterol Sulfate 2.5 mg 04/22/24 06:07 Albuterol 2.5 Mg/3 Ml Vial.Neb. INHALATION Q2H PRN PRN SHORTNESS OF BREATH Albuterol/Ipratropium 3 ml 04/22/24 08:00 04/27/24 10:13 Ipratropium/Albuterol Sulfate 3 Ml Ampul.Neb INHALATION 3 ml Q4H.RT STIVEN Administration Amlodipine Besylate 10 mg 04/22/24 10:00 04/27/24 08:32 Amlodipine 10 Mg Tablet PO 10 mg DAILY STIVEN Administration Protocol Anastrozole 1 mg 04/22/24 10:00 04/27/24 08:34 Anastrozole 1 Mg Tablet PO 1 mg DAILY [facility]IV[facility] Administration Aspirin 81 mg 04/22/24 08:00 04/27/24 08:30 Aspirin E.C. 81 Mg Tablet PO 81 mg DAILY@0800 [facility] Administration Atenolol 150 mg 04/22/24 10:00 04/27/24 08:29 Atenolol 50 Mg Tablet PO 150 mg DAILY [facility]IV[facility] Administration Protocol Atorvastatin Calcium 20 mg 04/22/24 22:00 04/26/24 20:39 Atorvastatin Calcium 20 Mg Tablet PO 20 mg QHS STIVEN Administration Calcium/Vitamin D 1 tablet 04/22/24 08:00 04/27/24 08:30 Calcium Carb/Vitamin D 1 Tablet Tablet PO 1 tablet DAILYCM [facility]IVEN Administration Cholecalciferol 50 mcg 04/22/24 10:00 04/27/24 08:29 Cholecalciferol (Vit D3) 25 Mcg Tablet (1,000 Units) PO 50 mcg DAILY [facility] Administration Clopidogrel Bisulfate 75 mg 04/22/24 10:00 04/27/24 08:32 Clopidogrel Bisulfate 75 Mg Tablet PO 75 mg DAILY STIV[facility] Administration Collagenase 1 applic 04/22/24 10:00 04/27/24 08:33 Collagenase 30gm Tube TOPICAL 1 applic DAILY [facility] Administration Protocol Cyanocobalamin 1,000 mcg 04/22/24 10:00 04/27/24 08:33 Cyanocobalamin 500 Mcg Tablet PO 1,000 mcg DAILY [facility] Administration Enoxaparin Sodium 40 mg 04/22/24 10:00 04/27/24 08:31 Enoxaparin 40 Mg/0.4 Ml Syringe SC Not Given DAILY [facility] Gabapentin 200 mg 04/22/24 10:00 04/27/24 08:46 Gabapentin 100 Mg Capsule PO 200 mg BID STIVEN Administration Glucagon 1 mg 04/22/24 06:07 Glucagon 1 Mg/Ml Syringe IM X1 PRN HYPOGLYCEMIA Protocol Guaifenesin 1,200 mg 04/22/24 10:00 04/27/24 08:32 Guaifenesin 1,200 Mg Tablet PO 1,200 mg BID STIVEN Administration Dextrose 250 mls @ 0 mls/hr 04/22/24 06:07 Dextrose 10%-Water IV .Q0M PRN HYPOGLYCEMIA Protocol As Directed Ampicillin Sodium/Sulbactam 112 mls @ 150 mls/hr 04/22/24 12:00 04/27/24 06:39 Sodium 3 gm/ Sodium Chloride IV 04/29/24 12:01 Infused Q6 STIVEN Infusion Insulin Glargine 20 unit 04/27/24 22:00 Insulin Glargine-Yfgn 100 Unit/Ml Pen SC QHS [facility] Insulin Human Lispro 0 unit 04/22/24 07:00 04/27/24 08:34 Insulin Lispro 100 Unit/Ml Insuln.Pen SC 2 u TIDAC [facility] Administration Protocol Insulin Human Lispro 6 unit 04/27/24 16:00 Insulin Lispro 100 Unit/Ml Insuln.Pen SC TIDAC [facility] L-Arginine/L-Glutamine/Calcium HMB 1 packet 04/22/24 17:00 04/27/24 08:33 Leonides (Unflavored) Packet PO 1 packet BIDCM [facility] Administration Loperamide HCl 2 mg 04/22/24 06:07 Loperamide 2 Mg Capsule PO Q1H PRN PRN loose stool Losartan Potassium 100 mg 04/22/24 10:00 04/27/24 08:30 Losartan Potassium 100 Mg Tablet PO 100 mg DAILY [facility] Administration Protocol Magnesium Chloride 128 mg 04/22/24 10:00 04/27/24 08:30 Magnesium Chloride 64 Mg Delay Rel.Tablet PO 128 mg BID [facility] Administration Melatonin 3 mg 04/26/24 23:00 04/26/24 23:11 Melatonin 3 Mg Tablet PO 3 mg QHS [facility] Administration Multi-Ingredient Cream 1 applic 04/22/24 22:00 04/26/24 20:39 Petrolatum,White 3.75gm Opth.Tube OPHTHALMIC 1 applic QHS [facility] Administration Mupirocin 1 applic 04/22/24 10:00 04/27/24 08:35 Mupirocin Ointment 22gm Tube TOPICAL 1 applic DAILY [facility] Administration Protocol Ondansetron HCl 4 mg 04/22/24 06:07 04/22/24 11:35 Ondansetron 4 Mg/2 Ml Vial IV 4 mg Q8H PRN PRN Administration NAUSEA/VOMITING Oxycodone HCl 5 mg 04/23/24 11:27 04/23/24 12:18 Oxycodone 5 Mg Tablet PO 5 mg Q6H PRN PRN Administration Pain Score 6-10 Polyethylene Glycol 17 gm 04/24/24 13:00 04/27/24 08:34 Polyethylene Glycol 3350 17 Gm Packet PO 17 gm DAILY [facility]IV[facility] Administration Polysaccharide Iron Complex 150 mg 04/26/24 06:00 04/26/24 05:56 Iron Polysaccharide Complex 150 Mg Capsule PO 150 mg QODAY@0600 [facility] Administration Prochlorperazine Edisylate 5 mg 04/22/24 06:07 04/22/24 15:33 Prochlorperazine 10 Mg/2 Ml Vial IV 5 mg Q4H PRN PRN Administration Breakthrough Nausea/Vomiting Senna/Docusate Sodium 2 tablet 04/24/24 13:00 04/27/24 08:30 Senna/Docusate Sodium 1 Tablet PO 2 tablet BID [facility]IV[facility] Administration Sodium Chloride 10 - 40 ml 04/22/24 06:24 04/25/24 15:49 0.9% Saline Lock 10 Ml Syringe IV 40 ml UD PRN Administration SALINE FLUSH Lab / Micro Data 04/27/24 11:00 04/27/24 11:00 Labs: Laboratory Results - last 24 hr 04/26/24 16:41: POC Glucose 334 H 04/26/24 20:44: POC Glucose 362 H 04/27/24 08:26: POC Glucose 217 H 04/27/24 11:00: WBC 9.3, RBC 3.91 L, Hgb 10.7 L, Hct 34.2 L, MCV 87.5, MCH 27.4, MCHC 31.3 L, RDW Std Deviation 41.9, RDW Coeff of Hermilo 13.4, Plt Count 178, MPV 11.8, Immature Gran % (Auto) 0.500, Neut % (Auto) 71.1 H, Lymph % (Auto) 13.3 L, [place] % (Auto) 8.6, Eos % (Auto) 5.4 H, Baso % (Auto) 1.1 H, Absolute Neuts (auto) 6.6, Absolute Lymphs (auto) 1.24, Nucleated RBC % 0, Sodium 137, Potassium 4.2, Chloride 104, Carbon Dioxide 29.0, Anion Gap 4 L, BUN 23 H, Creatinine 0.88, Estim Creat Clear Calc 48.68, Est GFR (MDRD) Af Amer 81, Est GFR (MDRD) Non-Af 67, BUN/Creatinine Ratio 26.3 H, Glucose 268 H, Calcium 9.0, Magnesium 2.0, Lactate Dehydrogenase 240, Total Protein 6.7, Globulin 3.9, A lbumin/Globulin Ratio 0.7 L Micro: Microbiology 04/22/24 03:50 Blood Culture (Wb) - Anticubital Right Blood Culture - Final No growth in 5 days. Rhythm Strip Rhythm Strip: Sinus Rhythm Rate: 70 Imaging Radiology Impression Chest X-Ray 04/27/24 12:25 IMPRESSION: No evidence of pneumothorax following the right thoracentesis. Electronically Signed: Manny Fowler MD at 12:47 EDT , Assessment and Plan . Assessment and plan: 1. Resp Failure: acute/hypoxemic. Marked O2 req 72 hours ago. Working theory is 2/2 pneumonia(Inferior/post infiltrates) + pleural effusions. Now down to 2L. Wean FIO2 as tolerated. 2. Pneumonia: On unasyn: day 7 of 7. Stopping on 04/29 3. Pleural Effusion: s/p thoracentesis. Results pending. Surprising only 350 cc remove. Could consider left sided thoracentesis. 3. NSTEMI: Trop repeated given mild increase from admit. No sxs. Elevated not now downtrending. Cards following. Echo with normal function/No WMA per cards. 4. ? CHF exac: Started diuresis 04/24. Marked uop from one dose of lasix. Now on maintenance dose. 5. Lactic Acidosis: resolved. 6. DM: SS 7. FEN: oral diet 8. PX:Lovenox Tx to floor. Will sign off MD Chaim Carlisle MD The entirety of this encounter was done via Telemedicine Physical Exam Narrative awake, sitting in chair pupils:= o/p:lear CV: RRR Chest: Decreased BS in left base Abd: soft, NT, +bs Ext: no /c/c/e Subjective Subjective doing better. Down to 2L
--- NOTE | 2024-04-28 16:06 | CPS ---
placed pt on RA at this time
[2024-04-28 17:03] LABS: Bedside Glucose 274 mg/dL (74-106)
--- NOTE | 2024-04-28 17:15 | CASEMGMT ---
LESLIE MCCARTHY NOTE: Pt ambulated 200 ft w/use of WW and CGA in halls today. PT recommended additional therapy. OT states none needed. RN CM to room. Pt sitting up in chair. Introduced self and role. Pt states she feels she will be safe to discharge home. Inquired about HHC. She states she does want HHC. Pt called her son, Luis, and placed him on speaker phone for LESLIE MCCARTHY to talk w/him. He was made aware of how pt did w/therapy today and that pt would like HHC. He is agreeable to this and also states pt would benefit from this. He was made aware SN visits are typically once a week and therapy 2-3 x's/week and he voices understanding. Discussed HHC preference. He states [facility] is 1st preference and declines wanting list of other HHC options unless [facility] unable to accept pt. He denies having other discharge needs/concerns. He confirms they do have a walker @ home that pt can use @ de. Pt currently on RA. Call placed to [facility] and VM left re: referral. Henrry THOMAS RN, CM
[2024-04-28 20:27] LABS: Bedside Glucose 173 mg/dL (74-106)
[2024-04-28] MEDS: Insulin Glargine-YFGN 100 UNIT/ML Pen 20 UNIT SC (21:12)
[2024-04-28] MEDS: Petrolatum,White 3.75GM OPTH.TUBE 1 APPLIC OPHTHALMIC (21:12)
[2024-04-28] MEDS: Acetaminophen 325 MG Tablet 650 MG PO (21:13)
[2024-04-28] MEDS: MELATONIN 3 MG TABLET PO (21:13)
[2024-04-28] MEDS: Atorvastatin Calcium 20 MG Tablet PO (21:13)
--- NOTE | 2024-04-28 22:55 | CPS ---
Pt refused BIPAP for tonight.
[2024-04-29] VITALS (8 sets, daily range): BP systolic 121–132; BP diastolic 57–65; PULSE 70–79; RESP 16–22; TEMP 36.4–36.6; O2SAT 97–99; BMI 24.5
[2024-04-29] MEDS: Ampicillin/Sulbactam 3 GM in 0.9% Normal Saline (100mL MB+) 100 ML IV (06:05)
[2024-04-29] MEDS: Ipratropium/Albuterol Sulfate 3 ML AMPUL.NEB INHALATION ×2 (07:45→11:14)
--- NOTE | 2024-04-29 07:48 | DCINST_ITS ---
Discharge Instructions Follow Up Care Test Results: Test results from this visit will be discussed in further detail at your follow- up appointment, if applicable. Discharge Plan Admission Admit Date/Time: 04/22/24 04:58 Primary Reason for Your Visit: Acute hypoxic respiratory failure Attending Provider: Shahzad Lim Primary Care Provider: Noble Lemus Consulting Providers: Patricio Chapin; Janette Su; Enrique Hassan Discharge Orders/Prescriptions Prescriptions: New furosemide 20 mg Tablet 20 mg PO DAILY 7 Days Qty: 7 0RF guaifenesin [Mucus Relief ER] 1,200 mg Tablet Extended Release 12hr 1,200 mg PO BID 7 Days Qty: 14 0RF insulin lispro [Humalog KwikPen Insulin] 100 unit/mL Insulin Pen See Protocol subcut TIDAC Qty: 0 0RF Protocol: 3. Sliding Scale Insulin Med Dosing Condition: 150-189 mg/dl = 1 unit Condition: 190-229 mg/dl = 2 units Condition: 230-269 mg/dl = 3 units Condition: 270-309 mg/dl = 4 units Condition: 310-349 mg/dl = 5 units Condition: 350-399 mg/dl = 6 units Condition: 400-449 mg/dl = 7 units Condition: Greater than 449 call physician Protocol Text: Suggested for: - Patients on Total Daily Insulin Dose of 37-55 units - Obese, infected, or steroid patients MEDIUM DOSING ALGORITHIM insulin lispro [Humalog KwikPen Insulin] 100 unit/mL Insulin Pen 8 unit subcut TIDAC Qty: 0 0RF Continued atenolol 100 mg tablet 150 mg PO DAILY mecobalamin (vitamin B12) 1,000 mcg tablet,disintegrating 1,000 mcg SUBLINGUAL DAILY Rx Instructions: place tablet under tongue and allow to dissolve for at least30 secs before swallowing polysaccharide iron complex [Ferrex 150] 150 mg iron capsule 150 mg PO BID Rx Instructions: avoid dairy/calcium-containing products and/or antacids for at least 2 hrs before and after dose loperamide 2 mg capsule 2 mg PO Q1-4H PRN (Reason: loose stool) Rx Instructions: after each loose stool until symptoms controlled;do not exceed 16 mg total dose in 24 hrs magnesium oxide 400 mg magnesium tablet 400 mg PO BID anastrozole 1 MG tablet 1 mg PO DAILY aspirin 81 MG tablet 81 mg PO DAILY@0800 losartan 100 MG tablet 100 mg PO DAILY calcium carbonate-vitamin D3 1 EACH tablet 1 ea PO DAILY ondansetron 4 mg tablet,disintegrating 4 mg PO TID PRN (Reason: nausea and vomiting) Qty: 21 0RF clopidogrel 75 mg tablet 75 mg PO DAILY amlodipine 10 mg tablet 10 mg PO DAILY calcium carbonate-vitamin D3 [Oyster Shell Calcium-Vit D3] 500 mg-5 mcg (200 unit) tablet 1 tab PO DAILY cholecalciferol (vitamin D3) 50 mcg (2,000 unit) capsule 50 mcg PO DAILY Santyl 250 unit/gram ointment 1 applic topical DAILY glipizide 5 mg tablet extended release 24hr 5 mg PO BID cyanocobalamin (vitamin B-12) 1,000 mcg tablet 1,000 mcg PO DAILY mupirocin 2 % ointment 1 applic topical DAILY gabapentin 100 mg capsule 200 mg PO Q12.TCU metformin 500 mg tablet extended release 24 hr 1,000 mg PO BID insulin lispro 100 unit/mL insulin pen 1 sliding scale dose subcut TID sodium chloride [Baltazar 128] 5 % ointment 1 applic ophthalmic (eye) QHS rosuvastatin 10 mg tablet 10 mg PO QHS Changed meloxicam 15 mg tablet 15 mg PO DAILY PRN (Reason: pain) 3 Days Qty: 0 0RF insulin glargine [Lantus Solostar U-100 Insulin] 100 unit/mL (3 mL) insulin pen 20 unit subcut QHS Qty: 15 2RF Rx Instructions: Hold if glucose less than 130 mg/dl Referrals / Follow Up: Bebo Badillo DO [Med Staff - Active Staff] - Within 2 Weeks (Acute hypoxic respiratory failure. Pleural effusion) Noble Lemus DO [Primary Care Provider] - Enrique Hassan MD [Med Staff - Active Staff] - Within 2 Weeks (Heart failure) Disposition Disposition (needs filled in before D/C Order can be placed): Home Health Service
--- NOTE | 2024-04-29 07:58 | PCM.DC.SUM ---
Providers Date of Admission: 04/22/24 Date of Discharge: 04/29/24 Primary Care Physician: Dr. Noble Lemus, Consultations 04/22/24 06:07 Consult: Onc/Wound/machine heel sprayer Routine Comment: Reason for Consult:: diabetic foot wounds 04/22/24 06:07 Consult: Onc/Wound/machine heel sprayer Routine Comment: 04/25/24 07:51 Consult: Cardiology Routine Consulting Provider: Enrique Hassan Reason for Consult: elevated Trop, CHF? EMERGENT Consult: No MD Notified: Yes Date Notified: 04/25/24 Time Notified: 07:53 Method of Notification: Text Reason For Visit: SEPSIS RESPIRATORY FAILURE Diagnosis Discharge Diagnosis (1) Acute hypoxic respiratory failure: Status: Acute Code(s): J96.01 - Acute respiratory failure with hypoxia (2) Sepsis: Status: Acute Code(s): A41.9 - Sepsis, unspecified organism (3) Respiratory acidosis: Status: Acute Code(s): E87.29 - Other acidosis (4) Aspiration pneumonia: Status: Acute Code(s): J69.0 - Pneumonitis due to inhalation of food and vomit Plan 78-year-old female who was admitted with nausea, vomiting, worsening dyspnea, coughing after vomiting. Patient was placed on nonrebreather and was on 8 L of oxygen at home although patient is being maintained home oxygen. No COPD or smoking history. Glucose was 360 at home and ordered bedside. She was admitted in ICU #Acute hypoxic respiratory failure due to probable aspiration pneumonia She had nausea and vomiting and diarrhea at home and after vomiting she coughed and choked and EMS was called. She was saturating at 68% on room air. Chest x-ray showed by lateral infiltrates. Lactic acid was also elevated at 9. 04/24 Repeat chest x-ray shows bilateral lower lungs infiltrates and opacity. Remain on Airvo. Keep pulse ox more than 90%. Continue broad-spectrum IV antibiotics. Binding Folder Machine on board. Breathing treatments with bronchodilators. Urine for strep and Legionella negative. 04/25: Chest CT scan shows bilateral pleural effusion with bibasilar compressive atelectasis in lower lobes consolidation. Patient on IV Unasyn. With concern for CHF exacerbation, troponins were done which shows elevated. Continuous Churn Buttermaker consulted. 2D echo is already ordered. Continue atenolol and amlodipine for BP, HEART RATE CONTROL and electrolyte correction. Heart rate and blood pressure are controlled. 04/26: 2D echo reviewed with the family. No regional wall motion abnormality. EF 60% stage I diastolic dysfunction. Mild . Oxygen requirement is decreasing in the process of tapering off Airvo. Continue IV Unasyn. Hypokalemia and hypomagnesemia: Electrolytes getting replaced 04/27: Her oxygenation is improving. On 6 L of high flow oxygen. Weaned off Airvo. Plan for ultrasound-guided thoracocentesis today. Pleural fluid analysis labs ordered. 04/28: Patient oxygenation improved after thoracocentesis. Heart rate and blood pressure in normal range. Had 350 mL right-sided thoracocentesis done. Postprocedure chest x-ray does not show pneumothorax. As per light atrial fluid is transudate. Potassium normal. 04/29: Patient on room air. Blood pressure and heart rate controlled. Normal sinus rhythm. Home oxygen qualification test. Follow-up in pulmonary office, Dr. Badillo. Discharged home. # Sepsis due to aspiration pneumonia: As above. Patient was not in shock. 04/27: Sepsis has resolved. 04/28: Pleural fluid Gram stain does not show organism 1+ WBC, 1+ RBC. #Lactic acidosis: lactic acid was 9 on admission. This is however likely due to her hypoxia. Trended down to 2.4 with hydration and with oxygen. 04/29: Patient completed 7 days of IV antibiotics Unasyn. #Type 2 diabetes mellitus with hyperglycemia: On Lantus. Insulin sliding scale. Accu-Cheks ACH. Metformin held due to lactic acidosis 04/27: Glucose is 217-362. Insulin dose titrated up. 04/28: Glucose 160 in the morning today. Much better. 04/29 patient is discharged on optimized dose of Lantus and log insulin. Monitor glucose before meals and at bedtime. Follow with PCP to titrate the dose of insulin. Patient also on glipizide and metformin. #Hypertension: On losartan. IV hydralazine as needed. #History of bilateral feet ulcers: Wound care on board. This is chronic. 04/29, patient used Santyl and mupirocin cream and dressing at home. #History of breast cancer: Follow-up with oncology on outpatient basis #History of CAD: On Plavix and statin. 04/29: Follow-up in cardiology office Dr. Enrique Hassan DVT prophylaxis: Lovenox Code status: She want CPR and intubation if needed. Full code. Discharge medication reconciliation done. Discharge follow-up instructions completed. Discharge process discussed with the patient and all questions were answered to patient's satisfaction. Follow with PCP in 1 to 2 weeks. Discussed with the patient's son and regarding discharge instruction advised follow-up with the fast food worker, associate dentist and PCP as written in discharge instruction. Total time spent, exact 35 minutes on discharge meds reconciliation, examination, coordination of care with nurses and ancillary staff, review of imaging and blood test and discussion with the patient on follow-up instructions. Clinical Impression(s) from Imaging Studies Chest X-Ray 04/22/24 03:27 IMPRESSION: Bilateral lung basilar airspace opacities, greatest on the left. This could be atelectatic or pneumonia. Electronically Signed: Ed Barber MD at 4:55 EDT , KUB X-Ray 04/22/24 12:56 IMPRESSION: A catheter is seen within the pelvis. Electronically Signed: Manny Fowler MD at 13:59 EDT , Chest X-Ray 04/24/24 05:25 IMPRESSION: Pulmonary findings appear worse. Electronically Signed: Brad Reinoso MD at 19:06 EDT , Echocardiogram 04/24/24 20:26 Interpretation Summary Normal LV size. Left ventricular systolic function is normal. The left ventricular ejection fraction is 60 %. Stage 1 diastolic dysfunction. The global longitudinal strain is mildly abnormal. The global longitudinal strain = -15.2% (abnormal). The global longitudinal strain has worsened. The prior global longitudinal strain was - 21 % . Ordering Physician: Enrico Hanson Referring Physician: NOBLE LEMUS Performed By: Pearl Williamson RCS Chest CT 04/25/24 13:04 IMPRESSION: Moderate degree of bilateral pleural effusions with bibasilar compressive atelectasis in the lower lobes. Follow-up recommended. Coronary artery calcification. Mild degree of vascular congestion in the upper lobes. Heterogeneous enlargement of the thyroid gland more prominent on the left side with a substernal extension. Electronically Signed: Manny Fowler MD at 14:26 EDT , Medications at Discharge Home Medications anastrozole 1 mg tablet 1 mg PO DAILY Check with primary doctor 09/08/17 aspirin 81 mg tablet,delayed release 81 mg PO DAILY@0800 heart 09/08/17 calcium carbonate 500 mg-vitamin D3 15 mcg (600 unit) tablet 1 ea PO DAILY 09/08/17 losartan 100 mg tablet 100 mg PO DAILY Check with primary doctor 09/08/17 atenolol 100 mg tablet 150 mg PO DAILY beta emiliana 09/19/19 loperamide 2 mg capsule 2 mg PO Q1-4H PRN loose stool 09/19/19 magnesium oxide 400 mg PO BID 09/19/19 mecobalamin (vitamin B12) 1,000 mcg disintegrating tablet,sublingual 1,000 mcg sublingual DAILY 09/19/19 polysaccharide iron complex 150 mg iron capsule (Ferrex) 150 mg PO BID 09/19/19 ondansetron 4 mg disintegrating tablet 4 mg PO TID PRN nausea and vomiting #21 tabs 10/05/22 amlodipine 10 mg tablet 10 mg PO DAILY 04/22/24 calcium carbonate 500 mg-vitamin D3 5 mcg (200 unit) tablet (Oyster Shell Calcium-Vitamin D3) 1 tab PO DAILY 04/22/24 cholecalciferol (vitamin D3) 50 mcg (2,000 unit) capsule 50 mcg PO DAILY 04/22/24 clopidogrel 75 mg tablet 75 mg PO DAILY 04/22/24 collagenase clostridium histo. 250 unit/gram topical ointment (Santyl) 1 applic topical DAILY 04/22/24 cyanocobalamin (vitamin B-12) 1,000 mcg tablet 1,000 mcg PO DAILY 04/22/24 gabapentin 100 mg capsule 200 mg PO Q12.TCU 04/22/24 glipizide 5 mg tablet, extended release 24 hr 5 mg PO BID 04/22/24 insulin lispro 100 unit/mL subcutaneous pen 1 sliding scale dose subcut TID 04/22/24 metformin 500 mg tablet,extended release 24 hr 1,000 mg PO BID 04/22/24 mupirocin 2 % topical ointment 1 applic topical DAILY 04/22/24 rosuvastatin 10 mg tablet 10 mg PO QHS 04/22/24 sodium chloride 5 % eye ointment (Baltazar 128) 1 applic ophthalmic (eye) QHS 04/22/24 furosemide 20 mg tablet 20 mg PO DAILY 7 days #7 tabs 04/29/24 guaifenesin 1,200 mg tablet, extended release 12 hr (Mucus Relief ER) 1,200 mg PO BID 7 days #14 tabs 04/29/24 insulin glargine 100 unit/mL (3 mL) subcutaneous pen (Lantus Solostar U-100 Insulin) 20 unit (0.2 mL) subcut QHS #15 mL 04/29/24 insulin lispro 100 unit/mL subcutaneous pen (Humalog KwikPen (U-100) Insulin) 8 unit (0.08 mL) subcut TIDAC #0 mL 04/29/24 insulin lispro 100 unit/mL subcutaneous pen (Humalog KwikPen (U-100) Insulin) See Protocol subcut TIDAC #0 mL 04/29/24 meloxicam 15 mg tablet 15 mg PO DAILY PRN pain 3 days #0 tabs 04/29/24 Physical Exam Narrative Seen and examined. Patient is doing well. Patient on baseline. Pulse ox 98% on room air.. Patient also walking within the room. Had thoracocentesis on 04/27/2024, about 350 mL fluid drained from right pleural space Discussed with the near the bedside. Physical exam General: Alert, Oriented x3, Cooperative, looks much better HEENT: Atraumatic, PERRLA, EOMI, Normocephalic Oral: Oral mucosa moist. No Gingival or Mucosal Lesions/ Ulcerations Neck: Supple, No JVD, Negative Carotid Bruits Chest wall/Lungs: Air entry improved on the right lung base. Status post thoracocentesis. Lungs clear. Cardiovascular: Regular rate, Regular Rhythm, Normal S1, Normal S2, No M/G/R Abdomen: Bowel Sounds Present, Soft, Non Tender, Non-Distended : No dysuria. No renal angle tenderness. No suprapubic tenderness. Extremities: No edema, Capillary Refill Less than 3 Seconds Skin: Left great toe partial amputation. Musculoskeletal: No Tenderness to Palpation of Joints or Extremities Neurological: Cranial nerves II-XII grossly intact, DTR 2+/4. No acute focal neurological deficit. Psych/Mental Status: Normal Affect, Appropriate. Weight / BMI Weight Weight: 138 lb 14.259 oz Body Mass Index (BMI) 24.5 ABG / Lab / Microbiology Data 04/28/24 04:25 04/28/24 04:25 Laboratory: Laboratory Results - last 24 hr 04/28/24 07:59: POC Glucose 236 H 04/28/24 11:15: POC Glucose 160 H 04/28/24 16:41: POC Glucose 274 H 04/28/24 20:08: POC Glucose 173 H Microbiology: Microbiology 04/27/24 12:31 Fluid - Thoracentesis Fluid Gram Stain - Final 04/22/24 03:50 Blood Culture (Wb) - Anticubital Right Blood Culture - Final No growth in 5 days. 04/22/24 18:30 Urine Catheter - Bower Legionella Antigen - Final 04/22/24 18:30 Urine Catheter - Bower Streptococcus pneumoniae Antigen (M - Final Meaningful Use Info Meaningful Use Meaningful Use Diagnoses (Choose all that apply): None applicable Ischemic Stroke Statin Dosing Therapy Reference: STATIN DOSE THERAPY REFERENCE: * Patients > 75 years receive moderate or high dose statin therapy. * Patients 75 years or YOUNGER should receive HIGH intensity statin dose unless contraindicated. You will be required to document reason for non-treatment if statin daily dose does not meet guidelines. HIGH DOSE STATIN THERAPY DAILY Atorvastatin > than or = to 40 mg Rosuvastatin > than or = to 20 mg Amlodipine + Atorvastatin > than or = to 2.5/40 mg Ezetimibe + Simvastatin 10/80 mg Simvastatin 80mg Discharge Plan Admission Admit Date/Time: 04/22/24 04:58 Primary Reason for Your Visit: Acute hypoxic respiratory failure Attending Provider: Shahzad Lim Primary Care Provider: Noble Lemus Consulting Providers: Patricio Chapin; Janette Su; Enrique Hassan Discharge Orders/Prescriptions Prescriptions: New furosemide 20 mg Tablet 20 mg PO DAILY 7 Days Qty: 7 0RF guaifenesin [Mucus Relief ER] 1,200 mg Tablet Extended Release 12hr 1,200 mg PO BID 7 Days Qty: 14 0RF insulin lispro [Humalog KwikPen Insulin] 100 unit/mL Insulin Pen See Protocol subcut TIDAC Qty: 0 0RF Protocol: 3. Sliding Scale Insulin Med Dosing Condition: 150-189 mg/dl = 1 unit Condition: 190-229 mg/dl = 2 units Condition: 230-269 mg/dl = 3 units Condition: 270-309 mg/dl = 4 units Condition: 310-349 mg/dl = 5 units Condition: 350-399 mg/dl = 6 units Condition: 400-449 mg/dl = 7 units Condition: Greater than 449 call physician Protocol Text: Suggested for: - Patients on Total Daily Insulin Dose of 37-55 units - Obese, infected, or steroid patients MEDIUM DOSING ALGORITHIM insulin lispro [Humalog KwikPen Insulin] 100 unit/mL Insulin Pen 8 unit subcut TIDAC Qty: 0 0RF Continued atenolol 100 mg tablet 150 mg PO DAILY mecobalamin (vitamin B12) 1,000 mcg tablet,disintegrating 1,000 mcg SUBLINGUAL DAILY Rx Instructions: place tablet under tongue and allow to dissolve for at least30 secs before swallowing polysaccharide iron complex [Ferrex 150] 150 mg iron capsule 150 mg PO BID Rx Instructions: avoid dairy/calcium-containing products and/or antacids for at least 2 hrs before and after dose loperamide 2 mg capsule 2 mg PO Q1-4H PRN (Reason: loose stool) Rx Instructions: after each loose stool until symptoms controlled;do not exceed 16 mg total dose in 24 hrs magnesium oxide 400 mg magnesium tablet 400 mg PO BID anastrozole 1 MG tablet 1 mg PO DAILY aspirin 81 MG tablet 81 mg PO DAILY@0800 losartan 100 MG tablet 100 mg PO DAILY calcium carbonate-vitamin D3 1 EACH tablet 1 ea PO DAILY ondansetron 4 mg tablet,disintegrating 4 mg PO TID PRN (Reason: nausea and vomiting) Qty: 21 0RF clopidogrel 75 mg tablet 75 mg PO DAILY amlodipine 10 mg tablet 10 mg PO DAILY calcium carbonate-vitamin D3 [Oyster Shell Calcium-Vit D3] 500 mg-5 mcg (200 unit) tablet 1 tab PO DAILY cholecalciferol (vitamin D3) 50 mcg (2,000 unit) capsule 50 mcg PO DAILY Santyl 250 unit/gram ointment 1 applic topical DAILY glipizide 5 mg tablet extended release 24hr 5 mg PO BID cyanocobalamin (vitamin B-12) 1,000 mcg tablet 1,000 mcg PO DAILY mupirocin 2 % ointment 1 applic topical DAILY gabapentin 100 mg capsule 200 mg PO Q12.TCU metformin 500 mg tablet extended release 24 hr 1,000 mg PO BID insulin lispro 100 unit/mL insulin pen 1 sliding scale dose subcut TID sodium chloride [Baltazar 128] 5 % ointment 1 applic ophthalmic (eye) QHS rosuvastatin 10 mg tablet 10 mg PO QHS Changed meloxicam 15 mg tablet 15 mg PO DAILY PRN (Reason: pain) 3 Days Qty: 0 0RF insulin glargine [Lantus Solostar U-100 Insulin] 100 unit/mL (3 mL) insulin pen 20 unit subcut QHS Qty: 15 2RF Rx Instructions: Hold if glucose less than 130 mg/dl Referrals / Follow Up: Bebo Badillo DO [Med Staff - Active Staff] - Within 2 Weeks (Acute hypoxic respiratory failure. Pleural effusion) Noble Lemus DO [Primary Care Provider] - Enrique Hassan MD [Med Staff - Active Staff] - 05/10/24 10:30 am (Heart failure) Disposition Disposition (needs filled in before D/C Order can be placed): Home Health Service Charges/Coding Visit Charges Inpatient E&M: 67599 Disch Hosp >30min
[2024-04-29 08:16] LABS: Pathologist Comment/Body Fluid Reviewed
[2024-04-29] MEDS: Calcium Carb/Vitamin D 1 TABLET Tablet PO (08:16)
[2024-04-29] MEDS: Aspirin E.C. 81 MG Tablet PO (08:16)
[2024-04-29] MEDS: Juven (unflavored) Packet 1 PACKET PO (08:16)
[2024-04-29] MEDS: Magnesium Chloride 64 MG Delay Rel.Tablet 128 MG PO (08:17)
[2024-04-29] MEDS: Anastrozole 1 MG TABLET PO (08:17)
[2024-04-29] MEDS: Furosemide 20 MG Tablet PO (08:17)
[2024-04-29] MEDS: guaiFENesin 1,200 MG Tablet 1200 MG PO (08:17)
[2024-04-29] MEDS: Enoxaparin 40 MG/0.4 ML Syringe SC (08:17)
[2024-04-29] MEDS: Losartan Potassium 100 MG Tablet PO (08:17)
[2024-04-29] MEDS: Clopidogrel Bisulfate 75 MG Tablet PO (08:18)
[2024-04-29] MEDS: Cholecalciferol (VIT D3) 25 MCG TABLET (1,000 UNITS) 50 MCG PO (08:18)
[2024-04-29] MEDS: amLODIPine 10 MG Tablet PO (08:18)
[2024-04-29] MEDS: Cyanocobalamin 500 MCG Tablet 1000 MCG PO (08:18)
[2024-04-29] MEDS: Atenolol 50 MG Tablet 150 MG PO (08:18)
[2024-04-29] MEDS: Mupirocin Ointment 22gm Tube 1 APPLIC TOPICAL (08:36)
[2024-04-29] MEDS: Collagenase 30gm Tube 1 APPLIC TOPICAL (08:36)
[2024-04-29] MEDS: Gabapentin 100 MG Capsule 200 MG PO (08:37)
--- NOTE | 2024-04-29 09:22 | CASEMGMT ---
Addendum entered by An Eli 04/29/24 09:54: LESLIE MCCARTHY spoke w/pt's son, Luis, who states is on his way in w/his dad to take pt home. Luis made aware [facility] able to accept pt w/SOC slated for Thursday. He states his dad will mainly be the one to do pt's dressing changes to legs. RN aware and to do teaching w/pt's and Luis both re: dressing changes/wound care. Original Note: LESLIE MCCARTHY NOTE: Per Bee @ [facility], they are able to accept pt. SOC slated for Thursday. Will notify pt's son, Luis. Home O2 ambulatory testing to be completed prior to discharge. RN aware. Henrry PARIKHN LESLIE MCCARTHY
[2024-04-29 11:54] LABS: Bedside Glucose 206 mg/dL (74-106)
[2024-04-30 00:27] LABS: Bedside Glucose 128 mg/dL (74-106)
[2024-04-30 10:42] LABS: pH, Body Fluid 11254 7.4 (Not Estab.)
== END 2024-04-29 12:00 | disposition home health service (06) | DRG 720 ==
LOC: ED 03:59 → ICU 04:42
PROVIDERS: Internal Medicine; Internal Medicine Critical Care Medicine; Student in an Organized Health Care Education/Training Program; Emergency Provider Emergency Medicine; PCP Student in an Organized Health Care Education/Training Program; Visit Provider Internal Medicine
DX: A41.9 Sepsis, unspecified organism (principal); J96.01 Acute respiratory failure with hypoxia; J69.0 Pneumonitis due to inhalation of food and vomit; E87.29 Other acidosis; I24.89 Other forms of acute ischemic heart disease; E11.65 Type 2 diabetes mellitus with hyperglycemia; D50.9 Iron deficiency anemia, unspecified; I10 Essential (primary) hypertension; L97.519 Non-pressure chronic ulcer of other part of right foot with unspecified severity; Z79.4 Long term (current) use of insulin; I25.10 Atherosclerotic heart disease of native coronary artery without angina pectoris; I45.10 Unspecified right bundle-branch block; J90 Pleural effusion, not elsewhere classified; E87.6 Hypokalemia; J98.11 Atelectasis; L97.529 Non-pressure chronic ulcer of other part of left foot with unspecified severity; Z79.811 Long term (current) use of aromatase inhibitors; Z80.1 Family history of malignant neoplasm of trachea, bronchus and lung; Z79.1 Long term (current) use of non-steroidal anti-inflammatories (NSAID); Z79.02 Long term (current) use of antithrombotics/antiplatelets; Z80.8 Family history of malignant neoplasm of other organs or systems; Z79.84 Long term (current) use of oral hypoglycemic drugs; Z79.82 Long term (current) use of aspirin; R91.8 Other nonspecific abnormal finding of lung field; R10.13 Epigastric pain; Z85.3 Personal history of malignant neoplasm of breast
CPT/HCPCS: 32555; 36600; 71045; 71046; 71260; 74018; 80048; 80053; 82009; 82803; 82945; 82962; 83036; 83605; 83615; 83690; 83735; 83880; 83986; 84100; 84156; 84157; 84484; 85025; 85610; 85730; 87040; 87070; 87075; 87205; 87449; 87641; 88108; 88305; 88313; 89050; 92526; 92610; 93005; 93306; 94002; 94003; 94640; 94660; 94762; 97116; 97162; 97166; 97530; 97535; 97802; 97803; 99252; 99285; J7030; J7050; Q9967; A4216; G0463; J0295; J1940; J2405; J2916

== ENCOUNTER 2024-06-08 04:16 | Inpatient (IN) | payer MEDICAID, SELFPAY ==
[2024-06-08] VITALS (24 sets, daily range): BP systolic 90–161; BP diastolic 45–84; PULSE 72–120; RESP 12–92; TEMP 35.7–36.5; O2SAT 37–100; BMI 25.6; BMI 25.1
--- NOTE | 2024-06-08 04:28 | EKG12_ITS ---
Test Reason : SOB Blood Pressure : / mmHG Vent. Rate : 089 BPM Atrial Rate : 089 BPM P-R Int : 164 ms QRS Dur : 108 ms QT Int : 416 ms P-R-T Axes : 023 070 004 degrees QTc Int : 506 ms Normal sinus rhythm Nonspecific ST abnormality Prolonged QT Abnormal ECG Confirmed by Enriqeu Hassan ([id number]), commercial production editor LINDSAY CAO ([id number]) on 06/13/2024 10:19:10 AM Referred By: EVETTE Confirmed By:Enrique Hassan
--- NOTE | 2024-06-08 04:28 | RAD_ITS ---
INDICATION: DYSPNEA EXAMINATION/TECHNIQUE: X-RAY - XR Chest 1 View COMPARISON: 04/27/2024 chest radiograph. Findings: Single frontal view of the chest. Patient is rotated. LUNG PARENCHYMA: Diffuse bilateral groundglass patchy airspace disease. PLEURA: No pleural effusion. No pneumothorax. HEART/GREAT VESSELS: Cardiomediastinal silhouette is partially obscured. Left chest port catheter tip overlies cavoatrial junction. Chest port hub annotated with letters CT. BONES: Osseous structures are unremarkable for age. RAD/Chest 1 View (Portable) IMPRESSION: Diffuse bilateral groundglass patchy airspace disease, to include pneumonia or pulmonary edema. Electronically Signed: Madi Coffey MD at 5:50 EDT ,
--- NOTE | 2024-06-08 04:36 | EX.ED.DYSGE1 ---
HPI History of Present Illness Chief Complaint: Shortness of Breath Informant: patient, family and EMS Narrative Narrative: Patient is a 78-year-old female with past medical history of insulin-dependent diabetes hypertension and CAD. She was admitted approximately 1 month ago to the hospital secondary to aspiration pneumonia leading to sepsis and respiratory failure. According to family patient was discharged after stay in the hospital and has been home and doing well. She went to bed feeling normal and awoke early this morning with difficulty breathing. Secondary to this EMS was called. EMS reports patient is awake but seems very anxious and is taking small shallow breaths and was hypoxic and therefore placed on nasal cannula oxygen. The patient states that there is no bouts of nausea or vomiting precipitating her shortness of breath this time and she denies any fevers or chills or known sick contacts. However because of her sudden onset shortness of breath with concern for repeat infection she was brought in for evaluation [facility] Medical History HLD (hyperlipidemia) Coronary artery calcification seen on CAT scan Essential hypertension Osteoarthritis of both feet Amblyopia, right eye Diabetes mellitus type II, controlled Malignant neoplasm of upper-outer quadrant of right female breast Home Medications ?Medication ?Instructions ?Recorded ?Last Taken ?Type anastrozole 1 mg tablet 1 mg PO DAILY Check with primary 09/08/17 Unknown History doctor aspirin 81 mg tablet,delayed 81 mg PO DAILY@0800 heart 09/08/17 Unknown History release calcium carbonate 500 mg-vitamin 1 ea PO DAILY 09/08/17 Unknown History D3 15 mcg (600 unit) tablet losartan 100 mg tablet 100 mg PO DAILY Check with primary 09/08/17 Unknown History doctor atenolol 100 mg tablet 150 mg PO DAILY beta emiliana 09/19/19 Unknown History loperamide 2 mg capsule 2 mg PO Q1-4H PRN loose stool 09/19/19 Unknown History magnesium oxide 400 mg PO BID 09/19/19 Unknown History mecobalamin (vitamin B12) 1,000 1,000 mcg sublingual DAILY 09/19/19 Unknown History mcg disintegrating tablet,sublingual polysaccharide iron complex 150 mg 150 mg PO BID 09/19/19 Unknown History iron capsule (Ferrex) ondansetron 4 mg disintegrating 4 mg PO TID PRN nausea and 10/05/22 Unknown Rx tablet vomiting #21 tabs amlodipine 10 mg tablet 10 mg PO DAILY 04/22/24 Unknown History calcium carbonate 500 mg-vitamin 1 tab PO DAILY 04/22/24 Unknown History D3 5 mcg (200 unit) tablet (Oyster Shell Calcium-Vitamin D3) cholecalciferol (vitamin D3) 50 50 mcg PO DAILY 04/22/24 Unknown History mcg (2,000 unit) capsule clopidogrel 75 mg tablet 75 mg PO DAILY 04/22/24 Unknown History collagenase clostridium histo. 250 1 applic topical DAILY 04/22/24 Unknown History unit/gram topical ointment (Santyl) cyanocobalamin (vitamin B-12) 1,000 mcg PO DAILY 04/22/24 Unknown History 1,000 mcg tablet gabapentin 100 mg capsule 200 mg PO Q12.TCU 04/22/24 Unknown History glipizide 5 mg tablet, extended 5 mg PO BID 04/22/24 Unknown History release 24 hr insulin lispro 100 unit/mL 1 sliding scale dose subcut TID 04/22/24 Unknown History subcutaneous pen metformin 500 mg tablet,extended 1,000 mg PO BID 04/22/24 Unknown History release 24 hr mupirocin 2 % topical ointment 1 applic topical DAILY 04/22/24 Unknown History rosuvastatin 10 mg tablet 10 mg PO QHS 04/22/24 Unknown History sodium chloride 5 % eye ointment 1 applic ophthalmic (eye) QHS 04/22/24 Unknown History (Baltazar 128) furosemide 20 mg tablet 20 mg PO DAILY 7 days #7 tabs 04/29/24 Unknown Rx guaifenesin 1,200 mg tablet, 1,200 mg PO BID 7 days #14 tabs 04/29/24 Unknown Rx extended release 12 hr (Mucus Relief ER) insulin glargine 100 unit/mL (3 20 unit (0.2 mL) subcut QHS #15 mL 04/29/24 Unknown Rx mL) subcutaneous pen (Lantus Solostar U-100 Insulin) insulin lispro 100 unit/mL 8 unit (0.08 mL) subcut TIDAC #0 mL 04/29/24 Unknown Rx subcutaneous pen (Humalog KwikPen (U-100) Insulin) insulin lispro 100 unit/mL See Protocol subcut TIDAC #0 mL 04/29/24 Unknown Rx subcutaneous pen (Humalog KwikPen (U-100) Insulin) meloxicam 15 mg tablet 15 mg PO DAILY PRN pain 3 days #0 04/29/24 Unknown Rx tabs Allergy/AdvReac Type Severity Reaction Status Date / Time No Known Allergies Allergy Verified 06/08/24 04:19 Family History Father Diabetes Lung cancer Throat cancer Brother Diabetes Hypertension CAD (coronary artery disease) Mother No problems noted. Surgical History Status post cataract extraction of both eyes with insertion of intraocular lens History of hysterectomy History of colonoscopy History of Social History household members: spouse and family Smoking Status: Never smoker alcohol intake: never substance use type: does not use ROS ROS ED Constitutional Constitutional ED: Denies chills or fever(s) Eyes Eyes: Denies blurry vision or change in vision ENT ENT ED: Denies rhinorrhea or sore throat Cardiovascular Cardiovascular: Reports racing heartbeat; Denies chest pain or palpitations Respiratory/Chest Respiratory/Chest: Reports dyspnea; Denies cough Gastrointestinal Gastrointestinal: Denies abdominal pain, diarrhea, nausea or vomiting Genitourinary Genitourinary ED: Denies dysuria Musculoskeletal Musculoskeletal: Denies myalgias Integumentary Reports other Details: Positive chronic wound left foot ; Denies rash Neurologic Neurologic: Denies headache(s) Hematologic/Lymphatic Hematologic/Lymphatic: Denies easy bleeding or easy bruising Allergic/Immunologic Allergic/Immunologic ED: Denies mouth swelling or tongue swelling EXAM Physical Exam Const Vital Signs: 06/08/24 04:19 06/08/24 04:19 06/08/24 04:23 Temperature 97.7 F L 97.7 F L Temperature Source Temporal Temporal Pulse Rate 120 H 120 H Respiratory Rate 92 H 34 H Respiratory Pattern Blood Pressure 161/84 H 161/84 H Blood Pressure Mean 109 109 Pulse Ox 37 66 93 Oxygen Delivery Method Non-Rebreather Room Air Non-Rebreather Oxygen Flow Rate (L/min) 15 Fraction of Inspired Oxygen (FIO2) 06/08/24 04:30 06/08/24 04:49 06/08/24 05:52 Temperature 97.7 F L Temperature Source Pulse Rate 116 H 92 83 Respiratory Rate 44 H 25 H Respiratory Pattern Tachypnea Blood Pressure 118/62 90/54 L Blood Pressure Mean 66 Pulse Ox 90 98 Oxygen Delivery Method Oxygen Flow Rate (L/min) Fraction of Inspired Oxygen (FIO2) 60 Positive well nourished and well developed Constitutional Narrative: Patient is in respiratory distress with tachypnea accessory muscle use and mild retractions General Appearance ED: well developed; Negative for pallor HEENT HEENT Narrative: No tongue or lip swelling no oral lesions no airway edema or compromise No secondary findings of infection in the posterior pharynx Eyes PERRL and EOMs intact bilaterally Eyes Narrative: Positive subconjunctival pallor noted General Eye ED: Yes pale conjunctiva; Negative for scleral icterus Neck supple Neck Narrative: There is mild JVD noted bilaterally Chest Wall Chest Narrative: No bony deformity or crepitance of the chest wall Resp Resp Narrative: Patient is in acute respiratory distress with tachypnea accessory muscle use and retractions Breath sounds are diminished throughout with diffuse rhonchi and crackles noted in the bilateral bases Effort and Inspection: retractions Auscultation: rhonchi and diminished lung sounds Cardio regular rhythm Rate: tachycardic and other Other Details: Tachycardic rate with regular rhythm Radial and carotid pulses are equal and symmetric GI non-tender, non-distended and no masses GI Narrative: Abdomen is soft nontender nondistended with hypoactive bowel sounds. No voluntary guarding or rigidity or pulsatile mass. 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 There is a wound to the dorsal aspect of the left foot and left great toe which are chronic in nature and do not show secondary changes to suggest infection Patient has +1 pitting edema to the bilateral lower extremities that extends to the proximal third of bilateral tibias Neuro oriented x3, CN's II-XII intact bilaterally and no sensory deficits noted Sensorium / Orientation: alert Motor Exam: strength 5/5 throughout Psych Psych Narrative: Patient has a nervous/anxious affect Skin Skin Narrative: Chronic wounds to the left foot as documented above General Skin Exam: Negative for jaundice or pallor MDM MDM MDM Narrative Medical decision making narrative: Patient arrived to the ER awake and alert but she was tachycardic hypertensive and tachypneic and her pulse ox on room air dropped down to approximately 60%. Patient states she does not typically require supplemental oxygen. Chart review reveals she was admitted roughly 1 month ago secondary to aspiration pneumonia which led to sepsis and respiratory failure also requiring admission with BiPAP. The patient reportedly was feeling normal until she awoke this evening/morning with dyspnea. She reports there is been no fevers or chills or vomiting. Therefore my concern for an infectious process or aspiration is low. The fact that she has diffuse crackles and symptoms occurred while sleeping and are worse with lying flat indicate this is most likely a congestive heart failure exacerbation. Therefore she was placed back on BiPAP to help with her hypoxia and work of breathing. She was given 1 sublingual nitro to reduce preload Ativan to help with smooth muscle relaxation and Lasix for diuresis. In conjunction with the medication and BiPAP the patient's heart rate went from tachycardia to a normal value. Her respiratory rate went from 40-50 down to approximately 15 to 20 breaths/min. Her pulse ox also improved to 98 to 100% up from approximately 60%. The patient's blood gas acidosis with pH of approximately 7.1 but due to the patient's tachypnea and work of breathing I felt that the acidosis was respiratory in nature and that this would improve with the reduction in her work of breathing. The patient's white count was elevated but this is most likely stress response as her procalcitonin is normal and the fact that this came on spontaneously while at sleep indicates this is most likely cardiovascular and not infection and therefore I do not feel the need to start antibiotics. The patient is much improved from initial presentation but with the fact that she is currently on BiPAP and does not normally wear this and the fact her symptoms came on suddenly I would feel much more comfortable with her in the ICU where she can be watched for a day under close observation to ensure there is no return to respiratory distress. Secondary to this a case was discussed with the hospitalist who agrees with the plan of care and admission. As the history and exam indicate this is most likely fluid overload and not infectious in nature I will hold off on antibiotic therapy at this time History & Record Review Discussion w/independent historian: Patient and Family Lab Data Attestation: I reviewed the patient's lab results. Labs: Laboratory Results - last 24 hr 06/08/24 06/08/24 04:35 04:42 WBC 14.6 H RBC 4.60 Hgb 12.5 Hct 41.3 MCV 89.8 MCH 27.2 MCHC 30.3 L RDW Std Deviation 42.2 RDW Coeff of Hermilo 12.8 Plt Count 262 MPV 11.9 Immature Gran % (Auto) 0.400 Neut % (Auto) 40.7 L Lymph % (Auto) 46.4 H [place] % (Auto) 9.4 Eos % (Auto) 2.1 Baso % (Auto) 1.0 Absolute Neuts (auto) 5.9 Absolute Lymphs (auto) 6.75 H Nucleated RBC % 0 Differential Comment SCANNED Sodium 136 Potassium 4.1 Chloride 103 Carbon Dioxide 20.0 L Anion Gap 13 BUN 27 H Creatinine 1.05 H Estim Creat Clear Calc 40.86 Est GFR (MDRD) Af Amer 65 Est GFR (MDRD) Non-Af 54 L BUN/Creatinine Ratio 25.7 H Glucose 282 H Lactic Acid 7.8 H* Calcium 9.6 Magnesium 1.8 B-Natriuretic Peptide 371.0 H Procalcitonin 0.05 ABG Data ABG results: ABG 06/08/24 04:37 Specimen Type ART Sample Site R Radial pH 7.09 L* Bicarbonate Actual 15.7 L Total CO2 17 Base Excess -14 L O2 Saturation 89 L ABG pCO2 51.9 H ABG pO2 77 Yordy Test N/A O2 Delivery Device NRB Vent Mode Not entered Crit Call To/Read Back Yes Blood Gas Notified Whom Dr. Waldron Blood Gas Notified Time 04:39:06 Radiography Diagnostic Testing: Clinical Impression(s) from Imaging Studies Chest X-Ray 06/08/24 04:28 IMPRESSION: Diffuse bilateral groundglass patchy airspace disease, to include pneumonia or pulmonary edema. Electronically Signed: Madi Coffey MD at 5:50 EDT , 1 view chest x-ray as interpreted by the emergency medicine physician reveals bilateral hazy opacities with cephalization most consistent with pulmonary edema Management Discussion w/another healthcare provider: Hospitalist Critical Care Time Critical Care Time: Yes Critical care time (excluding procedures): Discussing w/Patient &/or Family/Insurance Underwriting Assistant, Performing Direct Patient Care at Bedside and - (Critical care time of 33 minutes) Discharge Plan Triage Chief Complaint: Shortness of Breath ED Provider: Rayo Waldron Dx/Rx/DC Orders Clinical Impression: Acute exacerbation of chronic heart failure, Respiratory acidosis, Essential hypertension, Acute respiratory failure with hypoxia, Insulin dependent diabetes mellitus Prescriptions: No Action atenolol 100 mg tablet 150 mg PO DAILY mecobalamin (vitamin B12) 1,000 mcg tablet,disintegrating 1,000 mcg SUBLINGUAL DAILY Rx Instructions: place tablet under tongue and allow to dissolve for at least30 secs before swallowing polysaccharide iron complex [Ferrex 150] 150 mg iron capsule 150 mg PO BID Rx Instructions: avoid dairy/calcium-containing products and/or antacids for at least 2 hrs before and after dose loperamide 2 mg capsule 2 mg PO Q1-4H PRN (Reason: loose stool) Rx Instructions: after each loose stool until symptoms controlled;do not exceed 16 mg total dose in 24 hrs magnesium oxide 400 mg magnesium tablet 400 mg PO BID anastrozole 1 MG tablet 1 mg PO DAILY aspirin 81 MG tablet 81 mg PO DAILY@0800 losartan 100 MG tablet 100 mg PO DAILY calcium carbonate-vitamin D3 1 EACH tablet 1 ea PO DAILY ondansetron 4 mg tablet,disintegrating 4 mg PO TID PRN (Reason: nausea and vomiting) Qty: 21 0RF clopidogrel 75 mg tablet 75 mg PO DAILY amlodipine 10 mg tablet 10 mg PO DAILY calcium carbonate-vitamin D3 [Oyster Shell Calcium-Vit D3] 500 mg-5 mcg (200 unit) tablet 1 tab PO DAILY cholecalciferol (vitamin D3) 50 mcg (2,000 unit) capsule 50 mcg PO DAILY Santyl 250 unit/gram ointment 1 applic topical DAILY glipizide 5 mg tablet extended release 24hr 5 mg PO BID cyanocobalamin (vitamin B-12) 1,000 mcg tablet 1,000 mcg PO DAILY mupirocin 2 % ointment 1 applic topical DAILY gabapentin 100 mg capsule 200 mg PO Q12.TCU metformin 500 mg tablet extended release 24 hr 1,000 mg PO BID insulin lispro 100 unit/mL insulin pen 1 sliding scale dose subcut TID sodium chloride [Baltazar 128] 5 % ointment 1 applic ophthalmic (eye) QHS rosuvastatin 10 mg tablet 10 mg PO QHS furosemide 20 mg Tablet 20 mg PO DAILY 7 Days Qty: 7 0RF guaifenesin [Mucus Relief ER] 1,200 mg Tablet Extended Release 12hr 1,200 mg PO BID 7 Days Qty: 14 0RF insulin lispro [Humalog KwikPen Insulin] 100 unit/mL Insulin Pen See Protocol subcut TIDAC Qty: 0 0RF Protocol: 3. Sliding Scale Insulin Med Dosing Condition: 150-189 mg/dl = 1 unit Condition: 190-229 mg/dl = 2 units Condition: 230-269 mg/dl = 3 units Condition: 270-309 mg/dl = 4 units Condition: 310-349 mg/dl = 5 units Condition: 350-399 mg/dl = 6 units Condition: 400-449 mg/dl = 7 units Condition: Greater than 449 call physician Protocol Text: Suggested for: - Patients on Total Daily Insulin Dose of 37-55 units - Obese, infected, or steroid patients MEDIUM DOSING ALGORITHIM insulin lispro [Humalog KwikPen Insulin] 100 unit/mL Insulin Pen 8 unit subcut TIDAC Qty: 0 0RF meloxicam 15 mg tablet 15 mg PO DAILY PRN (Reason: pain) 3 Days Qty: 0 0RF insulin glargine [Lantus Solostar U-100 Insulin] 100 unit/mL (3 mL) insulin pen 20 unit subcut QHS Qty: 15 2RF Rx Instructions: Hold if glucose less than 130 mg/dl Primary Care Provider: Noble Lemus Referrals: Noble Lemus DO [Primary Care Provider] - Print Language: Kiswahili Disposition Disposition: Acute Care [facility]
[2024-06-08 04:44] LABS: Base Excess -14 mmol/L (-2 to +2); Bicarbonate 15.7 mmol/L (22-26); Blood Gas Specimen Type ART; Mode Not entered; O2 Delivery Device NRB; PO2 77 mmHG (75-100); SITE R Radial; SO2 89 % (95-99); Total Carbon Dioxide 17 mmol/L; pCO2 51.9 mmHg (35-45); pH 7.09 (7.35-7.45)
[2024-06-08 04:46] LABS: Absolute Lymphocyte Count 6.75 X10^3/uL (0.83-4.51); Absolute Neutrophil Count 5.9 X10^3/uL (2.0-7.7); Basophil# 0.14 X10^3/uL; Eosinophils% 2.1 % (0-5); Hematocrit 41.3 % (37-47); Hemoglobin 12.5 g/dL (12.0-15.0); Lymphocyte # 6.75 X10^3/ul (0.83-4.51); Lymphocyte % 46.4 % (19-41); Mean Corp Hgb Conc 30.3 g/dL (32-36); Mean Corpuscular Hgb 27.2 pg (27.0-32.0); Mean Corpuscular Volume 89.8 fL (81-99); Mean Platelet Vol. 11.9 fl (6.2-12.0); Monocyte# 1.37 X10^3/uL; Monocyte% 9.4 % (0-10); NRBC Flagged by Analyzer 0 % (0-5); Neutrophil # 5.93 X10^3/uL (2.7-7.7); Neutrophil % 40.7 % (47-70); POSITIVE DIFFERENTIAL YES; POSITIVE MORPHOLOGY YES; Platelet Count 262 K/mm3 (150-450); RBC Distribution Width CV 12.8 % (11.6-14.6); RBC Distribution Width SD 42.2 fl (35.1-43.9); White Blood Count 14.6 K/mm3 (4.4-11.0)
[2024-06-08] MEDS: Nitroglycerin SL (ED/IMG/CATH) 0.4 MG TABLET SL (04:49)
[2024-06-08] MEDS: LORazepam 2 MG/ML Syringe 0.5 MG IV (04:50)
[2024-06-08 05:00] LABS: Differential Indicated SCAN CRITERIA MET
[2024-06-08 05:03] LABS: Anion Gap 13 (5-15); BUN 27 mg/dL (7-18); BUN/Creat Ratio 25.7 RATIO (10-20); Calcium,Total 9.6 mg/dL (8.5-10.1); Chloride 103 mmol/L (98-107); Creatinine, Serum 1.05 mg/dL (0.55-1.02); EST Glomerular Filtration Rate 54 mL/min (>60); Est Glom Filt Rate - Afr Amer 65 mL/min (>60); Estimated Creatinine Clearance 40.86 ml/min; Glucose 282 mg/dL (74-106); Magnesium 1.8 mg/dL (1.6-2.6); Potassium 4.1 mmol/L (3.5-5.1); Sodium Level 136 mmol/L (136-145)
[2024-06-08] MEDS: Furosemide 40 MG/4 ML Vial IV ×2 (05:12→18:23)
[2024-06-08 05:13] LABS: Procalcitonin 0.05 ng/mL (0.00-0.09)
--- NOTE | 2024-06-08 05:18 | ED.RN ---
This RN asked the patient's spouse and two other family members for information regarding her home medications. All three of the patient's relatives were not able to provide accurate information. notified.
[2024-06-08 05:23] LABS: Lactic Acid 7.8 mmol/L (0.4-1.9)
--- NOTE | 2024-06-08 05:27 | ED.RN ---
Patient is in fluid overload and is being treated accordingly. MD notified of the sepsis criteria being triggered but fluid resuscitation will not be initiated at this time. This RN will continue to follow orders accordingly.
[2024-06-08 05:49] LABS: Differential Comment SCANNED
--- NOTE | 2024-06-08 05:55 | PCM.HP.STD ---
HPI - General General Date of Admission: 06/08/24 Date of Service: 06/08/24 Chief Complaint: Dyspnea, respiratory distress acutely. HPI Narrative The patient is a 78 y/o M w/ PMHx: CKD stage II per GFR trending, Hx R sided breast CA unclear type, Chronic anemia/Fe deficiency anemia, HTN, HLD, CAD, Diabetes mellitus type II, most recent discharge 04/29/2024 with admission secondary to acute hypoxic respiratory failure suspected secondary to aspiration pneumonia with concern for sepsis as well as underlying concern for possible volume overload who now presents to the [facility] ED on 06/08/24 with history of reportedly being normal at her baseline improved since recent admission however awakening suddenly on a.m. early on day of presentation with severe respiratory distress prompting EMS call noting that she was very anxious and taking very shallow breaths with hypoxia evident placed on nasal cannula with no recent coughing or difficulty with meals nor any recent nausea or emesis nor any recent fever or chills and given respiratory distress prompted EMS to transition to the ED to for evaluation. She does report feeling improved since the ED initiation of BiPAP. She denies any associated chest pain. Workup in the ED included T97.7, heart rate 120, BP 161/84, respiratory rate 92, initially 37% on a nonrebreather with most recent repeat vital signs heart rate 92, BP 118/62, respiratory rate 44, 90% on 60% FiO2 on BiPAP, CBC with WC 14.6, bun 12.5, platelets 262 with lymphocytosis, ABG with pH 7.09, bicarb 15.7, pCO2 51.9, pO2 77 performed on a nonrebreather, BMP with carbon oxide 20, BUN/creatinine 27/1.05, GFR 54, glucose 282, lactic acid 7.8, magnesium 1.8, BNP 371, procalcitonin 0.05, blood culture x 2 pending per ED, rapid SARS COVID/influenza/RSV PCR pending upon evaluation, chest x-ray with diffuse bilateral ground-glass patchy airspace disease concerning for pulmonary overload, EKG with ST with mild ST depressions throughout with mild QT elevation. In the ED patient ministered sublingual nitroglycerin, Ativan 0.5 mg IV x 1 and Lasix 40 mg IV x 1. [facility] Medical History HLD (hyperlipidemia) Coronary artery calcification seen on CAT scan Essential hypertension Osteoarthritis of both feet Amblyopia, right eye Diabetes mellitus type II, controlled Malignant neoplasm of upper-outer quadrant of right female breast Home Medications ?Medication ?Instructions ?Recorded ?Last Taken ?Type anastrozole 1 mg tablet 1 mg PO DAILY Check with primary 09/08/17 Unknown History doctor aspirin 81 mg tablet,delayed 81 mg PO DAILY@0800 heart 09/08/17 Unknown History release calcium carbonate 500 mg-vitamin 1 ea PO DAILY 09/08/17 Unknown History D3 15 mcg (600 unit) tablet losartan 100 mg tablet 100 mg PO DAILY Check with primary 09/08/17 Unknown History doctor atenolol 100 mg tablet 150 mg PO DAILY beta emiliana 09/19/19 Unknown History loperamide 2 mg capsule 2 mg PO Q1-4H PRN loose stool 09/19/19 Unknown History magnesium oxide 400 mg PO BID 09/19/19 Unknown History mecobalamin (vitamin B12) 1,000 1,000 mcg sublingual DAILY 09/19/19 Unknown History mcg disintegrating tablet,sublingual polysaccharide iron complex 150 mg 150 mg PO BID 09/19/19 Unknown History iron capsule (Ferrex) ondansetron 4 mg disintegrating 4 mg PO TID PRN nausea and 10/05/22 Unknown Rx tablet vomiting #21 tabs amlodipine 10 mg tablet 10 mg PO DAILY 04/22/24 Unknown History calcium carbonate 500 mg-vitamin 1 tab PO DAILY 04/22/24 Unknown History D3 5 mcg (200 unit) tablet (Oyster Shell Calcium-Vitamin D3) cholecalciferol (vitamin D3) 50 50 mcg PO DAILY 04/22/24 Unknown History mcg (2,000 unit) capsule clopidogrel 75 mg tablet 75 mg PO DAILY 04/22/24 Unknown History collagenase clostridium histo. 250 1 applic topical DAILY 04/22/24 Unknown History unit/gram topical ointment (Santyl) cyanocobalamin (vitamin B-12) 1,000 mcg PO DAILY 04/22/24 Unknown History 1,000 mcg tablet gabapentin 100 mg capsule 200 mg PO Q12.TCU 04/22/24 Unknown History glipizide 5 mg tablet, extended 5 mg PO BID 04/22/24 Unknown History release 24 hr insulin lispro 100 unit/mL 1 sliding scale dose subcut TID 04/22/24 Unknown History subcutaneous pen metformin 500 mg tablet,extended 1,000 mg PO BID 04/22/24 Unknown History release 24 hr mupirocin 2 % topical ointment 1 applic topical DAILY 04/22/24 Unknown History rosuvastatin 10 mg tablet 10 mg PO QHS 04/22/24 Unknown History sodium chloride 5 % eye ointment 1 applic ophthalmic (eye) QHS 04/22/24 Unknown History (Baltazar 128) furosemide 20 mg tablet 20 mg PO DAILY 7 days #7 tabs 04/29/24 Unknown Rx guaifenesin 1,200 mg tablet, 1,200 mg PO BID 7 days #14 tabs 04/29/24 Unknown Rx extended release 12 hr (Mucus Relief ER) insulin glargine 100 unit/mL (3 20 unit (0.2 mL) subcut QHS #15 mL 04/29/24 Unknown Rx mL) subcutaneous pen (Lantus Solostar U-100 Insulin) insulin lispro 100 unit/mL 8 unit (0.08 mL) subcut TIDAC #0 mL 04/29/24 Unknown Rx subcutaneous pen (Humalog KwikPen (U-100) Insulin) insulin lispro 100 unit/mL See Protocol subcut TIDAC #0 mL 04/29/24 Unknown Rx subcutaneous pen (Humalog KwikPen (U-100) Insulin) meloxicam 15 mg tablet 15 mg PO DAILY PRN pain 3 days #0 04/29/24 Unknown Rx tabs Allergy/AdvReac Type Severity Reaction Status Date / Time No Known Allergies Allergy Verified 06/08/24 04:19 Family History Father Diabetes Lung cancer Throat cancer Brother Diabetes Hypertension CAD (coronary artery disease) Mother No problems noted. Surgical History Status post cataract extraction of both eyes with insertion of intraocular lens History of hysterectomy History of colonoscopy History of Social History household members: spouse and family Smoking Status: Never smoker alcohol intake: never substance use type: does not use ROS ROS Narrative Admission Review of Systems: CONSTITUTIONAL: No weight loss, fever, chills, + weakness or fatigue. HEENT: + Chronic right eye amblyopia. Eyes: No visual loss, blurred vision, double vision or yellow sclerae. Ears, Nose, Throat: No hearing loss, sneezing, congestion, runny nose or sore throat. SKIN: No rash or itching, lesions except + chronic foot wounds left foot. CARDIOVASCULAR: + Heart racing/palpitations. No chest pain, chest pressure or chest discomfort, edema, orthopnea, syncopal events. RESPIRATORY: + Dyspnea. No recent productive, productive sputum, wheezing, hemoptysis. GASTROINTESTINAL: No anorexia, nausea, vomiting or diarrhea, abdominal pain, melena, BRBPR. GENITOURINARY: No dysuria, frequency, urgency or retention. NEUROLOGICAL: No headache, dizziness, syncope, paralysis, ataxia, numbness or tingling in the extremities, focal weakness, change in bowel or bladder control, seizure. MUSCULOSKELETAL: + muscle, back pain, joint pain or stiffness. HEMATOLOGIC: + Chronic anemia, easy bleeding/bruising. LYMPHATICS: No enlarged nodes. No history of splenectomy. PSYCHIATRIC: No history of depression or anxiety. ENDOCRINOLOGIC: No reports of sweating, cold or heat intolerance. No polyuria or polydipsia. ALLERGIES: No history of asthma, hives, eczema or rhinitis. Vital Signs Vital Signs Vital Signs: 06/08/24 04:19 06/08/24 04:19 06/08/24 04:23 Temperature 97.7 F L 97.7 F L Temperature Source Temporal Temporal Pulse Rate 120 H 120 H Respiratory Rate 92 H 34 H Respiratory Pattern Blood Pressure 161/84 H 161/84 H Blood Pressure Mean 109 109 Pulse Ox 37 66 93 Oxygen Delivery Method Non-Rebreather Room Air Non-Rebreather Oxygen Flow Rate (L/min) 15 Fraction of Inspired Oxygen (FIO2) 06/08/24 04:30 06/08/24 04:49 Temperature Temperature Source Pulse Rate 116 H 92 Respiratory Rate 44 H Respiratory Pattern Tachypnea Blood Pressure 118/62 Blood Pressure Mean Pulse Ox 90 Oxygen Delivery Method Oxygen Flow Rate (L/min) Fraction of Inspired Oxygen (FIO2) 60 Weight Weight: 144 lb 9.972 oz Body Mass Index (BMI) 25.6 Physical Exam Narrative Physical Examination: General: Awake, alert, oriented x 3 and cooperative, seated upright in the ED bed, respiratory distress lessening, notes feeling improved, BiPAP in place. Skin: Normal color, normal turgor, no icterus, no cyanosis except chronic wounds left foot, diabetic stasis ulcers, dressings adhered and dry without odor or drainage. HEENT: AT/NC, EOMI, PERRLA, mildly dry MM, BiPAP in place, difficulty assessing carotid bruits given referred sound, + JVD. Lungs: Diminished, greater bases, mildly increased respiratory rate, still mild accessory muscle usage and retractions noted however lessened since likely ED initial presentation with respiratory distress noted, BiPAP in place, rales bilateral bases, rhonchorous. Heart: Tachycardic with regular rhythm; no gallop, rub audible. Abdomen: Soft, NTTP, ND, distant hypoactive BS, no appreciated HSM. Extremities: No cyanosis, no clubbing, see skin, evidence of previous toe amputations, chronic wounds primarily to the left foot and left great toe, pedal to bilateral lower extremity mid lara 1+ pitting edema. Neurological: Patient awake, alert, oriented x 3, cognitive function intact; pupils equally reactive to light and accommodation, cranial nerves grossly normal, moving all 4 extremities, no focal deficits, strength severely globally decreased secondary to acute presentation. Psychiatric: Affect appears fatigued, respiratory distress improving as noted, no acute evidence of depressive or anxiety feelings. Results Lab / Micro Data 06/08/24 04:35 06/08/24 04:35 Labs: Laboratory Results - last 24 hr 06/08/24 04:35: WBC 14.6 H, RBC 4.60, Hgb 12.5, Hct 41.3, MCV 89.8, MCH 27.2, MCHC 30.3 L, RDW Std Deviation 42.2, RDW Coeff of Hermilo 12.8, Plt Count 262, MPV 11.9, Immature Gran % (Auto) 0.400, Neut % (Auto) 40.7 L, Lymph % (Auto) 46.4 H, [place] % (Auto) 9.4, Eos % (Auto) 2.1, Baso % (Auto) 1.0, Absolute Neuts (auto) 5.9, Absolute Lymphs (auto) 6.75 H, Nucleated RBC % 0, Differential Comment SCANNED, Sodium 136, Potassium 4.1, Chloride 103, Carbon Dioxide 20.0 L, Anion Gap 13, BUN 27 H, Creatinine 1.05 H, Estim Creat Clear Calc 40.86, Est GFR (MDRD) Af Amer 65, Est GFR (MDRD) Non-Af 54 L, BUN/Creatinine Ratio 25.7 H, Glucose 282 H, Calcium 9.6, Magnesium 1.8, B-Natriuretic Peptide 371.0 H, Procalcitonin 0.05 06/08/24 04:42: Lactic Acid 7.8 H* ABG Data ABG results: ABG 06/08/24 04:37 Specimen Type ART Sample Site R Radial pH 7.09 L* Bicarbonate Actual 15.7 L Total CO2 17 Base Excess -14 L O2 Saturation 89 L ABG pCO2 51.9 H ABG pO2 77 Yordy Test N/A O2 Delivery Device NRB Vent Mode Not entered Crit Call To/Read Back Yes Blood Gas Notified Whom Dr. Waldron Blood Gas Notified Time 04:39:06 Imaging Radiology Impression Chest X-Ray 06/08/24 04:28 IMPRESSION: Diffuse bilateral groundglass patchy airspace disease, to include pneumonia or pulmonary edema. Electronically Signed: Madi Coffey MD at 5:50 EDT , Assessment & Plan Assessment/Plan (1) Acute exacerbation of chronic heart failure: PLAN: Plan The patient is a 78 y/o M w/ PMHx: CKD stage II per GFR trending, Hx R sided breast CA unclear type, Chronic anemia/Fe deficiency anemia, HTN, HLD, CAD, Diabetes mellitus type II, most recent discharge 04/29/2024 with admission secondary to acute hypoxic respiratory failure suspected secondary to aspiration pneumonia with concern for sepsis as well as underlying concern for possible volume overload who now presents to the [facility] ED on 06/08/24 with history of reportedly being normal at her baseline improved since recent admission however awakening suddenly on a.m. early on day of presentation with severe respiratory distress prompting EMS call noting that she was very anxious and taking very shallow breaths with hypoxia evident placed on nasal cannula with no recent coughing or difficulty with meals nor any recent nausea or emesis nor any recent fever or chills and given respiratory distress prompted EMS to transition to the ED to for evaluation. #1. Acute Hypoxic and Hypercarbic Respiratory Failure with significant lactic acidosis suspected secondary to hypoxemia, respiratory acidosis secondary to concern for HFpEF exacerbation/Flash Pulmonary Edema: Patient administered IV lasix in the ED, will admit to the ICU to be cautious, will continue BIPAP placement, will request repeat ABG to assure improving however if not may need to consider bicarb amps as well as intubation if necessary, will request jewelry sales representative involvement per protocol, will request Cardiology involvement given severity of presentation and recent admission ~ 1 month prior although also with aspiration PNA at that time but noted concern also of HF exacerbation, will maintain on cardiac telemetry, will obtain cardiac enzyme series, obtain serial EKGs, continue IV lasix diuresis, monitor I/Os, maintain on intake restriction, continue medical therapy, obtain TSH. Magnesium level per ED normal. Most recent ECHO noted 04/24/2024 echocardiogram with normal LV size, LV systolic function normal, LVEF 60%, stage I diastolic dysfunction, global longitudinal strain mildly abnormal. Will continue initiated ED BiPAP. Patient does have recent presentation with aspiration pneumonia suspected thus to be cautious will request ST involvement however procalcitonin in the ED noted to be normal 0.05 and denied nausea/emesis which was the catalyst for previous but low threshold to repeat chest x-ray if necessary. #2. Chronic foot wounds/ulcers, L foot chronic wounds with underlying diabetes: Following with home health, will continue wound RN consultation, continue Santyl and mupirocin as well as dressing changes, offload as able. #3. Diabetes mellitus type I with hyperglycemia with chronic diabetic wounds, left chronic foot wounds: Hold oral home regimen, continue home insulin regimen, hemoglobin A1c requested, ADA diet, accu checks w/ ISS, consult wound RN with dressings/care per their discretion and as noted #2. #4. CAD: We will continue patient aspirin, Plavix, statin therapy, atenolol, losartan with hold parameters given BP decrease after ED NG administration. #5. Chronic Kidney Disease Stage II per GFR trend: Admission BUN/Cr 27/1.05, GFR 54, baseline renal function primarily 0.6-0.9, repeat BMP in AM. #6. History of right sided breast cancer, unclear type: Reported history of breast cancer, unclear specific type, considered in remission, will continue patient home anastrozole home regimen, encourage continued outpatient follow-up as previously arranged. #7. Hypertension: BP in the ED dropped following NG, but prior to this was noted to be appropriate range. Will continue home regimen including losartan, atenolol with hold parameters and prioritize IV Lasix as noted, PRN hydralazine. #8. Hyperlipidemia: We will continue patient on statin therapy. #9. Chronic normocytic anemia/iron deficiency anemia: Admission hemoglobin 12.5, baseline prior primarily 10-11, continue iron supplementation, continue CBC trending. #10. DVT prophylaxis: Lovenox. #11. CODE status: Patient HCPOA and LW not in place but currently difficulty asking given BIPAP usage. She notes her son would be her decision maker if necessary. Discussed CODE status at length including difference between FULL code, DNR-CCA and DNR-CC status. Following discussions about the differences in these status, requested Full Code. Advanced Care Planning Face to Face Time: 16 minutes. Charges/Coding Visit Charges Inpatient E&M: 02541 Init Hosp L3 Procedures Hospitalists Procedures: 56816 Advncd Care Plan 30 Min
--- NOTE | 2024-06-08 06:39 | NURSING ---
ICU WHITE ACUTE RESP WITH HYPOXIA
--- NOTE | 2024-06-08 08:11 | EX.PCM.CONCC ---
Assessment & Plan Assessment/Plan (1) Acute respiratory failure with hypoxia: PLAN: Plan RECOMMENDATIONS: 1. Continue BiPAP support and wean as tolerated. 2. Hold Lasix given borderline hemodynamics. 3. Start empiric antibiotics. 4. Check reflex lactate level. 5. Check respiratory viral panel, UA/culture 6. Obtain follow-up ABG. 7. Obtain follow-up chest imaging in the morning. 8. Consider re-dosing Lasix this afternoon, depending on the patient's clinical course and hemodynamic status. 9. Continue appropriate DVT prophylaxis. IMPRESSIONS: 1. Acute hypoxemic and hypercapnic respiratory failure Although there was initial concern for underlying decompensated heart failure/flash pulmonary edema as precipitating etiology, the patient did present with an elevated white blood cell count, tachycardic and tachypnea along with lactic acidemia and acute respiratory failure requiring BiPAP support. In addition, her chest x-ray demonstrates findings multifocal airspace opacities. Given the limited amount of history that I am able to obtain from the patient and her immediate family, I am going to exercise an abundance of caution and place the patient empirically on antibiotics. Given her tenuous respiratory status and concern for volume overload, will hold off on administering any fluids at this time. Recommend rechecking lactate. The patient's rapid RSV, COVID and influenza were negative. Will obtain full respiratory viral panel and obtain urine analysis with cultures as well. I would also recommend that we obtain a follow-up chest x-ray tomorrow to document improvement in the airspace opacities, which if improved, would certainly suggest underlying pulmonary edema. If cultures remain negative over the next 24 to 48 hours, antibiotics can be discontinued. Speech therapy will reevaluate the patient today, given her history of aspiration. 2. Chronic foot wounds The patient's foot wound does not appear to be acutely infected. Wound care consultation is currently pending. Continue local wound care for now. 3. History of diabetes mellitus/coronary artery disease/chronic kidney disease/history of breast CA/hypertension/hyperlipidemia Complicates care, management, recovery and prognosis. Given the patient's borderline hemodynamic status, will hold the patient's Cozaar and restart when medically appropriate. Continue basal and sliding scale insulin coverage, with tentative plans for dietary advancement once successfully weaned from BiPAP therapy. TIME: 39 minutes of critical care time, independent of procedures, was spent addressing the patient's acute hypoxemic and hypercapnic respiratory failure, review of all data and collaboration with the care team. HPI Consult Data Date of Consult: 06/08/24 HPI Narrative Reason for Consultation: Respiratory failure, CHF exacerbation HPI Narrative: The patient is a 78-year-old female, with a history as outlined below, who presented to the emergency department via EMS on June 08 after awakening with shortness of breath. The patient has a history of breast CA, osteoarthritis, diabetes mellitus, chronic kidney disease and coronary artery disease. The patient was just admitted to the hospital April 22 through with respiratory failure which was felt to be secondary to probable aspiration pneumonia. The patient did confirm that she woke up this morning feeling short of breath. When questioned about her Lasix utilization, she stated that she has not utilizing the aforementioned medication at her baseline. I questioned her daughter and , but they indicated that they were unable to understand my questioning as they do not speak Faroese very well. Surface echocardiogram completed in April 2024 demonstrated normal LV size and function with an ejection fraction of 60% and stage I diastolic dysfunction. On presentation to the emergency department, the patient was documented to be afebrile but was tachycardic and tachypneic. Initial laboratory evaluation revealed a white blood cell count of 15,000. ABG was notable for a pH of 7.1 with a pCO2 of 52 and pO2 of 77. Chemistry profile was notable for a bicarbonate of 20, BUN of 27 and creatinine of 1.05. Lactate was elevated at 7.8. BNP was increased at 371. Procalcitonin was within normal limits. Chest x-ray demonstrated patchy bilateral airspace disease. COVID, influenza and RSV PCR's were negative. The patient was ultimately administered nitro, Lasix and Ativan in the emergency department. Although blood cultures were obtained, the patient was not started on antimicrobials. [facility] Medical History HLD (hyperlipidemia) Coronary artery calcification seen on CAT scan Essential hypertension Osteoarthritis of both feet Amblyopia, right eye Diabetes mellitus type II, controlled Malignant neoplasm of upper-outer quadrant of right female breast Home Medications ?Medication ?Instructions ?Recorded ?Last Taken ?Type anastrozole 1 mg tablet 1 mg PO DAILY Check with primary 09/08/17 Unknown History doctor aspirin 81 mg tablet,delayed 81 mg PO DAILY@0800 heart 09/08/17 Unknown History release calcium carbonate 500 mg-vitamin 1 ea PO DAILY 09/08/17 Unknown History D3 15 mcg (600 unit) tablet losartan 100 mg tablet 100 mg PO DAILY Check with primary 09/08/17 Unknown History doctor atenolol 100 mg tablet 150 mg PO DAILY beta emiliana 09/19/19 Unknown History loperamide 2 mg capsule 2 mg PO Q1-4H PRN loose stool 09/19/19 Unknown History magnesium oxide 400 mg PO BID 09/19/19 Unknown History mecobalamin (vitamin B12) 1,000 1,000 mcg sublingual DAILY 09/19/19 Unknown History mcg disintegrating tablet,sublingual polysaccharide iron complex 150 mg 150 mg PO BID 09/19/19 Unknown History iron capsule (Ferrex) ondansetron 4 mg disintegrating 4 mg PO TID PRN nausea and 10/05/22 Unknown Rx tablet vomiting #21 tabs amlodipine 10 mg tablet 10 mg PO DAILY 04/22/24 Unknown History calcium carbonate 500 mg-vitamin 1 tab PO DAILY 04/22/24 Unknown History D3 5 mcg (200 unit) tablet (Oyster Shell Calcium-Vitamin D3) cholecalciferol (vitamin D3) 50 50 mcg PO DAILY 04/22/24 Unknown History mcg (2,000 unit) capsule clopidogrel 75 mg tablet 75 mg PO DAILY 04/22/24 Unknown History collagenase clostridium histo. 250 1 applic topical DAILY 04/22/24 Unknown History unit/gram topical ointment (Santyl) cyanocobalamin (vitamin B-12) 1,000 mcg PO DAILY 04/22/24 Unknown History 1,000 mcg tablet gabapentin 100 mg capsule 200 mg PO Q12.TCU 04/22/24 Unknown History glipizide 5 mg tablet, extended 5 mg PO BID 04/22/24 Unknown History release 24 hr insulin lispro 100 unit/mL 1 sliding scale dose subcut TID 04/22/24 Unknown History subcutaneous pen metformin 500 mg tablet,extended 1,000 mg PO BID 04/22/24 Unknown History release 24 hr mupirocin 2 % topical ointment 1 applic topical DAILY 04/22/24 Unknown History rosuvastatin 10 mg tablet 10 mg PO QHS 04/22/24 Unknown History sodium chloride 5 % eye ointment 1 applic ophthalmic (eye) QHS 04/22/24 Unknown History (Baltazar 128) furosemide 20 mg tablet 20 mg PO DAILY 7 days #7 tabs 04/29/24 Unknown Rx guaifenesin 1,200 mg tablet, 1,200 mg PO BID 7 days #14 tabs 04/29/24 Unknown Rx extended release 12 hr (Mucus Relief ER) insulin glargine 100 unit/mL (3 20 unit (0.2 mL) subcut QHS #15 mL 04/29/24 Unknown Rx mL) subcutaneous pen (Lantus Solostar U-100 Insulin) insulin lispro 100 unit/mL 8 unit (0.08 mL) subcut TIDAC #0 mL 04/29/24 Unknown Rx subcutaneous pen (Humalog KwikPen (U-100) Insulin) insulin lispro 100 unit/mL See Protocol subcut TIDAC #0 mL 04/29/24 Unknown Rx subcutaneous pen (Humalog KwikPen (U-100) Insulin) meloxicam 15 mg tablet 15 mg PO DAILY PRN pain 3 days #0 04/29/24 Unknown Rx tabs Allergy/AdvReac Type Severity Reaction Status Date / Time No Known Allergies Allergy Verified 06/08/24 04:19 Family History Father Diabetes Lung cancer Throat cancer Brother Diabetes Hypertension CAD (coronary artery disease) Mother No problems noted. Surgical History Status post cataract extraction of both eyes with insertion of intraocular lens History of hysterectomy History of colonoscopy History of Social History household members: spouse and family Smoking Status: Never smoker alcohol intake: never substance use type: does not use ROS ROS Narrative 10 systems were reviewed with pertinent positives as noted in the HPI above. Physical Exam Const alert and no apparent distress Constitutional Narrative: BiPAP mask in place. General Appearance: cooperative HEENT normocephalic and head/scalp atraumatic Eyes PERRL, EOMs intact bilaterally and conjunctivae normal Neck supple General: trachea midline Chest inspection of chest normal Resp Auscultation: rales and diminished lung sounds Cardio regular rate and regular rhythm GI normal to inspection, nondistended, normoactive bowel sounds Extremity General Extremity: edema; Negative for clubbing Skin Skin Narrative: Chronic wound involving left foot Neuro CN's II-XII intact bilaterally, moves all extremities and no focal motor deficits Psych cooperative and affect normal Lab / Micro Data 06/08/24 04:35 06/08/24 04:35 Labs: Laboratory Results - last 24 hr 06/08/24 04:35: WBC 14.6 H, RBC 4.60, Hgb 12.5, Hct 41.3, MCV 89.8, MCH 27.2, MCHC 30.3 L, RDW Std Deviation 42.2, RDW Coeff of Hermilo 12.8, Plt Count 262, MPV 11.9, Immature Gran % (Auto) 0.400, Neut % (Auto) 40.7 L, Lymph % (Auto) 46.4 H, Overton % (Auto) 9.4, Eos % (Auto) 2.1, Baso % (Auto) 1.0, Absolute Neuts (auto) 5.9, Absolute Lymphs (auto) 6.75 H, Nucleated RBC % 0, Differential Comment SCANNED, Sodium 136, Potassium 4.1, Chloride 103, Carbon Dioxide 20.0 L, Anion Gap 13, BUN 27 H, Creatinine 1.05 H, Estim Creat Clear Calc 40.86, Est GFR (MDRD) Af Amer 65, Est GFR (MDRD) Non-Af 54 L, BUN/Creatinine Ratio 25.7 H, Glucose 282 H, Calcium 9.6, Magnesium 1.8, B-Natriuretic Peptide 371.0 H, Procalcitonin 0.05 06/08/24 04:42: Lactic Acid 7.8 H* ABG Data ABG results: ABG 06/08/24 04:37 Specimen Type ART Sample Site R Radial pH 7.09 L* Bicarbonate Actual 15.7 L Total CO2 17 Base Excess -14 L O2 Saturation 89 L ABG pCO2 51.9 H ABG pO2 77 Yordy Test N/A O2 Delivery Device NRB Vent Mode Not entered Crit Call To/Read Back Yes Blood Gas Notified Whom Dr. Waldron Blood Gas Notified Time 04:39:06 Imaging Radiology Impression Chest X-Ray 06/08/24 04:28 IMPRESSION: Diffuse bilateral groundglass patchy airspace disease, to include pneumonia or pulmonary edema. Electronically Signed: Madi Coffey MD at 5:50 EDT , Charges/Coding Procedures Hospitalists Procedures: [id number] Critical Care 1st Hr
[2024-06-08 08:14] LABS: Troponin-I HS 262 pg/mL (3.0-54.0)
[2024-06-08 08:35] LABS: AST(SGOT) 63 U/L (15-37); Alanine Aminotransfer ALT/SGPT 52 U/L (13-56); Albumin, Serum 3.2 g/dL (3.2-5.0); Alkaline Phosphatase 103 U/L (45-117); Bilirubin, Direct 0.08 mg/dL (0.00-0.30); Globulin 4.5 g/dL (2.2-4.2); Protein, Total 7.7 g/dL (6.4-8.2)
[2024-06-08 08:50] LABS: Bedside Glucose 208 mg/dL (74-106)
[2024-06-08 08:53] LABS: Reflex Lactate? Y
[2024-06-08 08:57] LABS: Allen Test Positive; Base Excess 0 mmol/L (-2 to +2); Bicarbonate 25.1 mmol/L (22-26); Blood Gas Specimen Type ART; Mode Not entered; O2 Delivery Device Cannula; PO2 77 mmHG (75-100); SITE R Radial; SO2 95 % (95-99); Total Carbon Dioxide 26 mmol/L; pCO2 44.3 mmHg (35-45); pH 7.36 (7.35-7.45)
--- NOTE | 2024-06-08 09:21 | CASEMGMT ---
Addendum entered by Duc Greco 06/08/24 09:48: Breanne from [facility] confirms that the pt is active with only at this time. Original Note: RN CM Assessment Face to Face with patient for initial transition planning/care coordination assessment. RN CM introduced self and role at [facility], pt voices understanding. Pt is A&Ox4 and is resting comfortably in bed and is calm. Pt states that she prefers not to answer this RN CM questions at this time and to call the pt son (Luis). TC to Luis at this time and the pt son is agreeable to answering this RN CM questions for initial assessment. Care providers, pharmacy, and demographics verified. Admitting dx: MAURI MONTANEZ Strata: 2 PCP: Noble Lemus Specialists: Frank Evans (Ortho) Preferred Pharmacy: [facility] Insurance: [employer] Prescription Benefit: Yes LNOK: Luis Torres (Son) Living Arrangements: Pt lives with her son, SRINI, and GD in a 2 story home with 2 steps to enter ADLs/IADLs: Pt son states that the pt is ind at baseline Transportation: Son, DIL. Denies concerns DME: BGM and supplies. BP monitor. Pt is currently on additional oxygen. During the pt last visit, the pt preferred to go through [facility] if she were to qualify for home oxygen. A verbal list of local in-network DME companies provided to the pt son at this time. Pt son states that he prefers [facility] again. CM to follow. HHC/SNF: Pt is active with [facility]. Pt son denies SNF Hx Plan: TBD. Per the pt son, anticipate return home with the continuation of [facility] HHC. Follow for Oxygen needs. PT/OT and ST are pending. CM and SW to follow pt progression in the hospital as well as therapy to help decipher the safest DC plan moving forward. Angela Greco RN, CM
[2024-06-08] MEDS: Piperacil/Tazobactam 3.375 GM in 0.9% Normal Saline (50mL MB+) 50 ML IV ×2 (09:56→21:35)
[2024-06-08] MEDS: Insulin Lispro 100 UNIT/ML INSULN.PEN 8 UNIT SC ×2 (10:00→11:31)
[2024-06-08] MEDS: Insulin Lispro 100 UNIT/ML INSULN.PEN SC ×3 (10:01→21:40)
[2024-06-08] MEDS: Aspirin E.C. 81 MG Tablet PO (10:03)
[2024-06-08] MEDS: Anastrozole 1 MG TABLET PO (10:04)
[2024-06-08] MEDS: Iron Polysaccharide Complex 150 MG CAPSULE PO ×2 (10:04→21:39)
[2024-06-08] MEDS: Enoxaparin 40 MG/0.4 ML Syringe SC (10:04)
[2024-06-08] MEDS: Clopidogrel Bisulfate 75 MG Tablet PO (10:05)
[2024-06-08] MEDS: Atenolol 50 MG Tablet 150 MG PO (10:05)
[2024-06-08] MEDS: Vancomycin HCl 1,500 MG in 0.9% Normal Saline (500mL Bag) 500 ML 250 MG IV (10:08)
[2024-06-08 10:24] LABS: Troponin-I HS 413 pg/mL (3.0-54.0)
[2024-06-08 10:25] LABS: Lactic Acid 2.9 mmol/L (0.4-1.9)
[2024-06-08 10:37] LABS: D-Dimer Quantitative (DVT/PE) 0.86 FEU/ug/m (0.27-0.49)
--- NOTE | 2024-06-08 10:41 | PCM.RX.CS ---
Consult Antibiotic Management Pharmacy has been consulted to manage selected antibiotic: Vancomycin Type of Intervention Type of Consult: New start Labs Labs: Sodium 136 mmol/L (136-145) 06/08/24 04:35 Potassium 4.1 mmol/L (3.5-5.1) 06/08/24 04:35 Chloride 103 mmol/L (98-107) 06/08/24 04:35 Carbon Dioxide 20.0 mmol/L (21.0-32.0) L 06/08/24 04:35 Anion Gap 13 (5-15) 06/08/24 04:35 BUN 27 mg/dL (7-18) H 06/08/24 04:35 Creatinine 1.05 mg/dL (0.55-1.02) H 06/08/24 04:35 Est GFR (MDRD) Af Amer 65 mL/min (>60) 06/08/24 04:35 Est GFR (MDRD) Non-Af 54 mL/min (>60) L 06/08/24 04:35 BUN/Creatinine Ratio 25.7 RATIO (10-20) H 06/08/24 04:35 Glucose 282 mg/dL (74-106) H 06/08/24 04:35 Microbiology Microbiology: Microbiology 06/08/24 04:36 Mucosa - Nose SARS-CoV-2, Influenza & RSV (PCR) - Final Dosing Weight Weight used for dosin.3 kg Estimated Creatinine Clearance Estimated Creatinine Clearance: 41 ML/MIN Goal Trough Goal Trough: 15-20 mcg/mL Pharmacy Plan for Drug Dosing Pharmacy Plan for Drug Dosing: Give initial loading dose of 1500mg IV x1, then continue with 500mg q12h per [facility] dosing protocol. Will check a trough before the 4th overall dose. Pharmacy Service will continue to monitor and adjust dosing as required. Follow-Up Labs Follow-Up Labs: Trough: Vancomycin Date/Time Labs Ordered Labs to be done on [date and time ordered]: 06/09/24 21:30
[2024-06-08] MEDS: Gabapentin 100 MG Capsule 200 MG PO ×2 (11:10→21:44)
--- NOTE | 2024-06-08 11:29 | CT_ITS ---
STUDY: CTA CHEST REASON FOR EXAM: Female, 78 years old. Rule out PE. Respiratory distress. RADIATION DOSAGE (If Supplied By Facility): CTDIvol = ( 6.84 ) mGy, DLP = ( 225.80 ) mGycm TECHNIQUE: The examination was performed with the intravenous administration of IV 75mL Isovue-370. Post-processing of the angiographic images was performed, with multiplanar reformation and 3D reconstruction. Individualized dose optimization techniques were used for this CT. COMPARISON: Comparison is made with prior chest radiograph done earlier in the day. FINDINGS: Normal enhancement of the main pulmonary artery and right and left pulmonary arteries. Normal enhancement of the bilateral peripheral pulmonary arteries. There is no demonstrated pulmonary embolism. There is atherosclerotic calcification of the aortic arch with tortuosity. There is no demonstrated aortic dissection. There are calcifications of the coronary arteries. Normal mediastinum. Normal hilar regions. Normal visualized trachea and bronchi. The lungs are well expanded. Small bilateral pleural effusions with patchy areas of groundglass appearance in the upper lobes slightly worse in the right upper lobe and bibasilar atelectasis prominence of the interstitial markings. Findings suggestive of CHF. Normal chest wall structures. There are degenerative changes of thoracic spine. 50% loss of height of the lower dorsal vertebrae. Normal visualized upper abdomen. CT/CTA Chest W/WO Contrast IMPRESSION: No evidence of pulmonary embolism. Small bilateral pleural effusions with atelectasis at the lung bases with superimposed areas of groundglass appearance suggestive of CHF. Electronically Signed: Manny Fowler MD at 12:21 EDT ,
--- NOTE | 2024-06-08 11:31 | ECHOD_ITS ---
Reason For Study: CONGESTIVE HEART FAILURE Procedure This was a 2D Doppler, Color Flow transthoracic echocardiogram. Myocardial strain analysis was performed in this exam to aid in the assessment of cardiac function. Exam performed portable in ICU/CCU. Left Ventricle Normal LV size. Mild concentric left ventricular hypertrophy. Posterior hypokinesis. Estimated LVEF 45%. Increased left atrial filling pressures. Right Ventricle Normal right ventricle. Atria The left atrium is mildly enlarged. Normal right atrium. Mitral Valve Moderate (2+) mitral valve insufficiency. Tricuspid Valve Trivial tricuspid valve insufficiency. Right ventricular systolic pressure estimated to be 42 mmHg. Aortic Valve Focal calcification of the left aortic valve cusp. Aortic valve sclerosis without stenosis. Pulmonic Valve The pulmonic valve is not well visualized. Great Vessels Normal sized aortic root. Pericardium/Pleural No pericardial effusion. MMode/2D Measurements & Calculations LVIDd: 4.0 cm IVSd: 1.2 cm LVOT diam: 1.9 cm LVIDs: 2.9 cm LVPWd: 1.1 cm LVOT area: 2.7 cm2 RVDd: 3.4 cm FS: 28.9 % asc Aorta Diam: 3.2 cm LAV(MOD-bp): 35.4 ml LVAd ap4: 21.2 cm2 LAV(MOD-bp) Indexed: 21.4 ml/m2 LVLd ap4: 7.2 cm LAV(MOD-sp2): 33.6 ml EDV(MOD-sp4): 51.1 ml LAV(MOD-sp4): 35.4 ml EDV(sp4-el): 53.1 ml LVAs ap4: 14.7 cm2 LVLs ap4: 6.5 cm ESV(MOD-sp4): 27.7 ml ESV(sp4-el): 28.4 ml EF(MOD-sp4): 45.8 % EF(sp4-el): 46.5 % LVAd ap2: 22.5 cm2 SV(MOD-sp4): 23.4 ml SV(MOD-sp2): 25.6 ml LVLd ap2: 7.4 cm EDV(MOD-sp2): 56.1 ml EDV(sp2-el): 58.3 ml LVAs ap2: 15.2 cm2 LVLs ap2: 6.4 cm ESV(MOD-sp2): 30.5 ml ESV(sp2-el): 30.4 ml EF(MOD-sp2): 45.7 % SV(sp4-el): 24.7 ml Ao sinus diam: 2.[address] Junction: 2.3 cm LA dimension(2D): 3.7 cm LA A4 area: 14.6 cm2 RA A4 area: 7.5 cm2 TAPSE: 1.4 cm Time Measurements MV dec time: 0.13 sec Doppler Measurements & Calculations MV E max lefty: 97.1 cm/sec Lat Peak E' Lefty: 5.8 cm/sec Med Peak E' Lefty: 3.8 cm/sec MV A max lefty: 106.1 cm/sec E/E' lat: 16.8 E/E' med: 25.7 MV E/A: 0.92 MV dec slope: 723.0 cm/sec2 Ao V2 max: 126.0 cm/sec LV V1 max: 94.8 cm/sec Ao max P.4 mmHg LV V1 max P.6 mmHg Ao V2 mean: 97.2 cm/sec LV V1 mean P.2 mmHg Ao mean P.0 mmHg LV V1 mean: 71.9 cm/sec Ao V2 VTI: 25.8 cm LV V1 VTI: 20.1 cm AV (velocity ratio): 0.78 MALCOLM(I,D): 2.1 cm2 MALCOLM(V,D): 2.0 cm2 SV(LVOT): 54.4 ml PA V2 max: 78.5 cm/sec TR max lefty: 260.4 cm/sec PA max PG (full): 0.45 mmHg TR max P.1 mmHg ECHO/Echo Complete Interpretation Summary Mild concentric left ventricular hypertrophy. Posterior hypokinesis. Estimated LVEF 45%. Increased left atrial filling pressu res. The left atrium is mildly enlarged. Moderate (2+) mitral valve insufficiency. Right ventricular systolic pressure estimated to be 42 mmHg. Focal calcification of the left aortic valve cusp. Aortic valve sclerosis witho ut stenosis. Ordering Physician: Marisela Dobbins Performed By: Nieves Erazo RDCS
--- NOTE | 2024-06-08 11:40 | CON.PCM.CA_ITS ---
Assessment & Plan Assessment/Plan (1) Acute respiratory failure with hypoxia: PLAN: Acute pulmonary edema versus bilateral pneumonia. Building Carpenter Helper input appreciated. They are leaning more towards pneumonia as a cause of her respiratory failure. Started on antibiotics. D-dimer is mildly elevated. Check CT of the chest rule out PE. (2) Acute on chronic diastolic (congestive) heart failure: PLAN: See #1 above. (3) Sepsis: PLAN: Lactic acid elevated on admission. Improved now. 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 (4) Lactic acidosis: PLAN: See #3 above. (5) Coronary artery disease: PLAN: Coronary calcifications noted as incidental finding on CT scan of the chest. For risk factor modification. Troponin elevation likely type II. Continue to monitor. (6) Diabetes mellitus: PLAN: As per internal medicine. HPI Consult Data Date of Consult: 06/08/24 HPI Narrative Reason for Consultation: Dyspnea, elevated troponin HPI Narrative: This lady presented to the emergency room with complaints of acute onset dyspnea yesterday. No chest pain. EMS was called. In the emergency room, patient was noted to be hypoxic. Chest x-ray shows bilateral infiltrates versus pulmonary edema. She was started on BiPAP. Diuresed. Feels better this morning. Patient was admitted to the hospital last month with sepsis and bilateral pneumonia. Per the patient and her family, she had been gradually improving since then until yesterday when she acutely became short of breath. [facility] Medical History HLD (hyperlipidemia) Coronary artery calcification seen on CAT scan Essential hypertension Osteoarthritis of both feet Amblyopia, right eye Diabetes mellitus type II, controlled Malignant neoplasm of upper-outer quadrant of right female breast Home Medications ?Medication ?Instructions ?Recorded ?Last Taken ?Type anastrozole 1 mg tablet 1 mg PO DAILY Check with primary 09/08/17 Unknown History doctor aspirin 81 mg tablet,delayed 81 mg PO DAILY@0800 heart 09/08/17 Unknown History release calcium carbonate 500 mg-vitamin 1 ea PO DAILY 09/08/17 Unknown History D3 15 mcg (600 unit) tablet losartan 100 mg tablet 100 mg PO DAILY Check with primary 09/08/17 Unknown History doctor atenolol 100 mg tablet 150 mg PO DAILY beta emiliana 09/19/19 Unknown History loperamide 2 mg capsule 2 mg PO Q1-4H PRN loose stool 09/19/19 Unknown History magnesium oxide 400 mg PO BID 09/19/19 Unknown History mecobalamin (vitamin B12) 1,000 1,000 mcg sublingual DAILY 09/19/19 Unknown History mcg disintegrating tablet,sublingual polysaccharide iron complex 150 mg 150 mg PO BID 09/19/19 Unknown History iron capsule (Ferrex) ondansetron 4 mg disintegrating 4 mg PO TID PRN nausea and 10/05/22 Unknown Rx tablet vomiting #21 tabs amlodipine 10 mg tablet 10 mg PO DAILY 04/22/24 Unknown History calcium carbonate 500 mg-vitamin 1 tab PO DAILY 04/22/24 Unknown History D3 5 mcg (200 unit) tablet (Oyster Shell Calcium-Vitamin D3) cholecalciferol (vitamin D3) 50 50 mcg PO DAILY 04/22/24 Unknown History mcg (2,000 unit) capsule clopidogrel 75 mg tablet 75 mg PO DAILY 04/22/24 Unknown History collagenase clostridium histo. 250 1 applic topical DAILY 04/22/24 Unknown History unit/gram topical ointment (Santyl) cyanocobalamin (vitamin B-12) 1,000 mcg PO DAILY 04/22/24 Unknown History 1,000 mcg tablet gabapentin 100 mg capsule 200 mg PO Q12.TCU 04/22/24 Unknown History glipizide 5 mg tablet, extended 5 mg PO BID 04/22/24 Unknown History release 24 hr insulin lispro 100 unit/mL 1 sliding scale dose subcut TID 04/22/24 Unknown History subcutaneous pen metformin 500 mg tablet,extended 1,000 mg PO BID 04/22/24 Unknown History release 24 hr mupirocin 2 % topical ointment 1 applic topical DAILY 04/22/24 Unknown History rosuvastatin 10 mg tablet 10 mg PO QHS 04/22/24 Unknown History sodium chloride 5 % eye ointment 1 applic ophthalmic (eye) QHS 04/22/24 Unknown History (Baltazar 128) furosemide 20 mg tablet 20 mg PO DAILY 7 days #7 tabs 04/29/24 Unknown Rx guaifenesin 1,200 mg tablet, 1,200 mg PO BID 7 days #14 tabs 04/29/24 Unknown Rx extended release 12 hr (Mucus Relief ER) insulin glargine 100 unit/mL (3 20 unit (0.2 mL) subcut QHS #15 mL 04/29/24 Unknown Rx mL) subcutaneous pen (Lantus Solostar U-100 Insulin) insulin lispro 100 unit/mL 8 unit (0.08 mL) subcut TIDAC #0 mL 04/29/24 Unknown Rx subcutaneous pen (Humalog KwikPen (U-100) Insulin) insulin lispro 100 unit/mL See Protocol subcut TIDAC #0 mL 04/29/24 Unknown Rx subcutaneous pen (Humalog KwikPen (U-100) Insulin) meloxicam 15 mg tablet 15 mg PO DAILY PRN pain 3 days #0 04/29/24 Unknown Rx tabs Allergy/AdvReac Type Severity Reaction Status Date / Time No Known Allergies Allergy Verified 06/08/24 04:19 Family History Father Diabetes Lung cancer Throat cancer Brother Diabetes Hypertension CAD (coronary artery disease) Mother No problems noted. Surgical History Status post cataract extraction of both eyes with insertion of intraocular lens History of hysterectomy History of colonoscopy History of Social History household members: spouse and family Smoking Status: Never smoker alcohol intake: never substance use type: does not use Physical Exam Narrative Comfortable. No apparent distress. Heart sounds 1 and 2 are normal. No murmurs or rubs are noted. Chest examination reveals decreased air entry bilateral bases with some crepitations. Alert oriented x 3. No ankle edema noted. Risk Stratification Risk Stratification Applicable: No Objective Data Vital Signs: Vital Signs Temp Pulse Resp BP Pulse Ox O2 Del Method O2 Flow Rate 96.3 F L 88 24 H 117/79 97 Nasal Cannula 3 06/08/24 07:30 06/08/24 09:00 06/08/24 09:00 06/08/24 09:00 06/08/24 09:00 06/08/24 09:00 06/08/24 09:00 FiO2 40 06/08/24 08:15 Oxygen Flow Rate (L/min) 3 Oxygen Delivery Method Nasal Cannula Weight: 141 lb 12.116 oz Body Mass Index (BMI) 25.1 Intake & Output: Intake and Output for Last 24 Hours 06/06/24 06/07/24 06/08/24 23:59 23:59 23:59 Intake Total 120 / 120 Output Total 300 / 300 Balance -180 / -180 Lab / Micro Data Attestation: I reviewed the patient's lab results. 06/08/24 04:35 06/08/24 04:35 Labs: Laboratory Results - last 24 hr 06/08/24 04:35: WBC 14.6 H, RBC 4.60, Hgb 12.5, Hct 41.3, MCV 89.8, MCH 27.2, M CHC 30.3 L, RDW Std Deviation 42.2, RDW Coeff of Hermilo 12.8, Plt Count 262, MPV 11.9, Immature Gran % (Auto) 0.400, Neut % (Auto) 40.7 L, Lymph % (Auto) 46.4 H, [place] % (Auto) 9.4, Eos % (Auto) 2.1, Baso % (Auto) 1.0, Absolute Neuts (auto) 5.9, Absolute Lymphs (auto) 6.75 H, Nucleated RBC % 0, Differential Comment SCANNED, D-Dimer Quant (PE/DVT) 0.86 H*, Sodium 136, Potassium 4.1, Chloride 103, Carbon Dioxide 20.0 L, Anion Gap 13, BUN 27 H, Creatinine 1.05 H, Estim Creat Clear Calc 40.86, Est GFR (MDRD) Af Amer 65, Est GFR (MDRD) Non-Af 54 L, B UN/Creatinine Ratio 25.7 H, Glucose 282 H, Calcium 9.6, Magnesium 1.8, B- Natriuretic Peptide 371.0 H, Procalcitonin 0.05 06/08/24 04:42: Lactic Acid 7.8 H* 06/08/24 04:45: Total Bilirubin 0.20, Direct Bilirubin 0.08, AST 63 H, ALT 52, Alkaline Phosphatase 103, Total Protein 7.7, Albumin 3.2, Globulin 4.5 H 06/08/24 07:50: Troponin I High Sens 262 H* 06/08/24 08:31: POC Glucose 208 H 06/08/24 09:45: Lactic Acid 2.9 H*, Troponin I High Sens 413 H* Micro: Microbiology 06/08/24 04:36 Mucosa - Nose SARS-CoV-2, Influenza & RSV (PCR) - Final ABG Data ABG results: ABG 06/08/24 06/08/24 04:37 08:52 Specimen Type ART ART Sample Site R Radial R Radial pH 7.09 L* 7.36 Bicarbonate Actual 15.7 L 25.1 Total CO2 17 26 Base Excess -14 L 0 O2 Saturation 89 L 95 O2 % 3.0 ABG pCO2 51.9 H 44.3 ABG pO2 77 77 Yordy Test N/A Positive O2 Delivery Device NRB Cannula Vent Mode Not entered Not entered Crit Call To/Read Back Yes Blood Gas Notified Whom Dr. Waldron Blood Gas Notified Time 04:39:06 Rhythm Strip Rhythm Strip: Sinus Rhythm Cardiology Labs/Tests 06/08/24 04:35: WBC 14.6 H, RBC 4.60, Hgb 12.5, Hct 41.3, MCV 89.8, MCH 27.2, M CHC 30.3 L, Plt Count 262, MPV 11.9, Immature Gran % (Auto) 0.400, Neut % (Auto) 40.7 L, Lymph % (Auto) 46.4 H, [place] % (Auto) 9.4, Eos % (Auto) 2.1, Baso % (Auto) 1.0, Absolute Neuts (auto) 5.9, Nucleated RBC % 0, D-Dimer Quant (PE/DVT) 0.86 H*, Sodium 136, Potassium 4.1, Chloride 103, Carbon Dioxide 20.0 L, Anion Gap 13, BUN 27 H, Creatinine 1.05 H, Est GFR (MDRD) Af Amer 65, Est GFR (MDRD) Non-Af 54 L, BUN/Creatinine Ratio 25.7 H, Glucose 282 H, Calcium 9.6, Magnesium 1.8, B-Natriuretic Peptide 371.0 H 06/08/24 04:37: pH 7.09 L*, Bicarbonate Actual 15.7 L, Base Excess -14 L, O2 Saturation 89 L, ABG pCO2 51.9 H, ABG pO2 77, Yordy Test N/A 06/08/24 04:42: Lactic Acid 7.8 H* 06/08/24 04:45: Total Bilirubin 0.20, Direct Bilirubin 0.08 06/08/24 08:52: pH 7.36, Bicarbonate Actual 25.1, Base Excess 0, O2 Saturation 95, ABG pCO2 44.3, ABG pO2 77, Yordy Test Positive 06/08/24 09:45: Lactic Acid 2.9 H* Rhythm: EKG: Sinus rhythm with nonspecific ST changes. Mildly prolonged QT interval is noted. ECHO: Stress Test: Cardiac Cath: PCI: CT Surgery: Holter monitor: EPS: PPM: CXR: Chest CT Scan: Radiography Diagnostic Testing: Radiology Impression Chest X-Ray 06/08/24 04:28 IMPRESSION: Diffuse bilateral groundglass patchy airspace disease, to include pneumonia or pulmonary edema. Electronically Signed: Madi Coffey MD at 5:50 EDT ,
[2024-06-08 12:05] LABS: Bedside Glucose 251 mg/dL (74-106)
[2024-06-08 14:11] LABS: Troponin-I HS 679 pg/mL (3.0-54.0)
--- NOTE | 2024-06-08 15:01 | PN_ITS ---
Subjective Subjective Patient seen and examined. She had her daughter and her by her. She was admitted with a complaint of shortness of breath. She was now off BIPAP. SHe denied any cough, chest pain, palpitations, dizziness, nausea, vomiting or any other symptoms. She doesnt know if she is supposed to be on lasix at home. She is now on 3L of oxygen. Review of systems is otherwise negative. Objective Data Objective Data Vital Signs: Vital Signs Temp Pulse Resp BP Pulse Ox O2 Del Method O2 Flow Rate 96.3 F L 88 24 H 117/79 94 Bi-pap 3 06/08/24 07:30 06/08/24 09:00 06/08/24 09:00 06/08/24 09:00 06/08/24 10:22 06/08/24 12:00 06/08/24 12:00 FiO2 40 06/08/24 08:15 Oxygen Flow Rate (L/min) 3 Oxygen Delivery Method Bi-pap Weight: 141 lb 12.116 oz Body Mass Index (BMI) 25.1 Intake & Output: Intake and Output for Last 24 Hours 06/06/24 06/07/24 06/08/24 23:59 23:59 23:59 Intake Total 1180 / 1180 Output Total 700 / 700 Balance 480 / 480 Lab / Micro Data 06/08/24 04:35 06/08/24 04:35 Labs: Laboratory Results - last 24 hr 06/08/24 04:35: WBC 14.6 H, RBC 4.60, Hgb 12.5, Hct 41.3, MCV 89.8, MCH 27.2, M CHC 30.3 L, RDW Std Deviation 42.2, RDW Coeff of Hermilo 12.8, Plt Count 262, MPV 11.9, Immature Gran % (Auto) 0.400, Neut % (Auto) 40.7 L, Lymph % (Auto) 46.4 H, Cannon % (Auto) 9.4, Eos % (Auto) 2.1, Baso % (Auto) 1.0, Absolute Neuts (auto) 5.9, Absolute Lymphs (auto) 6.75 H, Nucleated RBC % 0, Differential Comment SCANNED, D-Dimer Quant (PE/DVT) 0.86 H*, Sodium 136, Potassium 4.1, Chloride 103, Carbon Dioxide 20.0 L, Anion Gap 13, BUN 27 H, Creatinine 1.05 H, Estim Creat Clear Calc 40.86, Est GFR (MDRD) Af Amer 65, Est GFR (MDRD) Non-Af 54 L, B UN/Creatinine Ratio 25.7 H, Glucose 282 H, Calcium 9.6, Magnesium 1.8, B- Natriuretic Peptide 371.0 H, Procalcitonin 0.05 06/08/24 04:42: Lactic Acid 7.8 H* 06/08/24 04:45: Total Bilirubin 0.20, Direct Bilirubin 0.08, AST 63 H, ALT 52, Alkaline Phosphatase 103, Total Protein 7.7, Albumin 3.2, Globulin 4.5 H 06/08/24 07:50: Troponin I High Sens 262 H* 06/08/24 08:31: POC Glucose 208 H 06/08/24 09:45: Lactic Acid 2.9 H*, Troponin I High Sens 413 H* 06/08/24 11:22: POC Glucose 251 H 06/08/24 13:35: Troponin I High Sens 679 H* Micro: Microbiology 06/08/24 08:40 Nasal Secretion MRSA (PCR) - Final 06/08/24 04:36 Mucosa - Nose SARS-CoV-2, Influenza & RSV (PCR) - Final ABG Data ABG results: ABG 06/08/24 06/08/24 04:37 08:52 Specimen Type ART ART Sample Site R Radial R Radial pH 7.09 L* 7.36 Bicarbonate Actual 15.7 L 25.1 Total CO2 17 26 Base Excess -14 L 0 O2 Saturation 89 L 95 O2 % 3.0 ABG pCO2 51.9 H 44.3 ABG pO2 77 77 Yordy Test N/A Positive O2 Delivery Device NRB Cannula Vent Mode Not entered Not entered Crit Call To/Read Back Yes Blood Gas Notified Whom Dr. Waldron Blood Gas Notified Time 04:39:06 Radiography Diagnostic Testing: Radiology Impression Chest X-Ray 06/08/24 04:28 IMPRESSION: Diffuse bilateral groundglass patchy airspace disease, to include pneumonia or pulmonary edema. Electronically Signed: Madi Coffey MD at 5:50 EDT , Chest CTA 06/08/24 11:29 IMPRESSION: No evidence of pulmonary embolism. Small bilateral pleural effusions with atelectasis at the lung bases with superimposed areas of groundglass appearance suggestive of CHF. Electronically Signed: Manny Fowler MD at 12:21 EDT , Rhythm Strip Rhythm Strip: Sinus Rhythm Physical Exam Const alert, oriented x3 and no apparent distress General Appearance: cooperative HEENT normocephalic, head/scalp atraumatic and moist oral mucous membranes Eyes PERRL and EOMs intact bilaterally Neck no lymphadenopathy and supple Lymph Lymphatic: no lymphadenopathy noted and no lymphedema noted Resp Resp Narrative: diminished breath sounds bibasally, no wheezes or crackles. On 3L of oxygen by nasal canula Cardio regular rate, regular rhythm, S1 normal heart sound, S2 normal heart sound and no murmurs GI normal to inspection, nondistended, normoactive bowel sounds, soft to palpation and non-tender Extremity normal capillary refill, no clubbing, cyanosis or edema and no calf tenderness General Extremity: no tenderness to palpation of joints or extremities Skin General Skin Exam: no breakdown Neuro CN's II-XII intact bilaterally, no focal motor deficits, no sensory deficits noted and deep tendon reflexes 2+ bilaterally Motor Exam: strength 5/5 throughout and general weakness Psych thought process normal, cooperative and affect normal Appearance: appropriate Assessment & Plan Assessment/Plan (1) Acute on chronic diastolic (congestive) heart failure: (2) Acute respiratory failure with hypoxia: PLAN: Plan #Acute hypoxic respiratory failure due to acute on chronic exacerbation of heart failure and flash pulmonary edema * also concerning for pneumonia as she had elevated wbc and was tachycardic and tachypneic also. * covid, RSV and influenza were negative. * now off BIPAP. On 3L of oxygen. * breathing treatment with bronchodilators. * on lasix. * has known EF of 60% with stage 1 diastolic dysfunction. * cardiology consulted. * also started on empiric antibiotics due to elevated lactic acid. Respiratory panel is negative. * cultures pending. * #Elevated troponin * Troponin was mildly elevated. Per cardiology is likely a type II elevation due to demand ischemia from her shortness of breath. * No further workup needed * #Elevated D-dimer: D-dimer was 0.86 which is elevated for her age. CT of the chest was negative for any evidence of PE. #Type 1 diabetes mellitus * lantus held due to hypotension. ISS. Accuchecks ACHS * #Chronic lower extremity ulcers: wound care on board. #CAD: on aspirin, plavix, statin, losartana nd atenolol. #Hyperlipidemia: on statin #History of right breast cancer * on anastrozole. * #DVT prophylaxis: on lovenox Code status: full code Charges/Coding Visit Charges Inpatient E&M: 92606 Subs Hosp L2
[2024-06-08] MEDS: Mupirocin Ointment 22gm Tube 1 APPLIC TOPICAL (15:45)
[2024-06-08] MEDS: Collagenase 30gm Tube 1 APPLIC TOPICAL (15:46)
[2024-06-08 16:32] LABS: Bedside Glucose 66 mg/dL (74-106)
[2024-06-08 17:10] LABS: Bedside Glucose 86 mg/dL (74-106)
[2024-06-08 17:45] LABS: Mucous, Urine 0 SEEN /hpf (<or=2+); Red Blood Cells-Urine 0 SEEN /hpf (0-5); Squamous Epithelial Cells - UA 0 SEEN /hpf (5-10)
[2024-06-08 17:50] LABS: Color, Urine Yellow (Yellow); Glucose, Dipstick Normal (Normal); Ketone-Dipstick Negative (Negative); Leukocyte Esterase-Dipstick 500 /ul (Negative); Nitrite-Dipstick Positive (Negative); Occult Blood-Urine Negative /ul (Negative); Protein-Dipstick Negative (Negative); Specific Gravity, Urine 1.005 (1.002-1.030); Urine Bilirubin Dipstick Negative (Negative); Urine Clarity Clear (Clear); Urine Urobilinogen Normal (Normal)
[2024-06-08 18:02] LABS: Bacteria 1+ /hpf (None Seen); White Blood Cells 10-25 SEEN /hpf (0-5); Yeast-Urine RARE /hpf (None Seen)
[2024-06-08] MEDS: Nitroglycerin Oint 1 INCH PACKET TD ×2 (18:23→21:42)
[2024-06-08 21:25] LABS: Bedside Glucose 167 mg/dL (74-106)
[2024-06-08] MEDS: Acetaminophen 325 MG Tablet 650 MG PO (21:37)
[2024-06-08] MEDS: Insulin Glargine-YFGN 100 UNIT/ML Pen 20 UNIT SC (21:41)
[2024-06-08] MEDS: Atorvastatin Calcium 20 MG Tablet PO (21:45)
[2024-06-08] MEDS: Vancomycin IV 500 MG/100 ML BAG 100 MG IV (22:54)
[2024-06-09] VITALS (8 sets, daily range): BP systolic 127–129; BP diastolic 56–69; PULSE 68–73; RESP 12–18; TEMP 36.4; O2SAT 98–100; BMI 24.8
[2024-06-09 04:07] LABS: Absolute Lymphocyte Count 2.25 X10^3/uL (0.83-4.51); Absolute Neutrophil Count 3.7 X10^3/uL (2.0-7.7); Basophil# 0.07 X10^3/uL; Eosinophil# 0.19 X10^3/uL; Eosinophils% 2.8 % (0-5); Hematocrit 30.8 % (37-47); Hemoglobin 9.9 g/dL (12.0-15.0); Lymphocyte # 2.25 X10^3/ul (0.83-4.51); Lymphocyte % 32.7 % (19-41); Mean Corp Hgb Conc 32.1 g/dL (32-36); Mean Corpuscular Hgb 27.3 pg (27.0-32.0); Mean Corpuscular Volume 84.8 fL (81-99); Mean Platelet Vol. 11.9 fl (6.2-12.0); Monocyte% 10.2 % (0-10); NRBC Flagged by Analyzer 0 % (0-5); Neutrophil # 3.65 X10^3/uL (2.7-7.7); Neutrophil % 52.9 % (47-70); Platelet Count 190 K/mm3 (150-450); RBC Distribution Width CV 12.9 % (11.6-14.6); RBC Distribution Width SD 39.6 fl (35.1-43.9); Red Blood Count 3.63 M/mm3 (4.2-5.4); White Blood Count 6.9 K/mm3 (4.4-11.0)
[2024-06-09 04:40] LABS: ALB/GLOB Ratio 0.8 RATIO (0.9-2.4); AST(SGOT) 23 U/L (15-37); Alanine Aminotransfer ALT/SGPT 31 U/L (13-56); Albumin, Serum 2.7 g/dL (3.2-5.0); Alkaline Phosphatase 56 U/L (45-117); Anion Gap 5 (5-15); BUN 24 mg/dL (7-18); BUN/Creat Ratio 29.7 RATIO (10-20); Calcium,Total 8.7 mg/dL (8.5-10.1); Chloride 104 mmol/L (98-107); Cholesterol 97 mg/dL (200); Creatinine, Serum 0.81 mg/dL (0.55-1.02); EST Glomerular Filtration Rate 73 mL/min (>60); Est Glom Filt Rate - Afr Amer 88 mL/min (>60); Estimated Creatinine Clearance 51.22 ml/min; Globulin 3.4 g/dL (2.2-4.2); Glucose 130 mg/dL (74-106); High Density Lipoprotein 40 mg/dL; Potassium 3.5 mmol/L (3.5-5.1); Protein, Total 6.1 g/dL (6.4-8.2); Sodium Level 139 mmol/L (136-145); Thyroid Stim Hormone (TSH) 0.006 uIU/mL (0.358-3.740); Triglycerides 77 mg/dL; Very Low Density Lipoprotein 15 mg/dL (5-40)
--- NOTE | 2024-06-09 05:00 | RAD_ITS ---
EXAM: XR CHEST, 1 VIEW CLINICAL INDICATION: Respiratory Failure Respiratory Failure TECHNIQUE: Frontal view of the chest. COMPARISON: Chest x-ray 06/08/2024. FINDINGS: LUNGS AND PLEURAL SPACES: There is interstitial prominence which may represent mild CHF. There is no demonstrated focal pulmonary consolidation. No pneumothorax. No effusion. HEART: The heart is enlarged. MEDIASTINUM: Central airways and mediastinal contour are unremarkable. BONES/JOINTS: There are multilevel degenerative changes in the visualized spine. No acute fracture. SOFT TISSUES: Unremarkable. VASCULATURE: There is atherosclerotic calcification of the aortic arch. RAD/Chest 1 View (Portable) IMPRESSION: 1. Suspect mild CHF. 2. Cardiomegaly. Electronically Signed: Ashvin Rosas MD at 5:07 EDT Reading Location ID and State: [facility] / [place] , Service support ,
[2024-06-09] MEDS: Piperacil/Tazobactam 3.375 GM in 0.9% Normal Saline (50mL MB+) 50 ML IV ×2 (05:07→13:04)
[2024-06-09] MEDS: Nitroglycerin Oint 1 INCH PACKET TD ×3 (05:07→21:12)
[2024-06-09 06:19] LABS: Bedside Glucose 121 mg/dL (74-106)
[2024-06-09 07:55] LABS: T4 Free Direct 1.77 ng/dL (0.76-1.46)
[2024-06-09] MEDS: Clopidogrel Bisulfate 75 MG Tablet PO (09:37)
[2024-06-09] MEDS: Aspirin E.C. 81 MG Tablet PO (09:37)
[2024-06-09] MEDS: Iron Polysaccharide Complex 150 MG CAPSULE PO ×2 (09:37→21:07)
[2024-06-09] MEDS: Carvedilol 3.125 MG TABLET PO ×2 (09:39→21:07)
[2024-06-09] MEDS: Furosemide 40 MG/4 ML Vial IV ×2 (09:39→17:00)
[2024-06-09] MEDS: Anastrozole 1 MG TABLET PO (09:39)
[2024-06-09] MEDS: Enoxaparin 40 MG/0.4 ML Syringe SC (09:41)
[2024-06-09] MEDS: Collagenase 30gm Tube 1 APPLIC TOPICAL (09:42)
[2024-06-09] MEDS: Vancomycin IV 500 MG/100 ML BAG 100 MG IV (09:44)
[2024-06-09] MEDS: Mupirocin Ointment 22gm Tube 1 APPLIC TOPICAL (09:45)
[2024-06-09] MEDS: Gabapentin 100 MG Capsule 200 MG PO ×2 (09:47→21:25)
--- NOTE | 2024-06-09 10:20 | PN.CARD_ITS ---
Subjective Subjective Feels better. No complaints. Objective Data Vital Signs: Vital Signs Temp Pulse Resp BP Pulse Ox O2 Del Method O2 Flow Rate 97.4 F L 71 24 H 127/56 H 99 Nasal Cannula 2 06/08/24 20:39 06/09/24 06:00 06/08/24 20:39 06/09/24 05:07 06/09/24 08:15 06/09/24 08:15 06/09/24 08:15 FiO2 40 06/08/24 08:15 Oxygen Flow Rate (L/min) 2 Oxygen Delivery Method Nasal Cannula Weight: 140 lb 3.424 oz Body Mass Index (BMI) 24.8 Intake & Output: Intake and Output for Last 24 Hours 06/07/24 06/08/24 06/09/24 23:59 23:59 23:59 Intake Total 1520 / 1520 100 / 100 Output Total 2024 / 2024 600 / 600 Balance -505 / -505 -500 / -500 Lab / Micro Data 06/09/24 03:50 06/09/24 03:50 Labs: Laboratory Results - last 24 hr 06/08/24 04:35: D-Dimer Quant (PE/DVT) 0.86 H* 06/08/24 09:45: Lactic Acid 2.9 H*, Troponin I High Sens 413 H* 06/08/24 11:22: POC Glucose 251 H 06/08/24 13:35: Troponin I High Sens 679 H* 06/08/24 16:15: POC Glucose 66 L 06/08/24 16:52: POC Glucose 86 06/08/24 17:35: Urine Color Yellow, Urine Clarity Clear, Urine pH 7.0, Ur Specific Marion 1.005, Urine Protein Negative, Urine Glucose (UA) Normal, Urine Ketones Negative, Urine Occult Blood Negative, Urine Nitrite Positive H, Urine Bilirubin Negative, Urine Urobilinogen Normal, Ur Leukocyte Esterase 500 H, Urine RBC 0 SEEN, Urine WBC 10-25 SEEN, Ur Squamous Epith Cells 0 SEEN, Urine Bacteria 1+, Urine Mucus 0 SEEN, Urine Yeast RARE 06/08/24 21:06: POC Glucose 167 H 06/09/24 03:50: WBC 6.9, RBC 3.63 L, Hgb 9.9 L, Hct 30.8 L, MCV 84.8 D, MCH 27.3, MCHC 32.1 D, RDW Std Deviation 39.6, RDW Coeff of Hermilo 12.9, Plt Count 190, MPV 11.9, Immature Gran % (Auto) 0.400, Neut % (Auto) 52.9, Lymph % (Auto) 32.7, Hickman % (Auto) 10.2 H, Eos % (Auto) 2.8, Baso % (Auto) 1.0, Absolute Neuts (auto) 3.7, Absolute Lymphs (auto) 2.25, Nucleated RBC % 0, Sodium 139, Potassium 3.5, Chloride 104, Carbon Dioxide 30.0, Anion Gap 5, BUN 24 H, Creatinine 0.81, Estim Creat Clear Calc 51.22, Est GFR (MDRD) Af Amer 88, Est GFR (MDRD) Non-Af 73, BUN/Creatinine Ratio 29.7 H, Glucose 130 H, Calcium 8.7, Total Bilirubin 0.30, AST 23, ALT 31, Alkaline Phosphatase 56, Total Protein 6.1 L, Albumin 2.7 L, Globulin 3.4, Albumin/Globulin Ratio 0.8 L, Triglycerides 77, Cholesterol 97, LDL Cholesterol 42, VLDL Cholesterol 15, HDL Cholesterol 40, TSH 0.006 L, Free T4 1.77 H 06/09/24 04:00: POC Glucose 121 H Micro: Microbiology 06/08/24 08:51 Mucosa - Nose Respiratory Panel (PCR) - Final 06/08/24 08:40 Nasal Secretion MRSA (PCR) - Final 06/08/24 04:36 Mucosa - Nose SARS-CoV-2, Influenza & RSV (PCR) - Final Rhythm Strip Rhythm Strip: Sinus Rhythm Cardiology Labs/Tests 06/08/24 04:35: D-Dimer Quant (PE/DVT) 0.86 H* 06/08/24 09:45: Lactic Acid 2.9 H* 06/08/24 17:35: Urine Color Yellow, Urine Clarity Clear, Urine pH 7.0, Ur Specific Marion 1.005, Urine Protein Negative, Urine Glucose (UA) Normal, Urine Ketones Negative, Urine Occult Blood Negative, Urine Nitrite Positive H, Urine Bilirubin Negative, Urine Urobilinogen Normal, Ur Leukocyte Esterase 500 H, Urine RBC 0 SEEN, Urine WBC 10-25 SEEN 06/09/24 03:50: WBC 6.9, RBC 3.63 L, Hgb 9.9 L, Hct 30.8 L, MCV 84.8 D, MCH 27.3, MCHC 32.1 D, Plt Count 190, MPV 11.9, Immature Gran % (Auto) 0.400, Neut % (Auto) 52.9, Lymph % (Auto) 32.7, Hickman % (Auto) 10.2 H, Eos % (Auto) 2.8, Baso % (Auto) 1.0, Absolute Neuts (auto) 3.7, Nucleated RBC % 0, Sodium 139, Potassium 3.5, Chloride 104, Carbon Dioxide 30.0, Anion Gap 5, BUN 24 H, Creatinine 0.81, Est GFR (MDRD) Af Amer 88, Est GFR (MDRD) Non-Af 73, B UN/Creatinine Ratio 29.7 H, Glucose 130 H, Calcium 8.7, Total Bilirubin 0.30, Triglycerides 77, Cholesterol 97, LDL Cholesterol 42, VLDL Cholesterol 15, HDL Cholesterol 40 Rhythm: EKG: ECHO: Stress Test: Cardiac Cath: PCI: CT Surgery: Holter monitor: EPS: PPM: CXR: Chest CT Scan: Radiography Diagnostic Testing: Radiology Impression Chest CTA 06/08/24 11:29 IMPRESSION: No evidence of pulmonary embolism. Small bilateral pleural effusions with atelectasis at the lung bases with superimposed areas of groundglass appearance suggestive of CHF. Electronically Signed: Manny Fowler MD at 12:21 EDT , Echocardiogram 06/08/24 11:31 Interpretation Summary Mild concentric left ventricular hypertrophy. Posterior hypokinesis. Estimated LVEF 45%. Increased left atrial filling pressures. The left atrium is mildly enlarged. Moderate (2+) mitral valve insufficiency. Right ventricular systolic pressure estimated to be 42 mmHg. Focal calcification of the left aortic valve cusp. Aortic valve sclerosis without stenosis. Ordering Physician: Marisela Dobbins Performed By: Nieves Erazo, [facility] Chest X-Ray 06/09/24 05:00 IMPRESSION: 1. Suspect mild CHF. 2. Cardiomegaly. Electronically Signed: Ashvin Rosas MD at 5:07 EDT Reading Location ID and State: [facility] / [place] , Service support , Physical Exam Narrative Comfortable. No apparent distress. Heart sounds 1 and 2 are normal. No murmurs or rubs are noted. Chest examination reveals decreased air entry bilateral bases with some crepitations. Alert oriented x 3. No ankle edema noted. Assessment & Plan Assessment/Plan (1) Acute respiratory failure with hypoxia: PLAN: Pulmonary edema. Acute on chronic congestive heart failure. Clinically improved. Continue to diurese. (2) NSTEMI (non-ST elevated myocardial infarction): PLAN: LVEF 45% with regional wall motion abnormalities. Recommend coronary angiography with possible revascularization. Risks benefits and alternatives explained to the patient. She understand these and wishes to proceed. We will optimize her clinical status and plan on doing the coronary angiography tomorrow. (3) Acute exacerbation of chronic heart failure: PLAN: Continue diuresis. Beta-blockers. Start low-dose BEBE inhibitor's. SGLT2 inhibitors. (4) Coronary artery disease: PLAN: See #2 above. (5) Diabetes mellitus: PLAN: As per internal medicine.
[2024-06-09] MEDS: Empagliflozin 10 MG Tablet PO (12:44)
[2024-06-09] MEDS: Insulin Lispro 100 UNIT/ML INSULN.PEN 8 UNIT SC ×2 (12:45→16:48)
[2024-06-09] MEDS: Insulin Lispro 100 UNIT/ML INSULN.PEN SC ×2 (12:45→16:47)
--- NOTE | 2024-06-09 12:46 | CASEMGMT ---
Insurance review for hospitals in network with [facility] if transfer is recommended is as follows: [facility], [facility], [place], [facility], [facility], [facility], [facility], [place], [facility]), and . Francie Fallon DC Planning Asst.
--- NOTE | 2024-06-09 13:15 | PN_ITS ---
Subjective Subjective Patient seen and examined today. She feels much better. She had no complaints and had an uneventful night. She remains on 2 L of oxygen. Review of systems otherwise negative. Objective Data Objective Data Vital Signs: Vital Signs Temp Pulse Resp BP Pulse Ox O2 Del Method O2 Flow Rate 97.4 F L 71 24 H 127/56 H 99 Nasal Cannula 2 06/08/24 20:39 06/09/24 06:00 06/08/24 20:39 06/09/24 05:07 06/09/24 08:15 06/09/24 08:15 06/09/24 08:15 FiO2 40 06/08/24 08:15 Oxygen Flow Rate (L/min) 2 Oxygen Delivery Method Nasal Cannula Weight: 140 lb 3.424 oz Body Mass Index (BMI) 24.8 Intake & Output: Intake and Output for Last 24 Hours 06/07/24 06/08/24 06/09/24 23:59 23:59 23:59 Intake Total 1520 / 1520 200 / 200 Output Total 2024 / 2024 600 / 600 Balance -505 / -505 -400 / -400 Lab / Micro Data 06/09/24 03:50 06/09/24 03:50 Labs: Laboratory Results - last 24 hr 06/08/24 13:35: Troponin I High Sens 679 H* 06/08/24 16:15: POC Glucose 66 L 06/08/24 16:52: POC Glucose 86 06/08/24 17:35: Urine Color Yellow, Urine Clarity Clear, Urine pH 7.0, Ur Specific [place] 1.005, Urine Protein Negative, Urine Glucose (UA) Normal, Urine Ketones Negative, Urine Occult Blood Negative, Urine Nitrite Positive H, Urine Bilirubin Negative, Urine Urobilinogen Normal, Ur Leukocyte Esterase 500 H, Urine RBC 0 SEEN, Urine WBC 10-25 SEEN, Ur Squamous Epith Cells 0 SEEN, Urine Bacteria 1+, Urine Mucus 0 SEEN, Urine Yeast RARE 06/08/24 21:06: POC Glucose 167 H 06/09/24 03:50: WBC 6.9, RBC 3.63 L, Hgb 9.9 L, Hct 30.8 L, MCV 84.8 D, MCH 27.3, MCHC 32.1 D, RDW Std Deviation 39.6, RDW Coeff of Hermilo 12.9, Plt Count 190, MPV 11.9, Immature Gran % (Auto) 0.400, Neut % (Auto) 52.9, Lymph % (Auto) 32.7, [place] % (Auto) 10.2 H, Eos % (Auto) 2.8, Baso % (Auto) 1.0, Absolute Neuts (auto) 3.7, Absolute Lymphs (auto) 2.25, Nucleated RBC % 0, Sodium 139, Potassium 3.5, Chloride 104, Carbon Dioxide 30.0, Anion Gap 5, BUN 24 H, Creatinine 0.81, Estim Creat Clear Calc 51.22, Est GFR (MDRD) Af Amer 88, Est GFR (MDRD) Non-Af 73, BUN/Creatinine Ratio 29.7 H, Glucose 130 H, Calcium 8.7, Total Bilirubin 0.30, AST 23, ALT 31, Alkaline Phosphatase 56, Total Protein 6.1 L, Albumin 2.7 L, Globulin 3.4, Albumin/Globulin Ratio 0.8 L, Triglycerides 77, Cholesterol 97, LDL Cholesterol 42, VLDL Cholesterol 15, HDL Cholesterol 40, TSH 0.006 L, Free T4 1.77 H 06/09/24 04:00: POC Glucose 121 H Micro: Microbiology 06/08/24 17:35 Urine, Clean Catch Urine Culture - Preliminary Gram negative sridhar 06/08/24 08:51 Mucosa - Nose Respiratory Panel (PCR) - Final 06/08/24 08:40 Nasal Secretion MRSA (PCR) - Final 06/08/24 04:36 Mucosa - Nose SARS-CoV-2, Influenza & RSV (PCR) - Final Radiography Diagnostic Testing: Radiology Impression Echocardiogram 06/08/24 11:31 Interpretation Summary Mild concentric left ventricular hypertrophy. Posterior hypokinesis. Estimated LVEF 45%. Increased left atrial filling pressures. The left atrium is mildly enlarged. Moderate (2+) mitral valve insufficiency. Right ventricular systolic pressure estimated to be 42 mmHg. Focal calcification of the left aortic valve cusp. Aortic valve sclerosis without stenosis. Ordering Physician: Mu, Marisela Performed By: Nieves Erazo, RDCS Chest X-Ray 06/09/24 05:00 IMPRESSION: 1. Suspect mild CHF. 2. Cardiomegaly. Electronically Signed: Ashvin Rosas MD at 5:07 EDT Reading Location ID and State: [facility] / [place] , Service support , Rhythm Strip Rhythm Strip: Sinus Rhythm Physical Exam Const alert, oriented x3 and no apparent distress General Appearance: cooperative HEENT normocephalic, head/scalp atraumatic and moist oral mucous membranes Eyes PERRL and EOMs intact bilaterally Neck no lymphadenopathy and supple Lymph Lymphatic: no lymphadenopathy noted and no lymphedema noted Resp Resp Narrative: diminished breath sounds bibasally, no wheezes or crackles. On 2 L of oxygen by nasal canula Cardio regular rate, regular rhythm, S1 normal heart sound, S2 normal heart sound and no murmurs GI normal to inspection, nondistended, normoactive bowel sounds, soft to palpation and non-tender Extremity normal capillary refill, no clubbing, cyanosis or edema and no calf tenderness General Extremity: no tenderness to palpation of joints or extremities Skin General Skin Exam: no breakdown Neuro CN's II-XII intact bilaterally, no focal motor deficits, no sensory deficits noted and deep tendon reflexes 2+ bilaterally Motor Exam: strength 5/5 throughout and general weakness Psych thought process normal, cooperative and affect normal Appearance: appropriate Assessment & Plan Assessment/Plan (1) Acute on chronic diastolic (congestive) heart failure: (2) Acute respiratory failure with hypoxia: PLAN: Plan #Acute hypoxic respiratory failure due to acute on chronic exacerbation of heart failure and flash pulmonary edema * also concerning for pneumonia as she had elevated wbc and was tachycardic and tachypneic also. * covid, RSV and influenza were negative. * now off BIPAP. On 2L of oxygen. * breathing treatment with bronchodilators. * on lasix. * has known EF of 60% with stage 1 diastolic dysfunction. * cardiology on board * on IV vancomycin and zosyn empirically due to concerns about infection. * Urine cultures growing gram-negative rods. Respiratory panel was negative and MRSA screen is also negative. Blood cultures pending. * #Elevated troponin * Troponin was mildly elevated. Per cardiology is likely a type II elevation due to demand ischemia from her shortness of breath. * No further workup needed * #Elevated D-dimer: D-dimer was 0.86 which is elevated for her age. CT of the chest was negative for any evidence of PE. #Type 1 diabetes mellitus * lantus held due to hypotension. ISS. Accuchecks ACHS * #Chronic lower extremity ulcers: wound care on board. #CAD: on aspirin, plavix, statin, losartan and atenolol. #Hyperlipidemia: on statin #History of right breast cancer * on anastrozole. * #DVT prophylaxis: on lovenox Code status: full code Disposition: Anticipate discharge over the next day or 2. Charges/Coding Visit Charges Inpatient E&M: 26192 Subs Hosp L2
[2024-06-09 13:25] LABS: Bedside Glucose 377 mg/dL (74-106)
[2024-06-09 17:00] LABS: Bedside Glucose 160 mg/dL (74-106)
[2024-06-09] MEDS: 0.9% Saline Lock 10 ML Syringe IV (17:00)
[2024-06-09] MEDS: guaiFENesin 10 ML UDC (200MG/10ML) PO (17:18)
[2024-06-09] MEDS: Insulin Glargine-YFGN 100 UNIT/ML Pen 20 UNIT SC (21:05)
[2024-06-09] MEDS: Atorvastatin Calcium 20 MG Tablet PO (21:06)
[2024-06-09] MEDS: Lisinopril 2.5 MG Tablet PO (21:10)
[2024-06-09 21:59] LABS: Bedside Glucose 144 mg/dL (74-106)
--- NOTE | 2024-06-09 23:39 | PN.CC_ITS ---
Objective Data Objective Data Vital Signs: Vital Signs Last response 3 Temperature 36.4 C L 06/09/24 21:00 Temperature Source Oral 06/09/24 21:00 Pulse Rate 72 06/09/24 21:00 Respiratory Rate 18 06/09/24 21:00 Respiratory Effort Normal, Non-Labored 06/09/24 22:00 Respiratory Depth Normal 06/09/24 22:00 Respiratory Pattern Normal 06/09/24 22:00 Blood Pressure 129/69 H 06/09/24 21:12 Blood Pressure Mean 89 06/09/24 21:00 Blood Pressure Source Monitor 06/09/24 21:00 Blood Pressure Position Supine 06/08/24 20:39 Blood Pressure Location Left Arm 06/08/24 15:00 Pulse Ox 98 06/09/24 21:00 Oxygen Delivery Method Nasal Cannula 06/09/24 22:00 Oxygen Flow Rate (L/min) 2 06/09/24 22:00 Fraction of Inspired Oxygen (FIO2) 40 06/08/24 08:15 I&O: I&O Last 24 Hours 3 06/08/24 06/09/24 06/09/24 23:59 11:59 23:59 Intake Total 1400 / 1520 200 / 236.67 36.67 / 236.67 Output Total 1725 / 2025 600 / 1000 400 / 1000 Balance -325 / -505 -400 / -763.33 -363.33 / -763.33 I&O: Total Stay 3 06/08/24 04:16 thru 06/09/24 18:00 Intake Total 1756.67 Output Total 3025 Balance -1268.33 Current Meds Ordered / Administered: Current meds ordered / Administered 3 Generic Name Dose Route Start Last Admin Trade Name Freq PRN Reason Stop Dose Admin Acetaminophen 650 mg 06/08/24 07:32 06/08/24 21:37 Acetaminophen 325 Mg Tablet PO 650 mg Q4H PRN PRN Administration Fever, pain 1-10/10 Al Hydrox/Mg Hydrox/Simethicone 30 ml 06/08/24 07:32 Mag /Aluminum/Simeth Wch Udc 30 Ml Oral.Susp PO Q6H PRN PRN Gastric Burning Albuterol Sulfate 2.5 mg 06/08/24 07:32 Albuterol 2.5 Mg/3 Ml Vial.Neb. INHALATION Q2H PRN PRN Dyspnea, wheezing Anastrozole 1 mg 06/08/24 10:00 06/09/24 09:39 Anastrozole 1 Mg Tablet PO 1 mg DAILY STIVEN Administration Aspirin 81 mg 06/08/24 08:00 06/09/24 09:37 Aspirin E.C. 81 Mg Tablet PO 81 mg DAILY@0800 STIVEN Administration Atorvastatin Calcium 20 mg 06/08/24 22:00 06/09/24 21:06 Atorvastatin Calcium 20 Mg Tablet PO 20 mg QHS STIVEN Administration Carvedilol 3.125 mg 06/09/24 10:00 06/09/24 21:07 Carvedilol 3.125 Mg Tablet PO 3.125 mg BID STIVEN Administration Protocol Clopidogrel Bisulfate 75 mg 06/08/24 10:00 06/09/24 09:37 Clopidogrel Bisulfate 75 Mg Tablet PO 75 mg DAILY STIVEN Administration Collagenase 1 applic 06/08/24 10:00 06/09/24 09:42 Collagenase 30gm Tube TOPICAL 1 applic DAILY STIVEN Administration Protocol Empagliflozin 10 mg 06/09/24 10:25 06/09/24 12:44 Empagliflozin 10 Mg Tablet PO 10 mg DAILY STIVEN Administration Enoxaparin Sodium 40 mg 06/08/24 10:00 06/09/24 09:41 Enoxaparin 40 Mg/0.4 Ml Syringe SC 40 mg DAILY STIVEN Administration Furosemide 40 mg 06/08/24 18:00 06/09/24 17:00 Furosemide 40 Mg/4 Ml Vial IV 40 mg BIDLX STIVEN Administration Protocol Gabapentin 200 mg 06/08/24 10:00 06/09/24 21:25 Gabapentin 100 Mg Capsule PO 200 mg Q12 STIVEN Administration Glucagon 1 mg 06/08/24 07:32 Glucagon 1 Mg/Ml Syringe IM X1 PRN HYPOGLYCEMIA Protocol Guaifenesin 10 ml 06/08/24 07:32 06/09/24 17:18 Guaifenesin 10 Ml Udc (200mg/10ml) PO 10 ml Q4H PRN PRN Administration COUGH Hydralazine HCl 10 mg 06/08/24 07:32 Hydralazine 20 Mg/Ml Vial IV Q4H PRN PRN SBP > 160 Protocol Dextrose 250 mls @ 0 mls/hr 06/08/24 07:32 Dextrose 10%-Water IV .Q0M PRN HYPOGLYCEMIA Protocol As Directed Sodium Chloride 1,000 mls @ 15 mls/hr 06/09/24 10:25 IV .Q48H [facility] Insulin Glargine 20 unit 06/08/24 22:00 06/09/24 21:05 Insulin Glargine-Yfgn 100 Unit/Ml Pen SC 20 unit QHS [facility] Administration Insulin Human Lispro 8 unit 06/08/24 07:32 06/09/24 16:48 Insulin Lispro 100 Unit/Ml Insuln.Pen SC 8 u TIDAC [facility] Administration Insulin Human Lispro 0 unit 06/08/24 07:32 06/09/24 21:08 Insulin Lispro 100 Unit/Ml Insuln.Pen SC Not Given ACHS [facility] Protocol Lisinopril 2.5 mg 06/09/24 22:00 06/09/24 21:10 Lisinopril 2.5 Mg Tablet PO 2.5 mg BID [facility] Administration Protocol Loperamide HCl 2 mg 06/08/24 07:32 Loperamide 2 Mg Capsule PO Q1H PRN loose stool Melatonin 3 mg 06/08/24 07:32 Melatonin 3 Mg Tablet PO QHS PRN PRN INSOMNIA Mupirocin 1 applic 06/08/24 10:00 06/09/24 09:45 Mupirocin Ointment 22gm Tube TOPICAL 1 applic DAILY [facility] Administration Protocol Nitroglycerin 1 inch 06/08/24 17:30 06/09/24 21:12 Nitroglycerin Oint 1 Inch Packet TD 1 inch Q8 [facility] Administration Protocol Ondansetron HCl 4 mg 06/08/24 07:32 Ondansetron 4 Mg/2 Ml Vial IV Q8H PRN PRN NAUSEA/VOMITING Polysaccharide Iron Complex 150 mg 06/08/24 10:00 06/09/24 21:07 Iron Polysaccharide Complex 150 Mg Capsule PO 150 mg BID [facility] Administration Prochlorperazine Edisylate 5 mg 06/08/24 07:32 Prochlorperazine 10 Mg/2 Ml Vial IV Q4H PRN PRN Breakthrough Nausea/Vomiting Senna/Docusate Sodium 2 tablet 06/08/24 07:32 Senna/Docusate Sodium 1 Tablet PO BID PRN Constipation Sodium Chloride 1 applic 06/08/24 22:00 06/09/24 21:08 Sodium Chloride 3.5gm Oint..Gm. OPHTHALMIC 1 applic QHS [facility] Administration Sodium Chloride 10 - 40 ml 06/08/24 07:59 06/09/24 17:00 0.9% Saline Lock 10 Ml Syringe IV 10 ml UD PRN Administration SALINE FLUSH Lab / Micro Data 06/09/24 03:50 06/09/24 03:50 Labs: Laboratory Results - last 24 hr 06/09/24 03:50: WBC 6.9, RBC 3.63 L, Hgb 9.9 L, Hct 30.8 L, MCV 84.8 D, MCH 27.3, MCHC 32.1 D, RDW Std Deviation 39.6, RDW Coeff of Hermilo 12.9, Plt Count 190, MPV 11.9, Immature Gran % (Auto) 0.400, Neut % (Auto) 52.9, Lymph % (Auto) 32.7, [place] % (Auto) 10.2 H, Eos % (Auto) 2.8, Baso % (Auto) 1.0, Absolute Neuts (auto) 3.7, Absolute Lymphs (auto) 2.25, Nucleated RBC % 0, Sodium 139, Potassium 3.5, Chloride 104, Carbon Dioxide 30.0, Anion Gap 5, BUN 24 H, Creatinine 0.81, Estim Creat Clear Calc 51.22, Est GFR (MDRD) Af Amer 88, Est GFR (MDRD) Non-Af 73, BUN/Creatinine Ratio 29.7 H, Glucose 130 H, Calcium 8.7, Total Bilirubin 0.30, AST 23, ALT 31, Alkaline Phosphatase 56, Total Protein 6.1 L, Albumin 2.7 L, Globulin 3.4, Albumin/Globulin Ratio 0.8 L, Triglycerides 77, Cholesterol 97, LDL Cholesterol 42, VLDL Cholesterol 15, HDL Cholesterol 40, TSH 0.006 L, Free T4 1.77 H 06/09/24 04:00: POC Glucose 121 H 06/09/24 12:38: POC Glucose 377 H 06/09/24 16:42: POC Glucose 160 H 06/09/24 21:03: POC Glucose 144 H Micro: Microbiology 06/08/24 17:35 Urine, Clean Catch Urine Culture - Preliminary Gram negative sridhar Rhythm Strip Rhythm Strip: Sinus Rhythm Imaging Radiology Impression Chest X-Ray 06/09/24 05:00 IMPRESSION: 1. Suspect mild CHF. 2. Cardiomegaly. Electronically Signed: Ashvin Rosas MD at 5:07 EDT , Assessment and Plan . Assessment and plan: Chart and data reviewed Clinically improved w/ forced diuresis Pulmonary disease appears most c/w cardiogenic pulmonary edema Would continue loop diuretics Plans for C noted I will stop the anti-bacterials We are available as needede The entirety of this encounter was done via Telemedicine
[2024-06-10] VITALS (14 sets, daily range): BP systolic 104–172; BP diastolic 56–95; PULSE 70–88; RESP 14–22; TEMP 36.3–36.6; O2SAT 92–98; BMI 24.2
[2024-06-10] MEDS: Nitroglycerin Oint 1 INCH PACKET TD ×3 (06:23→21:37)
[2024-06-10 08:27] LABS: Bedside Glucose 105 mg/dL (74-106)
--- NOTE | 2024-06-10 09:13 | WOUNDNOTE ---
wound photo: left foot
[2024-06-10] MEDS: Mupirocin Ointment 22gm Tube 1 APPLIC TOPICAL (09:17)
[2024-06-10] MEDS: Aspirin E.C. 81 MG Tablet PO (09:17)
[2024-06-10] MEDS: Clopidogrel Bisulfate 75 MG Tablet PO (09:17)
[2024-06-10] MEDS: Carvedilol 3.125 MG TABLET PO ×2 (09:17→21:37)
[2024-06-10] MEDS: Lisinopril 2.5 MG Tablet PO ×2 (09:18→21:38)
[2024-06-10 10:34] LABS: Absolute Lymphocyte Count 1.67 X10^3/uL (0.83-4.51); Absolute Neutrophil Count 3.2 X10^3/uL (2.0-7.7); Basophil# 0.05 X10^3/uL; Basophil% 0.8 % (0-1); Eosinophil# 0.18 X10^3/uL; Eosinophils% 3.1 % (0-5); Hematocrit 33.3 % (37-47); Hemoglobin 10.5 g/dL (12.0-15.0); Lymphocyte # 1.67 X10^3/ul (0.83-4.51); Lymphocyte % 28.4 % (19-41); Mean Corp Hgb Conc 31.5 g/dL (32-36); Mean Corpuscular Hgb 27.2 pg (27.0-32.0); Mean Corpuscular Volume 86.3 fL (81-99); Mean Platelet Vol. 11.7 fl (6.2-12.0); Monocyte# 0.73 X10^3/uL; Monocyte% 12.4 % (0-10); NRBC Flagged by Analyzer 0 % (0-5); Neutrophil # 3.24 X10^3/uL (2.7-7.7); Platelet Count 187 K/mm3 (150-450); RBC Distribution Width CV 13.2 % (11.6-14.6); RBC Distribution Width SD 41.1 fl (35.1-43.9); Red Blood Count 3.86 M/mm3 (4.2-5.4); White Blood Count 5.9 K/mm3 (4.4-11.0)
[2024-06-10 10:48] LABS: Anion Gap 10 (5-15); BUN 29 mg/dL (7-18); BUN/Creat Ratio 28.4 RATIO (10-20); Calcium,Total 9.1 mg/dL (8.5-10.1); Chloride 103 mmol/L (98-107); Creatinine, Serum 1.02 mg/dL (0.55-1.02); EST Glomerular Filtration Rate 56 mL/min (>60); Est Glom Filt Rate - Afr Amer 68 mL/min (>60); Glucose 115 mg/dL (74-106); Potassium 3.3 mmol/L (3.5-5.1); Sodium Level 140 mmol/L (136-145)
--- NOTE | 2024-06-10 10:58 | CASEMGMT ---
LESLIE MCCARTHY NOTE: LESLIE MCCARTHY to room. Pt resting in bed, family @ bedside. Pt to go for heart cath today. Discussed discharge planning. Pt wishes to discharge home w/[facility], SN only, stating she does not feel like she needs therapy. Pt states she has all wound care/dsg change supplies needed @ home. Pt and family deny having other discharge needs/concerns. Henrry THOMAS RN, CM
[2024-06-10 12:10] LABS: Bedside Glucose 118 mg/dL (74-106)
--- NOTE | 2024-06-10 13:44 | PN_ITS ---
Subjective Subjective Patient seen and examined today. He had no active complaints. She is on room air. She does admit to an occasional cough but this is dry. Review of systems otherwise negative. She is due for cardiac cath today. Objective Data Objective Data Vital Signs: Vital Signs Temp Pulse Resp BP Pulse Ox O2 Del Method O2 Flow Rate 97.3 F L 72 22 H 117/95 H 94 Room Air 2 06/10/24 09:22 06/10/24 09:22 06/10/24 09:22 06/10/24 09:22 06/10/24 09:22 06/10/24 09:22 06/10/24 08:00 FiO2 97 06/10/24 06:00 Oxygen Flow Rate (L/min) 2 Oxygen Delivery Method Room Air Weight: 136 lb 10.986 oz Body Mass Index (BMI) 24.2 Intake & Output: Intake and Output for Last 24 Hours 06/08/24 06/09/24 06/10/24 23:59 23:59 23:59 Intake Total 1520 / 1520 236.67 / 236.67 Output Total 2024 / 2024 1000 / 1000 Balance -505 / -505 -763.33 / -763.33 Lab / Micro Data 06/10/24 10:15 06/10/24 10:15 Labs: Laboratory Results - last 24 hr 06/09/24 16:42: POC Glucose 160 H 06/09/24 21:03: POC Glucose 144 H 06/10/24 08:04: POC Glucose 105 06/10/24 10:15: WBC 5.9, RBC 3.86 L, Hgb 10.5 L, Hct 33.3 L, MCV 86.3, MCH 27.2, MCHC 31.5 L, RDW Std Deviation 41.1, RDW Coeff of Hermilo 13.2, Plt Count 187, MPV 11.7, Immature Gran % (Auto) 0.300, Neut % (Auto) 55.0, Lymph % (Auto) 28.4, M carlos % (Auto) 12.4 H, Eos % (Auto) 3.1, Baso % (Auto) 0.8, Absolute Neuts (auto) 3.2, Absolute Lymphs (auto) 1.67, Nucleated RBC % 0, Sodium 140, Potassium 3.3 L , Chloride 103, Carbon Dioxide 27.0, Anion Gap 10, BUN 29 H, Creatinine 1.02, Estim Creat Clear Calc 40.00, Est GFR (MDRD) Af Amer 68, Est GFR (MDRD) Non-Af 56 L, BUN/Creatinine Ratio 28.4 H, Glucose 115 H, Calcium 9.1 06/10/24 11:50: POC Glucose 118 H Micro: Microbiology 06/08/24 17:35 Urine, Clean Catch Urine Culture - Preliminary Gram negative sridhar 06/08/24 08:51 Mucosa - Nose Respiratory Panel (PCR) - Final 06/08/24 08:40 Nasal Secretion MRSA (PCR) - Final 06/08/24 04:36 Mucosa - Nose SARS-CoV-2, Influenza & RSV (PCR) - Final Rhythm Strip Rhythm Strip: Sinus Rhythm Physical Exam Const alert, oriented x3 and no apparent distress General Appearance: cooperative HEENT normocephalic, head/scalp atraumatic and moist oral mucous membranes Eyes PERRL and EOMs intact bilaterally Neck no lymphadenopathy and supple Lymph Lymphatic: no lymphadenopathy noted and no lymphedema noted Resp Resp Narrative: diminished breath sounds bibasally, no wheezes or crackles. On 2 L of oxygen by nasal canula Cardio regular rate, regular rhythm, S1 normal heart sound, S2 normal heart sound and no murmurs GI normal to inspection, nondistended, normoactive bowel sounds, soft to palpation and non-tender Extremity normal capillary refill, no clubbing, cyanosis or edema and no calf tenderness General Extremity: no tenderness to palpation of joints or extremities Skin General Skin Exam: no breakdown Neuro CN's II-XII intact bilaterally, no focal motor deficits, no sensory deficits noted and deep tendon reflexes 2+ bilaterally Motor Exam: strength 5/5 throughout and general weakness Psych thought process normal, cooperative and affect normal Appearance: appropriate Assessment & Plan Assessment/Plan (1) Acute on chronic diastolic (congestive) heart failure: (2) Acute respiratory failure with hypoxia: PLAN: Plan #Acute hypoxic respiratory failure due to acute on chronic exacerbation of heart failure and flash pulmonary edema * also concerning for pneumonia as she had elevated wbc and was tachycardic and tachypneic also. * covid, RSV and influenza were negative. * now off BIPAP. now off oxygen and on room air * breathing treatment with bronchodilators. * on lasix. * has known EF of 60% with stage 1 diastolic dysfunction. * cardiology on board * on IV vancomycin and zosyn empirically due to concerns about infection. * Urine cultures growing gram-negative rods. Respiratory panel was negative and MRSA screen is also negative. Blood cultures pending. * on carvedilol and jardiance. * #Elevated troponin * Troponin was mildly elevated. * Per cardiology is likely a type II elevation due to demand ischemia from her shortness of breath. * 2D echo showed EF of 45% which was reduced from a previous EF of 60%. Cardiology therefore recommends cardiac cath with possible revascularization should be done today. * #Elevated D-dimer: D-dimer was 0.86 which is elevated for her age. CT of the chest was negative for any evidence of PE. #Type 1 diabetes mellitus * lantus held due to hypotension. ISS. Accuchecks ACHS * #Chronic lower extremity ulcers: wound care on board. #CAD: on aspirin, plavix, statin, losartan and atenolol. #Hyperlipidemia: on statin #History of right breast cancer * on anastrozole. * #DVT prophylaxis: on lovenox Code status: full code Disposition: Anticipate discharge over the next day or 2. Charges/Coding Visit Charges Inpatient E&M: 64418 Subs Hosp L2
--- NOTE | 2024-06-10 15:30 | CL.D_ITS ---
Patient Name: JOHANNA PONCE Study Date: 06/10/2024 Performing: Rebecca Kwok MD Ht: 63 inches 160.02 cm : 1945 Wt: 136.9 lbs 62 kg Age: 78 Gender: female BSA: 1.64 PROCEDURE(S) PERFORMED DC02-([id number])C/COR CLINICAL PROFILE AND INDICATIONS Indications: ACS <= 24 hrs, CHF, LV dysfunction Heart Failure: Newly Diagnosed: Yes CONCLUSIONS Severe multivessel coronary artery disease as described. No significant aortic stenosis. Normal LVEDP. RECOMMENDATIONS CT surgery consult for heart team approach for revascularization DESCRIPTION OF PROCEDURE The patient arrived to the procedure lab. The risks and benefits of the procedure as well as a full description of our services here and current unavailability of surgical backup were fully explained to the patient and/or their significant other prior to the catheterization. The Timeout was completed, verifying the correct patient and procedure. The patient's procedural site was prepped and draped in the usual fashion. Local anesthetic was given subcutaneously to right radial region with Lidocaine 2%. Using a modified Seldinger technique, Left Coronary Artery selective angiography was performed in multiple views using a 5 Fr. JL3.5 catheter. LV to AO pullback pressures were then recorded. Right Coronary Artery selective angiography was then performed in multiple views using a 5 Fr. JR 4 catheter.The arterial sheath was pulled and a TR Band was applied for hemostasis. 12cc air CORONARY ANGIOGRAPHY DOMINANCE: Right Dominant LEFT HEART ASSESSMENT LVEDP: 10 mmHg Patient's coronaries are heavily calcified LEFT MAIN: 25 % Stenosis LEFT ANTERIOR DESCENDING ARTERY: PROX LAD: 80 % Stenosis MID LAD: 60 % Stenosis CIRCUMFLEX ARTERY: PROX CIRC: 99 % Stenosis OM 1: Proximal - 100 % Stenosis RAMUS: 80 % proximal Stenosis RIGHT CORONARY ARTERY: 70% stenosis in the ostial portion, 90% stenosis in the midportion, 95 to 99% stenosis in the distal portion. Severe diffuse disease in the proximal PDA VALVE FINDINGS: No Aortic Valve Stenosis COMPLICATIONS No Complications PROCEDURE MEDICATIONS Fentanyl 50 mcg IV Versed 1 mg IV Oxygen: 2 L/min via nasal cannula SUMMARY OF HEMODYNAMIC DATA Time AIR REST ECG 13:19:59 AO 80/42 (59) SA 13:41:05 AO 120/59 (86) 13:44:22 LV 141/-1, 10 13:49:46 LV 140/0, 12 13:50:00 LVp 142/2, 15 13:50:05 AOp 141/54 (89) 13:50:10 AO 144/62 (97) 13:52:11 Signed By Rebecca Kwok MD On 06/10/2024 15:30:05 Rebecca Kwok MD
[2024-06-10] MEDS: Anastrozole 1 MG TABLET PO (16:10)
[2024-06-10] MEDS: Potassium Chloride Oral Tablet 20 MEQ 40 MEQ PO (17:42)
[2024-06-10] MEDS: 0.9% Saline Lock 10 ML Syringe IV (17:42)
[2024-06-10] MEDS: Furosemide 40 MG/4 ML Vial IV (17:43)
[2024-06-10] MEDS: Gabapentin 100 MG Capsule 200 MG PO (21:36)
[2024-06-10] MEDS: Insulin Glargine-YFGN 100 UNIT/ML Pen 20 UNIT SC (21:36)
[2024-06-10] MEDS: Acetaminophen 325 MG Tablet 650 MG PO (21:36)
[2024-06-10] MEDS: Insulin Lispro 100 UNIT/ML INSULN.PEN SC (21:37)
[2024-06-10] MEDS: Atorvastatin Calcium 20 MG Tablet PO (21:37)
[2024-06-10] MEDS: Iron Polysaccharide Complex 150 MG CAPSULE PO (21:38)
[2024-06-10 22:12] LABS: Bedside Glucose 381 mg/dL (74-106)
[2024-06-11 00:46] LABS: Bedside Glucose 110 mg/dL (74-106)
[2024-06-11 02:00] VITALS: BP 155/75; PULSE 85; RESP 18; TEMP 36.4; O2SAT 96
--- NOTE | 2024-06-11 03:22 | NURSING ---
Report called to [facility] nurse Melissa. Patient called and updated family herself. Transport arrived at 0300. Report given and transported patient onto transport bed.
--- NOTE | 2024-06-11 07:10 | DS.PCM_ITS ---
Providers Date of Admission: 06/08/24 Date of Discharge: 06/11/24 Primary Care Physician: Dr. Noble Lemus, DO Consultations 06/08/24 07:32 Consult: Cardiology Routine Consulting Provider: Marisela Dobbins Reason for Consult: Resp failure, HF exacerbation EMERGENT Consult: No Notified: Yes Date Notified: 06/08/24 Time Notified: 06:01 Method of Notification: Text Consult: Photography Coordinator / Pulmonary Medicine Routine Consulting Provider: Intensivists/Pulmonary Med Reason for Consult: Respiratory failure, HF exacerbation EMERGENT Consult: No Notified: Yes Date Notified: 06/08/24 Time Notified: 07:54 Method of Notification: Verbal Consult: Onc/Wound/pelletising extruder operator Routine Comment: Reason for Consult:: Diabetic foot wound 06/08/24 10:57 Consult: Onc/Wound/pelletising extruder operator Routine Comment: Reason for Consult:: diabetic foot ulcer Reason For Visit: RESPIRATORY FAILURE,HX EXACERBATION/FLASH PULMONAR Diagnosis Discharge Diagnosis (1) Acute on chronic diastolic (congestive) heart failure: Status: Chronic Code(s): I50.33 - Acute on chronic diastolic (congestive) heart failure (2) Acute respiratory failure with hypoxia: Status: Acute Code(s): J96.01 - Acute respiratory failure with hypoxia Plan #Acute hypoxic respiratory failure due to acute on chronic exacerbation of heart failure and flash pulmonary edema * also concerning for pneumonia as she had elevated wbc and was tachycardic and tachypneic also. * covid, RSV and influenza were negative. * now off BIPAP. now off oxygen and on room air * breathing treatment with bronchodilators. * on lasix. * has known EF of 60% with stage 1 diastolic dysfunction. * cardiology on board * on IV vancomycin and zosyn empirically due to concerns about infection. * Urine cultures growing gram-negative rods. Respiratory panel was negative and MRSA screen is also negative. Blood cultures pending. * on carvedilol and jardiance. * #Elevated troponin * Troponin was mildly elevated. * Per cardiology is likely a type II elevation due to demand ischemia from her shortness of breath. * 2D echo showed EF of 45% which was reduced from a previous EF of 60%. Cardiology therefore recommends cardiac cath with possible revascularization should be done today. * #Elevated D-dimer: D-dimer was 0.86 which is elevated for her age. CT of the chest was negative for any evidence of PE. #Type 1 diabetes mellitus * lantus held due to hypotension. ISS. Accuchecks ACHS * #Chronic lower extremity ulcers: wound care on board. #CAD: on aspirin, plavix, statin, losartan and atenolol. #Hyperlipidemia: on statin #History of right breast cancer * on anastrozole. * #DVT prophylaxis: on lovenox Code status: full code Disposition: Anticipate discharge over the next day or 2. Medications at Discharge Home Medications anastrozole 1 mg tablet 1 mg PO DAILY Check with primary doctor 09/08/17 aspirin 81 mg tablet,delayed release 81 mg PO DAILY@0800 heart 09/08/17 calcium carbonate 500 mg-vitamin D3 15 mcg (600 unit) tablet 1 ea PO DAILY 09/08/17 losartan 100 mg tablet 100 mg PO DAILY Check with primary doctor 09/08/17 atenolol 100 mg tablet 150 mg PO DAILY beta emiliana 09/19/19 loperamide 2 mg capsule 2 mg PO Q1-4H PRN loose stool 09/19/19 magnesium oxide 400 mg PO BID 09/19/19 mecobalamin (vitamin B12) 1,000 mcg disintegrating tablet,sublingual 1,000 mcg sublingual DAILY 09/19/19 polysaccharide iron complex 150 mg iron capsule (Ferrex) 150 mg PO BID 09/19/19 ondansetron 4 mg disintegrating tablet 4 mg PO TID PRN nausea and vomiting #21 tabs 10/05/22 amlodipine 10 mg tablet 10 mg PO DAILY 04/22/24 calcium carbonate 500 mg-vitamin D3 5 mcg (200 unit) tablet (Oyster Shell Calcium-Vitamin D3) 1 tab PO DAILY 04/22/24 cholecalciferol (vitamin D3) 50 mcg (2,000 unit) capsule 50 mcg PO DAILY 04/22/24 clopidogrel 75 mg tablet 75 mg PO DAILY 04/22/24 collagenase clostridium histo. 250 unit/gram topical ointment (Santyl) 1 applic topical DAILY 04/22/24 cyanocobalamin (vitamin B-12) 1,000 mcg tablet 1,000 mcg PO DAILY 04/22/24 gabapentin 100 mg capsule 200 mg PO Q12.TCU 04/22/24 glipizide 5 mg tablet, extended release 24 hr 5 mg PO BID 04/22/24 insulin lispro 100 unit/mL subcutaneous pen 1 sliding scale dose subcut TID 04/22/24 metformin 500 mg tablet,extended release 24 hr 1,000 mg PO BID 04/22/24 mupirocin 2 % topical ointment 1 applic topical DAILY 04/22/24 rosuvastatin 10 mg tablet 10 mg PO QHS 04/22/24 sodium chloride 5 % eye ointment (Baltazar 128) 1 applic ophthalmic (eye) QHS 04/22/24 furosemide 20 mg tablet 20 mg PO DAILY 7 days #7 tabs 04/29/24 guaifenesin 1,200 mg tablet, extended release 12 hr (Mucus Relief ER) 1,200 mg PO BID 7 days #14 tabs 04/29/24 insulin glargine 100 unit/mL (3 mL) subcutaneous pen (Lantus Solostar U-100 Insulin) 20 unit (0.2 mL) subcut QHS #15 mL 04/29/24 insulin lispro 100 unit/mL subcutaneous pen (Humalog KwikPen (U-100) Insulin) 8 unit (0.08 mL) subcut TIDAC #0 mL 04/29/24 insulin lispro 100 unit/mL subcutaneous pen (Humalog KwikPen (U-100) Insulin) See Protocol subcut TIDAC #0 mL 04/29/24 meloxicam 15 mg tablet 15 mg PO DAILY PRN pain 3 days #0 tabs 04/29/24 Hospital Course Operations None Procedures 2-D Echocardiogram and Cardiac catheterization Summary of Care Provided Minutes Spent on Discharge: 65 Hospital Course: Patient is a 78-year-old male with a past medical history as outlined was admitted to the ED on 06/08/2024 with a complaint of shortness of breath which started on the day of admission. When the EMS arrived she was very anxious and taking very shallow breaths and on arrival in the ED had to be started on BiPAP. His symptoms improved after BiPAP was started. She had recently been admitted in April 2024 with similar complaints and managed for aspiration pneumonia and possible fluid overload. With this admission chest x-ray showed diffuse bilateral groundglass opacity with patchy airspace disease concerning for fluid overload. EKG showed mild ST depressions throughout with mild QT prolongation. She was admitted and managed for acute hypoxic respiratory failure due to flash pulmonary edema and acute on chronic heart failure with preserved ejection fraction. She had known EF of 60% with stage I diastolic dysfunction. She was started on empiric IV vancomycin and Zosyn due to concern about infection. Urine cultures grew gram-negative rods. Of note her troponins were only mildly elevated. Cardiology was consulted and thought his symptoms were due to a type II non-STEMI due to demand ischemia. D-dimer was elevated but CT of the chest was negative for any evidence of PE. She had a 2D echo done which showed that her EF had reduced to 45%. Cardiology therefore decided to do a cardiac cath which showed severe multivessel disease. Plan was for her to be seen at the tertiary center for evaluation for CABG. Patient and family opted for her to go to [facility]. She was accepted at [facility] and discharged there in the early hours of 06/11/2024. Patient was not seen and examined on the day of discharge, 06/11/2024 as she left in the early hours of 06/11/2024. She was however seen and examined on 06/10/2024. Physical Exam Narrative not examined as she left at ~ 3am on 06/11/2024 Weight / BMI Weight Weight: 136 lb 10.986 oz Body Mass Index (BMI) 24.2 ABG / Lab / Microbiology Data 06/10/24 10:15 06/10/24 10:15 Laboratory: Laboratory Results - last 24 hr 06/10/24 08:04: POC Glucose 105 06/10/24 10:15: WBC 5.9, RBC 3.86 L, Hgb 10.5 L, Hct 33.3 L, MCV 86.3, MCH 27.2, MCHC 31.5 L, RDW Std Deviation 41.1, RDW Coeff of Hermilo 13.2, Plt Count 187, MPV 11.7, Immature Gran % (Auto) 0.300, Neut % (Auto) 55.0, Lymph % (Auto) 28.4, M carlos % (Auto) 12.4 H, Eos % (Auto) 3.1, Baso % (Auto) 0.8, Absolute Neuts (auto) 3.2, Absolute Lymphs (auto) 1.67, Nucleated RBC % 0, Sodium 140, Potassium 3.3 L , Chloride 103, Carbon Dioxide 27.0, Anion Gap 10, BUN 29 H, Creatinine 1.02, Estim Creat Clear Calc 40.00, Est GFR (MDRD) Af Amer 68, Est GFR (MDRD) Non-Af 56 L, BUN/Creatinine Ratio 28.4 H, Glucose 115 H, Calcium 9.1 06/10/24 11:50: POC Glucose 118 H 06/10/24 16:19: POC Glucose 110 H 06/10/24 21:30: POC Glucose 381 H Microbiology: Microbiology 06/08/24 04:35 Blood Culture (Wb) - Right Forearm Blood Culture - Preliminary No growth in 48 hours. 06/08/24 17:35 Urine, Clean Catch Urine Culture - Preliminary Gram negative sridhar 06/08/24 08:51 Mucosa - Nose Respiratory Panel (PCR) - Final 06/08/24 08:40 Nasal Secretion MRSA (PCR) - Final 06/08/24 04:36 Mucosa - Nose SARS-CoV-2, Influenza & RSV (PCR) - Final Meaningful Use Info Meaningful Use Meaningful Use Diagnoses (Choose all that apply): CHF CHF BEBE/ARB ordered at discharge?: No Reason BEBE/ARB not ordered?: Drug Interaction (transferred to [facility]) Documented LVEF (%): 45 Ischemic Stroke Statin Dosing Therapy Reference: STATIN DOSE THERAPY REFERENCE: * Patients > 75 years receive moderate or high dose statin therapy. * Patients 75 years or YOUNGER should receive HIGH intensity statin dose unless contraindicated. You will be required to document reason for non-treatment if statin daily dose does not meet guidelines. HIGH DOSE STATIN THERAPY DAILY Atorvastatin > than or = to 40 mg Rosuvastatin > than or = to 20 mg Amlodipine + Atorvastatin > than or = to 2.5/40 mg Ezetimibe + Simvastatin 10/80 mg Simvastatin 80mg Discharge Plan Admission Admit Date/Time: 06/08/24 05:56 Primary Reason for Your Visit: CAD, acute on chronic HFpEF Attending Provider: Janette Su Primary Care Provider: Noble Lemus Consulting Providers: Sandi Marcelino; Marisela Dobbins; Xavier Xie; Mo Campbell; Bebo Badillo; Andrei Wright; Jason Bajwa; Luis Saleh; Josefina Gayle; Chaim Hendrickson; Javy Pollock; Aimee Kenny; Brian Ace; Esteban Pinzon; Elio Ortega; Jeffrey Ornelas; Stanton Arnett; Levi Tompkins; Enrico Hanson Discharge Orders/Prescriptions Prescriptions: No Action atenolol 100 mg tablet 150 mg PO DAILY mecobalamin (vitamin B12) 1,000 mcg tablet,disintegrating 1,000 mcg SUBLINGUAL DAILY Rx Instructions: place tablet under tongue and allow to dissolve for at least30 secs before swallowing polysaccharide iron complex [Ferrex 150] 150 mg iron capsule 150 mg PO BID Rx Instructions: avoid dairy/calcium-containing products and/or antacids for at least 2 hrs before and after dose loperamide 2 mg capsule 2 mg PO Q1-4H PRN (Reason: loose stool) Rx Instructions: after each loose stool until symptoms controlled;do not exceed 16 mg total dose in 24 hrs magnesium oxide 400 mg magnesium tablet 400 mg PO BID anastrozole 1 MG tablet 1 mg PO DAILY aspirin 81 MG tablet 81 mg PO DAILY@0800 losartan 100 MG tablet 100 mg PO DAILY calcium carbonate-vitamin D3 1 EACH tablet 1 ea PO DAILY ondansetron 4 mg tablet,disintegrating 4 mg PO TID PRN (Reason: nausea and vomiting) Qty: 21 0RF clopidogrel 75 mg tablet 75 mg PO DAILY amlodipine 10 mg tablet 10 mg PO DAILY calcium carbonate-vitamin D3 [Oyster Shell Calcium-Vit D3] 500 mg-5 mcg (200 unit) tablet 1 tab PO DAILY cholecalciferol (vitamin D3) 50 mcg (2,000 unit) capsule 50 mcg PO DAILY Santyl 250 unit/gram ointment 1 applic topical DAILY glipizide 5 mg tablet extended release 24hr 5 mg PO BID cyanocobalamin (vitamin B-12) 1,000 mcg tablet 1,000 mcg PO DAILY mupirocin 2 % ointment 1 applic topical DAILY gabapentin 100 mg capsule 200 mg PO Q12.TCU metformin 500 mg tablet extended release 24 hr 1,000 mg PO BID insulin lispro 100 unit/mL insulin pen 1 sliding scale dose subcut TID sodium chloride [Baltazar 128] 5 % ointment 1 applic ophthalmic (eye) QHS rosuvastatin 10 mg tablet 10 mg PO QHS furosemide 20 mg Tablet 20 mg PO DAILY 7 Days Qty: 7 0RF guaifenesin [Mucus Relief ER] 1,200 mg Tablet Extended Release 12hr 1,200 mg PO BID 7 Days Qty: 14 0RF insulin lispro [Humalog KwikPen Insulin] 100 unit/mL Insulin Pen See Protocol subcut TIDAC Qty: 0 0RF Protocol: 3. Sliding Scale Insulin Med Dosing Condition: 150-189 mg/dl = 1 unit Condition: 190-229 mg/dl = 2 units Condition: 230-269 mg/dl = 3 units Condition: 270-309 mg/dl = 4 units Condition: 310-349 mg/dl = 5 units Condition: 350-399 mg/dl = 6 units Condition: 400-449 mg/dl = 7 units Condition: Greater than 449 call physician Protocol Text: Suggested for: - Patients on Total Daily Insulin Dose of 37-55 units - Obese, infected, or steroid patients MEDIUM DOSING ALGORITHIM insulin lispro [Humalog KwikPen Insulin] 100 unit/mL Insulin Pen 8 unit subcut TIDAC Qty: 0 0RF meloxicam 15 mg tablet 15 mg PO DAILY PRN (Reason: pain) 3 Days Qty: 0 0RF insulin glargine [Lantus Solostar U-100 Insulin] 100 unit/mL (3 mL) insulin pen 20 unit subcut QHS Qty: 15 2RF Rx Instructions: Hold if glucose less than 130 mg/dl Referrals / Follow Up: Noble Lemus DO [Primary Care Provider] - Disposition Disposition (needs filled in before D/C Order can be placed): Home Health Service Charges/Coding Visit Charges Inpatient E&M: 63044 Disch Hosp >30min
== END 2024-06-11 03:34 | disposition short-term general hospital (02) | DRG 192 ==
LOC: ED 06:11 → ICU 06:47
PROVIDERS: Internal Medicine Cardiovascular Disease; Internal Medicine Critical Care Medicine; Admitting Provider Family Medicine; Emergency Provider Emergency Medicine; PCP Student in an Organized Health Care Education/Training Program; Visit Provider Student in an Organized Health Care Education/Training Program
DX: I13.0 Hypertensive heart and chronic kidney disease with heart failure and stage 1 through stage 4 chronic kidney disease, or unspecified chronic kidney disease (principal); J96.01 Acute respiratory failure with hypoxia; I21.A1 Myocardial infarction type 2; E10.621 Type 1 diabetes mellitus with foot ulcer; D63.1 Anemia in chronic kidney disease; J18.9 Pneumonia, unspecified organism; I50.33 Acute on chronic diastolic (congestive) heart failure; J81.0 Acute pulmonary edema; E10.22 Type 1 diabetes mellitus with diabetic chronic kidney disease; N18.2 Chronic kidney disease, stage 2 (mild); I25.10 Atherosclerotic heart disease of native coronary artery without angina pectoris; E78.5 Hyperlipidemia, unspecified; Z79.4 Long term (current) use of insulin; E10.65 Type 1 diabetes mellitus with hyperglycemia; D50.9 Iron deficiency anemia, unspecified; L97.421 Non-pressure chronic ulcer of left heel and midfoot limited to breakdown of skin; L97.521 Non-pressure chronic ulcer of other part of left foot limited to breakdown of skin; I87.2 Venous insufficiency (chronic) (peripheral); R79.1 Abnormal coagulation profile; Z79.02 Long term (current) use of antithrombotics/antiplatelets; Z78.0 Asymptomatic menopausal state; Z79.811 Long term (current) use of aromatase inhibitors; Z79.82 Long term (current) use of aspirin; Z79.84 Long term (current) use of oral hypoglycemic drugs; Z79.899 Other long term (current) drug therapy; Z85.3 Personal history of malignant neoplasm of breast
CPT/HCPCS: 36600; 71045; 71275; 80048; 80053; 80061; 80076; 81001; 82803; 82962; 83605; 83735; 83880; 84145; 84439; 84443; 84484; 85025; 85379; 87040; 87086; 87088; 87631; 87633; 87641; 92526; 92610; 93005; 93306; 93454; 94002; 94003; 94668; 94762; 97161; 97166; 97530; 97535; 97802; 99152; 99153; 99284; J7040; Q9957; Q9967; A4216; C1769; C1894; J1940

== ENCOUNTER → 2025-07-20 | Outpatient (CLI) | payer MEDICAID, SELFPAY ==
--- NOTE | 2025-07-20 16:32 | CT_ITS ---
PROCEDURE: CT/Abdomen/Pelvis WITH Contrast
== END | disposition home or self-care (01) ==
LOC: CT 16:31
PROVIDERS: PCP Student in an Organized Health Care Education/Training Program; Referring Provider Nurse Practitioner Acute Care; Visit Provider Nurse Practitioner Acute Care
DX: I73.89 Other specified peripheral vascular diseases (principal)
CPT/HCPCS: 74177; Q9967

== ENCOUNTER 2025-07-25 10:04 | Day surgery (SDC) | payer MEDICAID, SELFPAY ==
[2025-07-25] VITALS (9 sets, daily range): BP systolic 86–122; BP diastolic 37–57; PULSE 70–76; RESP 12–16; TEMP 36.1–36.8; O2SAT 92–97; BMI 62.0
[2025-07-25] MEDS: Lactated Ringers 1,000 ML 15 ML IV (10:30)
--- NOTE | 2025-07-25 11:30 | PCM.PRE.AN2 ---
ASA Classification* ASA Classification ASA Classification: 3 Assessment & Plan Anesthesia* Anesthesia Assessment Anesthesia Assessment: Discussed sedation and/or anesthesia options, risks, benefits, and alternatives with patient/parents/legal guardian/POA. Questions invited. The patient/parents/legal guardian/POA seems to understand and agrees to proceed with anesthesia plan. Reviewed the physical assessment, medical history, allergy history and patient home medications list prior to surgery/procedure/anesthetic and documented any changes. Performed airway and anesthesia risk assessments. Anesthesia Type Anesthesia Type: MAC History Source History Obtained from:: Patient and Chart Anesthesia Focused Assessment* Temperature: 98.2 F Pulse Rate: 70 Blood Pressure: 122/57 Respiratory Rate: 16 Pulse Ox: 94 Oxygen Delivery Method: Room Air Airway Assessment Mouth opens: >3 cm Mallampati Score: IV Teeth Condition: Intact Neck Range of motion (ROM): Limited ROM Comment: Severe Restriction Labs Anesthesia Preop lab: CBC WBC, (4.4-11.0) 5.9 K/mm3 06/10/24, 10:15 RBC, (4.2-5.4) 3.86 M/mm3 L 06/10/24, 10:15 Hgb, (12.0-15.0) 10.5 g/dL L 06/10/24, 10:15 Hct, (37-47) 33.3 % L 06/10/24, 10:15 Plt Count, (150-450) 187 K/mm3 06/10/24, 10:15 CHEMISTRY Potassium, (3.5-5.1) 3.3 mmol/L L 06/10/24, 10:15 Sodium, (136-145) 140 mmol/L 06/10/24, 10:15 Magnesium, (1.6-2.6) 1.8 mg/dL 06/08/24, 04:35 Phosphorus, (2.5-4.9) 3.3 mg/dL 04/25/24, 05:13 BUN, (7-18) 29 mg/dL H 06/10/24, 10:15 Creatinine, (0.55-1.02) 1.02 mg/dL 06/10/24, 10:15 Glucose, (74-106) 115 mg/dL H 06/10/24, 10:15 POC Glucose, (74-106) 381 mg/dL H 06/10/24, 21:30 TSH, (0.358-3.740) 0.006 uIU/mL L 06/09/24, 03:50 COAG PT, (11.7-14.9) 13.2 SECONDS 04/22/24, 03:30 Pre-Assessment Diagnosis/Proposed Procedure Planned Operative Procedure(s): EGD WITH PEG REMOVAL Anesthesia History Anesthesia History - brush filler hand: Anesthesia History - brush filler hand Hx Hospitalization Yes 07/24/25 14:47 Any Problems With Anesthesia No 07/24/25 14:47 Cholinesterase deficiency No 07/24/25 14:47 You/Your Family Experience No 07/24/25 14:47 fever (hyperthermia) with Relationship Recent Exposure to Contagious No 07/25/25 10:45 Disease Does patient have nerve No 07/24/25 14:47 stimulator Patient instructed to have device shut off --Does patient have Pacemaker No 07/25/25 10:45 or ICD? When Was Last Pacemaker Check QUESTION #4 FULL TEXT: You/Your Family Experience fever (hyperthermia) with Anesthesia Last Oral Intake Last Oral intake: Last Oral Intake NPO since 15:00 07/25/25 10:45 Meds taken in AM with sips of Yes 07/25/25 10:45 water? Meds patient instructed to INHALER, CLONZEPAM, 07/25/25 10:45 take am of surgery ESCITALOPRAM, GABAPENTIN, METOPROLOL, TRAMADOL AND TYLENOL PONV PONV - brush filler hand: PONV - brush filler hand Female Yes 07/24/25 14:47 HX of Motion Sickness No 07/24/25 14:47 HX of N/V After Surgery No 07/24/25 14:47 Non-Smoker Yes 07/24/25 14:47 Duration of Surgery greater No 07/24/25 14:47 than 60 minutes Number of Risk Factors 2 07/24/25 14:47 PONV Score Moderate Risk 07/24/25 14:47 Height & Weight Height & Weight: Anesthesia: Height & Weight Height 5 ft 1 in 07/25/25 10:45 Weight: 149 kg 07/25/25 10:45 Body Mass Index (BMI) 62.0 07/25/25 10:45 Respiratory Assessment Respiratory Assessment - brush filler hand: Respiratory Tract Infection Hx - brush filler hand Hx Respiratory Tract Infection No 07/24/25 14:47 STOP Sleep Apnea STOP Sleep Apnea - brush filler hand: STOP Sleep Apnea - brush filler hand Hx Hypertension Yes 07/24/25 14:47 Hx Sleep Apnea No 07/24/25 14:47 CPAP BIPAP Do you snore loudly (louder No 07/24/25 14:47 than talking or can be heard Do you often feel tired/ No 07/24/25 14:47 fatigued/ sleepy during daytime? Has anyone observed you stop No 07/24/25 14:47 breathing during sleep? STOP Results Negative 07/24/25 14:47 QUESTION #5 FULL TEXT : Do you snore loudly (louder than talking or can be heard through closed doors)? 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 Specify any problems Hx of Preganancy in last 3 N/A 07/24/25 14:47 Months Nurse Filling Out Transfusion NBUCHER 07/24/25 14:47 & Questions: Date: 07/24/25 07/24/25 14:47 Time: 14:49 07/24/25 14:47 Patient unable to answer at this time (ie. confused, unrespo /Reproduction History /Reproductive History - brush filler hand: /Reproductive Hx- brush filler hand Hx Now No 07/24/25 14:47 Gestational Age (in weeks): EDC: Hx Hx Para Hx Section SAB No 07/24/25 14:47 Active Medications Active Medications: Current Medications Generic Name Dose Route Start Last Admin Trade Name Freq PRN Reason Stop Dose Admin Lactated Ringer's 1,000 mls @ 15 mls/hr 07/25/25 10:30 07/25/25 10:30 IV 15 mls/hr .Q48H STIVEN Administration PFSH Medical History Cancer Depression Anxiety Open wound Pressure ulcer Diabetes Uses wheelchair Gastrostomy in place Difficulty swallowing Non-smoker Chronic cough History of pacemaker History of atrial fibrillation History of CHF (congestive heart failure) Cardiology follow-up encounter Hypertension NSTEMI (non-ST elevated myocardial infarction) Diabetes mellitus Coronary artery disease Acute on chronic diastolic (congestive) heart failure Acute respiratory failure with hypoxia Acute exacerbation of chronic heart failure HLD (hyperlipidemia) Sepsis Lactic acidosis Coronary artery calcification seen on CAT scan Essential hypertension Osteoarthritis of both feet Amblyopia, right eye Diabetes mellitus type II, controlled Malignant neoplasm of upper-outer quadrant of right female breast Home Medications ?Medication ?Instructions ?Recorded ?Last Taken ?Type loperamide 2 mg capsule 2 mg PO Q1-4H PRN loose stool 09/19/19 Unknown History magnesium oxide 400 mg PO BID 09/19/19 Unknown History gabapentin 100 mg capsule 200 mg PO Q12.TCU 04/22/24 Unknown History furosemide 20 mg tablet 20 mg PO DAILY 7 days #7 tabs 04/29/24 Unknown Rx insulin lispro 100 unit/mL See Protocol subcut TIDAC #0 mL 04/29/24 Unknown Rx subcutaneous pen (Humalog KwikPen (U-100) Insulin) B-complex with vitamin C 1 cap PO QDAY 07/20/25 Unknown History Lactobacillus rhamnosus GG 10 1 cap PO QDAY 07/20/25 Unknown History billion cell capsule (Culturelle) acetaminophen 325 mg tablet 650 mg PO BID PRN pain 07/20/25 Unknown History (Tylenol) albuterol sulfate 90 mcg/actuation 2 puff inhalation Q4-6H PRN 07/20/25 Unknown History aerosol inhaler (Ventolin HFA) shortness of breath or wheezing apixaban 2.5 mg tablet (Eliquis) 2.5 mg PO BID 07/20/25 Unknown History bisacodyl 10 mg rectal suppository 10 mg KS QDAY PRN constipation 07/20/25 Unknown History (Dulcolax (bisacodyl)) clonazepam 0.5 mg disintegrating 0.5 mg PO QDAY 07/20/25 Unknown History tablet docusate sodium 50 mg capsule 50 mg PO QDAY 07/20/25 Unknown History (Colace Clear) escitalopram oxalate 10 mg tablet 10 mg PO QDAY 07/20/25 Unknown History folic acid 1 mg tablet 1 mg PO QDAY 07/20/25 Unknown History lidocaine 4 % topical patch 1 patch topical QDAY PRN pain 07/20/25 Unknown History meclizine 25 mg chewable tablet 25 mg PO Q8H PRN PRN dizziness 07/20/25 Unknown History (Antivert) melatonin 5 mg capsule 5 mg PO QHS 07/20/25 Unknown History metformin 500 mg tablet,extended 1,000 mg PO QDAY 07/20/25 Unknown History release 24 hr methimazole 10 mg tablet 10 mg PO QDAY 07/20/25 Unknown History metoprolol succinate 25 mg 25 mg PO QDAY 07/20/25 Unknown History tablet,extended release 24 hr tramadol 25 mg tablet 25 mg PO Q6H PRN pain 07/20/25 Unknown History dextromethorphan polistirex 30 5 ml PO Q12H PRN cough 07/24/25 Unknown History mg/5 mL oral susp ext.release 12hr (Children's Cough DM ER) glipizide 5 mg tablet 5 mg PO DAILY 07/24/25 Unknown History insulin glargine 100 unit/mL (3 25 unit subcut QHS 07/24/25 Unknown History mL) subcutaneous pen (Lantus Solostar U-100 Insulin) multivit,tx with iron 27 1 tab PO DAILY 07/24/25 Unknown History qy-suqipcb-qcqyl acid 0.4 mg-minerals tablet (Thera-M) polyethylene glycol 3350 17 17 g PO DAILY 07/24/25 Unknown History gram/dose oral powder (ClearLax) Allergy/AdvReac Type Severity Reaction Status Date / Time No Known Allergies Allergy Verified 07/24/25 13:49 Family History Father Diabetes Lung cancer Throat cancer Brother Diabetes Hypertension CAD (coronary artery disease) Mother No problems noted. Surgical History History of heart surgery Status post cataract extraction of both eyes with insertion of intraocular lens History of hysterectomy History of colonoscopy History of Social History household members: spouse and family Smoking Status: Never smoker alcohol intake: never substance use type: does not use Review of Systems (Anesthesia) ROS Narrative System reviewed and no additional complaints, except as documented.
--- NOTE | 2025-07-25 12:09 | PCM.HP.STD ---
HPI - General General Date of Admission: 07/25/25 Date of Service: 07/25/25 Chief Complaint: peg tube removal HPI Narrative JOHANNA PONCE, is a 79 F who presents [ Chief Complaint: PEG pain Details: - Presents today for PEG tube removal - CABG x4 one year ago and had multiple post operative complications, presently in rehab - she is a resident at [facility] - she is now eating normally - denies any use of PEG for feeding purposes for a few months - denies any episodes of aspiration pneumonia - seen in office today with and son - c/o pain at PEG site x2 weeks, reports experiencing pain with flushing - denies any fevers - denies any change in bowel habits EGD with PEG plcement 09/12/2024 A [email or web address] PEG tube measuring 20 Fr was successfully placed in the body of the stomach via the pull technique after the site was identified via transillumination, visualized indentation and needle passed through abdominal wall; distance from external bolster to external end of tube: 3 cm; scope reinserted to confirm placement The duodenal bulb, 1st part of the duodenum and 2nd part of the duodenum appeared normal. - son confirmed with sister this is the original PEG, never changed - she is on Eliquis BID - she had a productive cough [facility] Medical History Cancer Depression Anxiety Open wound Pressure ulcer Diabetes Uses wheelchair Gastrostomy in place Difficulty swallowing Non-smoker Chronic cough History of pacemaker History of atrial fibrillation History of CHF (congestive heart failure) Cardiology follow-up encounter Hypertension NSTEMI (non-ST elevated myocardial infarction) Diabetes mellitus Coronary artery disease Acute on chronic diastolic (congestive) heart failure Acute respiratory failure with hypoxia Acute exacerbation of chronic heart failure HLD (hyperlipidemia) Sepsis Lactic acidosis Coronary artery calcification seen on CAT scan Essential hypertension Osteoarthritis of both feet Amblyopia, right eye Diabetes mellitus type II, controlled Malignant neoplasm of upper-outer quadrant of right female breast Home Medications ?Medication ?Instructions ?Recorded ?Last Taken ?Type loperamide 2 mg capsule 2 mg PO Q1-4H PRN loose stool 09/19/19 Unknown History magnesium oxide 400 mg PO BID 09/19/19 Unknown History gabapentin 100 mg capsule 200 mg PO Q12.TCU 04/22/24 Unknown History furosemide 20 mg tablet 20 mg PO DAILY 7 days #7 tabs 04/29/24 Unknown Rx insulin lispro 100 unit/mL See Protocol subcut TIDAC #0 mL 04/29/24 Unknown Rx subcutaneous pen (Humalog KwikPen (U-100) Insulin) B-complex with vitamin C 1 cap PO QDAY 07/20/25 Unknown History Lactobacillus rhamnosus GG 10 1 cap PO QDAY 07/20/25 Unknown History billion cell capsule (Culturelle) acetaminophen 325 mg tablet 650 mg PO BID PRN pain 07/20/25 Unknown History (Tylenol) albuterol sulfate 90 mcg/actuation 2 puff inhalation Q4-6H PRN 07/20/25 Unknown History aerosol inhaler (Ventolin HFA) shortness of breath or wheezing apixaban 2.5 mg tablet (Eliquis) 2.5 mg PO BID 07/20/25 Unknown History bisacodyl 10 mg rectal suppository 10 mg [place] QDAY PRN constipation 07/20/25 Unknown History (Dulcolax (bisacodyl)) clonazepam 0.5 mg disintegrating 0.5 mg PO QDAY 07/20/25 Unknown History tablet docusate sodium 50 mg capsule 50 mg PO QDAY 07/20/25 Unknown History (Colace Clear) escitalopram oxalate 10 mg tablet 10 mg PO QDAY 07/20/25 Unknown History folic acid 1 mg tablet 1 mg PO QDAY 07/20/25 Unknown History lidocaine 4 % topical patch 1 patch topical QDAY PRN pain 07/20/25 Unknown History meclizine 25 mg chewable tablet 25 mg PO Q8H PRN PRN dizziness 07/20/25 Unknown History (Antivert) melatonin 5 mg capsule 5 mg PO QHS 07/20/25 Unknown History metformin 500 mg tablet,extended 1,000 mg PO QDAY 07/20/25 Unknown History release 24 hr methimazole 10 mg tablet 10 mg PO QDAY 07/20/25 Unknown History metoprolol succinate 25 mg 25 mg PO QDAY 07/20/25 Unknown History tablet,extended release 24 hr tramadol 25 mg tablet 25 mg PO Q6H PRN pain 07/20/25 Unknown History dextromethorphan polistirex 30 5 ml PO Q12H PRN cough 07/24/25 Unknown History mg/5 mL oral susp ext.release 12hr (Children's Cough DM ER) glipizide 5 mg tablet 5 mg PO DAILY 07/24/25 Unknown History insulin glargine 100 unit/mL (3 25 unit subcut QHS 07/24/25 Unknown History mL) subcutaneous pen (Lantus Solostar U-100 Insulin) multivit,tx with iron 27 1 tab PO DAILY 07/24/25 Unknown History wa-dgzludn-fwdpx acid 0.4 mg-minerals tablet (Thera-M) polyethylene glycol 3350 17 17 g PO DAILY 07/24/25 Unknown History gram/dose oral powder (ClearLax) Allergy/AdvReac Type Severity Reaction Status Date / Time No Known Allergies Allergy Verified 07/24/25 13:49 Family History Father Diabetes Lung cancer Throat cancer Brother Diabetes Hypertension CAD (coronary artery disease) Mother No problems noted. Surgical History History of heart surgery Status post cataract extraction of both eyes with insertion of intraocular lens History of hysterectomy History of colonoscopy History of Social History household members: spouse and family Smoking Status: Never smoker alcohol intake: never substance use type: does not use Vital Signs Vital Signs Vital Signs: 07/25/25 10:45 07/25/25 10:45 07/25/25 11:38 Temperature 98.2 F 98.2 F Temperature Source Temporal Pulse Rate 70 70 Respiratory Rate 16 16 Respiratory Pattern Normal Blood Pressure 122/57 H 122/57 H Blood Pressure Mean 78 Blood Pressure Source Monitor Blood Pressure Position Semi-Fowlers Blood Pressure Location Right Arm Pulse Ox 94 94 Oxygen Delivery Method Room Air Room Air Weight Weight: 328 lb 7.82 oz Body Mass Index (BMI) 62.0 Physical Exam Const alert, oriented x3, no apparent distress and healthy appearing General Appearance: cooperative GI normal to inspection, nondistended, normoactive bowel sounds, soft to palpation, non-tender and non-distended Percussion: normal to percussion Rectal Exam: deferred Results Lab / Micro Data Labs: Laboratory Results - last 24 hr 07/25/25 11:08: POC Glucose 106 Assessment & Plan Assessment/Plan (1) Pain around percutaneous endoscopic gastrostomy (PEG) tube site: PLAN: Assessment and Plan Assessment and Plan (1) Pain around percutaneous endoscopic gastrostomy (PEG) tube site: Status: Acute Orders: Orders Abdomen/Pelvis WITH Contrast Today I73.89 - Other specified peripheral vascular diseases Medications: New amoxicillin-pot clavulanate 875-125 mg 1 TAB PO BID 28 tabs 0RF 14 days I73.89 - Other specified peripheral vascular diseases Plan 79-year-old female presents for initial consultation for removal of PEG tube. She is non-Yakut speaking, son and assist with translation. She is non-ambulatory, present in a , and is unable to transfer or ambulate to exam table. PEG was inserted August 2024 at [facility]. She c/o pain with any manipulation of PEG and flushing x2 weeks. Erythema surrounding PEG site with ulceration at 9 o'clock with acevedo/yellow drainage. Denies any fevers. I have reviewed with Dr. Hilario who has recommended a STAT CT to r/o abscess and Augmentin 875-125mg BID x14 days. She will need to hold Eliquis 2d prior to PEG removal. Patient Instructions: STAT CT ATB as prescribed EGD to remove PEG (Eliquis)]
--- NOTE | 2025-07-25 12:47 | OP.EGD_ITS ---
Patient Name: James Torres
--- NOTE | 2025-07-25 12:47 | POSTOP.ANE_ITS ---
Anesthesia: Postop Eval I
--- NOTE | 2025-07-25 12:47 | PCM.POST.ANE ---
Anesthesia: Postop Eval I Current Vital Signs Temperature: 97.1 F Pulse Rate: 74 Blood Pressure: 90/37 Respiratory Rate: 16 Pulse Ox: 97 Oxygen Delivery Method: Room Air Assessment Airway patent: Yes Spontaneous unlabored respirations: Yes Mental status: Asleep nausea: No Vomiting: No Anesthesia Complication: No Fluid Hydration Crystalloid volume administer (ml): 900 Total IV fluid infused: 900 Progress Note Anesthesia document: Postop Eval 1 completed: Yes
--- NOTE | 2025-07-25 16:04 | POSTOPAN2_ITS ---
Anesthesia Postop Eval I Sum
--- NOTE | 2025-07-25 16:04 | PCM.POSTANE2 ---
Anesthesia Postop Eval I Sum Postop Eval Completion status Anesthesia document: Postop Eval 1 completed: Yes Anesthesia Postop Eval I Summary Anesthesia Postop Eval I Summary: Anesthesia Postop Eval I: Assessment Summary Airway patent Yes 07/25/25 12:48 [email or web address] Spontaneous unlabored Yes 07/25/25 12:48 [email or web address] respirations Mental status Asleep 07/25/25 12:48 [email or web address] nausea No 07/25/25 12:48 [email or web address] Vomiting No 07/25/25 12:48 [email or web address] Anesthesia Postop Eval I: Fluid Summary Crystalloid volume administer 900 07/25/25 12:48 [email or web address] (ml) Colloids volume administered ( ml) Blood Product volume administered (ml) Total IV fluid infused 900 07/25/25 12:48 [email or web address] Anesthesia Postop Eval I: Summary Notes Anesthesia Complication No 07/25/25 12:48 [email or web address] Anesthesia Complication Comment: Post-operative progress note Anesthesia: Postop Eval II Evaluation Mental status: Awake and Calm Pain Level: 0 nausea: No Vomiting: No Complications Anesthesia Complication: No
== END 2025-07-25 13:43 | disposition home or self-care (01) ==
LOC: EN 10:09 → AC 10:26
PROVIDERS: PCP Student in an Organized Health Care Education/Training Program; Referring Provider Student in an Organized Health Care Education/Training Program; Visit Provider Internal Medicine Gastroenterology
PROC: 0DJ08ZZ Inspection of Upper Intestinal Tract, Via Natural or Artificial Opening Endoscopic (ICD-10-PCS; CPT 43235; principal; 2025-07-25 11:25)
DX: T85.848A Pain due to other internal prosthetic devices, implants and grafts, initial encounter (principal); I11.0 Hypertensive heart disease with heart failure; I50.32 Chronic diastolic (congestive) heart failure; E11.51 Type 2 diabetes mellitus with diabetic peripheral angiopathy without gangrene; Z79.4 Long term (current) use of insulin; I25.10 Atherosclerotic heart disease of native coronary artery without angina pectoris; E78.5 Hyperlipidemia, unspecified; I25.2 Old myocardial infarction; Z79.01 Long term (current) use of anticoagulants; Z79.84 Long term (current) use of oral hypoglycemic drugs; Z79.899 Other long term (current) drug therapy; Z95.1 Presence of aortocoronary bypass graft
CPT/HCPCS: 43247; 82962; J2405